=== PATIENT | female | born 1935 | race Caucasian/White ===

== ENCOUNTER 2018-08-09 12:14 | Outpatient (REF) | payer OTHER, SELFPAY | END 2018-08-09 12:34 | LOC: LBN 12:14 | PROVIDERS: PCP Nurse Practitioner Family; Visit Provider Nurse Practitioner Family | DX: R35.0 Frequency of micturition (principal); R30.0 Dysuria | CPT/HCPCS: 87086 ==

== ENCOUNTER 2018-08-15 16:43 | Outpatient (CLI) | payer OTHER, SELFPAY ==
[2018-08-15 17:19] LABS: Abs Immature Grans 0.02 k/cumm (0.0-0.09); Absolute Basophil Count 0.04 k/cumm (0.0-0.2); Absolute Eosinophil Count 0.35 k/cumm (0.0-0.7); Absolute Monocyte Count 1.38 k/cumm (0.11-0.7); Basophils % 0.3; Eosinophils % 2.8; HCT 33.6 % (36.0-46.0); HGB 10.9 g/dL (12.0-15.5); Immature Grans % 0.2; Lymphocytes % 37.7; Mean Corp. HGB Concentration 32.4 g/dL (32.0-36.0); Mean Corpuscular Hemoglobin 33.6 pg (27.0-33.0); Mean Corpuscular Volume 103.7 fL (80-95); Monocytes % 11.1; Neutrophils % 47.9; Platelet Count 217 x1000/uL (130-400); RBC 3.24 m/cumm (4.00-5.20); RBC Distribution Width 12.2 % (11.7-14.6)
[2018-08-15 17:23] LABS: Absolute Lymphocyte Count 4.67 k/cumm (1.2-3.4); Absolute Neutrophil Count 5.94 k/cumm (1.2-6.7)
[2018-08-15 18:25] LABS: Vitamin B12 273 pg/mL (193-986)
== END 2018-08-15 17:03 ==
PROVIDERS: PCP Nurse Practitioner Family; Visit Provider Nurse Practitioner Family
DX: D53.9 Nutritional anemia, unspecified (principal)
CPT/HCPCS: 36415; 82607; 85025

== ENCOUNTER 2018-08-26 11:03 | Outpatient (CLI) | payer OTHER, SELFPAY ==
[2018-08-26 12:43] LABS: ALT 24 U/L (12-78); AST 19 U/L (15-37); Albumin 3.5 g/dL (3.4-5.0); Alkaline Phosphatase 74 U/L (46-116); Bilirubin, Direct 0.07 mg/dL (0.00-0.20); Bilirubin, Total 0.2 mg/dL (0.2-1.0); TSH (W/Ref FT4) 3.73 uIU/mL (0.358-3.74); Total Protein 6.7 g/dL (6.4-8.2)
[2018-08-28 11:36] LABS: Homocysteine 13.9 umol/L (4.5-12.4)
[2018-08-30 09:43] LABS: Methylmalonic Acid 0.26 nmol/mL (<=0.40)
== END 2018-08-26 11:23 ==
PROVIDERS: PCP Nurse Practitioner Family; Visit Provider Nurse Practitioner Family
DX: D53.9 Nutritional anemia, unspecified (principal)
CPT/HCPCS: 36415; 80076; 80186; 83090; 84443

== ENCOUNTER 2018-11-18 10:10 | Outpatient (CLI) | payer OTHER, SELFPAY ==
[2018-11-18 11:02] LABS: Abs Immature Grans 0.02 k/cumm (0.0-0.09); Absolute Basophil Count 0.03 k/cumm (0.0-0.2); Absolute Eosinophil Count 0.31 k/cumm (0.0-0.7); Absolute Lymphocyte Count 2.68 k/cumm (1.2-3.4); Absolute Monocyte Count 0.75 k/cumm (0.11-0.7); Absolute Neutrophil Count 4.25 k/cumm (1.2-6.7); Basophils % 0.4; Eosinophils % 3.9; HCT 34.9 % (36.0-46.0); HGB 11.4 g/dL (12.0-15.5); Immature Grans % 0.2; Lymphocytes % 33.3; Mean Corp. HGB Concentration 32.7 g/dL (32.0-36.0); Mean Corpuscular Hemoglobin 33.2 pg (27.0-33.0); Mean Corpuscular Volume 101.7 fL (80-95); Mean Platelet Volume 11.1 fL (8.0-11.0); Monocytes % 9.3; Neutrophils % 52.9; Platelet Count 182 x1000/uL (130-400); RBC 3.43 m/cumm (4.00-5.20); RBC Distribution Width 11.8 % (11.7-14.6); White Blood Cell Count 8.04 k/cumm (4.4-10.8)
[2018-11-18 11:46] LABS: Iron 67 ug/dL (50-175); Total Iron Binding Capacity 310 ug/dL (250-450); Transferrin Sat 22 % (15-50)
[2018-11-18 12:12] LABS: ALT 17 U/L (12-78); AST 15 U/L (15-37); Albumin 3.5 g/dL (3.4-5.0); Alkaline Phosphatase 76 U/L (46-116); Anion Gap 6.3 mmol/L (3-11); BUN 23 mg/dL (7-18); Bilirubin, Total 0.3 mg/dL (0.2-1.0); CO2 26.7 mmol/L (21.0-32.0); CREATININE 1.37 mg/dL (0.55-1.02); Calcium 8.8 mg/dL (8.5-10.1); Chloride 105 mmol/L (98-107); Glucose 162 mg/dL (70-100); Magnesium 1.6 mg/dL (1.8-2.4); Potassium 4.6 mmol/L (3.5-5.1); Sodium 138 mmol/L (136-145); Total Protein 6.8 g/dL (6.4-8.2); Vitamin B12 245 pg/mL (193-986)
[2018-11-18 12:20] LABS: Folate > 20.0 ng/mL (8.6-20.0)
[2018-11-19 12:59] LABS: Albumin 57.4 % (55.8-66.1); Total Protein 6.4 g/dl (6.3-8.2)
== END 2018-11-18 10:30 ==
PROVIDERS: PCP Nurse Practitioner Family; Visit Provider Nurse Practitioner Family
DX: D53.9 Nutritional anemia, unspecified (principal); N18.9 Chronic kidney disease, unspecified; D64.9 Anemia, unspecified; E83.42 Hypomagnesemia; E11.40 Type 2 diabetes mellitus with diabetic neuropathy, unspecified; I10 Essential (primary) hypertension
CPT/HCPCS: 36415; 80053; 82668; 82607; 82746; 83540; 83550; 83735; 84165; 85025

== ENCOUNTER 2019-04-29 09:26 | Outpatient (CLI) | payer OTHER, SELFPAY ==
[2019-04-29 10:25] LABS: Abs Immature Grans 0.01 k/cumm (0.0-0.09); Absolute Basophil Count 0.03 k/cumm (0.0-0.2); Absolute Eosinophil Count 0.54 k/cumm (0.0-0.7); Absolute Monocyte Count 0.88 k/cumm (0.11-0.7); Absolute Neutrophil Count 2.23 k/cumm (1.2-6.7); Basophils % 0.4; Eosinophils % 7.3; HCT 34.2 % (36.0-46.0); HGB 10.9 g/dL (12.0-15.5); Immature Grans % 0.1; Lymphocytes % 50.1; Mean Corp. HGB Concentration 31.9 g/dL (32.0-36.0); Mean Corpuscular Hemoglobin 32.8 pg (27.0-33.0); Mean Platelet Volume 11.2 fL (8.0-11.0); Monocytes % 11.9; Neutrophils % 30.2; Platelet Count 207 x1000/uL (130-400); RBC 3.32 m/cumm (4.00-5.20); White Blood Cell Count 7.39 k/cumm (4.4-10.8)
[2019-04-29 11:52] LABS: Magnesium 1.7 mg/dL (1.8-2.4); Vitamin B12 738 pg/mL (193-986)
== END 2019-04-29 09:46 ==
PROVIDERS: PCP Nurse Practitioner Family; Visit Provider Nurse Practitioner Family
DX: E83.42 Hypomagnesemia (principal); D53.9 Nutritional anemia, unspecified
CPT/HCPCS: 36415; 82607; 83735; 85025

== ENCOUNTER 2019-05-23 15:50 | Outpatient (REF) | payer OTHER, SELFPAY ==
[2019-05-23 18:44] LABS: COMMENT (LAB VIEW ONLY) 187.96 mg/dL; Microalb ug/mg Crea 7.4 ug/mg Cr
== END 2019-05-23 16:10 ==
LOC: LBN 15:50
PROVIDERS: Visit Provider Nurse Practitioner Family
DX: E11.40 Type 2 diabetes mellitus with diabetic neuropathy, unspecified (principal)
CPT/HCPCS: 82043; 82570

== ENCOUNTER 2019-07-26 12:37 | Emergency (ER) | payer OTHER, SELFPAY ==
[2019-07-26 12:43] VITALS: BP 148/71; PULSE 91; RESP 18; TEMP 36.7; O2SAT 96
--- NOTE | 2019-07-26 14:03 | ED.GENADUL_ITS ---
Discharge Plan Disposition Patient Disposition: HOME Discharge Details Chief Complaint: Urinary Clinical Impression: Acute UTI Primary Care Provider: Francy Moran ED Provider: Mehran Collins Home Meds and New Rx's Prescriptions: New cephalexin [Keflex] 500 mg capsule 500 mg PO BID Qty: 13 RF: 0 Continued cyanocobalamin (vitamin B-12) 1,000 mcg tablet 1,000 mcg PO DAILY Qty: 30 RF: 11 magnesium oxide 400 mg capsule 400 mg PO DAILY Qty: 30 RF: 11 albuterol sulfate [ProAir HFA] 90 mcg/actuation HFA aerosol inhaler 1 - 2 puff Inhalation .Q4-6H PRN (Reason: shortness of breath or wheezing) Qty: 1 RF: 3 ranitidine HCl 150 mg tablet 150 mg PO BID Qty: 60 RF: 11 Blister johnnie-[facility] RF: 0 (DME) blood-glucose meter 1 EACH misc 1 ea Miscellaneous DAILY Qty: 1 RF: 0 calcium phosphate-vitamin D3 1 EACH tablet,chewable 1 ea PO DAILY RF: 0 multivitamin [Daily Multi-Vitamin] 1 EACH tablet 1 ea PO DAILY RF: 0 simvastatin 20 mg tablet 20 mg PO HS Qty: 90 RF: 3 glimepiride 4 mg tablet 4 mg PO DAILY Qty: 30 RF: 11 (DME) Blood Glucose Test strip See Dose Instructions .ROUTE .MEDSUPPLY Qty: 200 RF: 3 (DME) lancets misc See Dose Instructions .ROUTE .MEDSUPPLY Qty: 200 RF: 3 Symbicort 160-4.5 mcg/actuation HFA aerosol inhaler 2 puff Inhalation BID Qty: 3 RF: 3 lisinopril 10 mg tablet 10 mg PO DAILY Qty: 30 RF: 11 Januvia 100 mg tablet 100 mg PO DAILY Qty: 30 RF: 11 ferrous sulfate 325 mg (65 mg iron) tablet 325 mg PO Q48H RF: 0 metformin 500 mg tablet 1,000 mg PO BID Qty: 120 RF: 11 fluoxetine 20 mg capsule 20 mg PO DAILY Qty: 90 RF: 3 Discharge Instructions Instructions: Urinary Tract Infection in Women (ED) Additional Instructions: Please drink plenty of fluid to stay hydrated. You may wish to drink 100% pure cranberry juice which can help with treating urinary tract infections. Please take the full course of antibiotic as prescribed. Please contact your primary care physician to arrange follow-up. Return to the ER for any worsening or new concerning symptoms. Referrals: Francy Moran NP [Primary Care Provider] - Discharge Data Discharge Date/Time-TO BE ENTERED AT DEPARTURE: 07/26/19 14:38 Medical Decision Making 14:05 --83-year-old female here with dysuria, hematuria and sense of urgency since this morning. Symptoms are same as when she is had a urinary tract infection in the remote past. Plan to check urinalysis -patient is being hydrated and awaiting urine specimen. --Urinalysis reviewed and significant RBCs, unable to visualize white blood cells. Will send urine culture. Plan to treat with Keflex and have her follow- up with her primary care physician and urology should symptoms persist. Plan was dsicussed with patient who verbalized understanding and was in agreement. HPI General Mode of arrival: ambulatory . Date/Time Provider Initiated Documentation: 07/26/19 13:01 . Limitations to Documentation: no limitations . Information obtained by: patient . HPI Narrative: 83-year-old female here with chief complaint of urinary discomfort. Patient notes burning with urination that started earlier today. Pain only occurs with urination. Pain moderate. She has associated hematuria and sense of urgency also since this morning. No associate abdominal pain, fevers, flank pain. Symptoms are exactly the same as when she is had a urinary tract infection that was successfully treated with antibiotics in the past. No recent UTI. Related Data Home Medications Medication Instructions Recorded Confirmed Blister [facility] 01/11/17 02/21/19 blood-glucose meter #1 unit 01/14/18 02/21/19 calcium phosphate-vitamin D3 1 ea PO DAILY tab.chew 04/17/18 07/26/19 multivitamin [Daily Multi-Vitamin] 1 ea PO DAILY 04/17/18 07/26/19 cyanocobalamin (vitamin B-12) 1,000 mcg PO DAILY #30 tab-cap 11/22/18 07/26/19 1,000 mcg tablet magnesium oxide 400 mg PO DAILY #30 tab-cap 11/22/18 07/26/19 simvastatin 20 mg tablet 20 mg PO HS #90 tab-cap 12/09/18 07/26/19 blood sugar diagnostic #200 each 03/03/19 budesonide-formoterol HFA 160 2 puff INHALATION BID #3 inhaler 03/03/19 07/26/19 mcg-4.5 mcg/actuation aerosol inhaler glimepiride 4 mg tablet 4 mg PO DAILY #30 tab-cap 03/03/19 07/26/19 lancets #200 each 03/03/19 albuterol sulfate 90 mcg/actuation 1 - 2 puff INHALATION .Q4-6H PRN 05/23/19 07/26/19 aerosol inhaler #1 unit ranitidine HCl 150 mg tablet 150 mg PO BID #60 tab-cap 05/23/19 07/26/19 lisinopril 10 mg tablet 10 mg PO DAILY #30 tab-cap 05/30/19 07/26/19 sitagliptin 100 mg tablet 100 mg PO DAILY #30 tab-cap 05/30/19 07/26/19 ferrous sulfate 325 mg (65 mg 325 mg PO Q48H tab 06/18/19 07/26/19 iron) tablet metformin 500 mg tablet 1,000 mg PO BID #120 tab-cap 07/04/19 07/26/19 fluoxetine 20 mg capsule 20 mg PO DAILY #90 cap 07/07/19 07/26/19 cephalexin [Keflex] 500 mg PO BID #13 cap 07/26/19 Previous Rx's Medication Instructions Recorded blood-glucose meter #1 unit 01/14/18 cyanocobalamin (vitamin B-12) 1,000 mcg PO DAILY #30 tab-cap 11/22/18 1,000 mcg tablet magnesium oxide 400 mg PO DAILY #30 tab-cap 11/22/18 simvastatin 20 mg tablet 20 mg PO HS #90 tab-cap 12/09/18 blood sugar diagnostic #200 each 03/03/19 budesonide-formoterol HFA 160 2 puff INHALATION BID #3 inhaler 03/03/19 mcg-4.5 mcg/actuation aerosol inhaler glimepiride 4 mg tablet 4 mg PO DAILY #30 tab-cap 03/03/19 lancets #200 each 03/03/19 albuterol sulfate 90 mcg/actuation 1 - 2 puff INHALATION .Q4-6H PRN 05/23/19 aerosol inhaler #1 unit ranitidine HCl 150 mg tablet 150 mg PO BID #60 tab-cap 05/23/19 lisinopril 10 mg tablet 10 mg PO DAILY #30 tab-cap 05/30/19 sitagliptin 100 mg tablet 100 mg PO DAILY #30 tab-cap 05/30/19 metformin 500 mg tablet 1,000 mg PO BID #120 tab-cap 07/04/19 fluoxetine 20 mg capsule 20 mg PO DAILY #90 cap 07/07/19 cephalexin [Keflex] 500 mg PO BID #13 cap 07/26/19 Allergies Allergy/AdvReac Type Severity Reaction Status Date / Time azithromycin AdvReac Unknown nausea Verified 07/26/19 12:49 erythromycin base AdvReac Unknown Nausea Verified 07/26/19 12:49 shellfish derived AdvReac Unknown N/V/D Verified 07/26/19 12:49 Tetracyclines AdvReac Unknown Nausea Verified 07/26/19 12:49 General Stated Complaint: Urinary SAM: 4 Review of Systems Constitutional Constitutional: Denies fever(s) Gastrointestinal Gastrointestinal: Denies abdominal pain Genitourinary Genitourinary: Reports as per [facility] Medical History Anxiety (Chronic 11/21/11) Cerebral meningioma Cerebral meningioma (Resolved 01/31/13) 2004 Craniotomy, resection of frontal mennigioma [facility] [place] Chronic diarrhea (Inactive 01/24/18) CKD (chronic kidney disease) (Chronic) Closed nondisplaced comminuted fracture of shaft of left humerus (Resolved 05/26/16) Diabetic neuropathy, type II diabetes mellitus (Chronic 08/12/14) Gastroesophageal reflux disease (Chronic 11/21/11) GERD (gastroesophageal reflux disease) Heart murmur (Chronic 08/24/17) 09/12/2017 echo: no significant valvular disease HLD (hyperlipidemia) HTN (hypertension) Hyperlipidemia (Chronic 11/21/11) GOAL LDL 100 Hypomagnesemia (Chronic 03/14/18) Macrocytic anemia (Chronic) Borderline low B12 level, normal Epo (suggesting due to CKD as well) Neoplasm of skin (Resolved 08/26/14) Osteoporosis Osteoporosis (Chronic 07/12/16) DEXA 07/11/16 Hip T-3.2, Spine T-1.5, forearm T-3.5 Other diseases of lung, not elsewhere classified (Chronic 11/21/11) rt 4mm ct stable 08/17; restrictive lung disease, neuromuscular weakness etiol? Dr Patel follows PFTs 08/2013 restrictive 47% NM weakness + response BD Other disorders of Eustachian tube (Chronic 09/07/14) Pneumonia Restrictive lung disease Type 2 diabetes mellitus with diabetic neuropathy, without long-term current use of insulin (Chronic) Unspecified essential hypertension (Chronic 01/31/13) Surgical History irrigation and debridement (Resolved 10/05/15) R wrist Dr Lafleur Splenomegaly Family History Mother Personal history of malignant neoplasm breast and ovarian CA Father Myocardial infarction Social History Smoking/Tobacco Use Status: Never Alcohol Intake: never Drug use: Never Substance use type: does not use Caregiver/Support person: No Housing: apartment Number of Children: 3 number of grandchildren: 5 Pets and animals: No Sexually active: No Current gender identity: female What type of physical activity do you participate in: walking Frequency: daily Do you feel safe at home: Yes Exam Const General: cooperative and no acute distress HENMT Mouth: moist mucous membranes Cardio Jugular venous pressure: no JVD Rate: regular rate and not tachycardic Rhythm: regular rhythm GI Palpation: soft, not firm, no guarding, no masses, not rigid and nontender Back/Spine/Pelvis Back: no CVA tenderness Neuro General: alert, awake and tone normal Course Vital Signs Vital signs: Vital Signs Temperature 36.7 C 07/26/19 12:43 Pulse 91 H 07/26/19 12:43 Respiratory Rate 18 07/26/19 12:43 Blood Pressure 148/71 H 07/26/19 12:43 Pulse Oximetry 96 07/26/19 12:43 Temperature 36.7 C 07/26/19 12:43 Temperature Source Skin 07/26/19 12:43 Pulse 91 H 07/26/19 12:43 Respiratory Rate 18 07/26/19 12:43 Respiratory Effort Non-Labored 07/26/19 12:47 Blood Pressure 148/71 H 07/26/19 12:43 Pulse Oximetry 96 07/26/19 12:43 Oxygen Delivery Method Nasal Cannula 07/26/19 12:43 Pain Level 0 07/26/19 12:43
[2019-07-26 14:07] LABS: Bilirubin Negative (Negative); Blood Large (Negative); Clarity Cloudy (Clear); Glucose 500 mg/dL (Negative); Ketones Negative (Negative); Leukocyte Esterase Small (Negative); Nitrite Negative (Negative); Specific Gravity >= 1.030 (1.005-1.025); Urobilinogen 0.2 EU/dL (Up TO 0.2); pH 5.5 (5-8)
[2019-07-26 14:18] LABS: C & S Indicated? Yes
[2019-07-26] MEDS: Cephalexin 500 MG CAP PO (14:35)
== END 2019-07-26 14:38 | disposition home or self-care (01) ==
PROVIDERS: Emergency Provider Student in an Organized Health Care Education/Training Program; PCP Nurse Practitioner Family
DX: N39.0 Urinary tract infection, site not specified (principal); R31.9 Hematuria, unspecified; I12.9 Hypertensive chronic kidney disease with stage 1 through stage 4 chronic kidney disease, or unspecified chronic kidney disease; N18.9 Chronic kidney disease, unspecified; E11.22 Type 2 diabetes mellitus with diabetic chronic kidney disease; Z79.84 Long term (current) use of oral hypoglycemic drugs
CPT/HCPCS: 36416; 82962; 99283; 81003; 81015; 87086

== ENCOUNTER 2019-09-17 09:22 | Outpatient (CLI) | payer OTHER, SELFPAY ==
[2019-09-17 09:42] LABS: Abs Immature Grans 0.01 k/cumm (0.0-0.09); Absolute Basophil Count 0.04 k/cumm (0.0-0.2); Absolute Eosinophil Count 0.59 k/cumm (0.0-0.7); Absolute Lymphocyte Count 3.65 k/cumm (1.2-3.4); Absolute Monocyte Count 0.81 k/cumm (0.11-0.7); Absolute Neutrophil Count 4.76 k/cumm (1.2-6.7); Basophils % 0.4; Immature Grans % 0.1; Mean Corp. HGB Concentration 31.4 g/dL (32.0-36.0); Mean Corpuscular Hemoglobin 32.8 pg (27.0-33.0); Mean Corpuscular Volume 104.5 fL (80-95); Mean Platelet Volume 10.5 fL (8.0-11.0); Monocytes % 8.2; Neutrophils % 48.3; Platelet Count 221 x1000/uL (130-400); RBC 3.35 m/cumm (4.00-5.20); RBC Distribution Width 12.6 % (11.7-14.6); White Blood Cell Count 9.86 k/cumm (4.4-10.8)
[2019-09-17 10:10] LABS: Ferritin 29 ng/mL (8-388)
== END 2019-09-17 09:42 ==
PROVIDERS: PCP Nurse Practitioner Family; Visit Provider Internal Medicine Hematology & Oncology
DX: D64.9 Anemia, unspecified (principal)
CPT/HCPCS: 36415; 82728; 85025

== ENCOUNTER 2019-12-06 10:25 | Emergency (ER) | payer OTHER, SELFPAY ==
[2019-12-06 10:36] VITALS: BP 152/67; PULSE 72; RESP 16; TEMP 36; O2SAT 99
[2019-12-06 10:38] LABS: Bilirubin Negative (Negative); Blood Moderate (Negative); Clarity Clear (Clear); Glucose 250 mg/dL (Negative); Ketones Negative (Negative); Leukocyte Esterase Trace (Negative); Nitrite Negative (Negative); Specific Gravity >= 1.030 (1.005-1.025); Urobilinogen 0.2 EU/dL (Up TO 0.2); pH 5.5 (5-8)
[2019-12-06 10:49] LABS: Bacteria Moderate HPF (Negative); C & S Indicated? Yes; Casts 0-2 Hyaline LPF (Negative); Crystals Negative HPF (Negative); Epithelial Cells Few HPF (Negative); Mucus Moderate (Negative)
--- NOTE | 2019-12-06 10:53 | ED.GENADUL_ITS ---
Discharge Plan Disposition Patient Disposition: HOME Condition: Good Discharge Details Chief Complaint: Urinary Clinical Impression: Urinary tract infection Primary Care Provider: Francy Moran ED Provider: Carla Weldon Home Meds and New Rx's Prescriptions: New cephalexin [Keflex] 500 mg capsule 500 mg PO TID Qty: 21 RF: 0 phenazopyridine [Pyridium] 200 mg tablet 200 mg PO TID PRN (Reason: pain) Qty: 6 RF: 0 No Action albuterol sulfate [ProAir HFA] 90 mcg/actuation HFA aerosol inhaler 1 - 2 puff Inhalation .Q4-6H PRN (Reason: shortness of breath or wheezing) Qty: 1 RF: 3 ranitidine HCl 150 mg tablet 150 mg PO BID Qty: 60 RF: 11 Blister johnnie-[facility] RF: 0 (DME) blood-glucose meter 1 EACH misc 1 ea Miscellaneous DAILY Qty: 1 RF: 0 calcium phosphate-vitamin D3 1 EACH tablet,chewable 1 ea PO DAILY RF: 0 multivitamin [Daily Multi-Vitamin] 1 EACH tablet 1 ea PO DAILY RF: 0 glimepiride 4 mg tablet 4 mg PO DAILY Qty: 30 RF: 11 (DME) Blood Glucose Test strip See Dose Instructions .ROUTE .MEDSUPPLY Qty: 200 RF: 3 (DME) lancets misc See Dose Instructions .ROUTE .MEDSUPPLY Qty: 200 RF: 3 Symbicort 160-4.5 mcg/actuation HFA aerosol inhaler 2 puff Inhalation BID Qty: 3 RF: 3 lisinopril 10 mg tablet 10 mg PO DAILY Qty: 30 RF: 11 Januvia 100 mg tablet 100 mg PO DAILY Qty: 30 RF: 11 ferrous sulfate 325 mg (65 mg iron) tablet 325 mg PO Q48H RF: 0 metformin 500 mg tablet 1,000 mg PO BID Qty: 120 RF: 11 fluoxetine 20 mg capsule 20 mg PO DAILY Qty: 90 RF: 3 cyanocobalamin (vitamin B-12) 1,000 mcg tablet 1,000 mcg PO DAILY Qty: 30 RF: 11 magnesium oxide 400 mg magnesium capsule 400 mg PO DAILY Qty: 30 RF: 11 simvastatin 20 mg tablet 20 mg PO HS Qty: 30 RF: 11 Discharge Instructions Instructions: Urinary Tract Infection in Women (ED) Additional Instructions: Drink plenty of fluids. Use antibiotic as prescribed. Closely monitor your blood sugars. Use Pyridium for discomfort, this will stain your urine a reddish-orange this is used for the first 2 days to help alleviate your pain. Recheck with primary care doctor in 1 week. Urine culture pending. We will call if we require a change in your antibiotics. Return for any worsening, concerns, alarming symptoms or increase in ill feeling sooner if needed. Medical Decision Making This is an 84-year-old patient presenting for dysuria for the last 2 days. Yet reports urinary urgency and frequency. Patient denies associated hematuria or incontinence. Denies abdominal or back pain. Has a benign abdominal exam at this time. Urinalysis does reveal positive leukocyte esterase as well as 10-20 white blood cells per high-powered field. Patient reports her clinical presentation is very typical of UTI in the past. Patient denies any systemic symptoms. Is not ill-appearing and appears nontoxic. We will treat appropriately with antibiotic. Urine culture is indicated based on urinalysis. Patient offered Keflex as well as Pyridium for management of UTI encourage pushing fluids. Patient agrees with plan of care. Close blood sugar monitoring discussed. Encouraged recheck in 1 week with PCP. The patient was stable and requested discharge. Prior to discharge, my usual and customary return precautions were reviewed with the patient - this included follow-up instructions and reasons to return to the Emergency Department if conditions worsens, does not improve as expected, or other new concerns arise. HPI General Date/Time Provider Initiated Documentation: 12/06/19 10:27 . HPI Narrative: Is an 84-year-old patient presenting for complaints of dysuria for the last 2 days associated with urinary urgency and frequency. Denies incontinence or hematuria. Denies abdominal or back pain. Denies malaise, ill feeling, fevers, chills. Patient is eating and drinking without difficulty. Patient does have a history of UTI in the past and this feels similar in presentation. Last UTI approximately 6 months ago relieved with antibiotics prescribed. Patient denies any other concerns or complaints at this time. Related Data Home Medications Medication Instructions Recorded Confirmed Blister [facility] 01/11/17 02/21/19 blood-glucose meter #1 unit 01/14/18 02/21/19 calcium phosphate-vitamin D3 1 ea PO DAILY tab.chew 04/17/18 12/06/19 multivitamin [Daily Multi-Vitamin] 1 ea PO DAILY 04/17/18 12/06/19 blood sugar diagnostic #200 each 03/03/19 budesonide-formoterol HFA 160 2 puff INHALATION BID #3 inhaler 03/03/19 12/06/19 mcg-4.5 mcg/actuation aerosol inhaler glimepiride 4 mg tablet 4 mg PO DAILY #30 tab-cap 03/03/19 12/06/19 lancets #200 each 03/03/19 albuterol sulfate 90 mcg/actuation 1 - 2 puff INHALATION .Q4-6H PRN 05/23/19 12/06/19 aerosol inhaler #1 unit ranitidine HCl 150 mg tablet 150 mg PO BID #60 tab-cap 05/23/19 12/06/19 lisinopril 10 mg tablet 10 mg PO DAILY #30 tab-cap 05/30/19 12/06/19 sitagliptin 100 mg tablet 100 mg PO DAILY #30 tab-cap 05/30/19 12/06/19 ferrous sulfate 325 mg (65 mg 325 mg PO Q48H tab 06/18/19 12/06/19 iron) tablet metformin 500 mg tablet 1,000 mg PO BID #120 tab-cap 07/04/19 12/06/19 fluoxetine 20 mg capsule 20 mg PO DAILY #90 cap 07/07/19 12/06/19 cyanocobalamin (vitamin B-12) 1,000 mcg PO DAILY #30 tab-cap 11/26/19 1,000 mcg tablet magnesium oxide 400 mg PO DAILY #30 tab-cap 11/26/19 12/06/19 simvastatin 20 mg tablet 20 mg PO HS #30 tab-cap 11/26/19 12/06/19 cephalexin [Keflex] 500 mg PO TID #21 cap 12/06/19 phenazopyridine [Pyridium] 200 mg PO TID PRN #6 tab 12/06/19 Previous Rx's Medication Instructions Recorded blood-glucose meter #1 unit 01/14/18 blood sugar diagnostic #200 each 03/03/19 budesonide-formoterol HFA 160 2 puff INHALATION BID #3 inhaler 03/03/19 mcg-4.5 mcg/actuation aerosol inhaler glimepiride 4 mg tablet 4 mg PO DAILY #30 tab-cap 03/03/19 lancets #200 each 03/03/19 albuterol sulfate 90 mcg/actuation 1 - 2 puff INHALATION .Q4-6H PRN 05/23/19 aerosol inhaler #1 unit ranitidine HCl 150 mg tablet 150 mg PO BID #60 tab-cap 05/23/19 lisinopril 10 mg tablet 10 mg PO DAILY #30 tab-cap 05/30/19 sitagliptin 100 mg tablet 100 mg PO DAILY #30 tab-cap 05/30/19 metformin 500 mg tablet 1,000 mg PO BID #120 tab-cap 07/04/19 fluoxetine 20 mg capsule 20 mg PO DAILY #90 cap 07/07/19 cyanocobalamin (vitamin B-12) 1,000 mcg PO DAILY #30 tab-cap 11/26/19 1,000 mcg tablet magnesium oxide 400 mg PO DAILY #30 tab-cap 11/26/19 simvastatin 20 mg tablet 20 mg PO HS #30 tab-cap 11/26/19 cephalexin [Keflex] 500 mg PO TID #21 cap 12/06/19 phenazopyridine [Pyridium] 200 mg PO TID PRN #6 tab 12/06/19 Allergies Allergy/AdvReac Type Severity Reaction Status Date / Time azithromycin AdvReac Unknown nausea Verified 12/06/19 10:39 erythromycin base AdvReac Unknown Nausea Verified 12/06/19 10:39 shellfish derived AdvReac Unknown N/V/D Verified 12/06/19 10:39 Tetracyclines AdvReac Unknown Nausea Verified 12/06/19 10:39 General Stated Complaint: Urinary SAM: 4 Review of Systems All systems reviewed & are unremarkable except as noted in HPI and below Constitutional Constitutional: Denies chills, Denies fatigue, Denies fever(s), Denies headache(s) and Denies malaise ENT Ears, Nose, Mouth, and Throat: Denies headache(s) Gastrointestinal Gastrointestinal: Denies abdominal pain, Denies diarrhea, Denies nausea and Denies vomiting Genitourinary Genitourinary: Reports urinary frequency, Reports dysuria and Reports urinary urgency Musculoskeletal Musculoskeletal: Denies back pain Neurologic Neurologic: Denies headache(s) Endocrine Endocrine: Denies fatigue [facility] Medical History Anxiety (Chronic 11/21/11) Cerebral meningioma (Resolved 01/31/13) 2004 Craniotomy, resection of frontal mennigioma [facility] [place] Chronic diarrhea (Inactive 01/24/18) CKD (chronic kidney disease) (Chronic) Closed nondisplaced comminuted fracture of shaft of left humerus (Resolved 05/26/16) Diabetic neuropathy, type II diabetes mellitus (Chronic 08/12/14) Gastroesophageal reflux disease (Chronic 11/21/11) Heart murmur (Chronic 08/24/17) 09/12/2017 echo: no significant valvular disease HLD (hyperlipidemia) Hyperlipidemia (Chronic 11/21/11) GOAL LDL 100 Hypomagnesemia (Chronic 03/14/18) Macrocytic anemia (Chronic) Borderline low B12 level, normal Epo (suggesting due to CKD as well); 06/16/2019 [facility] [place]ematology consult: multifactorial & recommended Q48H iron supplement Neoplasm of skin (Resolved 08/26/14) Osteoporosis (Chronic 07/12/16) DEXA 07/11/16 Hip T-3.2, Spine T-1.5, forearm T-3.5 Other diseases of lung, not elsewhere classified (Chronic 11/21/11) rt 4mm ct stable 08/17; restrictive lung disease, neuromuscular weakness etiol? Dr Patel follows PFTs 08/2013 restrictive 47% NM weakness + response BD Other disorders of Eustachian tube (Chronic 09/07/14) Pneumonia Restrictive lung disease Type 2 diabetes mellitus with diabetic neuropathy, without long-term current use of insulin (Chronic) Unspecified essential hypertension (Chronic 01/31/13) Surgical History irrigation and debridement (Resolved 10/05/15) R wrist Dr Lafleur Splenomegaly Social History Smoking/Tobacco Use Status: Never Alcohol Intake: never Drug use: Never Substance use type: does not use Caregiver/Support person: No Housing: apartment Number of Children: 3 number of grandchildren: 5 Pets and animals: No Sexually active: No Current gender identity: female What type of physical activity do you participate in: walking Frequency: daily Do you feel safe at home: Yes Exam Narrative Exam Narrative: CONST: Healthy appearing patient, in no acute distress. Well hydrated. Alert and oriented. Back no CVA tenderness bilaterally. GI: Abdomen is soft, nontender. No peritoneal signs, rebound or guarding. MUSCULOSKELETAL: Normal Gait. FROM of all extremities. SKIN: Normal. Dry. No rashes. NEURO: Alert and awake. Speech clear. PSYCH: Normal affect. Cooperative. Course Vital Signs Vital signs: Vital Signs Temperature 36 C L 12/06/19 10:36 Pulse 72 12/06/19 10:36 Respiratory Rate 16 12/06/19 10:36 Blood Pressure 152/67 H 12/06/19 10:36 Pulse Oximetry 99 12/06/19 10:36 Temperature 36 C L 12/06/19 10:36 Temperature Source Skin 12/06/19 10:36 Pulse 72 12/06/19 10:36 Respiratory Rate 16 12/06/19 10:36 Respiratory Effort Non-Labored 12/06/19 10:36 Blood Pressure 152/67 H 12/06/19 10:36 Blood Pressure Position Sitting 12/06/19 10:36 Pulse Oximetry 99 12/06/19 10:36 Pain Level 0 12/06/19 10:48 Lab/Test Results Lab/Test Results: 12/06/19 10:32 Urine - Reflex from Ua Urine Culture - Pending Laboratory Tests Range/Units 12/06/19 10:32 Urine Color (Yellow) Yellow Urine Clarity (Clear) Clear Urine pH (5-8) 5.5 Ur Specific [place] (1.005-1.025) >= 1.030 H Urine Protein (Negative) mg/dL 30 H Urine Ketones (Negative) mg/dL Negative Urine Blood (Negative) Moderate H Urine Nitrite (Negative) Negative Urine Bilirubin (Negative) Negative Urine Urobilinogen (Up TO 0.2) EU/dL 0.2 Ur Leukocyte Esterase (Negative) Trace H Urine RBC (0-2) HPF 5-10 H Urine WBC (0-5) HPF 10-20 H Ur Epithelial Cells (Negative) HPF Few Urine Crystals (Negative) HPF Negative Urine Bacteria (Negative) HPF Moderate Urine Casts (Negative) LPF 0-2 hyaline Urine Mucus (Negative) Moderate Ur Culture Indicated? Yes Urine Glucose (Negative) mg/dL 250 H
[2019-12-06 11:18] VITALS: BP 152/67; PULSE 72; RESP 16; TEMP 36; O2SAT 99
== END 2019-12-06 11:18 | disposition home or self-care (01) ==
PROVIDERS: Emergency Provider Physician Assistant; PCP Nurse Practitioner Family
DX: N39.0 Urinary tract infection, site not specified (principal); B96.1 Klebsiella pneumoniae [K. pneumoniae] as the cause of diseases classified elsewhere; E11.42 Type 2 diabetes mellitus with diabetic polyneuropathy; E11.22 Type 2 diabetes mellitus with diabetic chronic kidney disease; N18.9 Chronic kidney disease, unspecified; I12.9 Hypertensive chronic kidney disease with stage 1 through stage 4 chronic kidney disease, or unspecified chronic kidney disease
CPT/HCPCS: 87077; 99283; 81003; 81015; 87086; 87186

== ENCOUNTER 2020-01-23 14:35 | Outpatient (REF) | payer OTHER, SELFPAY | END 2020-01-23 14:55 | LOC: LBO 14:35 | PROVIDERS: PCP Nurse Practitioner Family; Visit Provider Nurse Practitioner Family | DX: N39.0 Urinary tract infection, site not specified (principal); R31.9 Hematuria, unspecified; R39.15 Urgency of urination | CPT/HCPCS: 87077; 87086; 87186 ==

== ENCOUNTER 2020-06-04 14:33 | Outpatient (REF) | payer OTHER, SELFPAY ==
[2020-06-04 20:00] LABS: Microalb ug/mg Crea 17.5 ug/mg Cr
== END 2020-06-04 14:53 ==
LOC: LBN 14:33
PROVIDERS: PCP Nurse Practitioner Family; Visit Provider Nurse Practitioner Family
DX: E11.40 Type 2 diabetes mellitus with diabetic neuropathy, unspecified (principal)
CPT/HCPCS: 82043; 82570

== ENCOUNTER 2020-12-21 02:31 | Outpatient (CLI) | payer OTHER, SELFPAY ==
[2020-12-21 10:06] LABS: ALT 19 U/L (14-59); AST 13 U/L (15-37); Albumin 3.6 g/dL (3.4-5.0); Alkaline Phosphatase 88 U/L (46-116); Anion Gap 6.8 mmol/L (3-11); BUN 22 mg/dL (7-18); Bilirubin, Total 0.2 mg/dL (0.2-1.0); CO2 27.2 mmol/L (21.0-32.0); CREATININE 1.6 mg/dL (0.55-1.02); Calcium 8.8 mg/dL (8.5-10.1); Calculated LDL 68 mg/dL (<100); Chloride 104 mmol/L (98-107); Cholesterol 144 mg/dL (<200); Estimated GFR 30.78 (mL/min/1.73m2); Glucose 160 mg/dL (74-106); HDL Cholesterol 53 mg/dL (40-60); Potassium 5.5 mmol/L (3.5-5.1); Sodium 138 mmol/L (136-145); Total Protein 6.9 g/dL (6.4-8.2); Triglyceride 118 mg/dL (<150)
== END 2020-12-21 02:32 | disposition home or self-care (01) ==
LOC: LBO 02:31
PROVIDERS: PCP Nurse Practitioner Family; Visit Provider Nurse Practitioner Family
DX: E11.9 Type 2 diabetes mellitus without complications (principal); I10 Essential (primary) hypertension; N18.9 Chronic kidney disease, unspecified; E78.5 Hyperlipidemia, unspecified; E83.42 Hypomagnesemia
CPT/HCPCS: 36415; 80053; 80061; 83735

== ENCOUNTER 2020-12-24 12:04 | Outpatient (REF) | payer OTHER, SELFPAY ==
[2020-12-24 18:13] LABS: Abs Immature Grans 0.02 10^3/uL (0.0-0.06); Absolute Basophil Count 0.05 10^3/uL (0.0-0.2); Absolute Eosinophil Count 0.24 10^3/uL (0.0-0.7); Absolute Lymphocyte Count 4.22 10^3/uL (1.2-3.4); Absolute Monocyte Count 1.03 10^3/uL (0.1-0.8); Absolute Neutrophil Count 3.97 10^3/uL (1.2-6.7); Basophils % 0.5; Eosinophils % 2.5; HCT 32.8 % (36.0-46.0); HGB 10.6 g/dL (11.2-15.7); Immature Grans % 0.2; Lymphocytes % 44.3; MCH 32.9 pg (27.0-33.0); MCHC 32.3 % (32.0-36.0); MCV 101.9 fL (80-95); MPV 11.1 fL (8.0-11.0); Monocytes % 10.8; Neutrophils % 41.7; Nucleated RBC 0 %; Platelet Count 229 10^3/uL (130-400); RBC 3.22 10^6/uL (3.93-5.22); RDW-SD 45.4 fL; WBC 9.53 10^3/uL (4.4-10.8)
[2020-12-24 18:48] LABS: Magnesium 2.1 mg/dL (1.8-2.4)
[2020-12-24 19:18] LABS: Potassium 6.2 mmol/L (3.5-5.1)
== END 2020-12-24 12:05 | disposition home or self-care (01) ==
LOC: LBN 12:04
PROVIDERS: PCP Nurse Practitioner Family; Visit Provider Nurse Practitioner Family
DX: E87.5 Hyperkalemia (principal); D53.9 Nutritional anemia, unspecified; N18.30 Chronic kidney disease, stage 3 unspecified
CPT/HCPCS: 83735; 84132; 85025

== ENCOUNTER 2020-12-25 12:08 | Emergency (ER) | payer OTHER, SELFPAY ==
[2020-12-25] VITALS (17 sets, daily range): BP systolic 153–165; BP diastolic 49–72; PULSE 60–98; RESP 15–23; TEMP 36.7; O2SAT 95–99
--- NOTE | 2020-12-25 12:15 | RT.EKG_ITS ---
APPROVED REPORT Exam: Resting ECG Patient Location: E HR:62 bpm ECG Measurements Heart Rate 62 AXIS AL 145 P 70 QRSd 77 QRS 54 QT 408 T 60 QTc 416 Conclusion Sinus rhythm...normal P axis, V-rate 60- 99
--- NOTE | 2020-12-25 12:49 | ED.GENADUL_ITS ---
Discharge Plan Disposition Patient Disposition: HOME Condition: Stable Discharge Details Clinical Impression: Acute hyperkalemia Primary Care Provider: Francy Moran ED Provider: Mehran Collins Home Meds and New Rx's Prescriptions: Continued albuterol sulfate [ProAir HFA] 90 mcg/actuation HFA aerosol inhaler 1 - 2 puff Inhalation .Q4-6H PRN (Reason: shortness of breath or wheezing) Qty: 1 RF: 3 (DME) Blood Glucose Test Strip See Dose Instructions .ROUTE .MEDSUPPLY Qty: 100 RF: 3 (DME) blood-glucose meter 1 EACH misc 1 ea Miscellaneous DAILY Qty: 1 RF: 0 calcium phosphate-vitamin D3 1 EACH tablet,chewable 1 ea PO DAILY RF: 0 multivitamin [Daily Multi-Vitamin] 1 EACH tablet 1 ea PO DAILY RF: 0 ferrous sulfate 325 mg (65 mg iron) tablet 325 mg PO Q48H RF: 0 budesonide-formoterol [Symbicort] 160-4.5 mcg/actuation HFA aerosol inhaler 2 puff Inhalation BID Qty: 3 RF: 3 glimepiride 4 mg tablet 4 mg PO DAILY Qty: 30 RF: 11 (DME) lancets Misc See Dose Instructions .ROUTE .MEDSUPPLY Qty: 200 RF: 3 famotidine 40 mg tablet 40 mg PO DAILY Qty: 30 RF: 11 metformin 500 mg tablet 1,000 mg PO BID Qty: 120 RF: 11 Januvia 100 mg tablet 100 mg PO DAILY Qty: 30 RF: 11 fluoxetine 20 mg capsule 20 mg PO DAILY Qty: 90 RF: 3 simvastatin 20 mg tablet 20 mg PO HS Qty: 90 RF: 3 cyanocobalamin (vitamin B-12) 1,000 mcg tablet 1,000 mcg PO DAILY Qty: 30 RF: 11 magnesium oxide 400 mg magnesium capsule 400 mg PO DAILY Qty: 30 RF: 11 No Action lisinopril 10 mg tablet 10 mg PO DAILY Qty: 30 RF: 11 Discharge Instructions Instructions: Hyperkalemia (ED) Additional Instructions: Please hold your lisinopril until further instructions from your primary care physician. Call your primary care physician first thing on Sunday morning to arrange timely follow-up. Do not consume any bananas. Drink plenty of water. You should have blood redrawn tomorrow afternoon to ensure that potassium level continues to decrease. Please contact your primary care physician to arrange follow-up. Return to the ER for any worsening or new concerning symptoms. Referrals: Francy Moran NP [Primary Care Provider] - Medical Decision Making 85-year-old female here with hyperkalemia noted outpatient routine labs. Potassium was 6.4 yesterday. Labs repeated today and potassium remains elevated at 5.8. Screening ECG was reviewed and interpreted by me: Sinus rhythm 62 bpm, PTs are noted inferior laterally slightly more pronounced although present on prior ECG than from 11/20/2016. Plan will be to initiate treatment for hyperkalemia with veltassa. I called and spoke with front edger hospitalist Dr. Mendoza and discussed ED presentaion and course with consideration for admission. He reviewed ECG and labs and recommends discharge with close outpatient followup, repeat labs and hold lisinopril. I will give single dose of veltassa here. Plan discussed with patient and daughter. Disposition decision was made weighing the risks and benefits of hospitalization versus outpatient treatment, the risk for further decompensation, and the patient's wishes. The patient was stable and requested discharge. Prior to discharge, my usual and customary return precautions were reviewed with the patient - this included follow-up instructions and reason to return to the emergency department if condition worsens, does not improve as expected, or other new concerns arise. HPI General Mode of arrival: ambulatory . Date/Time Provider Initiated Documentation: 12/25/20 12:17 . Limitations to Documentation: no limitations . Information obtained by: patient . HPI Narrative: 85-year-old female with multiple medical problems including history of chronic kidney disease, diabetes, hyperlipidemia, hypertension, presents with chief complaint of elevated potassium. Patient saw her PCP for routine visit this week and had blood work done. She was notified today that her potassium was elevated and she was told to come to the emergency department for recheck. Patient states potassium noted to be significantly elevated. No modifiers. No associated palpitations. She has no nausea or vomiting. She does note that she eats banana every other day. No potassium supplementation. She has had normal urinary output. Related Data Home Medications Medication Instructions Recorded Confirmed blood-glucose meter #1 unit 01/14/18 12/24/20 calcium phosphate-vitamin D3 1 ea PO DAILY tab.chew 04/17/18 12/25/20 multivitamin [Daily Multi-Vitamin] 1 ea PO DAILY 04/17/18 12/25/20 ferrous sulfate 325 mg (65 mg 325 mg PO Q48H tab 06/18/19 12/25/20 iron) tablet budesonide-formoterol HFA 160 2 puff INHALATION BID #3 inhaler 02/23/20 12/25/20 mcg-4.5 mcg/actuation aerosol inhaler famotidine 40 mg tablet 40 mg PO DAILY #30 tab 02/23/20 12/25/20 glimepiride 4 mg tablet 4 mg PO DAILY #30 tab-cap 02/23/20 12/25/20 lancets #200 each 02/23/20 12/24/20 albuterol sulfate 90 mcg/actuation 1 - 2 puff INHALATION .Q4-6H PRN 02/27/20 12/25/20 aerosol inhaler #1 unit blood sugar diagnostic #100 each 02/27/20 12/24/20 lisinopril 10 mg tablet 10 mg PO DAILY #30 tab-cap 05/17/20 12/24/20 metformin 500 mg tablet 1,000 mg PO BID #120 tab-cap 05/17/20 12/25/20 sitagliptin 100 mg tablet 100 mg PO DAILY #30 tab-cap 05/17/20 12/25/20 fluoxetine 20 mg capsule 20 mg PO DAILY #90 cap 06/11/20 12/25/20 simvastatin 20 mg tablet 20 mg PO HS #90 tab-cap 10/04/20 12/25/20 cyanocobalamin (vitamin B-12) 1,000 mcg PO DAILY #30 tab-cap 11/17/20 12/25/20 1,000 mcg tablet magnesium oxide 400 mg PO DAILY #30 tab-cap 11/17/20 12/25/20 Previous Rx's Medication Instructions Recorded blood-glucose meter #1 unit 01/14/18 budesonide-formoterol HFA 160 2 puff INHALATION BID #3 inhaler 02/23/20 mcg-4.5 mcg/actuation aerosol inhaler famotidine 40 mg tablet 40 mg PO DAILY #30 tab 02/23/20 glimepiride 4 mg tablet 4 mg PO DAILY #30 tab-cap 02/23/20 lancets #200 each 02/23/20 albuterol sulfate 90 mcg/actuation 1 - 2 puff INHALATION .Q4-6H PRN 02/27/20 aerosol inhaler #1 unit blood sugar diagnostic #100 each 02/27/20 lisinopril 10 mg tablet 10 mg PO DAILY #30 tab-cap 05/17/20 metformin 500 mg tablet 1,000 mg PO BID #120 tab-cap 05/17/20 sitagliptin 100 mg tablet 100 mg PO DAILY #30 tab-cap 05/17/20 fluoxetine 20 mg capsule 20 mg PO DAILY #90 cap 06/11/20 simvastatin 20 mg tablet 20 mg PO HS #90 tab-cap 10/04/20 cyanocobalamin (vitamin B-12) 1,000 mcg PO DAILY #30 tab-cap 11/17/20 1,000 mcg tablet magnesium oxide 400 mg PO DAILY #30 tab-cap 11/17/20 Allergies Allergy/AdvReac Type Severity Reaction Status Date / Time azithromycin AdvReac Unknown nausea Verified 12/25/20 12:25 erythromycin base AdvReac Unknown Nausea Verified 12/25/20 12:25 shellfish derived AdvReac Unknown N/V/D Verified 12/25/20 12:25 Tetracyclines AdvReac Unknown Nausea Verified 12/25/20 12:25 General Stated Complaint: GenMedical SAM: 3 Review of Systems All systems reviewed & are unremarkable except as noted in HPI and below Constitutional Constitutional: Denies fever(s) and Denies weakness Genitourinary Genitourinary: Reports as per HPI Neurologic Neurologic: Denies weakness [facility] Medical History (Updated 12/25/20 @ 13:51 by Mehran Collins MD) Anxiety (11/21/11) Cerebral meningioma (01/31/13) 2004 Craniotomy, resection of frontal mennigioma [facility] Chronic diarrhea (01/24/18) CKD (chronic kidney disease) Closed nondisplaced comminuted fracture of shaft of left humerus (05/26/16) Diabetic neuropathy, type II diabetes mellitus (08/12/14) Gastroesophageal reflux disease (11/21/11) Heart murmur (08/24/17) 09/12/2017 echo: no significant valvular disease HLD (hyperlipidemia) Hyperlipidemia (11/21/11) GOAL LDL 100 Hypomagnesemia (03/14/18) Macrocytic anemia Borderline low B12 level, normal Epo (suggesting due to CKD as well); 06/16/2019 [facility] Hematology consult: multifactorial & recommended Q48H iron supplement Neoplasm of skin (08/26/14) Osteoporosis (07/12/16) DEXA 07/11/16 Hip T-3.2, Spine T-1.5, forearm T-3.5 Other diseases of lung, not elsewhere classified (11/21/11) rt 4mm ct stable 08/17; restrictive lung disease, neuromuscular weakness etiol? Dr Patel follows PFTs 08/2013 restrictive 47% NM weakness + response BD Other disorders of Eustachian tube (09/07/14) Pneumonia Restrictive lung disease Type 2 diabetes mellitus with diabetic neuropathy, without long-term current use of insulin Unspecified essential hypertension (01/31/13) Surgical History irrigation and debridement (10/05/15) R wrist Dr Lafleur Splenomegaly Family History Mother Personal history of malignant neoplasm breast and ovarian CA Father Myocardial infarction Social History Smoking/Tobacco Use Status: Never Smoking risk assessment performed?: Yes Alcohol Intake: never Drug use: Never Substance use type: does not use Caregiver/Support person: No Housing: apartment Number of Children: 3 number of grandchildren: 5 Pets and animals: No Sexually active: No Current gender identity: female What type of physical activity do you participate in: walking Frequency: daily Do you feel safe at home: Yes Exam Const General: cooperative and no acute distress [facility] Head: normocephalic and atraumatic Mouth: moist mucous membranes Eyes Conjunctivae: normal conjunctivae Sclera: normal sclerae Neck Neck: trachea midline and supple Resp Auscultation: clear to auscultation bilaterally, no rales, no rhonchi and no wheezes Cardio Rate: regular rate and not tachycardic Rhythm: regular rhythm GI Palpation: soft, not firm, no guarding, no masses, not rigid and nontender Skin General skin exam: no rashes or lesions noted Neuro General: patient alert, patient awake, patient oriented x3 and tone normal Extrem General: no edema Psych Appearance: grossly normal Mental Status: mental status grossly normal Course Vital Signs Vital signs: Vital Signs Temperature 36.7 C 12/25/20 12:20 Respiratory Rate 18 12/25/20 12:20 Blood Pressure 156/49 H 12/25/20 12:20 Pulse Oximetry 98 12/25/20 12:20 Temperature 36.7 C 12/25/20 12:20 Temperature Source Temporal Artery Scan 12/25/20 12:20 Pulse 62 12/25/20 12:33 Respiratory Rate 18 12/25/20 12:33 Respiratory Effort Non-Labored 12/25/20 12:26 Blood Pressure 156/49 H 12/25/20 12:20 Blood Pressure Position Sitting 12/25/20 12:20 Pulse Oximetry 98 12/25/20 12:33 Oxygen Delivery Method Room Air 12/25/20 12:20 Oxygen Flow Rate 0 12/25/20 12:20 Pain Level 0 12/25/20 12:20
[2020-12-25 13:09] LABS: Anion Gap 7.7 mmol/L (3-11); BUN 18 mg/dL (7-18); CO2 27.3 mmol/L (21.0-32.0); CREATININE 1.6 mg/dL (0.55-1.02); Calcium 9.2 mg/dL (8.5-10.1); Chloride 103 mmol/L (98-107); Estimated GFR 30.78 (mL/min/1.73m2); Glucose 102 mg/dL (74-106); Potassium 5.8 mmol/L (3.5-5.1); Sodium 138 mmol/L (136-145)
[2020-12-25] MEDS: Sodium Zirconium Cyclosilicate 10 GM PKT PO (14:00)
== END 2020-12-25 14:21 | disposition home or self-care (01) ==
PROVIDERS: Physician Assistant Medical; Emergency Provider Student in an Organized Health Care Education/Training Program; PCP Nurse Practitioner Family
DX: E87.5 Hyperkalemia (principal)
CPT/HCPCS: 80048; 93005; 99283; 93010; 99284

== ENCOUNTER 2020-12-26 07:01 | Outpatient (REF) | payer OTHER, SELFPAY ==
[2020-12-26 13:33] LABS: Potassium 4.6 mmol/L (3.5-5.1)
== END 2020-12-26 07:02 | disposition home or self-care (01) ==
LOC: LBN 07:01
PROVIDERS: PCP Nurse Practitioner Family; Visit Provider Student in an Organized Health Care Education/Training Program
DX: E87.5 Hyperkalemia (principal)
CPT/HCPCS: 36415; 84132

== ENCOUNTER 2021-01-04 02:26 | Outpatient (CLI) | payer OTHER, SELFPAY ==
[2021-01-04 14:16] LABS: Anion Gap 12.3 mmol/L (3-11); BUN 20 mg/dL (7-18); CO2 25.7 mmol/L (21.0-32.0); CREATININE 1.6 mg/dL (0.55-1.02); Calcium 8.8 mg/dL (8.5-10.1); Chloride 105 mmol/L (98-107); Estimated GFR 30.78 (mL/min/1.73m2); Glucose 120 mg/dL (74-106); Potassium 4.4 mmol/L (3.5-5.1); Sodium 143 mmol/L (136-145)
== END 2021-01-04 02:27 | disposition home or self-care (01) ==
LOC: LBO 02:26
PROVIDERS: PCP Nurse Practitioner Family; Visit Provider Nurse Practitioner Family
DX: E87.5 Hyperkalemia (principal)
CPT/HCPCS: 36415; 80048

== ENCOUNTER 2021-02-03 15:17 | Outpatient (REF) | payer OTHER, SELFPAY | END 2021-02-03 15:18 | disposition home or self-care (01) | LOC: LBN 15:17 | PROVIDERS: PCP Nurse Practitioner Family; Visit Provider Family Medicine | DX: N39.0 Urinary tract infection, site not specified (principal) | CPT/HCPCS: 87086 ==

== ENCOUNTER 2021-06-16 06:57 | Emergency (ER) | payer OTHER, SELFPAY ==
[2021-06-16 07:02] VITALS: BP 152/66; PULSE 88; RESP 18; TEMP 36.2; O2SAT 98
--- NOTE | 2021-06-16 07:42 | W.ED.GENAD ---
Discharge Plan Disposition Patient Disposition: HOME Condition: Stable Discharge Details Clinical Impression: Headache, Shingles Primary Care Provider: Francy Moran ED Provider: Yogi Douglas Home Meds and New Rx's Prescriptions: Continued (DME) Blood Glucose Test Strip See Dose Instructions .ROUTE .MEDSUPPLY Qty: 100 RF: 3 budesonide-formoterol [Symbicort] 160-4.5 mcg/actuation HFA aerosol inhaler 2 puff Inhalation BID Qty: 3 RF: 3 phenazopyridine [Pyridium] 100 mg tablet 100 mg PO TID PRN (Reason: urinary pain) Qty: 6 RF: 0 valacyclovir 1 gram tablet 1,000 mg PO TID Qty: 21 RF: 0 (DME) blood-glucose meter 1 EACH misc 1 ea Miscellaneous DAILY Qty: 1 RF: 0 calcium phosphate-vitamin D3 1 EACH tablet,chewable 1 ea PO DAILY RF: 0 multivitamin [Daily Multi-Vitamin] 1 EACH tablet 1 ea PO DAILY RF: 0 ferrous sulfate 325 mg (65 mg iron) tablet 325 mg PO Q48H RF: 0 (DME) lancets Misc See Dose Instructions .ROUTE .MEDSUPPLY Qty: 200 RF: 3 fluoxetine 20 mg capsule 20 mg PO DAILY Qty: 90 RF: 3 simvastatin 20 mg tablet 20 mg PO HS Qty: 90 RF: 3 cyanocobalamin (vitamin B-12) 1,000 mcg tablet 1,000 mcg PO DAILY Qty: 30 RF: 11 magnesium oxide 400 mg magnesium capsule 400 mg PO DAILY Qty: 30 RF: 11 glimepiride 4 mg tablet 4 mg PO DAILY Qty: 30 RF: 11 famotidine 40 mg tablet 40 mg PO DAILY Qty: 30 RF: 11 Januvia 50 mg tablet 50 mg PO DAILY Qty: 30 RF: 11 albuterol sulfate [ProAir HFA] 90 mcg/actuation HFA aerosol inhaler 1 - 2 puff Inhalation .Q4-6H PRN (Reason: shortness of breath or wheezing) Qty: 1 RF: 3 metformin 500 mg tablet 1,000 mg PO BID Qty: 120 RF: 11 Discharge Instructions Instructions: Shingles (ED), General Headache (ED) Additional Instructions: Continue all regular medications. Continue the previously prescribed valacyclovir unless you get recurrent headache. Then stop the medication. Tylenol and/or ibuprofen as needed for further discomfort. We will ask our care management team to make you a follow-up appointment in primary care clinic for recheck. Return to the ER for any acute concerns. Medical Decision Making <Juliette Ocampo DO - Last Filed: 06/16/21 08:37> 34-year-old female with a history of diabetes, CKD, hyperlipidemia who is currently on valacyclovir for left sided abdominal shingles presents with left-sided headache since yesterday. Patient appears uncomfortable. She is grabbing the left side of her head at times. Vitals are within normal limits and she appears nontoxic. She is oriented x3 but slowed in her responses at times. Her L parietal scalp is exquisitely tender but there is no evidence of rash or trauma to her head or scalp. She has no focal deficits. The left lateral abdomen lesions appear to be crusting. Patient feels her headache started after starting the valacyclovir. Review of this medication's common reactions include headache. History and presentation does not appear consistent with meningitis. She does endorse a sudden onset when asking her but she did not initially describe its onset is sudden. Denies thunderclap sensation so does not appear consistent with subarachnoid hemorrhage. Discussed with patient that medication reaction may be the etiology, but considering her age and history, will obtain screening labs, CT head imaging and place an IV with bolus IV fluids, IV Tylenol, IV Decadron and p.o. Valium and reassess. Case endorsed to Dr. Douglas to follow-up on labs and imaging and final disposition. If symptoms improved and work-up negative, will plan for discharge home. Can consider potentially switching patient's medication to acyclovir. Medical Records Medical records reviewed: Yes I reviewed the patient's medical records. <Yogi Douglas MD - Last Filed: 06/16/21 09:46> Patient signout from Dr. Ocampo. Please see her note regarding details of initial presentation, exam and plan of care. Patient's pain improved. Her laboratories were essentially reassuring, noting a white count of 5, hematocrit 35, platelets 149. Unremarkable basic chemistries, BUN 29, creatinine 1.8. C-reactive protein slightly elevated at 1.1. CT scan of the head unremarkable. On reexamination her pain is improved and there is no obvious findings on reexamination of her scalp. We will have the patient follow-up with in clinic for recheck. I discussed with her to continue the current prescribed valacyclovir unless she gets recurrent headache and in which case to stop it. She is stable and appropriate for discharge with improvement. HPI <Juliette Ocampo, - Last Filed: 06/16/21 08:37> General Mode of arrival: ambulatory. Date/Time Provider Initiated Documentation: 06/16/21 07:00. Limitations to Documentation: no limitations. Information obtained by: patient. HPI Narrative: Patient is an 85-year-old female with a history of diabetes, hyperlipidemia, CKD currently on valacyclovir for left-sided abdominal shingles for the past few days presents with left-sided headache since yesterday. Patient states the pain is sharp and constant since yesterday. Patient states she awoke with the pain. She states the pain is currently 10/10. She took Tylenol before bed last night with some relief and was able to sleep a few hours until she woke this morning and pain returned. She states she is concerned the pain is related to the valacyclovir. She denies any blurry vision, nausea, vomiting, dizziness, chest pain, shortness of breath, neck pain or fever. She denies any known injury. Related Data Home Medications Medication Instructions Recorded Confirmed blood-glucose meter #1 unit 01/14/18 06/13/21 calcium phosphate-vitamin D3 1 ea PO DAILY tab.chew 04/17/18 06/16/21 multivitamin [Daily Multi-Vitamin] 1 ea PO DAILY 04/17/18 06/16/21 ferrous sulfate 325 mg (65 mg 325 mg PO Q48H tab 06/18/19 06/16/21 iron) tablet lancets #200 each 02/23/20 06/13/21 blood sugar diagnostic #100 each 02/27/20 06/13/21 fluoxetine 20 mg capsule 20 mg PO DAILY #90 cap 06/11/20 06/16/21 simvastatin 20 mg tablet 20 mg PO HS #90 tab-cap 10/04/20 06/16/21 cyanocobalamin (vitamin B-12) 1,000 mcg PO DAILY #30 tab-cap 11/17/20 06/16/21 1,000 mcg tablet magnesium oxide 400 mg PO DAILY #30 tab-cap 11/17/20 06/16/21 phenazopyridine 100 mg tablet 100 mg PO TID PRN #6 tab 02/03/21 06/13/21 famotidine 40 mg tablet 40 mg PO DAILY #30 tab 03/09/21 06/16/21 glimepiride 4 mg tablet 4 mg PO DAILY #30 tab-cap 03/09/21 06/13/21 budesonide-formoterol HFA 160 2 puff INHALATION BID #3 inhaler 03/14/21 06/16/21 mcg-4.5 mcg/actuation aerosol inhaler sitagliptin 50 mg tablet 50 mg PO DAILY #30 tab 05/02/21 06/16/21 albuterol sulfate 90 mcg/actuation 1 - 2 puff INHALATION .Q4-6H PRN 06/09/21 06/16/21 aerosol inhaler #1 unit metformin 500 mg tablet 1,000 mg PO BID #120 tab-cap 06/09/21 06/16/21 valacyclovir 1 gram tablet 1,000 mg PO TID #21 tab 06/13/21 06/16/21 Previous Rx's Medication Instructions Recorded blood-glucose meter #1 unit 01/14/18 lancets #200 each 02/23/20 blood sugar diagnostic #100 each 02/27/20 fluoxetine 20 mg capsule 20 mg PO DAILY #90 cap 06/11/20 simvastatin 20 mg tablet 20 mg PO HS #90 tab-cap 10/04/20 cyanocobalamin (vitamin B-12) 1,000 mcg PO DAILY #30 tab-cap 11/17/20 1,000 mcg tablet magnesium oxide 400 mg PO DAILY #30 tab-cap 11/17/20 phenazopyridine 100 mg tablet 100 mg PO TID PRN #6 tab 02/03/21 famotidine 40 mg tablet 40 mg PO DAILY #30 tab 03/09/21 glimepiride 4 mg tablet 4 mg PO DAILY #30 tab-cap 03/09/21 budesonide-formoterol HFA 160 2 puff INHALATION BID #3 inhaler 03/14/21 mcg-4.5 mcg/actuation aerosol inhaler sitagliptin 50 mg tablet 50 mg PO DAILY #30 tab 05/02/21 albuterol sulfate 90 mcg/actuation 1 - 2 puff INHALATION .Q4-6H PRN 06/09/21 aerosol inhaler #1 unit metformin 500 mg tablet 1,000 mg PO BID #120 tab-cap 06/09/21 valacyclovir 1 gram tablet 1,000 mg PO TID #21 tab 06/13/21 Allergies Allergy/AdvReac Type Severity Reaction Status Date / Time azithromycin AdvReac Unknown nausea Verified 06/16/21 07:08 erythromycin base AdvReac Unknown Nausea Verified 06/16/21 07:08 shellfish derived AdvReac Unknown N/V/D Verified 06/16/21 07:08 Tetracyclines AdvReac Unknown Nausea Verified 06/16/21 07:08 General Stated Complaint: Headache SAM: 3 Review of Systems <Juliette Ocampo DO - Last Filed: 06/16/21 08:37> All systems reviewed & are unremarkable except as noted in HPI and below Constitutional Constitutional: Reports as per HPI, Denies chills, Denies fever(s) and Reports headache(s) Eyes Eyes: Denies blurry vision ENT Ears, Nose, Mouth, and Throat: Denies dizziness, Reports headache(s), Denies sore throat and Denies throat swelling Cardiovascular Cardiovascular: Denies chest pain and Denies dyspnea Respiratory Respiratory: Denies cough and Denies dyspnea Gastrointestinal Gastrointestinal: Denies abdominal pain, Denies diarrhea and Denies vomiting Genitourinary Genitourinary: Denies hematuria and Denies dysuria Musculoskeletal Musculoskeletal: Denies back pain and Denies numbness Integumentary/Breasts Skin/Breast: Denies lesions and Denies rash Neurologic Neurologic: Denies dizziness, Reports headache(s), Denies localized weakness and Denies numbness Allergic/Immunologic Allergic/Immunologic: Denies throat swelling PFSH <DO Taty Hudson Last Filed: 06/16/21 08:37> Medical History Anxiety (11/21/11) Cerebral meningioma (01/31/13) 2005 Craniotomy, resection of frontal [place]igi[place] [facility] [place] diarrhea (01/24/18) CKD (chronic kidney disease) Closed nondisplaced comminuted fracture of shaft of left humerus (05/26/16) Diabetic neuropathy, type II diabetes mellitus (08/12/14) Gastroesophageal reflux disease (11/21/11) Heart murmur (08/24/17) 09/12/2017 echo: no significant valvular disease HLD (hyperlipidemia) Hyperlipidemia (11/21/11) GOAL LDL 100 Hypomagnesemia (03/14/18) Macrocytic anemia Borderline low B12 level, normal Epo (suggesting due to CKD as well); 06[place]16/2019 [facility] [place] consult: multifactorial & recommended Q48H iron supplement Neoplasm of skin (08/26/14) Osteoporosis (07/12/16) DEXA 07/11/16 Hip T-3.2, Spine T-1.5, forearm T-3.5 Other diseases of lung, not elsewhere classified (11/21/11) rt 4mm ct stable 08/17; restrictive lung disease, neuromuscular weakness etiol? Dr Patel follows PFTs 08/2013 restrictive 47% NM weakness + response BD Other disorders of Eustachian tube (09/07/14) Pneumonia Restrictive lung disease Type 2 diabetes mellitus with diabetic neuropathy, without long-term current use of insulin Unspecified essential hypertension (01/31/13) Hyperkalemia with NATALIIA-I --> AVOID Surgical History irrigation and debridement (10/05/15) R wrist Dr Lafleur Splenomegaly Family History Mother Personal history of malignant neoplasm breast and ovarian CA Father Myocardial infarction Social History Smoking/Tobacco Use Status: Never Smoking risk assessment performed?: Yes Alcohol Intake: never Drug use: Never Substance use type: does not use Caregiver/Support person: No Housing: apartment Number of Children: 3 number of grandchildren: 5 Pets and animals: No Sexually active: No Current gender identity: female What type of physical activity do you participate in: walking Frequency: daily Do you feel safe at home: Yes Exam <Juliette Ocampo DO - Last Filed: 06/16/21 08:37> Const General: cooperative and no acute distress [facility] Head: normal to inspection, no palpable skull fracture, normocephalic, atraumatic and other (no rash or lesions noted to scalp, no temporal tenderness) Ears: hearing grossly normal bilaterally, external ears normal and TM's normal bilaterally General nose exam: external nose normal Face and sinus: normal facial exam Mouth: mucous membranes dry Throat: posterior oropharynx normal Eyes General: appearance normal, both eyes and all related structures Pupils: PERRL EOM: EOM intact bilaterally Neck Neck: normal visual inspection and No submandibular swelling Lymphatic: no lymphadenopathy noted Chest Chest: normal inspection of the chest and no tenderness Resp Effort & Inspection: normal respiratory effort and able to speak in complete sentences Auscultation: clear to auscultation bilaterally Cardio Rate: regular rate Rhythm: regular rhythm GI Inspection: normal to inspection Palpation: soft, not firm, not rigid and nontender Auscultation: normal bowel sounds Skin General skin exam: no rashes or lesions noted Neuro General: patient alert, patient awake, patient oriented x3, moves all extremities, no meningeal signs and no focal motor deficits Cranial Nerves: CN's II-XI intact bilaterally Cognition: normal cognition Speech: speech normal Motor: muscle tone normal throughout and strength 5/5 throughout Sensory Exam: no sensory deficits noted Extrem General: normal to inspection, full ROM, capillary refill normal, no calf tenderness bilaterally and no edema Psych Appearance: grossly normal Mental Status: mental status grossly normal Speech and Movement: speech and movement normal Affect: normal affect Course <DO Taty Hudson Last Filed: 06/16/21 08:37> Vital Signs Vital signs: Vital Signs Temperature 97.2 F L 06/16/21 07:02 Pulse 88 06/16/21 07:02 Respiratory Rate 18 06/16/21 07:02 Blood Pressure 152/66 H 06/16/21 07:02 Pulse Oximetry 98 06/16/21 07:02 Temperature 97.2 F L 06/16/21 07:02 Temperature Source Temporal Artery Scan 06/16/21 07:02 Pulse 88 06/16/21 07:02 Respiratory Rate 18 06/16/21 07:02 Respiratory Effort Non-Labored 06/16/21 07:12 Blood Pressure 152/66 H 06/16/21 07:02 Blood Pressure Position Sitting 06/16/21 07:02 Pulse Oximetry 98 06/16/21 07:02 Oxygen Delivery Method Room Air 06/16/21 07:02 Oxygen Flow Rate 0 06/16/21 07:02 Pain Level 10 06/16/21 07:02 Sign Out <DO Taty Hudson Last Filed: 06/16/21 08:37> Sign Out Data: Sign Out Comment: Follow-up on labs and imaging and final disposition. If work-up negative and patient feels better, can plan for discharge to home. May consider switching her antiviral from valacyclovir to acyclovir. Last updated by Juliette Ocampo DO at 06/16/21 08:16
[2021-06-16 08:11] LABS: Abs Immature Grans 0.01 10^3/uL (0.0-0.06); HCT 35.3 % (36.0-46.0); HGB 11.4 g/dL (11.2-15.7); MCH 31.7 pg (27.0-33.0); MCHC 32.3 % (32.0-36.0); MCV 98.1 fL (80-95); MPV 10.4 fL (8.0-11.0); Nucleated RBC 0 %; Platelet Count 149 10^3/uL (130-400); WBC 5.43 10^3/uL (4.4-10.8)
[2021-06-16 08:16] LABS: ESR 14 mm/hr (0-30)
[2021-06-16] MEDS: ACETAMINOPHEN 1,000 MG/100 ML BTL 400 MG IVPB (08:20)
[2021-06-16] MEDS: Dexamethasone 10 MG/ML VIAL IVP (08:20)
[2021-06-16] MEDS: diazePAM 5 MG TAB PO (08:20)
[2021-06-16] MEDS: Normal Saline 1,000 ML 1000 ML IV (08:21)
[2021-06-16 08:30] LABS: Absolute Basophil Count 0.11 10^3/uL (0.0-0.2); Absolute Eosinophil Count 0.22 10^3/uL (0.0-0.7); Absolute Lymphocyte Count 1.47 10^3/uL (1.2-3.4); Absolute Monocyte Count 0.65 10^3/uL (0.1-0.8); Absolute Neutrophil Count 2.99 10^3/uL (1.2-6.7); Atypical Lymphocytes % 3; Diff Comment Manual Differential; RBC Morphology Normal
--- NOTE | 2021-06-16 08:30 | DI.CT_ITS ---
Exam(s) CT HEAD WO EXAM: CT HEAD WO CLINICAL HISTORY: L Headache. TECHNIQUE: Imaging Protocol: Axial computed tomography images with coronal and sagittal reformatted images were created and reviewed COMPARISON: CT HEAD WITHOUT CONTRAST from 03/03/2018 CT HEAD WITHOUT CONTRAST from 03/03/2018 FINDINGS: Again noted is right frontal craniotomy which appears unchanged. There is no evidence of intracranial hemorrhage, intra or extra-axial. There is relatively symmetric al periventricular hypodensity consistent with chronic small vessel disease. No evidence of obvious acute infarct and no asymmetric encephalomalacia subjacent to the right frontal craniotomy site. Ventricular size is normal. Amount of involutional changes consistent with this patient's advanced a ge. IMPRESSION: No acute intracranial findings on this noninfused CT scan of the brain. Abundant bilateral periventricular chronic small vessel disease changes again noted. No new findings at the right craniotomy site. RADIATION DOSE DELIVERED: 631.87mGy.cm Total DLP DATA REPOSITORY: All CT scans at this facility are submitted to the National Radiology Data Registry (NRDR) Dose Index Registry (DIR) with the [employer] ([employer]). RADIATION OPTIMIZATION: All CT scans at this facility use at least one of these dose optimization te chniques: automated exposure control; mA and/or kV adjustment per patient size (includes targeted exa ms where dose is matched to clinical indication); or iterative reconstruction.
[2021-06-16 08:33] LABS: ALT 18 U/L (14-59); AST 17 U/L (15-37); Albumin 3.6 g/dL (3.4-5.0); Alkaline Phosphatase 93 U/L (46-116); Anion Gap 10.1 mmol/L (3-11); BUN 29 mg/dL (7-18); Bilirubin, Total 0.3 mg/dL (0.2-1.0); C-Reactive Protein 1.15 mg/dL (0.0-0.3); CO2 26.9 mmol/L (21.0-32.0); CREATININE 1.8 mg/dL (0.55-1.02); Calcium 8.8 mg/dL (8.5-10.1); Chloride 101 mmol/L (98-107); Estimated GFR 26.87 (mL/min/1.73m2); Glucose 151 mg/dL (74-106); Sodium 138 mmol/L (136-145); Total Protein 7.3 g/dL (6.4-8.2)
[2021-06-16 10:08] VITALS: BP 124/59; PULSE 82; RESP 18; O2SAT 98
== END 2021-06-16 10:04 | disposition home or self-care (01) ==
PROVIDERS: Physician Assistant; Emergency Provider Emergency Medicine; PCP Nurse Practitioner Family
DX: B02.9 Zoster without complications (principal); R51.9 Headache, unspecified; E11.22 Type 2 diabetes mellitus with diabetic chronic kidney disease; Z79.84 Long term (current) use of oral hypoglycemic drugs; I12.9 Hypertensive chronic kidney disease with stage 1 through stage 4 chronic kidney disease, or unspecified chronic kidney disease; N18.9 Chronic kidney disease, unspecified
CPT/HCPCS: 36415; 80053; 85652; 96361; 96374; 96375; 99284; 70450; 85025; 86140; 99285; J0131; J1100

== ENCOUNTER 2021-06-28 18:27 | Emergency (ER) | payer OTHER, SELFPAY ==
[2021-06-28 18:34] VITALS: BP 151/116; PULSE 82; RESP 14; TEMP 36; O2SAT 98
--- NOTE | 2021-06-28 18:58 | ED.GENADUL_ITS ---
Discharge Plan Disposition Patient Disposition: HOME Condition: Good Discharge Details Clinical Impression: Acute UTI Primary Care Provider: Francy Moran ED Provider: Jorden Shukla Home Meds and New Rx's Prescriptions: New cephalexin 500 mg tablet 500 mg PO QID 7 Days Qty: 28 RF: 0 Continued (DME) Blood Glucose Test Strip See Dose Instructions .ROUTE .MEDSUPPLY Qty: 100 RF: 3 budesonide-formoterol [Symbicort] 160-4.5 mcg/actuation HFA aerosol inhaler 2 puff Inhalation BID Qty: 3 RF: 3 phenazopyridine [Pyridium] 100 mg tablet 100 mg PO TID PRN (Reason: urinary pain) Qty: 6 RF: 0 (DME) blood-glucose meter 1 EACH misc 1 ea Miscellaneous DAILY Qty: 1 RF: 0 calcium phosphate-vitamin D3 1 EACH tablet,chewable 1 ea PO DAILY RF: 0 multivitamin [Daily Multi-Vitamin] 1 EACH tablet 1 ea PO DAILY RF: 0 ferrous sulfate 325 mg (65 mg iron) tablet 325 mg PO Q48H RF: 0 (DME) lancets Misc See Dose Instructions .ROUTE .MEDSUPPLY Qty: 200 RF: 3 fluoxetine 20 mg capsule 20 mg PO DAILY Qty: 90 RF: 3 simvastatin 20 mg tablet 20 mg PO HS Qty: 90 RF: 3 cyanocobalamin (vitamin B-12) 1,000 mcg tablet 1,000 mcg PO DAILY Qty: 30 RF: 11 magnesium oxide 400 mg magnesium capsule 400 mg PO DAILY Qty: 30 RF: 11 glimepiride 4 mg tablet 4 mg PO DAILY Qty: 30 RF: 11 famotidine 40 mg tablet 40 mg PO DAILY Qty: 30 RF: 11 Januvia 50 mg tablet 50 mg PO DAILY Qty: 30 RF: 11 albuterol sulfate [ProAir HFA] 90 mcg/actuation HFA aerosol inhaler 1 - 2 puff Inhalation .Q4-6H PRN (Reason: shortness of breath or wheezing) Qty: 1 RF: 3 metformin 500 mg tablet 1,000 mg PO BID Qty: 120 RF: 11 Discharge Instructions Instructions: Urinary Tract Infection in Women (ED) Additional Instructions: You have a urinary tract infection. Please take the antibiotic Keflex as directed. It is been sent to your [facility] pharmacy on file. If you notice any worsening of your symptoms, or any new symptoms such as vomiting, diarrhea, fever, chills, shortness of breath, chest pain, numbness, weakness, or fainting , please return immediately to the emergency department for reevaluation. Please follow up with your primary care provider as soon as possible for reassessment and reevaluation. As always, it was a pleasure participating in your medical care today. Referrals: Francy Moran NP [Primary Care Provider] - Medical Decision Making <Wade Littlejohn MD - Last Filed: 06/28/21 19:05> 85 yo female with hx of t2dm, htn, hld, recently treated for shingles of left lower back/abdomen, who comes in with 1 week of constant but worsening left lower abdomen pain. Denies fevers, dysuria, diarrhea. She denies chest pain or shortness of breath and denies prior abdomen surgeries. On exam she is in no distress. She has tenderness with palpation to the llq, no upper abdomen tenderness. Suspect diverticulitis vs colitis, will obtain labs and ct imaging to further evaluate. Her shingles appears healed, no blisters or erythema, has small patches of crusted areas so do not feel she has an active infection. No pain out of proportion to exam so dout mesenteric ischemia at this time pt signed out to oncoming provider pending ct results and reassessment Differential Diagnosis Differential Diagnosis: diverticulitis, colitis, pancreatitis Lab Data Lab results reviewed: Yes I reviewed the patient's lab results. <Jorden Shukla DO - Last Filed: 06/28/21 20:39> Patient laboratory work-up has returned stable, CT scan per virtual radiology shows no acute process, patient does have evidence of urinary tract infection on work-up. Will give 2 g of ceftriaxone, and a Keflex prescription for home. Discussed the case with the patient and her daughter Whitney. After antibiotics patient will be discharged. Discussed red flags which to return. I have extensively reviewed the treatment plan and discharge instructions with the patient and their family. I have addressed all patient concerns at this time. The patient and family was made aware of what symptoms to monitor for that would warrant a return to the emergency department. Discussed the plan with the patient and family, they demonstrate verbal understanding and agreement with our assessment and plan at this time. The documentation in this chart was dictated using Dragon dictation software. Please excuse any dictation errors. FINDINGS: Lungs: The visualized lung bases are clear. Heart: Heart size is normal. Mediastinal space: Small hiatal hernia with chronic distal esophageal wall thickening. Liver: Normal. No mass. Gallbladder and bile ducts: Normal. No calcified stones. No ductal dilation. Pancreas: Normal. No ductal dilation. Spleen: Chronic dystrophic calcifications along the posterior capsule of the spleen. Adrenal glands: Normal. No mass. Kidneys and ureters: Scattered punctate sub cm right lower pole simple renal cortical cysts. Stomach and bowel: Descending and sigmoid diverticula without evidence for acute diverticulitis. Appendix: Appendix is normal in caliber. No periappendiceal edema. No findings to suggest acute appendicitis. Intraperitoneal space: Unremarkable. No free air. No significant fluid collection. Vasculature: Unremarkable. No abdominal aortic aneurysm. Lymph nodes: Unremarkable. No enlarged lymph nodes. Urinary bladder: Unremarkable as visualized. Reproductive: Unremarkable as visualized. Bones/joints: Multilevel degenerative changes in the lumbar spine. No vertebral body compression fracture. No lytic or blastic osseous lesion. Soft tissues: Unremarkable. IMPRESSION: 1. Left colon diverticulosis without evidence for acute diverticulitis. 2. No acute intra-abdominal or pelvic finding. Thank you for allowing us to participate in the care of your patient. Dictated and Authenticated by: Jerry Miles MD 06/28/2021 8:12 PM Eastern Time ([place] & [place]) HPI <Wade Littlejohn MD - Last Filed: 06/28/21 19:05> General Mode of arrival: ambulatory . Date/Time Provider Initiated Documentation: 06/28/21 18:29 . Limitations to Documentation: no limitations . Information obtained by: patient . History of Present Illness 85 year old F presents to the emergency department with the chief complaint of abdomen pain, described as severe, with intensity rated at 9. Quality is described as stabbing, and is localized to the abdomen. Patient reports no radiation. Patient started experiencing this week(s) (1) and it has been constant. No relieving factors improve symptom(s), No exacerbating factors reported . Patient did receive the following treatments prior to arrival, none Related Data Home Medications Medication Instructions Recorded Confirmed blood-glucose meter #1 unit 01/14/18 06/13/21 calcium phosphate-vitamin D3 1 ea PO DAILY tab.chew 04/17/18 06/28/21 multivitamin [Daily Multi-Vitamin] 1 ea PO DAILY 04/17/18 06/28/21 ferrous sulfate 325 mg (65 mg 325 mg PO Q48H tab 06/18/19 06/28/21 iron) tablet lancets #200 each 02/23/20 06/13/21 blood sugar diagnostic #100 each 02/27/20 06/13/21 fluoxetine 20 mg capsule 20 mg PO DAILY #90 cap 06/11/20 06/28/21 simvastatin 20 mg tablet 20 mg PO HS #90 tab-cap 10/04/20 06/28/21 cyanocobalamin (vitamin B-12) 1,000 mcg PO DAILY #30 tab-cap 11/17/20 06/28/21 1,000 mcg tablet magnesium oxide 400 mg PO DAILY #30 tab-cap 11/17/20 06/28/21 phenazopyridine 100 mg tablet 100 mg PO TID PRN #6 tab 02/03/21 06/28/21 famotidine 40 mg tablet 40 mg PO DAILY #30 tab 03/09/21 06/28/21 glimepiride 4 mg tablet 4 mg PO DAILY #30 tab-cap 03/09/21 06/28/21 budesonide-formoterol HFA 160 2 puff INHALATION BID #3 inhaler 03/14/21 06/28/21 mcg-4.5 mcg/actuation aerosol inhaler sitagliptin 50 mg tablet 50 mg PO DAILY #30 tab 05/02/21 06/28/21 albuterol sulfate 90 mcg/actuation 1 - 2 puff INHALATION .Q4-6H PRN 06/09/21 06/28/21 aerosol inhaler #1 unit metformin 500 mg tablet 1,000 mg PO BID #120 tab-cap 06/09/21 06/28/21 cephalexin 500 mg PO QID 7 Days #28 tab 06/28/21 Previous Rx's Medication Instructions Recorded blood-glucose meter #1 unit 01/14/18 lancets #200 each 02/23/20 blood sugar diagnostic #100 each 02/27/20 fluoxetine 20 mg capsule 20 mg PO DAILY #90 cap 06/11/20 simvastatin 20 mg tablet 20 mg PO HS #90 tab-cap 10/04/20 cyanocobalamin (vitamin B-12) 1,000 mcg PO DAILY #30 tab-cap 11/17/20 1,000 mcg tablet magnesium oxide 400 mg PO DAILY #30 tab-cap 11/17/20 phenazopyridine 100 mg tablet 100 mg PO TID PRN #6 tab 02/03/21 famotidine 40 mg tablet 40 mg PO DAILY #30 tab 03/09/21 glimepiride 4 mg tablet 4 mg PO DAILY #30 tab-cap 03/09/21 budesonide-formoterol HFA 160 2 puff INHALATION BID #3 inhaler 03/14/21 mcg-4.5 mcg/actuation aerosol inhaler sitagliptin 50 mg tablet 50 mg PO DAILY #30 tab 05/02/21 albuterol sulfate 90 mcg/actuation 1 - 2 puff INHALATION .Q4-6H PRN 06/09/21 aerosol inhaler #1 unit metformin 500 mg tablet 1,000 mg PO BID #120 tab-cap 06/09/21 cephalexin 500 mg PO QID 7 Days #28 tab 06/28/21 Allergies Allergy/AdvReac Type Severity Reaction Status Date / Time azithromycin AdvReac Unknown nausea Verified 06/28/21 18:40 erythromycin base AdvReac Unknown Nausea Verified 06/28/21 18:40 shellfish derived AdvReac Unknown N/V/D Verified 06/28/21 18:40 Tetracyclines AdvReac Unknown Nausea Verified 06/28/21 18:40 General Stated Complaint: Abd Prob SAM: 3 Review of Systems <Wade Littlejohn MD - Last Filed: 06/28/21 19:05> All systems reviewed & are unremarkable except as noted in HPI and below Constitutional Constitutional: Denies chills, Denies fever(s) and Denies weakness Cardiovascular Cardiovascular: Denies chest pain and Denies dyspnea Respiratory Respiratory: Denies cough and Denies dyspnea Gastrointestinal Gastrointestinal: Denies vomiting Neurologic Neurologic: Denies weakness PFSH <Wade Littlejohn MD - Last Filed: 06/28/21 19:05> Medical History Anxiety (11/21/11) Cerebral meningioma (01/31/13) 2005 Craniotomy, resection of frontal [place] [facility] [place] (01/24/18) CKD (chronic kidney disease) Closed nondisplaced comminuted fracture of shaft of left humerus (05/26/16) Diabetic neuropathy, type II diabetes mellitus (08/12/14) Gastroesophageal reflux disease (11/21/11) Heart murmur (08/24/17) 09/12/2017 echo: no significant valvular disease HLD (hyperlipidemia) Hyperlipidemia (11/21/11) GOAL LDL 100 Hypomagnesemia (03/14/18) Macrocytic anemia Borderline low B12 level, normal Epo (suggesting due to CKD as well); 06[place]16/2019 [facility] [place] consult: multifactorial & recommended Q48H iron supplement Neoplasm of skin (08/26/14) Osteoporosis (07/12/16) DEXA 07/11/16 Hip T-3.2, Spine T-1.5, forearm T-3.5 Other diseases of lung, not elsewhere classified (11/21/11) rt 4mm ct stable 08/17; restrictive lung disease, neuromuscular weakness etiol? Dr Patel follows PFTs 08/2013 restrictive 47% NM weakness + response BD Other disorders of Eustachian tube (09/07/14) Pneumonia Restrictive lung disease Type 2 diabetes mellitus with diabetic neuropathy, without long-term current use of insulin Unspecified essential hypertension (01/31/13) Hyperkalemia with NATALIIA-I --> AVOID Surgical History irrigation and debridement (10/05/15) R wrist Dr Lafleur Splenomegaly Family History Mother Personal history of malignant neoplasm breast and ovarian CA Father Myocardial infarction Social History Smoking/Tobacco Use Status: Never Smoking risk assessment performed?: Yes Alcohol Intake: never Drug use: Never Substance use type: does not use Caregiver/Support person: No Housing: apartment Number of Children: 3 number of grandchildren: 5 Pets and animals: No Sexually active: No Current gender identity: female What type of physical activity do you participate in: walking Frequency: daily Do you feel safe at home: Yes Exam <Wade Littlejohn MD - Last Filed: 06/28/21 19:05> Const General: no acute distress Orientation: alert HENMT Head: normal to inspection Ears: external ears normal General nose exam: external nose normal Mouth: moist mucous membranes Eyes General: appearance normal, both eyes and all related structures Neck Neck: normal visual inspection Resp Effort & Inspection: normal respiratory effort and able to speak in complete sentences Cardio Rate: regular rate GI Palpation: soft and not rigid Neuro General: patient alert and patient oriented x3 Extrem General: normal to inspection Psych Mental Status: mental status grossly normal Course <Wade Littlejohn MD - Last Filed: 06/28/21 19:05> Vital Signs Vital signs: Vital Signs Temperature 36.0 C L 06/28/21 18:34 Pulse 82 06/28/21 18:34 Respiratory Rate 14 06/28/21 18:34 Blood Pressure 151/116 H 06/28/21 18:34 Pulse Oximetry 98 06/28/21 18:34 Temperature 36.0 C L 06/28/21 18:34 Temperature Source Skin 06/28/21 18:34 Pulse 82 06/28/21 18:34 Respiratory Rate 14 06/28/21 18:34 Respiratory Effort Non-Labored 06/28/21 18:43 Blood Pressure 151/116 H 06/28/21 18:34 Blood Pressure Position Supine 06/28/21 18:34 Pulse Oximetry 98 06/28/21 18:34 Oxygen Delivery Method Room Air 06/28/21 18:34 Oxygen Flow Rate 0 06/28/21 18:34 Pain Level 8 06/28/21 18:34 Sign Out <Wade Littlejohn MD - Last Filed: 06/28/21 19:05> Sign Out Data: Sign Out Comment: left lower abdomen pain, pending ct and reassessment Last updated by Wade Littlejohn MD at 06/28/21 19:10
--- NOTE | 2021-06-28 19:05 | DI.CT_ITS ---
Exam(s) CT ABDOMEN PELVIS W EXAM: CT ABDOMEN PELVIS W CLINICAL HISTORY: left lower abdomen pain. TECHNIQUE: Imaging Protocol: Axial computed tomography images with coronal and sagittal reformatted images were created and reviewed CONTRAST MATERIAL: Intravenous: Omnipaque 70cc Oral: None COMPARISON: CT ABD PELVIS WO CONTRAST from 03/02/2018 FINDINGS: VISUALIZED LUNG BASES: No nodules nor pleural effusions evident. ABDOMEN: There is no ascites. Left hemidiaphragm is again noted be elevated. LIVER: There are no focal hepatic lesions evident . GALLBLADDER/BILIARY: No obvious gallbladder pathology. CBD is not dilated. PANCREAS: No evidence of pancreatic mass nor dilatation of the pancreatic duct. SPLEEN: Spleen size is normal. There are calcifications in the superior capsule of the spleen, uncha nged. Probably related to prior trauma and possibly related to the elevated left hemidiaphragm. Spl enic and portal veins are patent. ADRENALS: There are no significant adrenal masses. KIDNEYS:Tiny cortical cyst in the right kidney. No solid renal masses. No calculi nor hydronephrosi s.. Urinary bladder wall is diffusely thickened. ABDOMINAL AORTA: Abdominal aorta is not enlarged. LYMPH NODES:There is no retroperitineal nor paraaortic adenopathy. ABDOMINAL WALL: No evidence of significant anterior abdominal wall hernia. GI: There is no evidence of bowel obstruction, free air, nor abscess. PELVIS: GI: No evidence of appendicitis.There is extensive sigmoid diverticulosis. No evidence of obvious ac ren diverticulitis. No free fluid. LYMPH NODES: There is no intrapelvic nor inguinal adenopathy. REPRODUCTIVE: Uterus and adnexal regions appear age-appropriate. No free fluid in the pelvis. URINARY BLADDER: Diffusely thickened bladder wall. Bladder is under distended OSSEOUS: No significant osseous lesions. IMPRESSION: 1. There is extensive sigmoid diverticulosis. No obvious acute diverticulitis. Please note that a s ubtle case of diverticulitis can be missed given the extensive involvement of the sigmoid. 2. Urinary bladder wall appears to be diffusely thickened. This may be exaggerated by the fact that the bladder is under distended. 3. Calcified splenic capsule again noted. This is probably related to prior trauma in this patient a lso has an elevated left hemidiaphragm. 4. RADIATION DOSE DELIVERED: 822.1mGy.cm Total DLP DATA REPOSITORY: All CT scans at this facility are submitted to the National Radiology Data Registry (NRDR) Dose Index Registry (DIR) with the [employer] (ACR). RADIATION OPTIMIZATION: All CT scans at this facility use at least one of these dose optimization te chniques: automated exposure control; mA and/or kV adjustment per patient size (includes targeted exa ms where dose is matched to clinical indication); or iterative reconstruction.
[2021-06-28 19:09] LABS: Lactate 1.7 mmol/L (0.6-1.4)
[2021-06-28 19:11] LABS: Abs Immature Grans 0.03 10^3/uL (0.0-0.06); Absolute Basophil Count 0.05 10^3/uL (0.0-0.2); Absolute Eosinophil Count 0.25 10^3/uL (0.0-0.7); Absolute Monocyte Count 1.27 10^3/uL (0.1-0.8); Absolute Neutrophil Count 4.68 10^3/uL (1.2-6.7); Basophils % 0.4; Eosinophils % 2.1; Immature Grans % 0.3; Lymphocytes % 46.7; MCH 31.7 pg (27.0-33.0); MCHC 32.4 % (32.0-36.0); MPV 9.8 fL (8.0-11.0); Monocytes % 10.8; Neutrophils % 39.7; Nucleated RBC 0 %; Platelet Count 279 10^3/uL (130-400); RBC 3.47 10^6/uL (3.93-5.22); RDW 13.8 % (11.7-14.6); RDW-SD 47.4 fL; WBC 11.78 10^3/uL (4.4-10.8)
[2021-06-28] MEDS: Normal Saline 1,000 ML 1000 ML IV (19:20)
[2021-06-28 19:28] LABS: ALT 17 U/L (14-59); AST 16 U/L (15-37); Albumin 3.6 g/dL (3.4-5.0); Alkaline Phosphatase 100 U/L (46-116); Anion Gap 7.5 mmol/L (3-11); BUN 15 mg/dL (7-18); Bilirubin, Direct 0.1 mg/dL (0.0-0.2); Bilirubin, Total 0.3 mg/dL (0.2-1.0); CO2 26.5 mmol/L (21.0-32.0); CREATININE 1.4 mg/dL (0.55-1.02); Calcium 8.7 mg/dL (8.5-10.1); Chloride 104 mmol/L (98-107); Estimated GFR 35.91 (mL/min/1.73m2); Glucose 185 mg/dL (74-106); Lipase 176 U/L (73-393); Magnesium 1.8 mg/dL (1.8-2.4); Potassium 4.3 mmol/L (3.5-5.1); Sodium 138 mmol/L (136-145); Total Protein 7.2 g/dL (6.4-8.2)
[2021-06-28 19:30] VITALS: O2SAT 97
[2021-06-28 19:31] LABS: Diff Comment Agrees w/ Instrument; RBC Morphology Normal
[2021-06-28 19:32] VITALS: BP 154/80; PULSE 79; O2SAT 97
[2021-06-28 19:36] LABS: Bilirubin Negative (Negative); Blood Trace-intact (Negative); Clarity Sl Cloudy (Clear); Glucose Negative (Negative); Ketones Negative (Negative); Leukocyte Esterase Trace (Negative); Nitrite Negative (Negative); Specific Gravity >= 1.030 (1.005-1.025); Urobilinogen 0.2 EU/dL (Up TO 0.2); pH 5.5 (5-8)
[2021-06-28] MEDS: Omnipaque 350 MG/ML 100 ML BTL IV (19:41)
[2021-06-28] MEDS: Normal Saline Flush 10 ML SYR IVP (19:42)
[2021-06-28] MEDS: Normal Saline - Diluent 50 ML VIAL IV (19:42)
[2021-06-28 19:48] LABS: Bacteria Many HPF (Negative); C & S Indicated? No/Sq. Contamination; Casts Negative LPF (Negative); Crystals Negative HPF (Negative); Epithelial Cells Many HPF (Negative); Mucus Negative (Negative); RBC Negative HPF (0-2)
[2021-06-28] MEDS: fentaNYL 100 MCG/2 ML VIAL 30 MCG IVP (19:50)
--- NOTE | 2021-06-28 20:12 | DI.VRAD_ITS ---
PROCEDURE INFORMATION: Exam: CT Abdomen And Pelvis With Contrast Exam date and time: 06/28/2021 7:43 PM Age: 85 years old Clinical indication: Other: Left lower abdomen pain TECHNIQUE: Imaging protocol: Computed tomography of the abdomen and pelvis with contrast. Radiation optimization: All CT scans at this facility use at least one of these dose optimization techniques: automated exposure control; mA and/or kV adjustment per patient size (includes targeted exams where dose is matched to clinical indication); or iterative reconstruction. Contrast material: 0MNIPAQUE 350; Contrast volume: 70 ml; Contrast route: INTRAVENOUS (IV); COMPARISON: CT ABD PELVIS WO CONTRAST 03/02/2018 11:47 AM FINDINGS: Lungs: The visualized lung bases are clear. Heart: Heart size is normal. Mediastinal space: Small hiatal hernia with chronic distal esophageal wall thickening. Liver: Normal. No mass. Gallbladder and bile ducts: Normal. No calcified stones. No ductal dilation. Pancreas: Normal. No ductal dilation. Spleen: Chronic dystrophic calcifications along the posterior capsule of the spleen. Adrenal glands: Normal. No mass. Kidneys and ureters: Scattered punctate sub cm right lower pole simple renal cortical cysts. Stomach and bowel: Descending and sigmoid diverticula without evidence for acute diverticulitis. Appendix: Appendix is normal in caliber. No periappendiceal edema. No findings to suggest acute appendicitis. Intraperitoneal space: Unremarkable. No free air. No significant fluid collection. Vasculature: Unremarkable. No abdominal aortic aneurysm. Lymph nodes: Unremarkable. No enlarged lymph nodes. Urinary bladder: Unremarkable as visualized. Reproductive: Unremarkable as visualized. Bones/joints: Multilevel degenerative changes in the lumbar spine. No vertebral body compression fracture. No lytic or blastic osseous lesion. Soft tissues: Unremarkable. IMPRESSION: 1. Left colon diverticulosis without evidence for acute diverticulitis. 2. No acute intra-abdominal or pelvic finding. Dictated and Authenticated by: Jerry Miles MD. Ordering:STU Olvera MD
[2021-06-28] MEDS: cefTRIAXone 2 GM/50 ML BAG IVPB (20:31)
== END 2021-06-28 21:10 | disposition home or self-care (01) ==
PROVIDERS: Emergency Medicine; Emergency Provider Student in an Organized Health Care Education/Training Program; PCP Nurse Practitioner Family
DX: N39.0 Urinary tract infection, site not specified (principal)
CPT/HCPCS: 36415; 80053; 83690; 96361; 96365; 96375; 99285; 74177; 81003; 81015; 82247; 82248; 83605; 83735; 85025; 99284; J3010; J3490

== ENCOUNTER 2021-07-04 12:11 | Outpatient (REF) | payer OTHER, SELFPAY ==
[2021-07-04 15:05] LABS: Abs Immature Grans 0.03 10^3/uL (0.0-0.06); Absolute Basophil Count 0.08 10^3/uL (0.0-0.2); Absolute Eosinophil Count 0.18 10^3/uL (0.0-0.7); Absolute Lymphocyte Count 4.49 10^3/uL (1.2-3.4); Absolute Neutrophil Count 4.23 10^3/uL (1.2-6.7); Basophils % 0.8; Eosinophils % 1.7; HGB 10.9 g/dL (11.2-15.7); Immature Grans % 0.3; Lymphocytes % 43.5; MCH 31.8 pg (27.0-33.0); MCHC 31.1 % (32.0-36.0); MPV 11.2 fL (8.0-11.0); Monocytes % 12.6; Neutrophils % 41.1; Nucleated RBC 0 %; Platelet Count 211 10^3/uL (130-400); RBC 3.43 10^6/uL (3.93-5.22); RDW 13.7 % (11.7-14.6); RDW-SD 50.1 fL; WBC 10.31 10^3/uL (4.4-10.8)
== END 2021-07-04 12:12 | disposition home or self-care (01) ==
LOC: LBN 12:11
PROVIDERS: PCP Nurse Practitioner Family; Visit Provider Nurse Practitioner Adult Health
DX: D72.829 Elevated white blood cell count, unspecified (principal)
CPT/HCPCS: 85025

== ENCOUNTER 2021-07-08 15:05 | Outpatient (REF) | payer OTHER, SELFPAY | END 2021-07-08 15:06 | disposition home or self-care (01) | LOC: LBN 15:05 | PROVIDERS: PCP Nurse Practitioner Family; Visit Provider Nurse Practitioner Family | DX: N39.0 Urinary tract infection, site not specified (principal); R31.9 Hematuria, unspecified | CPT/HCPCS: 87086 ==

== ENCOUNTER 2021-07-12 03:42 | Outpatient (CLI) | payer OTHER, SELFPAY ==
[2021-07-12 15:47] LABS: Anion Gap 5.9 mmol/L (3-11); BUN 17 mg/dL (7-18); CO2 25.1 mmol/L (21.0-32.0); CREATININE 1.9 mg/dL (0.55-1.02); Calcium 8.5 mg/dL (8.5-10.1); Chloride 106 mmol/L (98-107); Estimated GFR 25.25 (mL/min/1.73m2); Glucose 122 mg/dL (74-106); Potassium 3.6 mmol/L (3.5-5.1); Sodium 137 mmol/L (136-145)
== END 2021-07-12 03:43 | disposition home or self-care (01) ==
LOC: LBO 03:43
PROVIDERS: PCP Nurse Practitioner Family; Visit Provider Nurse Practitioner Family
DX: N18.30 Chronic kidney disease, stage 3 unspecified (principal)
CPT/HCPCS: 36415; 80048

== ENCOUNTER 2021-07-14 09:44 | Outpatient (REF) | payer OTHER, SELFPAY ==
[2021-07-14 11:52] LABS: Bilirubin Negative (Negative); Blood Negative (Negative); Clarity Cloudy (Clear); Glucose Negative (Negative); Ketones Trace mg/dL (Negative); Leukocyte Esterase Trace (Negative); Nitrite Positive (Negative); Specific Gravity >= 1.030 (1.005-1.025); Urobilinogen 0.2 EU/dL (Up TO 0.2); pH 5.5 (5-8)
[2021-07-14 11:59] LABS: Bacteria Many HPF (Negative); C & S Indicated? Yes; Casts Negative LPF (Negative); Crystals Negative HPF (Negative); Epithelial Cells Few HPF (Negative); Mucus Heavy (Negative); Other Cells Few Renal (Negative); RBC Negative HPF (0-2)
== END 2021-07-14 09:45 | disposition home or self-care (01) ==
LOC: LBN 09:44
PROVIDERS: PCP Nurse Practitioner Family; Visit Provider Nurse Practitioner Family
DX: R31.9 Hematuria, unspecified (principal)
CPT/HCPCS: 81003; 81015; 87086

== ENCOUNTER 2021-08-09 04:01 | Outpatient (CLI) | payer MEDICARE, SELFPAY ==
[2021-08-09 11:50] LABS: Anion Gap 7.8 mmol/L (3-11); BUN 19 mg/dL (7-18); CO2 26.2 mmol/L (21.0-32.0); CREATININE 1.5 mg/dL (0.55-1.02); Calcium 8.6 mg/dL (8.5-10.1); Chloride 106 mmol/L (98-107); Estimated GFR 33.16 (mL/min/1.73m2); Glucose 206 mg/dL (74-106); Sodium 140 mmol/L (136-145); TSH (W/Ref FT4) 3.84 uIU/mL (0.36-3.74); Vitamin B12 552 pg/mL (193-986)
[2021-08-09 12:09] LABS: FREE T4 0.72 ng/dL (0.76-1.46)
== END 2021-08-09 04:02 | disposition home or self-care (01) ==
LOC: LBO 04:01
PROVIDERS: PCP Nurse Practitioner Family; Visit Provider Nurse Practitioner Family
DX: E03.9 Hypothyroidism, unspecified (principal); R41.3 Other amnesia; N17.9 Acute kidney failure, unspecified
CPT/HCPCS: 36415; 80048; 82607; 84439; 84443

== ENCOUNTER 2021-11-14 02:33 | Outpatient (CLI) | payer OTHER, SELFPAY ==
[2021-11-14 10:55] LABS: TSH (W/Ref FT4) 2.49 uIU/mL (0.36-3.74)
== END 2021-11-14 02:34 | disposition home or self-care (01) ==
PROVIDERS: PCP Nurse Practitioner Family; Visit Provider Nurse Practitioner Family
DX: E03.9 Hypothyroidism, unspecified (principal)
CPT/HCPCS: 36415; 84443

== ENCOUNTER 2021-12-02 16:02 | Outpatient (REF) | payer OTHER, SELFPAY ==
[2021-12-02 20:59] LABS: COMMENT (LAB VIEW ONLY) 132.99 mg/dL; Microalb ug/mg Crea 60.8 ug/mg Cr
== END 2021-12-02 16:03 | disposition home or self-care (01) ==
LOC: LBN 16:02
PROVIDERS: PCP Nurse Practitioner Family; Visit Provider Nurse Practitioner Family
DX: E11.40 Type 2 diabetes mellitus with diabetic neuropathy, unspecified (principal)
CPT/HCPCS: 82043; 82570

== ENCOUNTER 2021-12-26 01:02 | Outpatient (CLI) | payer OTHER, SELFPAY | END 2021-12-26 01:03 | disposition home or self-care (01) | LOC: DS 01:02 | PROVIDERS: PCP Nurse Practitioner Family; Visit Provider Dietitian, Registered ==

== ENCOUNTER 2021-12-29 02:58 | Outpatient (CLI) | payer OTHER, SELFPAY | END 2021-12-29 02:59 | disposition home or self-care (01) | LOC: DS 02:58 | PROVIDERS: PCP Nurse Practitioner Family; Visit Provider Dietitian, Registered ==

== ENCOUNTER 2022-01-13 01:19 | Outpatient (CLI) | payer OTHER, SELFPAY | END 2022-01-13 01:20 | disposition home or self-care (01) | LOC: DS 01:20 | PROVIDERS: PCP Nurse Practitioner Family; Visit Provider Dietitian, Registered ==

== ENCOUNTER 2022-02-01 02:41 | Outpatient (CLI) | payer OTHER, SELFPAY ==
[2022-02-01 10:07] LABS: Abs Immature Grans 0.02 10^3/uL (0.0-0.06); Absolute Basophil Count 0.06 10^3/uL (0.0-0.2); Absolute Eosinophil Count 0.31 10^3/uL (0.0-0.7); Absolute Lymphocyte Count 3.72 10^3/uL (1.2-3.4); Absolute Monocyte Count 0.88 10^3/uL (0.1-0.8); Absolute Neutrophil Count 4.46 10^3/uL (1.2-6.7); Basophils % 0.6; Eosinophils % 3.3; HCT 33.2 % (36.0-46.0); HGB 10.5 g/dL (11.2-15.7); Immature Grans % 0.2; Lymphocytes % 39.4; MCH 31.9 pg (27.0-33.0); MCHC 31.6 % (32.0-36.0); MCV 100.9 fL (80-95); MPV 10.9 fL (8.0-11.0); Monocytes % 9.3; Neutrophils % 47.2; Nucleated RBC 0 %; Platelet Count 199 10^3/uL (130-400); RBC 3.29 10^6/uL (3.93-5.22); RDW 12.2 % (11.7-14.6); RDW-SD 45.3 fL; WBC 9.45 10^3/uL (4.4-10.8)
[2022-02-01 10:21] LABS: Albumin 3.5 g/dL (3.4-5.0); Anion Gap 8.8 mmol/L (3-11); BUN 17 mg/dL (7-18); CO2 26.2 mmol/L (21.0-32.0); CREATININE 1.7 mg/dL (0.55-1.02); Calcium 8.7 mg/dL (8.5-10.1); Chloride 105 mmol/L (98-107); Estimated GFR 28.63 (mL/min/1.73m2); Glucose 209 mg/dL (74-106); Magnesium 2.1 mg/dL (1.8-2.4); PHOSPHORUS 4.3 mg/dL (2.6-4.7); Potassium 4.5 mmol/L (3.5-5.1); Sodium 140 mmol/L (136-145)
[2022-02-01 10:22] LABS: Hemoglobin A1C 7.7 % (<5.7)
[2022-02-01 10:45] LABS: Ferritin 23 ng/mL (8-252)
[2022-02-01 10:54] LABS: Iron 53 ug/dL (50-170); Total Iron Binding Capacity 289 ug/dL (250-450); Transferrin Sat 18 % (15-50)
[2022-02-01 11:31] LABS: COMMENT (LAB VIEW ONLY) 139.95 mg/dL; PROTEIN 98.3 mg/dL
[2022-02-01 11:34] LABS: COMMENT (LAB VIEW ONLY) 137.51 mg/dL
[2022-02-02 05:26] LABS: Vitamin D 25 Total 16.8 ng/mL (30-100)
[2022-02-02 09:03] LABS: Parathyroid Hormone,Intact 156 pg/mL (19-88)
[2022-02-02 10:45] LABS: Kappa Free Light Chain 9.48 mg/dL (0.33-1.94); Lambda Free Light Chain 5.04 mg/dL (0.57-2.63)
[2022-02-02 15:12] LABS: Albumin, Urine % 12.8 %; Globulins, Urine % 87.2 %; Immunotyping, Urine (See Note); Total Protein Urine 50 mg/dL (See Note)
== END 2022-02-01 02:42 | disposition home or self-care (01) ==
LOC: LBO 02:41
PROVIDERS: PCP Nurse Practitioner Family; Visit Provider Internal Medicine Nephrology
DX: D64.9 Anemia, unspecified (principal); E11.40 Type 2 diabetes mellitus with diabetic neuropathy, unspecified; N18.32 Chronic kidney disease, stage 3b
CPT/HCPCS: 36415; 80048; 82306; 84156; 84166; 86335; 82040; 82043; 82565; 82570; 82728; 83036; 83540; 83550; 83735; 83883; 83970; 84100; 84165; 85025

== ENCOUNTER 2022-05-26 15:15 | Outpatient (CLI) | payer OTHER, SELFPAY ==
--- NOTE | 2022-05-26 15:15 | RT.EKG_ITS ---
APPROVED REPORT Exam: Resting ECG Reason for Exam: 1 week of increased sizziness Patient Location: O HR:79 bpm ECG Measurements Heart Rate 79 AXIS OH 143 P 86 QRSd 72 QRS 50 QT 396 T 61 QTc 454 Conclusion Sinus rhythm...normal P axis, V-rate 60- 99
== END 2022-05-26 15:16 | disposition home or self-care (01) ==
LOC: DI.KIM 15:16
PROVIDERS: PCP Nurse Practitioner Family; Visit Provider Family Medicine
DX: R42 Dizziness and giddiness (principal)
CPT/HCPCS: 93010

== ENCOUNTER 2022-07-12 20:25 | Observation (INO) | payer OTHER, SELFPAY ==
[2022-07-12] VITALS (33 sets, daily range): BP systolic 120–166; BP diastolic 48–108; PULSE 91–109; RESP 21–32; TEMP 36.8; O2SAT 92–96
--- NOTE | 2022-07-12 20:15 | DI.CT_ITS ---
Exam(s) CT HEAD CERVICAL SPINE WO EXAM: CT HEAD CERVICAL SPINE WO CLINICAL HISTORY: fall, [place]. TECHNIQUE: Imaging Protocol: Axial computed tomography images with coronal and sagittal reformatted images were created and reviewed COMPARISON: CT CT HEAD WO from 06/16/2021 FINDINGS: BRAIN: Again noted is right frontoparietal craniotomy. There are no skull fractures nor fluid in the visualized paranasal sinuses. There is no evidence of intracranial hemorrhage, mass effect, or shift of midline structures. There are no extra-axial fluid collections. The ventricles are not enlarged or shifted and there is no blo od within the ventricular system nor within the basal cisterns. Symmetrical bilateral periventricular hypodensity consistent with chronic small vessel disease. No a cute infarct evident. Calcification in the vertebral arteries at the skull base is noted. CERVICAL SPINE: There is no evidence of fracture nor significant listhesis. No significant prevertebral soft tissue swelling. Multilevel disc space narrowing chronic-type at C4-5-6-7 levels. There is mild degenerative anteroli sthesis of C3 upon C4. There is multilevel facet arthropathy but no facet malalignment evident. No significant osseous lesions. IMPRESSION: No acute intracranial findings on this noninfused CT scan of the brain. No evidence of cervical spine fracture, malalignment, nor acute compromise of the cervical spinal can al. RADIATION DOSE DELIVERED: 1,078.39mGy.cm Total DLP DATA REPOSITORY: All CT scans at this facility are submitted to the National Radiology Data Registry (NRDR) Dose Index Registry (DIR) with the [employer] (ACR). RADIATION OPTIMIZATION: All CT scans at this facility use at least one of these dose optimization te chniques: automated exposure control; mA and/or kV adjustment per patient size (includes targeted exa ms where dose is matched to clinical indication); or iterative reconstruction.
--- NOTE | 2022-07-12 20:15 | RT.EKG_ITS ---
APPROVED REPORT Exam: Resting ECG Reason for Exam: syncope Patient Location: E HR:104 bpm ECG Measurements Heart Rate 104 AXIS KS 129 P 65 QRSd 89 QRS 37 QT 372 T 49 QTc 476 Conclusion Sinus tachycardia...rate> 99 Atrial premature complexes...SV complexes w/ short R-R intvls Probable left ventricular hypertrophy...multiple LVH criteria
[2022-07-12] MEDS: Lactated Ringers 1,000 ML 1000 ML IV (20:40)
--- NOTE | 2022-07-12 20:45 | DI.CT_ITS ---
Exam(s) CT THORACIC SPINE WO EXAM: CT THORACIC SPINE WO CLINICAL HISTORY: fall. Back pain TECHNIQUE: Imaging Protocol: Axial computed tomography images with coronal and sagittal reformatted images were created and reviewed. CONTRAST MATERIAL: None COMPARISON: CT CT CHEST WO from 07/12/2022 FINDINGS: THORACIC SPINAL COLUMN: No compression fractures nor listhesis. No facet malalignment. Incidentally noted are abnormal findings in the lungs. See separate report IMPRESSION: No evidence of acute thoracic spine fracture. No malalignment. RADIATION DOSE DELIVERED: Total DLP DATA REPOSITORY: All CT scans at this facility are submitted to the National Radiology Data Registry (NRDR) Dose Index Registry (DIR) with the [employer] (ACR). RADIATION OPTIMIZATION: All CT scans at this facility use at least one of these dose optimization te chniques: automated exposure control; mA and/or kV adjustment per patient size (includes targeted exa ms where dose is matched to clinical indication); or iterative reconstruction.
--- NOTE | 2022-07-12 20:45 | DI.CT_ITS ---
Exam(s) CT CHEST WO EXAM: CT CHEST WO CLINICAL HISTORY: fall, chest wall pain. TECHNIQUE: Multi planar reconstructions were performed. CONTRAST MATERIAL: None COMPARISON: CT HR CHEST/CHEST WO from 08/24/2016 FINDINGS: CHEST: LUNGS: There is pleural base confluent infiltrate in the posterior segment of the right upper lobe an d there is a similar appearing pleural based infiltrate in the apical posterior segment of the left u pper lobe. Other patchy nodular infiltrates are noted elsewhere in the right upper lobe. Also in th e right middle lobe, superior segment right lower lobe but with sparing of the lower lobe basal segme nts. No significant focal findings in the left lower lobe. Mild elevation left hemidiaphragm is not ed. No significant pleural effusions. No focal findings in trachea and mainstem bronchi. MEDIASTINUM: There is no obvious hilar nor mediastinal adenopathy. No obvious axillary adenopathy CARDIAC: Heart size is normal. There is no pericardial effusion.Caliber of the thoracic aorta is wit hin normal limits. VISUALIZED UPPER ABDOMEN:No adrenal masses. Spleen size normal. Calcification in superior aspect of the spleen capsule is unchanged from 2016 and possibly related to prior remote trauma. OSSEOUS: No rib fractures evident. No vertebral fractures. No scapular or sternal fractures.. IMPRESSION: 1. There significant infiltrates in both upper lobes, pleural based and are also nodular patchy infil trates in the right upper lobe and superior segment right lower lobe. No significant pleural effusio ns. No pneumothorax. No rib fractures. RADIATION DOSE DELIVERED: 436.42 mGy.cm Total DLP DATA REPOSITORY: All CT scans at this facility are submitted to the National Radiology Data Registry (NRDR) Dose Index Registry (DIR) with the [employer] (ACR). RADIATION OPTIMIZATION: All CT scans at this facility use at least one of these dose optimization te chniques: automated exposure control; mA and/or kV adjustment per patient size (includes targeted exa ms where dose is matched to clinical indication); or iterative reconstruction.
[2022-07-12 20:51] LABS: BE (Venous) -3 mmol/L (-2-3); HCO3 (Venous) 23 mmol/L (23-28); O2 Sat (Venous) 71 %; TCO2 (Venous) 21 mmol/L (24-29); pCO2 (Venous) 38 mmHg (41-51); pH (Venous) 7.38 (7.31-7.41); pO2 (Venous) 38 mmHg
[2022-07-12 20:52] LABS: Absolute Basophil Count 0.04 10^3/uL (0.0-0.2); Absolute Monocyte Count 1.76 10^3/uL (0.1-0.8); Basophils % 0.2; Eosinophils % 0.1; HCT 30.7 % (36.0-46.0); HGB 10.2 g/dL (11.2-15.7); Immature Grans % 0.6; Lymphocytes % 4.3; MCH 32.8 pg (27.0-33.0); MCHC 33.2 % (32.0-36.0); MCV 99 fL (80-95); MPV 11.3 fL (8.0-11.0); Monocytes % 9.7; Neutrophils % 85.1; Platelet Count 189 10^3/uL (130-400); RBC 3.11 10^6/uL (3.93-5.22); RDW 12.3 % (11.7-14.6); RDW-SD 44.6 fL
[2022-07-12 20:55] LABS: Absolute Eosinophil Count 0.02 10^3/uL (0.0-0.7); Absolute Lymphocyte Count 0.78 10^3/uL (1.2-3.4)
--- NOTE | 2022-07-12 21:01 | ED.GENADUL_ITS ---
Discharge Plan Disposition Patient Disposition: [facility] INPATIENT Condition: Serious Discharge Details Clinical Impression: Type 2 diabetes mellitus with diabetic neuropathy, without long-term current use of insulin, CKD (chronic kidney disease), Pneumonia, Sepsis, Acute hyponatremia Primary Care Provider: Francy Moran ED Provider: Kelsea Smith Home Meds and New Rx's Prescriptions: No Action hydrochlorothiazide 12.5 mg tablet 12.5 mg PO DAILY Qty: 90 1RF famotidine 40 mg tablet 40 mg PO DAILY Qty: 30 11RF Januvia 50 mg tablet 50 mg PO DAILY Qty: 30 11RF Rx Instructions: Dose adjusted for kidney function magnesium oxide 400 mg magnesium capsule 400 mg PO DAILY Qty: 30 11RF Rx Instructions: Administer at least 2 hours apart from other medications metformin 500 mg tablet 500 mg PO BID MDD 1000 mg Qty: 180 3RF Rx Instructions: DOSED FOR RENAL FUNCTION levothyroxine 25 mcg tablet 25 mcg PO DAILY Qty: 90 3RF Rx Instructions: Administer in the morning on an empty stomach, at least 30-60 minutes before food cyanocobalamin (vitamin B-12) 1,000 mcg tablet 1,000 mcg PO DAILY Qty: 30 11RF glimepiride 4 mg tablet 4 mg PO DAILY Qty: 30 11RF multivitamin [Daily Multi-Vitamin] 1 EACH tablet 1 ea PO DAILY fluoxetine 20 mg capsule 20 mg PO DAILY Qty: 90 3RF simvastatin 20 mg tablet 20 mg PO HS Qty: 90 3RF (DME) lancets Misc See Dose Instructions .ROUTE .MEDSUPPLY Qty: 200 3RF Dose Instruction: As directed to check daily morning fasting blood glucose Rx Instructions: As directed to check twice daily blood glucose. No insulin. Dispense covered brand. (DME) Blood Glucose Test Strip See Dose Instructions .ROUTE .MEDSUPPLY Qty: 100 3RF Dose Instruction: As directed to check daily morning fasting blood glucose. No insulin. Rx Instructions: As directed to check once daily blood glucose. No insulin. Dispense covered brand. ferrous sulfate 325 mg (65 mg iron) tablet 325 mg PO BID Qty: 180 3RF calcium phosphate-vitamin D3 250 mg-12.5 mcg (500 unit) tablet,chewable 2 tab PO DAILY Qty: 180 3RF (DME) blood-glucose meter Misc 1 ea Miscellaneous DAILY Qty: 1 0RF Rx Instructions: Dx: E11.9 to maintain HbA1c less than 7%. No insulin. Please dispense brand covered by insurance. albuterol sulfate [ProAir HFA] 90 mcg/actuation HFA aerosol inhaler 1 - 2 puff Inhalation .Q4-6H PRN (Reason: shortness of breath or wheezing) Qty: 1 3RF Rx Instructions: DISPENSE ALBUTEROL INHALER BRAND COVERED BY INSURANCE budesonide-formoterol [Symbicort] 160-4.5 mcg/actuation HFA aerosol inhaler 2 puff Inhalation BID Qty: 3 3RF Medical Decision Making Patient is alert and oriented, she is full CODE STATUS, this was confirmed with patient and her proxy who is in room, daughter She does have multifocal pneumonia, this is likely atypical, did start ceftriaxone and doxycycline empirically for treating her pneumonia Patient meets sepsis criteria with source of pneumonia, tachycardia, and tachypnea, she does not meet septic shock criteria her blood pressures been stable She received 1 L of LR in the emergency department She is afebrile on my exam She does have hyponatremia, 129, decreased from 136 She has CKD, I do not see an acute exacerbation although her BUN is slightly elevated Leukocytosis, 18,000 with shift COVID-negative Patient will need admission for pneumonia in the presence of syncope Dr. Fierro has agreed to admit patient to his service Lactate is within normal limits CT scan of head and cervical spine does not show acute abnormality, CT chest displays multifocal pneumonia without pneumothorax and thoracic spine CT without evidence of acute fracture Patient is agreeable to admission at this time Medical Records Medical records reviewed: Yes I reviewed the patient's medical records. Lab Data Lab results reviewed: Yes I reviewed the patient's lab results. HPI General Date/Time Provider Initiated Documentation: 07/12/22 20:31 . HPI Narrative: This 86-year-old female with history of anemia, hypothyroidism, [id number] diabetes presents with reported loss of consciousness. Patient reportedly appeared pale and was weak prior to being dropped off at her storage unit and reportedly patient does not recall the event but remembers waking up on the ground screaming for help. Bystanders called 911 reportedly. Patient states she remembers walking toward her storage unit and the next thing she remembers is waking up on the ground. She denies history of seizure-like activity. She has a mild pain to her back but denies any additional pain complaints. She is chronically incontinent and that is new. She denies any fever or chills today. She denies cough or shortness of breath. She denies any chest discomfort or palpitations prior to event. She states she was feeling at her baseline health when she was walking toward the unit. She is unable to get herself off the ground secondary to weakness. She denies any localized weakness, numbness, tingling. Related Data Home Medications Medication Instructions Recorded Confirmed multivitamin (Daily Multi-Vitamin 1 ea PO DAILY 04/17/18 07/06/22 tablet) fluoxetine 20 mg capsule 20 mg PO DAILY #90 caps 07/19/21 07/06/22 simvastatin 20 mg tablet 20 mg PO HS #90 tab-caps 10/27/21 07/06/22 levothyroxine 25 mcg tablet 25 mcg PO DAILY #90 tab-caps 12/02/21 07/06/22 metformin 500 mg tablet 500 mg PO BID #180 tab-caps 12/02/21 07/06/22 blood sugar diagnostic (Blood #100 ea 12/07/21 07/06/22 Glucose Test strips) cyanocobalamin (vitamin B-12) 1,000 mcg PO DAILY #30 tab-caps 12/07/21 07/06/22 1,000 mcg tablet lancets #200 ea 12/07/21 07/06/22 glimepiride 4 mg tablet 4 mg PO DAILY #30 tab-caps 03/03/22 07/06/22 calcium phosphate 250 mg-vit D3 2 tab PO DAILY #180 tabs 03/24/22 07/06/22 12.5 mcg (500 unit) chewable tablet ferrous sulfate 325 mg (65 mg 325 mg PO BID #180 tabs 03/24/22 07/06/22 iron) tablet blood-glucose meter #1 unit 04/05/22 07/06/22 albuterol sulfate 90 mcg/actuation 1 - 2 puff inhalation .Q4-6H PRN 05/29/22 07/06/22 aerosol inhaler (ProAir HFA) shortness of breath or wheezing #1 unit budesonide-formoterol HFA 160 2 puff inhalation BID ##3 05/29/22 07/06/22 mcg-4.5 mcg/actuation aerosol inhaler (Symbicort) famotidine 40 mg tablet 40 mg PO DAILY #30 tabs 06/02/22 07/06/22 hydrochlorothiazide 12.5 mg tablet 12.5 mg PO DAILY #90 tabs 06/02/22 07/06/22 magnesium oxide 400 mg PO DAILY #30 tab-caps 07/06/22 07/06/22 sitagliptin 50 mg tablet (Januvia) 50 mg PO DAILY #30 tabs 07/06/22 07/06/22 Previous Rx's Medication Instructions Recorded fluoxetine 20 mg capsule 20 mg PO DAILY #90 caps 07/19/21 simvastatin 20 mg tablet 20 mg PO HS #90 tab-caps 10/27/21 levothyroxine 25 mcg tablet 25 mcg PO DAILY #90 tab-caps 12/02/21 metformin 500 mg tablet 500 mg PO BID #180 tab-caps 12/02/21 blood sugar diagnostic (Blood #100 ea 12/07/21 Glucose Test strips) cyanocobalamin (vitamin B-12) 1,000 mcg PO DAILY #30 tab-caps 12/07/21 1,000 mcg tablet lancets #200 ea 12/07/21 glimepiride 4 mg tablet 4 mg PO DAILY #30 tab-caps 03/03/22 calcium phosphate 250 mg-vit D3 2 tab PO DAILY #180 tabs 03/24/22 12.5 mcg (500 unit) chewable tablet ferrous sulfate 325 mg (65 mg 325 mg PO BID #180 tabs 03/24/22 iron) tablet blood-glucose meter #1 unit 04/05/22 albuterol sulfate 90 mcg/actuation 1 - 2 puff inhalation .Q4-6H PRN 05/29/22 aerosol inhaler (ProAir HFA) shortness of breath or wheezing #1 unit budesonide-formoterol HFA 160 2 puff inhalation BID ##3 05/29/22 mcg-4.5 mcg/actuation aerosol inhaler (Symbicort) famotidine 40 mg tablet 40 mg PO DAILY #30 tabs 06/02/22 hydrochlorothiazide 12.5 mg tablet 12.5 mg PO DAILY #90 tabs 06/02/22 magnesium oxide 400 mg PO DAILY #30 tab-caps 07/06/22 sitagliptin 50 mg tablet (Januvia) 50 mg PO DAILY #30 tabs 07/06/22 Allergies Allergy/AdvReac Type Severity Reaction Status Date / Time azithromycin AdvReac Unknown nausea Verified 07/06/22 13:08 erythromycin base AdvReac Unknown Nausea Verified 07/06/22 13:08 shellfish derived AdvReac Unknown N/V/D Verified 07/06/22 13:08 Tetracyclines AdvReac Unknown Nausea Verified 07/06/22 13:08 NATALIIA Inhibitors AdvReac Other (See Verified 07/06/22 13:08 Comment) General Stated Complaint: Dizzy/Sync SAM: 2 Review of Systems All systems reviewed & are unremarkable except as noted in HPI and below PFSH All Active Problems (Updated 07/12/22 @ 22:43 by LEXIE Chu) Pneumonia (Acute) Sepsis (Acute) Acute hyponatremia (Acute) Breast mass, left (Acute) Anemia, unspecified (Chronic) Microalbuminuria due to type 2 diabetes mellitus (Acute) Cognitive complaints (Chronic) 09/22/2021 MOCA: = NORMAL; monitor Hypothyroidism (Chronic) CKD (chronic kidney disease) (Chronic) Macrocytic anemia (Chronic) Borderline low B12 level, normal Epo (suggesting due to CKD as well); 06/16/2019 [facility] [place] consult: multifactorial & recommended iron supplement Type 2 diabetes mellitus with diabetic neuropathy, without long-term current use of insulin (Chronic) Unspecified essential hypertension (Chronic 01/31/13) Hyperkalemia with NATALIIA-I --> AVOID Other disorders of Eustachian tube (Chronic 09/07/14) Other diseases of lung, not elsewhere classified (Chronic 11/21/11) rt 4mm ct stable 08/17; restrictive lung disease, neuromuscular weakness etiol? Dr Patel follows PFTs 08/2013 restrictive 47% NM weakness + response BD Osteoporosis (Chronic 07/12/16) DEXA 07/11/16 Hip T-3.2, Spine T-1.5, forearm T-3.5 Hypomagnesemia (Chronic 03/14/18) Hyperlipidemia (Chronic 11/21/11) Heart murmur (Chronic 08/24/17) 09/12/2017 echo: no significant valvular disease Gastroesophageal reflux disease (Chronic 11/21/11) Diabetic neuropathy, type II diabetes mellitus (Chronic 08/12/14) Anxiety (Chronic 11/21/11) Medical History Cerebral meningioma (01/31/13) 2005 Craniotomy, resection of frontal mennigioma [facility] [place] Closed nondisplaced comminuted fracture of shaft of left humerus (05/26/16) Neoplasm of skin (08/26/14) Pneumonia Restrictive lung disease Shingles Surgical History irrigation and debridement (10/05/15) R wrist Dr Ciarra Hand Family History Mother Personal history of malignant neoplasm breast and ovarian CA Father Myocardial infarction Social History Smoking/Tobacco Use Status: Never Smoking risk assessment performed?: Yes Alcohol Intake: never Drug use: Never Substance use type: does not use Caregiver/Support person: No Housing: apartment Number of Children: 3 number of grandchildren: 5 Pets and animals: No Sexually active: No Current gender identity: female What type of physical activity do you participate in: walking Frequency: daily Do you feel safe at home: Yes Do you feel safe in your relationship?: Yes Exam Const General: cooperative, disheveled, frail appearing and ill appearing Orientation: alert and oriented x3 HENMT Other: Dry mucous membranes, uvula midline, no visible sign of trauma, no hemotympanum Eyes Pupils: PERRL EOM: nystagmus Neck Other: No midline tenderness Chest Chest: normal inspection of the chest Other: No anterior tenderness, mild left posterior thoracic tenderness Resp Effort & Inspection: normal respiratory effort Auscultation: clear to auscultation bilaterally Cardio Rate: regular rate Rhythm: regular rhythm GI Inspection: normal to inspection Other: No abdominal tenderness, no visible sign of trauma Neuro General: patient alert, patient oriented x3 and CN's II-XI intact bilaterally Cranial Nerves: tongue midline and nystagmus Cognition: normal cognition Speech: speech normal Sensory Exam: no sensory deficits noted Other: GCS 15, strength and sensation intact distally Extrem General: normal to inspection Course Vital Signs Vital signs: Vital Signs Temperature 36.8 C 07/12/22 20:16 Pulse 102 H 07/12/22 20:16 Respiratory Rate 26 H 07/12/22 20:16 Blood Pressure 166/61 H 07/12/22 20:16 Pulse Oximetry 94 07/12/22 20:16 Temperature 36.8 C 07/12/22 20:16 Temperature Source Skin 07/12/22 20:16 Pulse 102 H 07/12/22 20:16 Respiratory Rate 28 H 07/12/22 20:38 Respiratory Effort Non-Labored 07/12/22 20:38 Respiratory Depth Normal 07/12/22 20:38 Respiratory Pattern Normal 07/12/22 20:38 Blood Pressure 166/61 H 07/12/22 20:16 Pulse Oximetry 94 07/12/22 20:16 Oxygen Delivery Method Room Air 07/12/22 20:16 Oxygen Flow Rate 0 07/12/22 20:16 Lab/Test Results Lab/Test Results: Laboratory Tests Range/Units 07/12/22 20:40 VBG pH (7.31-7.41) 7.38 VBG pCO2 (41-51) mmHg 38 L VBG pO2 mmHg 38 VBG HCO3 (23-28) mmol/L 23 VBG Total CO2 (24-29) mmol/L 21 L VBG O2 Saturation % 71 VBG Base Excess (-2-3) mmol/L -3 L
[2022-07-12 21:06] LABS: Source Nasal/Nares
[2022-07-12 21:08] LABS: Diff Comment Agrees w/ Instrument; RBC Morphology Normal
[2022-07-12 21:18] LABS: ALT 30 U/L (14-59); AST 39 U/L (15-37); Albumin 3.3 g/dL (3.4-5.0); Alkaline Phosphatase 120 U/L (46-116); Anion Gap 9.6 mmol/L (3-11); BUN 35 mg/dL (7-18); Bilirubin, Total 0.6 mg/dL (0.2-1.0); CO2 22.4 mmol/L (21.0-32.0); CREATININE 1.9 mg/dL (0.55-1.02); Calcium 8.9 mg/dL (8.5-10.1); Chloride 97 mmol/L (98-107); Creatine Kinase 113 U/L (26-192); Estimated GFR 25.72 (mL/min/1.73m2); Glucose 282 mg/dL (74-106); Potassium 4.2 mmol/L (3.5-5.1); Sodium 129 mmol/L (136-145); Total Protein 7.9 g/dL (6.4-8.2); Troponin I < 50 ng/L (<or=60)
[2022-07-12 21:19] LABS: Bilirubin Negative (Negative); Blood Moderate (Negative); Clarity Clear (Clear); Glucose 500 mg/dL (Negative); Ketones 40 mg/dL (Negative); Leukocyte Esterase Negative (Negative); Nitrite Negative (Negative)
[2022-07-12 21:28] LABS: Bacteria Negative HPF (Negative); C & S Indicated? No; Casts 0-2 Hyaline LPF (Negative); Crystals Few Amorphous HPF (Negative); Epithelial Cells Rare HPF (Negative); Mucus Negative (Negative); RBC 0-2 HPF (0-2); WBC 0-2 HPF (0-5)
[2022-07-12 21:41] LABS: COVID-19 PCR Negative (Negative)
--- NOTE | 2022-07-12 21:55 | DI.VRAD_ITS ---
PROCEDURE INFORMATION: Exam: CT Head Without Contrast Exam date and time: 07/12/2022 9:38 PM Age: 86 years old Clinical indication: Injury or trauma; Fall; Blunt trauma (contusions or hematomas); Consciousness not specified; Concussion/head injury; Injury date: 07/12/22 TECHNIQUE: Imaging protocol: Computed tomography of the head without contrast. Radiation optimization: All CT scans at this facility use at least one of these dose optimization techniques: automated exposure control; mA and/or kV adjustment per patient size (includes targeted exams where dose is matched to clinical indication); or iterative reconstruction. COMPARISON: CT HEAD WO 06/16/2021 9:00 AM FINDINGS: Brain: Mild volume loss No hemorrhage.Moderate white matter disease.No mass effect. Cerebral ventricles: No ventriculomegaly. Paranasal sinuses: Visualized sinuses are unremarkable. No fluid levels. Mastoid air cells: Visualized mastoid air cells are well aerated. Bones/joints: Right frontoparietal craniotomies. No acute fracture. Soft tissues: Unremarkable. IMPRESSION: No acute intracranial hemorrhage PROCEDURE INFORMATION: Exam: CT Cervical Spine Without Contrast Exam date and time: 07/12/2022 9:38 PM Age: 86 years old Clinical indication: Injury or trauma; Fall; Blunt trauma (contusions or hematomas); Consciousness not specified; Concussion/head injury; Injury date: 07/12/22 TECHNIQUE: Imaging protocol: Computed tomography of the cervical spine without contrast. Radiation optimization: All CT scans at this facility use at least one of these dose optimization techniques: automated exposure control; mA and/or kV adjustment per patient size (includes targeted exams where dose is matched to clinical indication); or iterative reconstruction. COMPARISON: CT HEAD WO 06/16/2021 9:00 AM FINDINGS: Bones/joints: No acute fracture. Loss of cervical lordosis is presumably on a degenerative basis.No significant disc protrusion. No severe spinal canal stenosis. Multilevel foraminal stenosis Lungs: Lung apices are normal. Soft tissues: Unremarkable. IMPRESSION: No acute findings. Dictated and Authenticated by: Anclemo Craig MD. Ordering:KRISTIN Enamorado MD
--- NOTE | 2022-07-12 22:04 | DI.VRAD_ITS ---
PROCEDURE INFORMATION: Exam: CT Chest Without Contrast; Diagnostic Exam date and time: 07/12/2022 9:43 PM Age: 86 years old Clinical indication: Injury or trauma; Fall; Blunt trauma (contusions or hematomas); Injury date: 07/12/22 TECHNIQUE: Imaging protocol: Diagnostic computed tomography of the chest without contrast. 3D rendering (Not supervised by radiologist): MIP and/or 3D reconstructed images were created by the technologist. Radiation optimization: All CT scans at this facility use at least one of these dose optimization techniques: automated exposure control; mA and/or kV adjustment per patient size (includes targeted exams where dose is matched to clinical indication); or iterative reconstruction. COMPARISON: CT HR CHEST/CHEST WO 08/24/2016 1:01 PM FINDINGS: Lungs: Moderate bilateral upper and lower lobe bronchial wall thickening, compatible with reactive airway disease or bronchitis. Focal consolidations within the periphery of the posterior aspects of the upper lobes bilaterally. Additional small consolidations within the central aspect of the right upper lobe. Pleural spaces: Small right pleural effusion. Heart: Moderate three-vessel coronary artery atherosclerotic calcification. Coronary arteries: No visible coronary artery atherosclerotic calcification. Lymph nodes: No enlarged lymph nodes. Vasculature: Atherosclerotic disease of the thoracic aorta, without aneurysm. Bones/joints: Multilevel thoracic spine degenerative disc space narrowing and osteophyte formation. Soft tissues: Normal. IMPRESSION: 1. Moderate bilateral upper and lower lobe bronchial wall thickening, compatible with reactive airway disease or bronchitis. 2. Focal consolidations within the periphery of the posterior aspects of the upper lobes bilaterally. Additional small consolidations within the central aspect of the right upper lobe. Findings most compatible with multifocal pneumonia. Recommend follow-up. 3. Small right pleural effusion. Dictated and Authenticated by: Navarro Cruz MD. Ordering:KRISTIN Enamorado MD
--- NOTE | 2022-07-12 22:10 | DI.VRAD_ITS ---
PROCEDURE INFORMATION: Exam: CT Thoracic Spine Without Contrast Exam date and time: 07/12/2022 9:43 PM Age: 86 years old Clinical indication: Injury or trauma; Fall; Blunt trauma (contusions or hematomas); Injury date: 07/12/22 TECHNIQUE: Imaging protocol: Computed tomography of the thoracic spine without contrast. Radiation optimization: All CT scans at this facility use at least one of these dose optimization techniques: automated exposure control; mA and/or kV adjustment per patient size (includes targeted exams where dose is matched to clinical indication); or iterative reconstruction. COMPARISON: CT HEAD CERVICAL SPINE WO 07/12/2022 9:38 PM FINDINGS: Bones/joints: Moderate multilevel thoracic spine degenerative disc space narrowing and minimal sclerosis. No acute fracture or malalignment. Soft tissues: Unremarkable. Pleural spaces: Partially visualized small right pleural effusion. IMPRESSION: No acute fracture or malalignment. Dictated and Authenticated by: Navarro Cruz MD. Ordering:KRISTIN Enamorado MD
[2022-07-12] MEDS: DOXYCYCLINE 100 MG in Normal Saline 100 ML IVPB (22:21)
[2022-07-12 22:23] LABS: Lactate 1.1 mmol/L (0.6-1.4)
[2022-07-12] MEDS: cefTRIAXone 2 GM/50 ML BAG IVPB (22:24)
--- NOTE | 2022-07-12 22:47 | W.PM.HP.N ---
Date of service: 07/12/22 Time of Service: 22:47 Assessment and Plan Assessment and plan (1) Syncope and collapse: Start date: 07/12/22 Status: Acute Assessment and plan: This is an 86-year-old lady who had episode of falling to the ground with some incontinence but no other evidence of seizure activity and negative imaging upon admission. She had no significant injury. She is extremely weak with newfound multifocal pneumonia upon presentation. She also had hyponatremia which may be associated with her pneumonia. She will be admitted for gentle IV hydration with CKD appearing fairly stable but patient clinically dry and responded to IV fluids in the ED. Follow-up lab and ambulate with assistance. Back monitoring. After recovery from her acute illness consider further neurological evaluation because of incontinence with her episode. Full code. (2) Pneumonia: Start date: 07/12/22 Status: Acute Assessment and plan: Found by imaging with patient having respiratory finding but also chronic COPD. Continue IV Rocephin and doxycycline and follow-up imaging as indicated. Oxygen support if needed. Retest for COVID-19 with initial test negative but patient is under investigation and will be placed in the room with negative pressure as caution. Full masking at this time is not necessary. (3) Acute hyponatremia: Start date: 07/12/22 Status: Acute Assessment and plan: IV hydration with normal saline and monitor labs. This most likely is associated with her acute multifocal pneumonia. (4) Hypothyroidism: Status: Chronic Assessment and plan: Continue outpatient medical therapy with TSH stable. Qualifiers: Hypothyroidism type: unspecified Qualified Code(s): E03.9 - Hypothyroidism, unspecified (5) Type 2 diabetes mellitus with diabetic neuropathy, without long-term current use of insulin: Status: Chronic Assessment and plan: Glucometers before meals and at bedtime with short acting insulin coverage and with hold oral therapy while hospitalized. (6) CKD (chronic kidney disease): Status: Chronic Assessment and plan: Monitor labs while on IV hydrate. This is a chronic problem appears to be fairly stable. Was clinically dehydrated upon admission and is respond to IV fluids. Qualifiers: Chronic kidney disease stage: stage 3 (moderate) Qualified Code(s): N18.3 - Chronic kidney disease, stage 3 (moderate) History of Present Illness History of Present Illness Chief Complaint: Loss of consciousness unwitnessed Narrative: This is an 86-year-old female patient who mostly is on treatment for hypothyroidism but also has type 2 diabetes mellitus oral treatment with diet control, chronic anemia supplements, COPD and hypertension who has not been feeling well over the last several days with increased weakness on the day of admission. Her daughter had dropped her off at her storage unit and the patient was walking toward the unit when she fell to the ground screaming for help though she has no memory. She was incontinent of urine and stool but had no seizure activity. She was not postictal after the event. She did feel extremely weak and has some mild abdominal pain in the mid abdomen but no shortness of breath, no fever or rigors and no diaphoresis. She had no focalizing weakness. She has had no previous stroke by history. Has had a recent cough for the last several days and states this week she has not felt well. She mostly complains of weakness prior to the event. In the ED she was evaluated and was found to have no acute injury but found to have multifocal pneumonia which did not have significant hypoxemia but she did have hyponatremia with her altered mental status which was new leukocytosis. She also had possible positive urine which was cultured. She has a history of CKD and this was not significantly worse with creatinine just above her baseline and review baseline being about 1.5 and patient presenting with creatinine of 1.9. Was given IV hydration in the ED and will continue IV hydration with admission for treatment of her infection. She was started on Rocephin and doxycycline in the ED which will be continued. She is a full code. Review of Systems Narrative: 13 point review of systems otherwise unrevealing or stable. [facility] All Active Problems (Updated 07/12/22 @ 22:52 by Garland Fierro) Syncope and collapse (Acute) Pneumonia (Acute) Sepsis (Acute) Acute hyponatremia (Acute) Breast mass, left (Acute) Anemia, unspecified (Chronic) Microalbuminuria due to type 2 diabetes mellitus (Acute) Cognitive complaints (Chronic) 09/22/2021 MOCA: 27/30 = NORMAL; monitor Hypothyroidism (Chronic) CKD (chronic kidney disease) (Chronic) Macrocytic anemia (Chronic) Borderline low B12 level, normal Epo (suggesting due to CKD as well); 06/16/2019 [facility] [place] Hematology consult: multifactorial & recommended iron supplement Type 2 diabetes mellitus with diabetic neuropathy, without long-term current use of insulin (Chronic) Unspecified essential hypertension (Chronic 01/31/13) Hyperkalemia with NATALIIA-I --> AVOID Other disorders of Eustachian tube (Chronic 09/07/14) Other diseases of lung, not elsewhere classified (Chronic 11/21/11) rt 4mm ct stable 08/17; restrictive lung disease, neuromuscular weakness etiol? Dr Patel follows PFTs 08/2013 restrictive 47% NM weakness + response BD Osteoporosis (Chronic 07/12/16) DEXA 07/11/16 Hip T-3.2, Spine T-1.5, forearm T-3.5 Hypomagnesemia (Chronic 03/14/18) Hyperlipidemia (Chronic 11/21/11) Heart murmur (Chronic 08/24/17) 09/12/2017 echo: no significant valvular disease Gastroesophageal reflux disease (Chronic 11/21/11) Diabetic neuropathy, type II diabetes mellitus (Chronic 08/12/14) Anxiety (Chronic 11/21/11) Medical History Cerebral meningioma (01/31/13) 2004 Craniotomy, resection of frontal mennigioma [facility] [place] Closed nondisplaced comminuted fracture of shaft of left humerus (05/26/16) Neoplasm of skin (08/26/14) Pneumonia Restrictive lung disease Shingles Surgical History irrigation and debridement (10/05/15) R wrist Dr Lafleur Splenomegaly Family History Mother Personal history of malignant neoplasm breast and ovarian CA Father Myocardial infarction Social History Smoking/Tobacco Use Status: Never Smoking risk assessment performed?: Yes Alcohol Intake: never Drug use: Never Substance use type: does not use Caregiver/Support person: No Housing: apartment Number of Children: 3 number of grandchildren: 5 Pets and animals: No Sexually active: No Current gender identity: female What type of physical activity do you participate in: walking Frequency: daily Do you feel safe at home: Yes Do you feel safe in your relationship?: Yes Meds Allergies and Home Medications Allergies Allergy/AdvReac Type Severity Reaction Status Date / Time azithromycin AdvReac Unknown nausea Verified 07/06/22 13:08 erythromycin base AdvReac Unknown Nausea Verified 07/06/22 13:08 shellfish derived AdvReac Unknown N/V/D Verified 07/06/22 13:08 Tetracyclines AdvReac Unknown Nausea Verified 07/06/22 13:08 NATALIIA Inhibitors AdvReac Other (See Verified 07/06/22 13:08 Comment) Home Medications Medication Instructions Recorded Confirmed Type multivitamin (Daily Multi-Vitamin 1 ea PO DAILY 04/17/18 07/12/22 History tablet) fluoxetine 20 mg capsule 20 mg PO DAILY #90 caps 07/19/21 07/12/22 Rx simvastatin 20 mg tablet 20 mg PO HS #90 tab-caps 10/27/21 07/12/22 Rx levothyroxine 25 mcg tablet 25 mcg PO DAILY #90 tab-caps 12/02/21 07/12/22 Rx metformin 500 mg tablet 500 mg PO BID #180 tab-caps 12/02/21 07/12/22 Rx blood sugar diagnostic (Blood #100 ea 12/07/21 07/12/22 Rx Glucose Test strips) cyanocobalamin (vitamin B-12) 1,000 mcg PO DAILY #30 tab-caps 12/07/21 07/12/22 Rx 1,000 mcg tablet lancets #200 ea 12/07/21 07/12/22 Rx glimepiride 4 mg tablet 4 mg PO DAILY #30 tab-caps 03/03/22 07/12/22 Rx calcium phosphate 250 mg-vit D3 2 tab PO DAILY #180 tabs 03/24/22 07/12/22 Rx 12.5 mcg (500 unit) chewable tablet ferrous sulfate 325 mg (65 mg 325 mg PO BID #180 tabs 03/24/22 07/12/22 Rx iron) tablet blood-glucose meter #1 unit 04/05/22 07/12/22 Rx albuterol sulfate 90 mcg/actuation 1 - 2 puff inhalation .Q4-6H PRN 05/29/22 07/12/22 Rx aerosol inhaler (ProAir HFA) shortness of breath or wheezing #1 unit budesonide-formoterol HFA 160 2 puff inhalation BID ##3 05/29/22 07/12/22 Rx mcg-4.5 mcg/actuation aerosol inhaler (Symbicort) famotidine 40 mg tablet 40 mg PO DAILY #30 tabs 06/02/22 07/12/22 Rx hydrochlorothiazide 12.5 mg tablet 12.5 mg PO DAILY #90 tabs 06/02/22 07/12/22 Rx magnesium oxide 400 mg PO DAILY #30 tab-caps 07/06/22 07/12/22 Rx sitagliptin 50 mg tablet (Januvia) 50 mg PO DAILY #30 tabs 07/06/22 07/12/22 Rx Exam Narrative Exam Narrative: General: Patient appears older than stated age, lean built but not cachectic, disheveled with unkempt appearance lying in bed comfortably in no acute distress. She is alert and oriented at least to person and place. HEENT: Normocephalic with coarsened facial features, unkempt hair, eyes with pupils equal and reactive to light symmetrically, extraocular movement intact and sclera anicteric. Oropharynx with dry mucosa and dentition with dental plates above and below. Neck: Supple without JVD. Back: Kyphotic without CVA tenderness. Lungs: Bronchovesicular breath sounds diffusely with no focalizing but sparse inspiratory crackles bilaterally. No dullness to percussion. No expiratory wheeze. Decreased aeration diffusely. Breast: Exam deferred. Heart: Regular rate and rhythm with no murmurs gallops appreciated. Abdomen: Obese contour, soft and nontender to palpation with no palpable hepatosplenomegaly. Genitalia/rectal: Exam deferred. Extremity: Without clubbing, cyanosis or pitting edema. Upper refill. Skin: Pale, warm and dry with fair turgor. Actinic changes over sun exposed areas. Neuro: Cranial nerves II through XII grossly intact, no focalizing motor deficits or tremor. No Babinski. Psych: Flattened affect with normal mood. No abnormal thought processes. Remote and recent memory intact. Results Imaging Imaging Studies: Exam: CT Chest Without Contrast; Diagnostic Exam date and time: 07/12/2022 9:43 PM Age: 86 years old Clinical indication: Injury or trauma; Fall; Blunt trauma (contusions or hematomas); Injury date: 07/12/22 TECHNIQUE: Imaging protocol: Diagnostic computed tomography of the chest without contrast. 3D rendering (Not supervised by radiologist): MIP and/or 3D reconstructed images were created by the technologist. Radiation optimization: All CT scans at this facility use at least one of these dose optimization techniques: automated exposure control; mA and/or kV adjustment per patient size (includes targeted exams where dose is matched to clinical indication); or iterative reconstruction. COMPARISON: CT HR CHEST/CHEST WO 08/24/2016 1:01 PM FINDINGS: Lungs: Moderate bilateral upper and lower lobe bronchial wall thickening, compatible with reactive airway disease or bronchitis. Focal consolidations within the periphery of the posterior aspects of the upper lobes bilaterally. Additional small consolidations within the central aspect of the right upper lobe. Pleural spaces: Small right pleural effusion. Heart: Moderate three-vessel coronary artery atherosclerotic calcification. Coronary arteries: No visible coronary artery atherosclerotic calcification. Lymph nodes: No enlarged lymph nodes. Vasculature: Atherosclerotic disease of the thoracic aorta, without aneurysm. Bones/joints: Multilevel thoracic spine degenerative disc space narrowing and osteophyte formation. Soft tissues: Normal. IMPRESSION: 1. Moderate bilateral upper and lower lobe bronchial wall thickening, compatible with reactive airway disease or bronchitis. 2. Focal consolidations within the periphery of the posterior aspects of the upper lobes bilaterally. Additional small consolidations within the central aspect of the right upper lobe. Findings most compatible with multifocal pneumonia. Recommend follow-up. 3. Small right pleural effusion. Exam: CT Head Without Contrast Exam date and time: 07/12/2022 9:38 PM Age: 86 years old Clinical indication: Injury or trauma; Fall; Blunt trauma (contusions or hematomas); Consciousness not specified; Concussion/head injury; Injury date: 07/12/22 TECHNIQUE: Imaging protocol: Computed tomography of the head without contrast. Radiation optimization: All CT scans at this facility use at least one of these dose optimization techniques: automated exposure control; mA and/or kV adjustment per patient size (includes targeted exams where dose is matched to clinical indication); or iterative reconstruction. COMPARISON: CT HEAD WO 06/16/2021 9:00 AM FINDINGS: Brain: Mild volume loss No hemorrhage.Moderate white matter disease.No mass effect. Cerebral ventricles: No ventriculomegaly. Paranasal sinuses: Visualized sinuses are unremarkable. No fluid levels. Mastoid air cells: Visualized mastoid air cells are well aerated. Bones/joints:? Right frontoparietal craniotomies. No acute fracture. Soft tissues: Unremarkable. IMPRESSION: No acute intracranial hemorrhage Exam: CT Thoracic Spine Without Contrast Exam date and time: 07/12/2022 9:43 PM Age: 86 years old Clinical indication: Injury or trauma; Fall; Blunt trauma (contusions or hematomas); Injury date: 07/12/22 TECHNIQUE: Imaging protocol: Computed tomography of the thoracic spine without contrast. Radiation optimization: All CT scans at this facility use at least one of these dose optimization techniques: automated exposure control; mA and/or kV adjustment per patient size (includes targeted exams where dose is matched to clinical indication); or iterative reconstruction. COMPARISON: CT HEAD CERVICAL SPINE WO 07/12/2022 9:38 PM FINDINGS: Bones/joints: Moderate multilevel thoracic spine degenerative disc space narrowing and minimal sclerosis. No acute fracture or malalignment. Soft tissues: Unremarkable. Pleural spaces: Partially visualized small right pleural effusion. IMPRESSION: No acute fracture or malalignment. Labs Result diagrams: 07/13/22 06:33 07/13/22 06:33 Labs: Laboratory Results - last 24 hr 07/12/22 07/12/22 07/12/22 20:40 20:40 20:40 WBC 18.10 H RBC 3.11 L Hgb 10.2 L Hct 30.7 L MCV 99 H MCH 32.8 MCHC 33.2 RDW 12.3 Plt Count 189 MPV 11.3 H Immature Gran % 0.6 Neutrophils % 85.1 Lymphocytes % 4.3 Monocytes % 9.7 Eosinophils % 0.1 Basophils % 0.2 Nucleated RBC % 0.0 Absolute Neutrophils 15.40 H Absolute Lymphocytes 0.78 L Absolute Monocytes 1.76 H Absolute Eosinophils 0.02 Absolute Basophils 0.04 RBC Morphology Normal VBG pH 7.38 VBG pCO2 38 L VBG pO2 38 VBG HCO3 23 VBG Total CO2 21 L VBG O2 Saturation 71 VBG Base Excess -3 L VBG Lactate Sodium 129 L Potassium 4.2 Chloride 97 L Carbon Dioxide 22.4 Anion Gap 9.6 BUN 35 H Creatinine 1.9 H Est GFR (CKD-EPI 2020) 25.72 Glucose 282 H Calcium 8.9 Total Bilirubin 0.6 AST 39 H ALT 30 Alkaline Phosphatase 120 H Creatine Kinase 113 Troponin I < 50 Total Protein 7.9 Albumin 3.3 L TSH 2.10 Urine Color Urine Clarity Urine pH Ur Specific [place] Urine Protein Urine Ketones Urine Blood Urine Nitrite Urine Bilirubin Urine Urobilinogen Ur Leukocyte Esterase Urine RBC Urine WBC Ur Epithelial Cells Urine Crystals Urine Bacteria Urine Casts Urine Mucus Ur Culture Indicated? Urine Glucose COVID-19 Source SARS-CoV-2 (PCR) 07/12/22 07/12/22 07/12/22 21:03 21:03 22:18 WBC RBC Hgb Hct MCV MCH MCHC RDW Plt Count MPV Immature Gran % Neutrophils % Lymphocytes % Monocytes % Eosinophils % Basophils % Nucleated RBC % Absolute Neutrophils Absolute Lymphocytes Absolute Monocytes Absolute Eosinophils Absolute Basophils RBC Morphology VBG pH VBG pCO2 VBG pO2 VBG HCO3 VBG Total CO2 VBG O2 Saturation VBG Base Excess VBG Lactate 1.1 Sodium Potassium Chloride Carbon Dioxide Anion Gap BUN Creatinine Est GFR (CKD-EPI 2020) Glucose Calcium Total Bilirubin AST ALT Alkaline Phosphatase Creatine Kinase Troponin I Total Protein Albumin TSH Urine Color Yellow Urine Clarity Clear Urine pH 6.0 Ur Specific [place] 1.020 Urine Protein 100 H Urine Ketones 40 H Urine Blood Moderate H Urine Nitrite Negative Urine Bilirubin Negative Urine Urobilinogen 1.0 H Ur Leukocyte Esterase Negative Urine RBC 0-2 Urine WBC 0-2 Ur Epithelial Cells Rare Urine Crystals Few Amorphous Urine Bacteria Negative Urine Casts 0-2 Hyaline Urine Mucus Negative Ur Culture Indicated? No Urine Glucose 500 H COVID-19 Source Nasal/Nares SARS-CoV-2 (PCR) Negative Last Vital Signs Temp 36.8 C 07/12/22 20:16 Pulse 93 H 07/12/22 22:31 Resp 27 H 07/12/22 22:31 BP 142/55 H 07/12/22 22:31 Pulse Ox 95 07/12/22 22:31
[2022-07-13] VITALS (11 sets, daily range): BP systolic 108–131; BP diastolic 63–71; PULSE 73–95; RESP 18; TEMP 37–38.4; O2SAT 92–96
[2022-07-13 00:06] LABS: Troponin I < 50 ng/L (<or=60)
[2022-07-13] MEDS: Heparin 5,000 UNITS/ML VIAL 5000 UNITS SC ×3 (00:55→22:47)
[2022-07-13] MEDS: Normal Saline 1,000 ML 100 ML IV ×2 (01:55→13:54)
[2022-07-13] MEDS: Normal Saline Flush 10 ML SYR IVP ×2 (01:56→22:29)
[2022-07-13] MEDS: Levothyroxine 25 MCG TAB PO (05:54)
[2022-07-13 07:08] LABS: Abs Immature Grans 0.08 10^3/uL (0.0-0.06); Absolute Basophil Count 0.03 10^3/uL (0.0-0.2); Absolute Lymphocyte Count 3.48 10^3/uL (1.2-3.4); Absolute Monocyte Count 1.94 10^3/uL (0.1-0.8); Basophils % 0.2; Eosinophils % 0.2; HCT 29.1 % (36.0-46.0); HGB 9.9 g/dL (11.2-15.7); Immature Grans % 0.5; Lymphocytes % 21.2; MCH 32.6 pg (27.0-33.0); MCV 96 fL (80-95); Monocytes % 11.8; Neutrophils % 66.1; RBC 3.04 10^6/uL (3.93-5.22); RDW 12.4 % (11.7-14.6); RDW-SD 43.2 fL
[2022-07-13 07:10] LABS: Absolute Eosinophil Count 0.03 10^3/uL (0.0-0.7); Absolute Neutrophil Count 10.84 10^3/uL (1.2-6.7)
[2022-07-13 07:25] LABS: ALT 23 U/L (14-59); AST 26 U/L (15-37); Albumin 2.6 g/dL (3.4-5.0); Alkaline Phosphatase 101 U/L (46-116); Anion Gap 7.8 mmol/L (3-11); BUN 28 mg/dL (7-18); Bilirubin, Total 0.4 mg/dL (0.2-1.0); CO2 25.2 mmol/L (21.0-32.0); CREATININE 1.6 mg/dL (0.55-1.02); Calcium 8.3 mg/dL (8.5-10.1); Chloride 103 mmol/L (98-107); Estimated GFR 31.61 (mL/min/1.73m2); Glucose 154 mg/dL (74-106); Magnesium 1.7 mg/dL (1.8-2.4); Potassium 3.5 mmol/L (3.5-5.1); Sodium 136 mmol/L (136-145); Total Protein 6.7 g/dL (6.4-8.2)
[2022-07-13 07:31] LABS: Diff Comment Agrees w/ Instrument; RBC Morphology Normal
[2022-07-13] MEDS: Budesonide/Formoterol 160/4.5 6 GM 60 PUFF INH IH ×2 (08:01→20:07)
[2022-07-13] MEDS: MAGNESIUM SULFATE 2 GM/50 ML BAG IVPB (08:45)
[2022-07-13] MEDS: Magnesium Gluconate 500 MG TAB PO (08:53)
[2022-07-13] MEDS: Cyanocobalamin 100 MCG TABLET 1000 MCG PO (08:53)
[2022-07-13] MEDS: Famotidine 20 MG TAB 40 MG PO (08:53)
[2022-07-13] MEDS: Ferrous Sulfate 325 MG TAB PO ×2 (08:53→20:05)
[2022-07-13] MEDS: Potassium Chloride 20 MEQ TABCR PO ×2 (08:54→20:06)
[2022-07-13] MEDS: Magnesium Oxide 400 MG TAB PO (08:54)
[2022-07-13] MEDS: Multivitamin TAB 1 TAB PO (08:54)
[2022-07-13] MEDS: FLUoxetine 20 MG CAP PO (08:54)
--- NOTE | 2022-07-13 09:03 | INITIAL_ITS ---
- If Service Date Differs Date of service: 07/13/22 Time of Service: 09:04 Care Management Initial Assess REASON FOR HOSPITALIZATION:: Syncope, Pneumonia, hyponatremia PAST MEDICAL HISTORY/PAST SURGICAL HISTORY:: All Active Problems (Updated 07/12/22 @ 22:52 by Garland Fierro). Syncope and collapse (Acute). Pneumonia (Acute). Sepsis (Acute). Acute hyponatremia (Acute). Breast mass, left (Acute). Anemia, unspecified (Chronic). Microalbuminuria due to type 2 diabetes mellitus (Acute). Cognitive complaints (Chronic). 09/22/2021 MOCA: = NORMAL; monitor. Hypothyroidism (Chronic). CKD (chronic kidney disease) (Chronic). Macrocytic anemia (Chronic). Borderline low B12 level, normal Epo (suggesting due to CKD as well); 06/16/2019 [facility] [place]ology consult: multifactorial & recommended iron supplement. Type 2 diabetes mellitus with diabetic neuropathy, without long-term current use of insulin (Chronic). Unspecified essential hypertension (Chronic 01/31/13). Hyperkalemia with NATALIIA-I --> AVOID. Other disorders of Eustachian tube (Chronic 09/07/14). Other diseases of lung, not elsewhere classified (Chronic 11/21/11). rt 4mm ct stable 08/17; restrictive lung disease, neuromuscular weakness etiol? Dr Patel follows. PFTs 08/2013 restrictive 47% NM weakness + response BD. Osteoporosis (Chronic 07/12/16). DEXA 07/11/16 Hip T-3.2, Spine T-1.5, forearm T-3.5. Hypomagnesemia (Chronic 03/14/18). Hyperlipidemia (Chronic 11/21/11). Heart murmur (Chronic 08/24/17). 09/12/2017 echo: no significant valvular disease. Gastroesophageal reflux disease (Chronic 11/21/11). Diabetic neuropathy, type II diabetes mellitus (Chronic 08/12/14). Anxiety (Chronic 11/21/11). Medical History . Cerebral meningioma (01/31/13). 2004 Craniotomy, resection of frontal mennigioma [facility] [place]. Closed nondisplaced comminuted fracture of shaft of left humerus (05/26/16). Neoplasm of skin (08/26/14). Pneumonia. Restrictive lung disease. Shingles. Surgical History . irrigation and debridement (10/05/15). R wrist. Dr Lafleur. Splenomegaly PREVIOUS FUNCTIONAL STATUS/SOCIAL/FAMILY SUPPORTS:: Geno lives alone in [facility]. She is independent at baseline and uses [facility] for transportation. She has a daughter who lives locally and is supportive. CURRENT FUNCTIONAL STATUS:: Geno was lying in bed with the HOB elevated. She is alert, oriented and easy to engage in conversation. Geno shares that she has no community needs at this time, but is interested in getting MOW during the winter months. She agreeable to a referral to the [facility]. ADVANCE DIRECTIVES:: [facility]-not on file, POA is Sadi Angela Has patient been provided with info about the portal/API?: Yes Did the patient sign up for the portal?: No CODE STATUS:: Full Code INSURANCE COVERAGE / FINANCIAL ISSUES:: [employer] [facility]. [employer] [place]. 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 PRIMARY CARE PHYSICIAN:: Francy Moran PATIENT/FAMILY EDUCATION NEEDS:: Review discharge instructions, limitations, medications and plan to follow up with community providers. ask me three. TRANSPORTATION:: Via private vehicle with daughter vs. [facility] PLAN:: Anticipate Geno will be discharged home with new [facility] RN serivces (if indicated) when medically ready. CM will sent a referral to [facility], pt is interested in MOW. Geno will follow discharge plan of care as prescribed and transport via private vehicle with family vs. [facility].
[2022-07-13] MEDS: Insulin Aspart 300 UNITS/3 ML PEN SC ×3 (09:09→22:47)
[2022-07-13] MEDS: DOXYCYCLINE 100 MG in Normal Saline 100 ML IVPB ×2 (11:06→23:24)
[2022-07-13] MEDS: Acetaminophen 325 MG TAB PO ×2 (11:14→20:04)
[2022-07-13 12:23] LABS: Iron 25 ug/dL (50-170); Total Iron Binding Capacity 197 ug/dL (250-450); Transferrin Sat 13 % (15-50)
[2022-07-13 12:37] LABS: Ferritin 279 ng/mL (8-252)
[2022-07-13 12:51] LABS: LDH 259 U/L (81-234)
--- NOTE | 2022-07-13 13:54 | NUR.NOTE ---
Nursing Note: Lab, Pharmacy, CC, and provider aware of heparin results, and gave the okay to give heparin to patient.
--- NOTE | 2022-07-13 14:50 | W.DIABETESNO ---
Date of service: 07/13/22 Time of Service: 14:51 Diabetes Note Reason for Visit: Diabetes education NOTE: Ms. Angela has been referred for outpatient diabetes education but has yet to have her appointment. We will make sure to follow up with her to come in with her daughter. Her A1C is 7.8 which given her age and other comorbidities is reasonable. Will monitor weight, PO intake, and blood sugars while she is here. Time Spent in Nutritional Counseling and Treatment: 0
--- NOTE | 2022-07-13 17:52 | PGE_ITS ---
Date of Service Date of service: 07/13/22 Time of Service: 13:00 Assessment and Plan Assessment and plan (1) Syncope and collapse: Start date: 07/12/22 Status: Acute Assessment and plan: This is an 86-year-old lady who had episode of falling to the ground with some incontinence but no other evidence of seizure activity and negative imaging upon admission. She had no significant injury. She is extremely weak with newfound multifocal pneumonia upon presentation. She also had hyponatremia which may be associated with her pneumonia. She will be admitted for gentle IV hydration with CKD appearing fairly stable but patient clinically dry and responded to IV fluids in the ED. Follow-up lab and ambulate with assistance. After recovery from her acute illness consider further neurological evaluation because of incontinence with her episode. Full code. (2) Pneumonia: Start date: 07/12/22 Status: Acute Assessment and plan: Found by imaging with patient having respiratory finding but also chronic COPD. Continue IV Rocephin and doxycycline and follow-up imaging as indicated. Oxygen support if needed. Covid 19 PCR negative (3) Acute hyponatremia: Start date: 07/12/22 Status: Acute Assessment and plan: IV hydration with normal saline and monitor labs. NA 136 This most likely is associated with her acute multifocal pneumonia. (4) Hypothyroidism: Status: Chronic Assessment and plan: Continue outpatient medical therapy with TSH stable. 2.10 Qualifiers: Hypothyroidism type: unspecified Qualified Code(s): E03.9 - Hypothyroidism, unspecified (5) Type 2 diabetes mellitus with diabetic neuropathy, without long-term current use of insulin: Status: Chronic Assessment and plan: Glucometers before meals and at bedtime with short acting insulin coverage and with hold oral therapy while hospitalized. (6) CKD (chronic kidney disease): Status: Chronic Assessment and plan: Monitor labs while on IV hydrate. This is a chronic problem appears to be fairly stable. Was clinically dehydrated upon admission and is respond to IV fluids. Qualifiers: Chronic kidney disease stage: stage 3 (moderate) Qualified Code(s): N18.3 - Chronic kidney disease, stage 3 (moderate) (7) DVT prophylaxis: Status: Acute Assessment and plan: Heparin 5000 units every 8 hours subcutaneously (8) Discharge planning issues: Status: Acute Assessment and plan: Care mgt working with patient; plan is home with family support. No services needed. Subjective Subjective Patient reports: no new complaints Interval history since last seen: Temp of 38.4, tylenol - down to 37.2; no tachcardia, not hypotensive. Exam Narrative Exam Narrative: General: Patient appears older than stated age - She is alert and oriented to person and place. HEENT: Normocephalic with coarsened facial features, unkempt hair, eyes with pupils equal and reactive to light symmetrically, extraocular movement intact and sclera anicteric. Oropharynx with dry mucosa and dentition with dental plates above and below. Neck: Supple without JVD. Back: Kyphotic without CVA tenderness. Lungs: Bronchovesicular breath sounds diffusely with no focalizing but sparse inspiratory crackles bilaterally. No dullness to percussion. No expiratory wheeze. Decreased aeration diffusely. Breast: Exam deferred. Heart: Regular rate and rhythm with no murmurs gallops appreciated. Abdomen: Obese contour, soft and nontender to palpation with no palpable hepatosplenomegaly. Genitalia/rectal: Exam deferred. Extremity: Without clubbing, cyanosis or pitting edema. 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 Actinic changes over sun exposed areas. Neuro: Cranial nerves II through XII grossly intact, no focalizing motor deficits or tremor. No Babinski. Psych: Flattened affect with normal mood. No abnormal thought processes. Remote and recent memory intact. Objective Last Vital Signs Temp 37.2 C 07/13/22 15:56 Pulse 78 07/13/22 15:56 Resp 18 07/13/22 15:56 BP 108/63 07/13/22 15:56 Pulse Ox 96 07/13/22 15:56 Laboratory Results - last 24 hr 07/12/22 07/12/22 07/12/22 20:40 20:40 20:40 WBC 18.10 H RBC 3.11 L Hgb 10.2 L Hct 30.7 L MCV 99 H MCH 32.8 MCHC 33.2 RDW 12.3 Plt Count 189 MPV 11.3 H Reticulocyte % (Auto) Immature Gran % 0.6 Neutrophils % 85.1 Lymphocytes % 4.3 Monocytes % 9.7 Eosinophils % 0.1 Basophils % 0.2 Nucleated RBC % 0.0 Absolute Neutrophils 15.40 H Absolute Lymphocytes 0.78 L Absolute Monocytes 1.76 H Absolute Eosinophils 0.02 Absolute Basophils 0.04 RBC Morphology Normal VBG pH 7.38 VBG pCO2 38 L VBG pO2 38 VBG HCO3 23 VBG Total CO2 21 L VBG O2 Saturation 71 VBG Base Excess -3 L VBG Lactate Sodium 129 L Potassium 4.2 Chloride 97 L Carbon Dioxide 22.4 Anion Gap 9.6 BUN 35 H Creatinine 1.9 H Est GFR (CKD-EPI 2020) 25.72 Glucose 282 H Calcium 8.9 Magnesium Iron TIBC Transferrin % Sat Ferritin Total Bilirubin 0.6 AST 39 H ALT 30 Alkaline Phosphatase 120 H Lactate Dehydrogenase Creatine Kinase 113 Troponin I < 50 Total Protein 7.9 Albumin 3.3 L TSH 2.10 Urine Color Urine Clarity Urine pH Ur Specific [place] Urine Protein Urine Ketones Urine Blood Urine Nitrite Urine Bilirubin Urine Urobilinogen Ur Leukocyte Esterase Urine RBC Urine WBC Ur Epithelial Cells Urine Crystals Urine Bacteria Urine Casts Urine Mucus Ur Culture Indicated? Urine Glucose COVID-19 Source SARS-CoV-2 (PCR) Add-On Test Request 07/12/22 07/12/22 07/12/22 21:03 21:03 22:18 WBC RBC Hgb Hct MCV MCH MCHC RDW Plt Count MPV Reticulocyte % (Auto) Immature Gran % Neutrophils % Lymphocytes % Monocytes % Eosinophils % Basophils % Nucleated RBC % Absolute Neutrophils Absolute Lymphocytes Absolute Monocytes Absolute Eosinophils Absolute Basophils RBC Morphology VBG pH VBG pCO2 VBG pO2 VBG HCO3 VBG Total CO2 VBG O2 Saturation VBG Base Excess VBG Lactate 1.1 Sodium Potassium Chloride Carbon Dioxide Anion Gap BUN Creatinine Est GFR (CKD-EPI 2020) Glucose Calcium Magnesium Iron TIBC Transferrin % Sat Ferritin Total Bilirubin AST ALT Alkaline Phosphatase Lactate Dehydrogenase Creatine Kinase Troponin I Total Protein Albumin TSH Urine Color Yellow Urine Clarity Clear Urine pH 6.0 Ur Specific [place] 1.020 Urine Protein 100 H Urine Ketones 40 H Urine Blood Moderate H Urine Nitrite Negative Urine Bilirubin Negative Urine Urobilinogen 1.0 H Ur Leukocyte Esterase Negative Urine RBC 0-2 Urine WBC 0-2 Ur Epithelial Cells Rare Urine Crystals Few Amorphous Urine Bacteria Negative Urine Casts 0-2 Hyaline Urine Mucus Negative Ur Culture Indicated? No Urine Glucose 500 H COVID-19 Source Nasal/Nares SARS-CoV-2 (PCR) Negative Add-On Test Request 07/12/22 07/13/22 07/13/22 23:43 06:33 06:33 WBC 16.40 H RBC 3.04 L Hgb 9.9 L Hct 29.1 L MCV 96 H MCH 32.6 MCHC 34.0 RDW 12.4 Plt Count MPV Reticulocyte % (Auto) Immature Gran % 0.5 Neutrophils % 66.1 Lymphocytes % 21.2 Monocytes % 11.8 Eosinophils % 0.2 Basophils % 0.2 Nucleated RBC % 0.0 Absolute Neutrophils 10.84 H Absolute Lymphocytes 3.48 H Absolute Monocytes 1.94 H Absolute Eosinophils 0.03 Absolute Basophils 0.03 RBC Morphology Normal VBG pH VBG pCO2 VBG pO2 VBG HCO3 VBG Total CO2 VBG O2 Saturation VBG Base Excess VBG Lactate Sodium 136 Potassium 3.5 Chloride 103 Carbon Dioxide 25.2 Anion Gap 7.8 BUN 28 H Creatinine 1.6 H Est GFR (CKD-EPI 2020) 31.61 Glucose 154 H Calcium 8.3 L Magnesium 1.7 L Iron TIBC Transferrin % Sat Ferritin Total Bilirubin 0.4 AST 26 ALT 23 Alkaline Phosphatase 101 Lactate Dehydrogenase Creatine Kinase Troponin I < 50 Total Protein 6.7 Albumin 2.6 L TSH Urine Color Urine Clarity Urine pH Ur Specific [place] Urine Protein Urine Ketones Urine Blood Urine Nitrite Urine Bilirubin Urine Urobilinogen Ur Leukocyte Esterase Urine RBC Urine WBC Ur Epithelial Cells Urine Crystals Urine Bacteria Urine Casts Urine Mucus Ur Culture Indicated? Urine Glucose COVID-19 Source SARS-CoV-2 (PCR) Add-On Test Request 07/13/22 07/13/22 07/13/22 08:00 10:50 10:50 WBC RBC Hgb Hct MCV MCH MCHC RDW Plt Count MPV Reticulocyte % (Auto) Immature Gran % Neutrophils % Lymphocytes % Monocytes % Eosinophils % Basophils % Nucleated RBC % Absolute Neutrophils Absolute Lymphocytes Absolute Monocytes Absolute Eosinophils Absolute Basophils RBC Morphology VBG pH VBG pCO2 VBG pO2 VBG HCO3 VBG Total CO2 VBG O2 Saturation VBG Base Excess VBG Lactate Sodium Potassium Chloride Carbon Dioxide Anion Gap BUN Creatinine Est GFR (CKD-EPI 2020) Glucose Calcium Magnesium Iron 25 L TIBC 197 L Transferrin % Sat 13 L Ferritin 279 H Total Bilirubin AST ALT Alkaline Phosphatase Lactate Dehydrogenase 259 H Creatine Kinase Troponin I Total Protein Albumin TSH Urine Color Urine Clarity Urine pH Ur Specific [place] Urine Protein Urine Ketones Urine Blood Urine Nitrite Urine Bilirubin Urine Urobilinogen Ur Leukocyte Esterase Urine RBC Urine WBC Ur Epithelial Cells Urine Crystals Urine Bacteria Urine Casts Urine Mucus Ur Culture Indicated? Urine Glucose COVID-19 Source SARS-CoV-2 (PCR) Add-On Test Request [facility] 07/13/22 07/13/22 10:50 Unknown WBC RBC Hgb Hct MCV MCH MCHC RDW Plt Count MPV Reticulocyte % (Auto) 1.0 Immature Gran % Neutrophils % Lymphocytes % Monocytes % Eosinophils % Basophils % Nucleated RBC % Absolute Neutrophils Absolute Lymphocytes Absolute Monocytes Absolute Eosinophils Absolute Basophils RBC Morphology VBG pH VBG pCO2 VBG pO2 VBG HCO3 VBG Total CO2 VBG O2 Saturation VBG Base Excess VBG Lactate Sodium Potassium Chloride Carbon Dioxide Anion Gap BUN Creatinine Est GFR (CKD-EPI 2020) Glucose Calcium Magnesium Iron TIBC Transferrin % Sat Ferritin Total Bilirubin AST ALT Alkaline Phosphatase Lactate Dehydrogenase Creatine Kinase Troponin I Total Protein Albumin TSH Urine Color Urine Clarity Urine pH Ur Specific [place] Urine Protein Urine Ketones Urine Blood Urine Nitrite Urine Bilirubin Urine Urobilinogen Ur Leukocyte Esterase Urine RBC Urine WBC Ur Epithelial Cells Urine Crystals Urine Bacteria Urine Casts Urine Mucus Ur Culture Indicated? Urine Glucose COVID-19 Source SARS-CoV-2 (PCR) Add-On Test Request [facility]
[2022-07-13 22:06] LABS: Legionella Ag Detection Urine Negative (Negative)
[2022-07-13] MEDS: Simvastatin 20 MG TAB PO (22:48)
[2022-07-14] VITALS (11 sets, daily range): BP systolic 144–165; BP diastolic 65–76; PULSE 79–89; RESP 18–22; TEMP 36.6–38.2; O2SAT 96–99
[2022-07-14] MEDS: Normal Saline 1,000 ML 100 ML IV ×2 (02:14→13:57)
[2022-07-14] MEDS: Acetaminophen 325 MG TAB PO ×2 (03:52→16:08)
[2022-07-14] MEDS: Heparin 5,000 UNITS/ML VIAL 5000 UNITS SC ×3 (06:10→21:06)
[2022-07-14] MEDS: Levothyroxine 25 MCG TAB PO (06:10)
[2022-07-14 06:18] LABS: HGB 8.6 g/dL (11.2-15.7); MCH 32.8 pg (27.0-33.0); MCHC 33.1 % (32.0-36.0); MCV 99 fL (80-95); MPV 11.7 fL (8.0-11.0); Platelet Count 175 10^3/uL (130-400); RBC 2.62 10^6/uL (3.93-5.22); RDW 12.6 % (11.7-14.6); RDW-SD 45.8 fL; WBC 13.01 10^3/uL (4.4-10.8)
[2022-07-14 06:37] LABS: Absolute Eosinophil Count 0.52 10^3/uL (0.0-0.7); Absolute Lymphocyte Count 3.12 10^3/uL (1.2-3.4); Absolute Monocyte Count 1.04 10^3/uL (0.1-0.8); Absolute Neutrophil Count 8.33 10^3/uL (1.2-6.7); Diff Comment Manual Differential; RBC Morphology Normal
[2022-07-14 06:38] LABS: Anion Gap 8.9 mmol/L (3-11); BUN 23 mg/dL (7-18); CO2 22.1 mmol/L (21.0-32.0); CREATININE 1.5 mg/dL (0.55-1.02); Calcium 8.2 mg/dL (8.5-10.1); Chloride 106 mmol/L (98-107); Estimated GFR 34.15 (mL/min/1.73m2); Glucose 98 mg/dL (74-106); Magnesium 2.1 mg/dL (1.8-2.4); Sodium 137 mmol/L (136-145)
[2022-07-14 07:23] LABS: Procalcitonin 0.6 ng/mL
[2022-07-14] MEDS: Budesonide/Formoterol 160/4.5 6 GM 60 PUFF INH IH ×2 (07:42→20:14)
[2022-07-14] MEDS: FLUoxetine 20 MG CAP PO (09:16)
[2022-07-14] MEDS: Magnesium Oxide 400 MG TAB PO (09:16)
[2022-07-14] MEDS: Multivitamin TAB 1 TAB PO (09:16)
[2022-07-14] MEDS: Potassium Chloride 20 MEQ TABCR PO ×2 (09:16→20:14)
[2022-07-14] MEDS: Ferrous Sulfate 325 MG TAB PO ×2 (09:16→20:14)
[2022-07-14] MEDS: Famotidine 20 MG TAB 40 MG PO (09:17)
[2022-07-14] MEDS: Cyanocobalamin 100 MCG TABLET 1000 MCG PO (09:17)
[2022-07-14 09:47] LABS: Haptoglobin 274 mg/dL (32-197)
--- NOTE | 2022-07-14 09:54 | CMPROGNOTE_ITS ---
- If Service Date Differs Date of service: 07/14/22 Time of Service: 09:54 Care Management Progress Note S/O: Geno continues to be closely monitored and treated. She is on IV abx. CM will continue to support discharge planning needs. A: 86 year old female admitted to [facility] on 07/12/22 for Syncope and collapse, Pneumonia, Acute hyponatremia P: Anticipate Geno will be discharged home with new [facility] RN serivces (if indicated) when medically ready. CM will sent a referral to [facility], pt is intereste rio in [place]. Geno will follow discharge plan of care as prescribed and transport via private vehicle with family vs. RCT.
[2022-07-14] MEDS: Normal Saline Flush 10 ML SYR IVP ×2 (10:06→11:39)
[2022-07-14] MEDS: DOXYCYCLINE 100 MG in Normal Saline 100 ML IVPB ×2 (10:06→21:05)
[2022-07-14] MEDS: Insulin Aspart 300 UNITS/3 ML PEN SC ×3 (11:39→22:22)
[2022-07-14] MEDS: Simvastatin 20 MG TAB PO (21:06)
[2022-07-14] MEDS: cefTRIAXone 1 GM/50 ML BAG IV (22:22)
[2022-07-15] VITALS (11 sets, daily range): BP systolic 122–178; BP diastolic 70–81; PULSE 71–101; RESP 2–20; TEMP 36.7–38.1; O2SAT 94–97
[2022-07-15] MEDS: Normal Saline 1,000 ML 100 ML IV ×2 (01:36→15:37)
[2022-07-15] MEDS: Acetaminophen 325 MG TAB PO ×2 (03:16→21:34)
[2022-07-15] MEDS: Heparin 5,000 UNITS/ML VIAL 5000 UNITS SC ×3 (05:31→21:32)
[2022-07-15] MEDS: Levothyroxine 25 MCG TAB PO (05:31)
[2022-07-15 06:06] LABS: Abs Immature Grans 0.05 10^3/uL (0.0-0.06); Absolute Basophil Count 0.04 10^3/uL (0.0-0.2); Absolute Eosinophil Count 0.33 10^3/uL (0.0-0.7); Absolute Lymphocyte Count 3.08 10^3/uL (1.2-3.4); Basophils % 0.3; Eosinophils % 2.7; HCT 26.4 % (36.0-46.0); HGB 8.5 g/dL (11.2-15.7); Immature Grans % 0.4; Lymphocytes % 25.6; MCH 32.1 pg (27.0-33.0); MCHC 32.2 % (32.0-36.0); MCV 100 fL (80-95); MPV 11.6 fL (8.0-11.0); Platelet Count 179 10^3/uL (130-400); RBC 2.65 10^6/uL (3.93-5.22); RDW-SD 47.4 fL; WBC 12.04 10^3/uL (4.4-10.8)
[2022-07-15 06:10] LABS: Absolute Monocyte Count 1.44 10^3/uL (0.1-0.8)
[2022-07-15 06:21] LABS: Anion Gap 7.3 mmol/L (3-11); BUN 19 mg/dL (7-18); CO2 21.7 mmol/L (21.0-32.0); CREATININE 1.5 mg/dL (0.55-1.02); Calcium 8.1 mg/dL (8.5-10.1); Chloride 108 mmol/L (98-107); Estimated GFR 34.15 (mL/min/1.73m2); Glucose 142 mg/dL (74-106); Magnesium 1.6 mg/dL (1.8-2.4); Potassium 4.7 mmol/L (3.5-5.1); Sodium 137 mmol/L (136-145)
[2022-07-15] MEDS: Potassium Chloride 20 MEQ TABCR PO ×2 (07:54→19:52)
[2022-07-15] MEDS: Cyanocobalamin 100 MCG TABLET 1000 MCG PO (07:54)
[2022-07-15] MEDS: FLUoxetine 20 MG CAP PO (07:56)
[2022-07-15] MEDS: Ferrous Sulfate 325 MG TAB PO ×2 (07:56→19:51)
[2022-07-15] MEDS: Magnesium Oxide 400 MG TAB PO (07:56)
[2022-07-15] MEDS: Multivitamin TAB 1 TAB PO (07:56)
[2022-07-15] MEDS: Albuterol 2.5 MG/3 ML INH SOLN VIAL UPD (09:06)
[2022-07-15] MEDS: Budesonide/Formoterol 160/4.5 6 GM 60 PUFF INH IH ×2 (09:09→19:52)
[2022-07-15] MEDS: DOXYCYCLINE 100 MG in Normal Saline 100 ML IVPB ×2 (10:04→22:28)
[2022-07-15] MEDS: Normal Saline Flush 10 ML SYR IVP ×2 (10:05→21:33)
[2022-07-15] MEDS: MAGNESIUM SULFATE 2 GM/50 ML BAG IVPB (11:13)
[2022-07-15] MEDS: Insulin Aspart 300 UNITS/3 ML PEN SC ×3 (12:06→21:31)
[2022-07-15 21:13] LABS: Result Negative; Specimen Source SPUTUM
[2022-07-15] MEDS: cefTRIAXone 1 GM/50 ML BAG IV (21:33)
[2022-07-15] MEDS: Simvastatin 20 MG TAB PO (21:34)
[2022-07-16] MEDS: Normal Saline 1,000 ML 100 ML IV (02:49)
[2022-07-16 04:00] VITALS: BP 150/77; PULSE 77; RESP 17; TEMP 35.8; O2SAT 96
[2022-07-16 06:23] LABS: Abs Immature Grans 0.04 10^3/uL (0.0-0.06); Absolute Basophil Count 0.05 10^3/uL (0.0-0.2); Absolute Eosinophil Count 0.39 10^3/uL (0.0-0.7); Absolute Lymphocyte Count 3.43 10^3/uL (1.2-3.4); Absolute Monocyte Count 1.24 10^3/uL (0.1-0.8); Absolute Neutrophil Count 4.47 10^3/uL (1.2-6.7); Basophils % 0.5; Eosinophils % 4.1; HCT 26.3 % (36.0-46.0); HGB 8.5 g/dL (11.2-15.7); Immature Grans % 0.4; Lymphocytes % 35.7; MCH 32.4 pg (27.0-33.0); MCHC 32.3 % (32.0-36.0); MCV 100 fL (80-95); MPV 11.2 fL (8.0-11.0); Monocytes % 12.9; Neutrophils % 46.4; Platelet Count 220 10^3/uL (130-400); RBC 2.62 10^6/uL (3.93-5.22); RDW 13.2 % (11.7-14.6); RDW-SD 48.4 fL; WBC 9.62 10^3/uL (4.4-10.8)
[2022-07-16] MEDS: Levothyroxine 25 MCG TAB PO (06:40)
[2022-07-16] MEDS: Heparin 5,000 UNITS/ML VIAL 5000 UNITS SC ×2 (06:40→14:04)
[2022-07-16 06:42] LABS: Anion Gap 6.6 mmol/L (3-11); BUN 18 mg/dL (7-18); CO2 23.4 mmol/L (21.0-32.0); CREATININE 1.4 mg/dL (0.55-1.02); Calcium 8.3 mg/dL (8.5-10.1); Chloride 109 mmol/L (98-107); Glucose 139 mg/dL (74-106); Magnesium 1.9 mg/dL (1.8-2.4); Potassium 5.1 mmol/L (3.5-5.1); Sodium 139 mmol/L (136-145)
[2022-07-16 07:17] VITALS: PULSE 76
--- NOTE | 2022-07-16 07:27 | PGE_ITS ---
Date of Service Date of service: 07/14/22 Time of Service: 10:00 Assessment and Plan Assessment and plan (1) Syncope and collapse: Start date: 07/12/22 Status: Acute Assessment and plan: No injuries from fall , no dysrhytmias , ambulating well, (2) Pneumonia: Start date: 07/12/22 Status: Acute Assessment and plan: Found by imaging with patient having respiratory finding but also chronic COPD. Continue IV Rocephin and doxycycline (3) Acute hyponatremia: Start date: 07/12/22 Status: Acute Assessment and plan: C/C IVF, sodium normalized, good UO, taking PO and eating (4) Hypothyroidism: Status: Chronic Assessment and plan: Continue outpatient medical therapy with TSH stable. 2.10 Qualifiers: Hypothyroidism type: unspecified Qualified Code(s): E03.9 - Hypothyroidism, unspecified (5) Type 2 diabetes mellitus with diabetic neuropathy, without long-term current use of insulin: Status: Chronic Assessment and plan: Glucometers before meals and at bedtime with short acting insulin coverage and with hold oral therapy while hospitalized. (6) CKD (chronic kidney disease): Status: Chronic Assessment and plan: Chronic - stable. Was clinically dehydrated upon admission and is responded to IV fluids. Qualifiers: Chronic kidney disease stage: stage 3 (moderate) Qualified Code(s): N18.3 - Chronic kidney disease, stage 3 (moderate) (7) DVT prophylaxis: Status: Acute Assessment and plan: Heparin 5000 units every 8 hours subcutaneously (8) Discharge planning issues: Status: Acute Assessment and plan: Care mgt working with patient; plan is home with family support. No services needed. Subjective Subjective Patient reports: no new complaints, feels better, tolerating a regular diet and afebrile; denies nausea, shortness of breath or fever Interval history since last seen: Sitting in a chair, conversant, sodium has improved. Exam Narrative Exam Narrative: General: Patient appears older than stated age - She is alert and oriented to person and place. HEENT: Normocephalic with coarsened facial features, unkempt hair, eyes with pupils equal and reactive to light symmetrically, extraocular movement intact and sclera anicteric. Oropharynx with dry mucosa and dentition with dental plates above and below. Neck: Supple without JVD. Back: Kyphotic without CVA tenderness. Lungs: Bronchovesicular breath sounds diffusely with no focalizing. No expiratory wheeze. Decreased aeration diffusely. Breast: Exam deferred. Heart: Regular rate and rhythm with no murmurs gallops appreciated. Abdomen: Obese contour, soft and nontender to palpation with no palpable hepatosplenomegaly. Genitalia/rectal: Exam deferred. Extremity: Without clubbing, cyanosis or pitting edema. 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 Actinic changes over sun exposed areas. Neuro: Cranial nerves II through XII grossly intact, no focalizing motor deficits or tremor. No Babinski. Psych: Flattened affect with normal mood. No abnormal thought processes. Remote and recent memory intact. Objective Last Vital Signs Temp 35.8 C L 07/16/22 04:00 Pulse 76 07/16/22 07:17 Resp 17 07/16/22 04:00 BP 150/77 H 07/16/22 04:00 Pulse Ox 96 07/16/22 04:00 Laboratory Results - last 24 hr 07/13/22 07/16/22 07/16/22 11:15 05:34 05:34 WBC 9.62 RBC 2.62 L Hgb 8.5 L Hct 26.3 L MCV 100 H MCH 32.4 MCHC 32.3 RDW 13.2 Plt Count 220 MPV 11.2 H Immature Gran % 0.4 Neutrophils % 46.4 Lymphocytes % 35.7 Monocytes % 12.9 Eosinophils % 4.1 Basophils % 0.5 Nucleated RBC % 0.0 Absolute Neutrophils 4.47 Absolute Lymphocytes 3.43 H Absolute Monocytes 1.24 H Absolute Eosinophils 0.39 Absolute Basophils 0.05 Sodium 139 Potassium 5.1 Chloride 109 H Carbon Dioxide 23.4 Anion Gap 6.6 BUN 18 Creatinine 1.4 H Est GFR (CKD-EPI 2020) 37.10 Glucose 139 H Calcium 8.3 L Magnesium 1.9 Legionella Source SPUTUM Legionella DNA (PCR) Negative
--- NOTE | 2022-07-16 07:28 | PGE_ITS ---
Date of Service Date of service: 07/15/22 Time of Service: 10:00 Assessment and Plan Assessment and plan (1) Syncope and collapse: Start date: 07/12/22 Status: Acute Assessment and plan: No injuries from fall , no dysrythmias , ambulating well, PT consult (2) Pneumonia: Start date: 07/12/22 Status: Acute Assessment and plan: Found by imaging with patient having respiratory finding but also chronic COPD. Continue IV Rocephin and doxycycline, plan to change to PO (3) Acute hyponatremia: Start date: 07/12/22 Status: Resolved Assessment and plan: Adequate UO, taking PO and eating - NA 137 (4) Hypothyroidism: Status: Chronic Assessment and plan: Continue outpatient medical therapy with TSH stable. 2.10 Qualifiers: Hypothyroidism type: unspecified Qualified Code(s): E03.9 - Hypothyroidism, unspecified (5) Type 2 diabetes mellitus with diabetic neuropathy, without long-term current use of insulin: Status: Chronic Assessment and plan: Glucometers before meals and at bedtime with short acting insulin coverage and with hold oral therapy while hospitalized. (6) CKD (chronic kidney disease): Status: Chronic Assessment and plan: Chronic - stable. Was clinically dehydrated upon admission and is responded to IV fluids. Qualifiers: Chronic kidney disease stage: stage 3 (moderate) Qualified Code(s): N18.3 - Chronic kidney disease, stage 3 (moderate) (7) DVT prophylaxis: Status: Acute Assessment and plan: Heparin 5000 units every 8 hours subcutaneously No bruising no bleeding (8) Discharge planning issues: Status: Acute Assessment and plan: Care mgt working with patient; plan is home with family support. No services needed. Subjective Subjective Patient reports: no new complaints, feels better, tolerating liquids well, tolerating a regular diet, voiding w/o difficulty and afebrile; denies diarrhea, nausea or vomiting Interval history since last seen: Awake alert, conversant, pleasant - enjoying popsicles, Exam Narrative Exam Narrative: General: Patient appears older than stated age - She is alert and oriented to person and place. Pleasant, conversant, motivated to go home. HEENT: Normocephalic with coarsened facial features, unkempt hair, eyes with pupils equal and reactive to light symmetrically, extraocular movement intact and sclera anicteric. Oropharynx moist, dentition with dental plates above and below. Neck: Supple without JVD. Back: Kyphotic without CVA tenderness. Lungs:Lungs clear, distant throughout. Breast: Exam deferred. Heart: Regular rate and rhythm with no murmurs gallops appreciated. Abdomen: Obese contour, soft and nontender to palpation with no palpable hepatosplenomegaly. Genitalia/rectal: Exam deferred. Extremity: Without clubbing, cyanosis or pitting edema. 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 Actinic changes over sun exposed areas. Neuro: Cranial nerves II through XII grossly intact, no focalizing motor deficits or tremor. No Babinski. Psych: Flattened affect with normal mood. No abnormal thought processes. Remote and recent memory intact. Objective Last Vital Signs Temp 35.8 C L 07/16/22 04:00 Pulse 76 07/16/22 07:17 Resp 17 07/16/22 04:00 BP 150/77 H 07/16/22 04:00 Pulse Ox 96 07/16/22 04:00 Laboratory Results - last 24 hr 07/13/22 07/16/22 07/16/22 11:15 05:34 05:34 WBC 9.62 RBC 2.62 L Hgb 8.5 L Hct 26.3 L MCV 100 H MCH 32.4 MCHC 32.3 RDW 13.2 Plt Count 220 MPV 11.2 H Immature Gran % 0.4 Neutrophils % 46.4 Lymphocytes % 35.7 Monocytes % 12.9 Eosinophils % 4.1 Basophils % 0.5 Nucleated RBC % 0.0 Absolute Neutrophils 4.47 Absolute Lymphocytes 3.43 H Absolute Monocytes 1.24 H Absolute Eosinophils 0.39 Absolute Basophils 0.05 Sodium 139 Potassium 5.1 Chloride 109 H Carbon Dioxide 23.4 Anion Gap 6.6 BUN 18 Creatinine 1.4 H Est GFR (CKD-EPI 2020) 37.10 Glucose 139 H Calcium 8.3 L Magnesium 1.9 Legionella Source SPUTUM Legionella DNA (PCR) Negative Reviewed Pertinent PMH: Yes
[2022-07-16] MEDS: Cyanocobalamin 100 MCG TABLET 1000 MCG PO (07:55)
[2022-07-16] MEDS: Magnesium Oxide 400 MG TAB PO (07:56)
[2022-07-16] MEDS: Famotidine 20 MG TAB 10 MG PO (07:56)
[2022-07-16] MEDS: Multivitamin TAB 1 TAB PO (07:56)
[2022-07-16] MEDS: Potassium Chloride 20 MEQ TABCR PO (07:56)
[2022-07-16] MEDS: FLUoxetine 20 MG CAP PO (07:56)
[2022-07-16] MEDS: Ferrous Sulfate 325 MG TAB PO (07:56)
[2022-07-16] MEDS: Insulin Aspart 300 UNITS/3 ML PEN SC ×3 (07:57→17:21)
[2022-07-16 08:25] VITALS: BP 139/71; PULSE 79; RESP 16; TEMP 36.8; O2SAT 95
--- NOTE | 2022-07-16 09:37 | W.PM.PROGNOT ---
Date of Service Date of service: 07/16/22 Time of Service: 09:37 Objective Last Vital Signs Temp 36.8 C 07/16/22 08:25 Pulse 79 07/16/22 08:25 Resp 16 07/16/22 08:25 BP 139/71 07/16/22 08:25 Pulse Ox 95 07/16/22 08:25 Laboratory Results - last 24 hr 07/13/22 07/16/22 07/16/22 11:15 05:34 05:34 WBC 9.62 RBC 2.62 L Hgb 8.5 L Hct 26.3 L MCV 100 H MCH 32.4 MCHC 32.3 RDW 13.2 Plt Count 220 MPV 11.2 H Immature Gran % 0.4 Neutrophils % 46.4 Lymphocytes % 35.7 Monocytes % 12.9 Eosinophils % 4.1 Basophils % 0.5 Nucleated RBC % 0.0 Absolute Neutrophils 4.47 Absolute Lymphocytes 3.43 H Absolute Monocytes 1.24 H Absolute Eosinophils 0.39 Absolute Basophils 0.05 Sodium 139 Potassium 5.1 Chloride 109 H Carbon Dioxide 23.4 Anion Gap 6.6 BUN 18 Creatinine 1.4 H Est GFR (CKD-EPI 2020) 37.10 Glucose 139 H Calcium 8.3 L Magnesium 1.9 Legionella Source SPUTUM Legionella DNA (PCR) Negative
[2022-07-16] MEDS: Budesonide/Formoterol 160/4.5 6 GM 60 PUFF INH IH (09:58)
[2022-07-16] MEDS: DOXYCYCLINE 100 MG in Normal Saline 100 ML IVPB (10:14)
[2022-07-16 11:13] VITALS: BP 146/71; PULSE 68; RESP 16; TEMP 36.8; O2SAT 95
--- NOTE | 2022-07-16 13:00 | W.PM.DS.N ---
Date of service: 07/16/22 Time of Service: 13:00 DS: Diagnosis Discharge Diagnosis (1) Syncope and collapse: Status: Acute (2) Pneumonia: Status: Acute (3) Acute hyponatremia: Status: Resolved (4) Hypothyroidism: Status: Chronic (5) Type 2 diabetes mellitus with diabetic neuropathy, without long-term current use of insulin: Status: Chronic (6) CKD (chronic kidney disease): Status: Chronic Discharge Plan Disposition Patient Disposition: HOME Condition: Serious Discharge Details Reason For Visit: Syncope,Multifocal Pneumonia,Hyponatremia Admit Date/Time: 07/12/22 22:33 Admit Provider: Garland Fierro Attending Provider: Garland Fierro Primary Care Provider: Francy Moran Hospital Course Hospital Course: This is an 86-year-old female patient with past medical history of hypothyroidism, type 2 diabetes mellitus with oral treatment with diet control, chronic anemia supplements, COPD and hypertension who had not been feeling well over the last several days with increased weakness on the day of admission.? Her daughter had dropped her off at her storage unit and the patient was walking toward the unit when she fell to the ground screaming for help though she has no memory.? She was incontinent of urine and stool but had no seizure activity.? She was not postictal after the event.? She did feel extremely weak and has some mild abdominal pain in the mid abdomen but no shortness of breath, no fever or rigors and no diaphoresis.? She had no focalizing weakness.? She has had no previous stroke by history.? ?She had a recent cough for the last several days and stated this week she had not felt well.? She complained of weakness prior to the event.? In the ED she was evaluated and was found to have no acute injury but found to have multifocal pneumonia which did not have significant hypoxemia but she did have hyponatremia with her altered mental status. She also had possible positive urine which was cultured.? She has a history of CKD and this was not significantly worse with creatinine just above her baseline and review baseline being about 1.5 and patient presenting with creatinine of 1.9.? She was given IV hydration in the ED and continued IV hydration with admission for treatment of her infection.? She was started on Rocephin and doxycycline in the ED which was continued on admission. TSH is stable. Her sodium normalized, she was eating well and taking adequate oral fluids.? She was discharged with cefpodoxime and doxycycline to home with family, no oxygen requirements. Home Meds and New Rx's Prescriptions: New famotidine 20 mg Tablet 10 mg PO DAILY Qty: 0 0RF cefpodoxime 200 mg tablet 200 mg PO BID 10 Days Qty: 20 0RF Rx Instructions: must administer with a meal/food doxycycline hyclate 100 mg capsule 100 mg PO BID 4 Days Qty: 8 0RF Continued hydrochlorothiazide 12.5 mg tablet 12.5 mg PO DAILY Qty: 90 1RF famotidine 40 mg tablet 40 mg PO DAILY Qty: 30 11RF Januvia 50 mg tablet 50 mg PO DAILY Qty: 30 11RF Rx Instructions: Dose adjusted for kidney function magnesium oxide 400 mg magnesium capsule 400 mg PO DAILY Qty: 30 11RF Rx Instructions: Administer at least 2 hours apart from other medications metformin 500 mg tablet 500 mg PO BID MDD 1000 mg Qty: 180 3RF Rx Instructions: DOSED FOR RENAL FUNCTION levothyroxine 25 mcg tablet 25 mcg PO DAILY Qty: 90 3RF Rx Instructions: Administer in the morning on an empty stomach, at least 30-60 minutes before food cyanocobalamin (vitamin B-12) 1,000 mcg tablet 1,000 mcg PO DAILY Qty: 30 11RF glimepiride 4 mg tablet 4 mg PO DAILY Qty: 30 11RF multivitamin [Daily Multi-Vitamin] 1 EACH tablet 1 ea PO DAILY fluoxetine 20 mg capsule 20 mg PO DAILY Qty: 90 3RF simvastatin 20 mg tablet 20 mg PO HS Qty: 90 3RF (DME) [place]anc[place] [facility] [place]ose [place] .ROUTE .MEDSUPPLY Qty: 200 3RF Dose Instruction: As directed to check daily morning fasting blood glucose Rx Instructions: As directed to check twice daily blood glucose. No insulin. Dispense covered brand. (DME) Blood Glucose Test Strip See Dose Instructions .ROUTE .MEDSUPPLY Qty: 100 3RF Dose Instruction: As directed to check daily morning fasting blood glucose. No insulin. Rx Instructions: As directed to check once daily blood glucose. No insulin. Dispense covered brand. ferrous sulfate 325 mg (65 mg iron) tablet 325 mg PO BID Qty: 180 3RF calcium phosphate-vitamin D3 250 mg-12.5 mcg (500 unit) tablet,chewable 2 tab PO DAILY Qty: 180 3RF (DME) blood-glucose meter Misc 1 ea Miscellaneous DAILY Qty: 1 0RF Rx Instructions: Dx: E11.9 to maintain HbA1c less than 7%. No insulin. Please dispense brand covered by insurance. albuterol sulfate [ProAir HFA] 90 mcg/actuation HFA aerosol inhaler 1 - 2 puff Inhalation .Q4-6H PRN (Reason: shortness of breath or wheezing) Qty: 1 3RF Rx Instructions: DISPENSE ALBUTEROL INHALER BRAND COVERED BY INSURANCE budesonide-formoterol [Symbicort] 160-4.5 mcg/actuation HFA aerosol inhaler 2 puff Inhalation BID Qty: 3 3RF Discharge Instructions Instructions: Doxycycline (By mouth), Cefpodoxime Proxetil (By mouth), How to Use a Metered-Dose Inhaler and a Spacer (ED), Pneumonia (DC) Additional Instructions: Rest, hydrate. Take your antibiotics exactly as directed. Do not stop taking the medicine just because you are feeling better. You need to take the full course of antibiotics. Take an lgkz-zor-noaeeqd pain medicine, such as acetaminophen (Tylenol), ibuprofen (Advil, Motrin), or naproxen (Aleve). Read and follow all instructions on the label. Recommend flu vaccine Have labs checked in one week Return to the emergency department if difficulty breathing, chest pain, or other new concerns. Stand Alone Forms: Nursing Discharge Form Referrals: Francy Moran NP [Primary Care Provider] - (Please call Sunday to make a follow up appointment.) Activity:: Activity as Tolerated Equipment/Supplies:: No Equipment Needed Diet:: Low Sodium Discharge Orders Discharge Orders: Discharge Order (Routine); Ordered 07/16/22 Ordered By: Destiny Rodriguez Other Ambulatory Orders: Basic Metabolic Panel (Routine) Timeframe: 1 Week Location: None Selected Ordered By: Destiny Rodriguez Complete Blood Count w/Diff (Routine) Timeframe: 1 Week Location: None Selected Ordered By: Destiny Rodriguez Discharge Data Discharge Date/Time-TO BE ENTERED AT DEPARTURE: 07/16/22 19:09 DS: Summary Time Spent with Patient providing and/or coordinating discharge services: Less than 30 minutes Status at Discharge Functional status at discharge: uses cane/walker Overall status at discharge: patient is progressing back to baseline Mental Status: mental status grossly normal Speech and Movement: speech and movement normal Mood: congruent mood Affect: normal affect Exam Narrative Exam Narrative: General: Patient appears older than stated age - She is alert and oriented to person and place. Pleasant, conversant, motivated to go home. HEENT: Normocephalic with coarsened facial features, unkempt hair, eyes with pupils equal and reactive to light symmetrically, extraocular movement intact and sclera anicteric. Oropharynx moist, dentition with dental plates above and below. Neck: Supple without JVD. Back: Kyphotic without CVA tenderness. Lungs:Lungs clear, distant throughout. Breast: Exam deferred. Heart: Regular rate and rhythm with no murmurs gallops appreciated. Abdomen: Obese contour, soft and nontender to palpation with no palpable hepatosplenomegaly. Genitalia/rectal: Exam deferred. Extremity: Without clubbing, cyanosis or pitting edema. 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 Actinic changes over sun exposed areas. Neuro: Cranial nerves II through XII grossly intact, no focalizing motor deficits or tremor. No Babinski. Psych: Flattened affect with normal mood. No abnormal thought processes. Remote and recent memory intact. Psych Mental Status: mental status grossly normal Speech and Movement: speech and movement normal Mood: congruent mood Affect: normal affect DS: Data Vitals/I&O Vitals and I&O: Vital Signs Temperature 36.8 C 07/16/22 11:13 Temperature Source Tympanic 07/16/22 11:13 Pulse 68 07/16/22 11:13 Pulse Rhythm Regular 07/16/22 08:00 Pulse 91 H 07/12/22 23:50 Respiratory Rate 16 07/16/22 11:13 Respiratory Effort Non-Labored 07/16/22 08:00 Respiratory Depth Normal 07/16/22 08:00 Respiratory Pattern Normal 07/16/22 08:00 Blood Pressure 146/71 H 07/16/22 11:13 Blood Pressure Mean 68 07/12/22 23:31 Pulse Oximetry 95 07/16/22 11:13 Oxygen Delivery Method Room Air 07/16/22 11:13 Oxygen Flow Rate 0 07/16/22 11:13 Pain Level 0 07/16/22 11:15 Comment 07/16/22 11:15 Intake & Output 07/15/22 07/16/22 07/16/22 23:59 11:59 23:59 Intake Total 1153.333 / 2253.333 1826.667 / 1826.667 Output Total 400 / 600 800 / 800 Balance 753.333 / 3628.649 8996.667 / 1026.667 Intake: IV 913.333 / 2012.333 1826.667 / 1826.667 Oral 240 / 240 Output: Urine 400 / 600 800 / 800 Other: Urine Color Yellow Yellow Urine Appearance Clear Clear Urine Odor None Normal Stool Occult Blood Positive Stool Size Moderate Small Stool Characteristics Soft Soft Formed Black Voiding Methods Bedside Commode Bedside Commode Diaper Incontinent Data Completed and Pending Labs on day of discharge: Labs from last 24 hours 07/16/22 07/16/22 07/13/22 05:34 05:34 11:15 WBC 9.62 RBC 2.62 L Hgb 8.5 L Hct 26.3 L MCV 100 H MCH 32.4 MCHC 32.3 RDW 13.2 Plt Count 220 MPV 11.2 H Immature Gran % 0.4 Neutrophils % 46.4 Lymphocytes % 35.7 Monocytes % 12.9 Eosinophils % 4.1 Basophils % 0.5 Nucleated RBC % 0.0 Absolute Neutrophils 4.47 Absolute Lymphocytes 3.43 H Absolute Monocytes 1.24 H Absolute Eosinophils 0.39 Absolute Basophils 0.05 Sodium 139 Potassium 5.1 Chloride 109 H Carbon Dioxide 23.4 Anion Gap 6.6 BUN 18 Creatinine 1.4 H Est GFR (CKD-EPI 2020) 37.10 Glucose 139 H Calcium 8.3 L Magnesium 1.9 Legionella Source SPUTUM Legionella DNA (PCR) Negative Preliminary micro results at discharge 07/12/22 22:05 Blood Culture - Preliminary Blood NO GROWTH 72 HOURS 07/12/22 22:18 Blood Culture - Preliminary Blood NO GROWTH 72 HOURS PFSH All Active Problems (Updated 07/17/22 @ 00:05 by ROSALIO TORRES) Syncope and collapse (Acute) Pneumonia (Acute) Breast mass, left (Acute) Anemia, unspecified (Chronic) Microalbuminuria due to type 2 diabetes mellitus (Acute) Cognitive complaints (Chronic) 09/22/2021 MOCA: 27/30 = NORMAL; monitor Hypothyroidism (Chronic) CKD (chronic kidney disease) (Chronic) Macrocytic anemia (Chronic) Borderline low B12 level, normal Epo (suggesting due to CKD as well); 06/16/2019 [facility] [place] Hematology consult: multifactorial & recommended iron supplement Type 2 diabetes mellitus with diabetic neuropathy, without long-term current use of insulin (Chronic) Unspecified essential hypertension (Chronic 01/31/13) Hyperkalemia with NATALIIA-I --> AVOID Other disorders of Eustachian tube (Chronic 09/07/14) Other diseases of lung, not elsewhere classified (Chronic 11/21/11) rt 4mm ct stable 08/17; restrictive lung disease, neuromuscular weakness etiol? Dr Patel follows PFTs 08/2013 restrictive 47% NM weakness + response BD Osteoporosis (Chronic 07/12/16) DEXA 07/11/16 Hip T-3.2, Spine T-1.5, forearm T-3.5 Hypomagnesemia (Chronic 03/14/18) Hyperlipidemia (Chronic 11/21/11) Heart murmur (Chronic 08/24/17) 09/12/2017 echo: no significant valvular disease Gastroesophageal reflux disease (Chronic 11/21/11) Diabetic neuropathy, type II diabetes mellitus (Chronic 08/12/14) Anxiety (Chronic 11/21/11) Medical History Cerebral meningioma (01/31/13) 2004 Craniotomy, resection of frontal mennigioma [facility] [place] Closed nondisplaced comminuted fracture of shaft of left humerus (05/26/16) Neoplasm of skin (08/26/14) Pneumonia Restrictive lung disease Shingles Surgical History irrigation and debridement (10/05/15) R wrist Dr Lafleur Splenomegaly Family History Mother Personal history of malignant neoplasm breast and ovarian CA Father Myocardial infarction Social History Smoking/Tobacco Use Status: Never Smoking risk assessment performed?: Yes Alcohol Intake: never Drug use: Never Substance use type: does not use Caregiver/Support person: No Housing: apartment Number of Children: 3 number of grandchildren: 5 Pets and animals: No Sexually active: No Current gender identity: female What type of physical activity do you participate in: walking Frequency: daily Do you feel safe at home: Yes Do you feel safe in your relationship?: Yes
--- NOTE | 2022-07-16 14:32 | PDOC.CMDIS ---
- If Service Date Differs Date of service: 07/16/22 Time of Service: 14:32 LACE Index Scoring Tool - Questions: Length of Stay (in days): 4 - 6 Acuity (Admit via E.D.?): Yes Comorbidities: Liver or Renal Disease E.D. Visits: 1 - Answers: Total Score: 13 Risk of Readmission: High Risk Care Management Discharge Reason for Hospitalization: Syncope, Pneumonia, hyponatremia Discharge Plan: Geno is discharged home with no services. She will follow up with her PCP and discharge plan of care as prescribed. She is driven home by her daughter via private vehicle. Patient/Family Education Needs: Review of discharge instructions re medications, limitations, and follow up plan of care; discuss Ask Me Three.
[2022-07-17 17:04] LABS: Streptococcus Pneumoniae Ag, U Negative (Negative)
== END 2022-07-16 19:09 | disposition home or self-care (01) | DRG 190 ==
LOC: ER 23:36 → MS 07-13 00:47
PROVIDERS: Internal Medicine; Nurse Practitioner Family; Admitting Provider Family Medicine; Emergency Provider Physician Assistant; PCP Nurse Practitioner Family; Visit Provider Family Medicine
DX: J44.0 Chronic obstructive pulmonary disease with (acute) lower respiratory infection (principal); J18.9 Pneumonia, unspecified organism; E87.1 Hypo-osmolality and hyponatremia; R53.1 Weakness; E03.9 Hypothyroidism, unspecified; E11.40 Type 2 diabetes mellitus with diabetic neuropathy, unspecified; R55 Syncope and collapse; E11.22 Type 2 diabetes mellitus with diabetic chronic kidney disease; N18.30 Chronic kidney disease, stage 3 unspecified; Z79.84 Long term (current) use of oral hypoglycemic drugs; I12.9 Hypertensive chronic kidney disease with stage 1 through stage 4 chronic kidney disease, or unspecified chronic kidney disease; E83.42 Hypomagnesemia; E78.5 Hyperlipidemia, unspecified; E86.0 Dehydration; D53.9 Nutritional anemia, unspecified; W18.30XA Fall on same level, unspecified, initial encounter; K21.9 Gastro-esophageal reflux disease without esophagitis; F41.9 Anxiety disorder, unspecified; M81.0 Age-related osteoporosis without current pathological fracture; J98.4 Other disorders of lung
CPT/HCPCS: 36415; 71250; 80048; 80053; 82550; 82805; 84145; 87040; 87449; 87635; 87801; 93005; 94640; 96361; 96365; 96366; 96367; 96368; 96372; 96375; 99285; 70450; 72125; 72128; 81003; 81015; 82728; 83010; 83540; 83550; 83605; 83615; 83735; 84443; 84484; 85025; 85045; 87070; 87205; 87899; 93010; 94664; 94667; 99217; 99220; 99223; 99225; 99232; 99238; G0378; J0696; J1644; J7613

== ENCOUNTER → 2022-08-08 01:53 | Outpatient (CLI) | payer OTHER, SELFPAY ==
--- NOTE | 2022-08-08 07:15 | DI.MAMMO_ITS ---
Exam(s) US BREAST LT COMPLETE MAMMO DIAGNOSTIC BI EXAM: MAMMO DIAGNOSTIC BI and U/S breast LT complete CLINICAL HISTORY: Palpable mass, L upper quadrant, L breast,N63.20. TECHNIQUE: Craniocaudal and mediolateral oblique Full Field Digital Mammography views with Computer Aided Diagnosis followed by Tomosynthesis and left breast ultrasound. COMPARISON: There were no priors for comparison at this time. When, and if, priors become available , they will be reviewed and an addendum will be issued. FINDINGS: Mammography/Tomosynthesis: Masses/Architectural Distortion: None seen. Microcalcifictions: No suspicious pleomorphic-type are seen. Skin Thickening/Nipple Retraction: None. Complete left breast US: Echotexture: Normal appearance of the glandular tissue. Shadowing: No suspicious foci. Cyst: None. Solid lesions: None seen. Ductal dilation: None. IMPRESSION: 1. No evidence of malignancy is noted. 2. Unless there is more urgent need, follow-up screening mammography is recommended, as per [employer] guidelines. 3. The findings were discussed with the patient on the date of the examination. BI-RADS Category 1 - Negative Breast Density - Category B - Scattered areas of fibroglandular density Breast density Category C or D implies that the patient has dense breast tissue. Dense breast tissue can make it harder to find cancer on a mammogram. Dense breast tissue is also associated with an incr eased risk of breast cancer. This information about the result of the mammogram report was provided to the patient to raise their awareness. Use this report when you speak with the patient about their risks for breast cancer, which includes their family history. At that time, you may recommend additional screening tests (Ultrasoun d or MRI) as these tests may add significant information. A negative radiographic report should not delay biopsy if a dominant or clinically suspicious mass is present. Up to ten percent of cancers are not identified on mammography. A negative report may reinforce clinical impression. Adenosis and dense breasts may obscure an underlying neoplasm. False positive reports average 6 to 10%. Patient will receive a letter notifying them of these results.
== END ==
PROVIDERS: PCP Nurse Practitioner Family; Visit Provider Family Medicine
DX: N63.21 Unspecified lump in the left breast, upper outer quadrant; Z12.31 Encounter for screening mammogram for malignant neoplasm of breast
CPT/HCPCS: 76642; 77062; 77066; G0279

== ENCOUNTER 2022-08-30 01:43 | Outpatient (CLI) | payer OTHER, SELFPAY ==
--- NOTE | 2022-08-30 07:00 | DI.RAD_ITS ---
Exam(s) XR CHEST 2V PA LATERAL EXAM: XR CHEST 2V PA LATERAL CLINICAL HISTORY: 8 wk f/u multifocal PNEUMONIA, J18.9. TECHNIQUE: 2D digital imaging was performed. COMPARISON: No exams were available for comparison FINDINGS: 2 views: Mild elevation of the left hemidiaphragm is unchanged from the 2018 study Heart size is normal. The mediastinum is not widened. Lungs are clear. No infiltrates nor pleural effusions. IMPRESSION: No acute pulmonary findings. DATA REPOSITORY: RADIATION DOSE DELIVERED:
[2022-08-30 09:41] LABS: Abs Immature Grans 0.01 10^3/uL (0.0-0.06); Absolute Basophil Count 0.06 10^3/uL (0.0-0.2); Absolute Eosinophil Count 0.37 10^3/uL (0.0-0.7); Absolute Lymphocyte Count 3.88 10^3/uL (1.2-3.4); Absolute Monocyte Count 0.86 10^3/uL (0.1-0.8); Absolute Neutrophil Count 3.81 10^3/uL (1.2-6.7); Basophils % 0.7; Eosinophils % 4.1; HCT 33.8 % (36.0-46.0); HGB 10.7 g/dL (11.2-15.7); Immature Grans % 0.1; Lymphocytes % 43.2; MCH 31.8 pg (27.0-33.0); MCHC 31.7 % (32.0-36.0); MCV 101 fL (80-95); MPV 10.9 fL (8.0-11.0); Monocytes % 9.6; Neutrophils % 42.3; Platelet Count 204 10^3/uL (130-400); RBC 3.36 10^6/uL (3.93-5.22); RDW 13.1 % (11.7-14.6); RDW-SD 48.4 fL; WBC 8.99 10^3/uL (4.4-10.8)
[2022-08-30 10:21] LABS: Hemoglobin A1C 7.6 % (<5.7)
[2022-08-30 10:34] LABS: Iron 88 ug/dL (50-170); Total Iron Binding Capacity 291 ug/dL (250-450); Transferrin Sat 30 % (15-50)
[2022-08-30 10:47] LABS: Folate 15.2 ng/mL (8.6-20.0)
[2022-08-30 10:56] LABS: ALT 27 U/L (14-59); AST 27 U/L (15-37); Albumin 3.9 g/dL (3.4-5.0); Alkaline Phosphatase 113 U/L (46-116); Anion Gap 9.1 mmol/L (3-11); BUN 24 mg/dL (7-18); Bilirubin, Total 0.3 mg/dL (0.2-1.0); CO2 27.9 mmol/L (21.0-32.0); CREATININE 1.8 mg/dL (0.55-1.02); Calculated LDL 52 mg/dL (<100); Chloride 102 mmol/L (98-107); Cholesterol 132 mg/dL (<200); Estimated GFR 27.44 (mL/min/1.73m2); Ferritin 43 ng/mL (8-252); Glucose 190 mg/dL (74-106); HDL Cholesterol 57 mg/dL (40-60); Magnesium 2.4 mg/dL (1.8-2.4); Potassium 4.3 mmol/L (3.5-5.1); Sodium 139 mmol/L (136-145); Total Protein 7.7 g/dL (6.4-8.2); Triglyceride 115 mg/dL (<150); Vitamin B12 1649 pg/mL (193-986)
== END 2022-08-30 01:44 | disposition home or self-care (01) ==
PROVIDERS: PCP Nurse Practitioner Family; Visit Provider Nurse Practitioner Family
DX: J18.9 Pneumonia, unspecified organism (principal); E11.40 Type 2 diabetes mellitus with diabetic neuropathy, unspecified; I10 Essential (primary) hypertension; N18.30 Chronic kidney disease, stage 3 unspecified; D64.9 Anemia, unspecified; E03.9 Hypothyroidism, unspecified; E83.42 Hypomagnesemia; E78.5 Hyperlipidemia, unspecified
CPT/HCPCS: 36415; 80053; 80061; 71046; 82607; 82728; 82746; 83036; 83540; 83550; 83735; 84443; 85025

== ENCOUNTER 2022-09-21 04:57 | Outpatient (CLI) | payer OTHER, SELFPAY ==
[2022-09-21 13:24] LABS: Abs Immature Grans 0.02 10^3/uL (0.0-0.06); Absolute Basophil Count 0.08 10^3/uL (0.0-0.2); Absolute Eosinophil Count 0.29 10^3/uL (0.0-0.7); Absolute Lymphocyte Count 4.47 10^3/uL (1.2-3.4); Absolute Monocyte Count 1.12 10^3/uL (0.1-0.8); Absolute Neutrophil Count 4.78 10^3/uL (1.2-6.7); Basophils % 0.7; Eosinophils % 2.7; HCT 33.5 % (36.0-46.0); HGB 10.8 g/dL (11.2-15.7); Immature Grans % 0.2; Lymphocytes % 41.5; MCH 32.4 pg (27.0-33.0); MCHC 32.2 % (32.0-36.0); MCV 101 fL (80-95); MPV 10.7 fL (8.0-11.0); Monocytes % 10.4; Neutrophils % 44.5; Platelet Count 208 10^3/uL (130-400); RBC 3.33 10^6/uL (3.93-5.22); RDW 12.8 % (11.7-14.6); RDW-SD 47.1 fL; WBC 10.76 10^3/uL (4.4-10.8)
[2022-09-21 13:49] LABS: COMMENT (LAB VIEW ONLY) 161.54 mg/dL
[2022-09-21 13:59] LABS: Albumin 3.7 g/dL (3.4-5.0); Anion Gap 9.1 mmol/L (3-11); BUN 31 mg/dL (7-18); CO2 28.9 mmol/L (21.0-32.0); CREATININE 1.9 mg/dL (0.55-1.02); Chloride 102 mmol/L (98-107); Estimated GFR 25.72 (mL/min/1.73m2); Glucose 176 mg/dL (74-106); Magnesium 2.3 mg/dL (1.8-2.4); PHOSPHORUS 3.7 mg/dL (2.6-4.7); Sodium 140 mmol/L (136-145)
[2022-09-21 14:11] LABS: Bilirubin Negative (Negative); Blood Trace-intact (Negative); Clarity Clear (Clear); Glucose 100 mg/dL (Negative); Ketones Negative (Negative); Leukocyte Esterase Negative (Negative); Nitrite Negative (Negative); Specific Gravity 1.025 (1.005-1.025); Urobilinogen 0.2 EU/dL (Up TO 0.2)
[2022-09-21 14:21] LABS: Ferritin 38 ng/mL (8-252)
[2022-09-21 14:26] LABS: Bacteria Few HPF (Negative); C & S Indicated? No; Casts Negative LPF (Negative); Crystals Negative HPF (Negative); Epithelial Cells Few HPF (Negative); Mucus Moderate (Negative); Other Cells Negative (Negative); RBC Negative HPF (0-2); WBC Negative HPF (0-5)
[2022-09-21 14:44] LABS: Iron 114 ug/dL (50-170); Total Iron Binding Capacity 323 ug/dL (250-450); Transferrin Sat 35 % (15-50)
[2022-09-21 23:35] LABS: Parathyroid Hormone,Intact 183 pg/mL (19-88)
== END 2022-09-21 04:58 | disposition home or self-care (01) ==
LOC: LBO 04:57
PROVIDERS: PCP Nurse Practitioner Family; Visit Provider Internal Medicine Nephrology
DX: N18.4 Chronic kidney disease, stage 4 (severe) (principal); D63.1 Anemia in chronic kidney disease
CPT/HCPCS: 36415; 80048; 81003; 81015; 82040; 82043; 82570; 82728; 83540; 83550; 83735; 83970; 84100; 84550; 85025

== ENCOUNTER 2023-03-06 12:22 | Emergency (ER) | payer OTHER, SELFPAY ==
--- NOTE | 2023-03-06 12:15 | RT.EKG_ITS ---
APPROVED REPORT Exam: Resting ECG Reason for Exam: vomiting Patient Location: E HR:85 bpm ECG Measurements Heart Rate [address] 153 P 62 QRSd 87 QRS 59 QT 395 T 46 QTc 469 Conclusion Sinus rhythm...normal P axis, V-rate 60- 99 Probable anteroseptal infarct, recent...Q, ST>0.15mV, T neg, V1-V2
[2023-03-06 12:26] VITALS: BP 163/71; PULSE 87; RESP 15; TEMP 36.8; O2SAT 99
--- NOTE | 2023-03-06 12:30 | DI.RAD_ITS ---
Exam(s) XR CHEST 2V PA LATERAL EXAM: XR CHEST 2V PA LATERAL CLINICAL HISTORY: ?pneumonia TECHNIQUE: 2D digital imaging was performed of the chest. Two images were obtained. PA and lateral views were obtained. COMPARISON: CR XR CHEST 2V PA LATERAL from 08/30/2022 FINDINGS: MEDIASTINUM: Normal. HEART: Normal. PULMONARY VASCULATURE: Normal. LUNGS: No consolidating infiltrates are seen. PLEURAL SPACE: There is blunting of the left costophrenic angle which may represent scarring or tiny effusion. BONE:Within normal limits for the patient's age. OTHER FINDINGS:Normal. IMPRESSION: 1. No focal infiltrates. 2. Tiny effusion or scarring in the left costophrenic angle. DATA REPOSITORY: RADIATION DOSE DELIVERED:
[2023-03-06 12:40] LABS: BE (Venous) 4 mmol/L (-2-3); HCO3 (Venous) 28 mmol/L (23-28); O2 Sat (Venous) 70 %; TCO2 (Venous) 26 mmol/L (24-29); pCO2 (Venous) 44 mmHg (41-51); pH (Venous) 7.42 (7.31-7.41); pO2 (Venous) 36 mmHg
--- NOTE | 2023-03-06 12:43 | ED.GENADUL_ITS ---
Discharge Plan Disposition Patient Disposition: Home Condition: Stable Discharge Details Clinical Impression: N&V (nausea and vomiting), Diverticulitis Primary Care Provider: Dejuan Carlisle ED Provider: Wade Littlejohn [place] Meds and New Rx's Prescriptions: New ondansetron 4 mg tablet,disintegrating 4 mg PO Q8H PRN (Reason: nausea and vomiting) Qty: 30 0RF amoxicillin-pot clavulanate 400-57 mg/5 mL suspension for reconstitution 10 ml PO BID 5 Days Qty: 100 0RF Continued Ozempic 0.25 mg or 0.5 mg (2 mg/3 mL) pen injector 0.5 mg subcut QWEEK Qty: 3 0RF Rx Instructions: dose increase Januvia 50 mg tablet 50 mg PO DAILY Qty: 30 11RF Rx Instructions: Dose adjusted for kidney function simvastatin 20 mg tablet 20 mg PO HS Qty: 90 3RF magnesium oxide 400 mg magnesium capsule 400 mg PO DAILY Qty: 30 11RF Rx Instructions: Administer at least 2 hours apart from other medications levothyroxine 25 mcg tablet 25 mcg PO DAILY Qty: 90 0RF Rx Instructions: Administer in the morning on an empty stomach, at least 30-60 minutes before food hydrochlorothiazide 12.5 mg tablet 12.5 mg PO DAILY Qty: 90 0RF glimepiride 4 mg tablet 4 mg PO DAILY Qty: 30 11RF fluoxetine 20 mg capsule 20 mg PO DAILY Qty: 90 3RF ferrous sulfate 325 mg (65 mg iron) tablet 325 mg PO BID Qty: 180 3RF famotidine 20 mg tablet 10 mg PO DAILY Qty: 45 4RF budesonide-formoterol [Symbicort] 160-4.5 mcg/actuation HFA aerosol inhaler 2 puff Inhalation BID Qty: 3 3RF calcium phosphate-vitamin D3 250 mg-12.5 mcg (500 unit) tablet,chewable 2 tab PO DAILY Qty: 180 3RF Ozempic 0.25 mg or 0.5 mg (2 mg/3 mL) pen injector 0.25 mg subcut QWEEK Qty: 3 0RF Rx Instructions: for 4 weeks clotrimazole 1 % cream 1 applic topical BID Qty: 45 0RF Rx Instructions: Apply to affected areas twice a dayfor 2-4wks multivitamin [Daily Multi-Vitamin] 1 EACH tablet 1 ea PO DAILY albuterol sulfate [ProAir HFA] 90 mcg/actuation HFA aerosol inhaler 1 - 2 puff Inhalation .Q4-6H PRN (Reason: shortness of breath or wheezing) Qty: 1 3RF Rx Instructions: DISPENSE ALBUTEROL INHALER BRAND COVERED BY INSURANCE (DME) lancets [facility] [place] See Dose Instructions .ROUTE .MEDSUPPLY Qty: 200 3RF Dose Instruction: As directed to check daily morning fasting blood glucose Rx Instructions: As directed to check twice daily blood glucose. No insulin. Dispense covered brand. cyanocobalamin (vitamin B-12) 1,000 mcg tablet 1,000 mcg PO DAILY Qty: 90 0RF (DME) Blood Glucose Test Strip See Dose Instructions .ROUTE .MEDSUPPLY Qty: 100 3RF Dose Instruction: As directed to check daily morning fasting blood glucose. No insulin. Rx Instructions: As directed to check once daily blood glucose. No insulin. Dispense covered brand. (DME) blood-glucose meter [OneTouch Ultra2 Meter] Kit See Rx Instructions .ROUTE .MEDSUPPLY Qty: 1 2RF Rx Instructions: Check blood sugar once a day famotidine 40 mg tablet 40 mg PO DAILY Qty: 30 11RF Discharge Instructions Instructions: Diverticulitis (ED) Additional Instructions: follow up with your primary care provider within 1 week if you feel more ill, have severe worsening pain, persistent vomiting or fevers return to the emergency department Medical Decision Making 87 yo male female with hx of ckd, hld, gerd, t2dm, who comes in with ems with n/v and lower abdominal cramping that started this morning. She also has had diarrhea. She states this feels similar to when she had pneumonia in July of last year. She denies fevers, chest pain, cough, dyspnea. She arrives stable, caox4 speaking clearly. She has a soft nondistended abdomen, mild tenderness in the llq otherwise no abdominal tenderness. Her symptoms seem most consistent with a viral gastroenteritis but given location of pain and n/v will proceed with cbc, cmp, lipase, and ct abd/pelvis to evaluate for possible diverticulitis vs sbo, and obtain cxr. labs show wbc of 20, K of 3.2. CT shows diverticulitis no other findings, xray u nremarkable. Pt stable, tolerating po without problems and has no abdominal pain now. Discussed with her results and at this time given her stability will start oral antibiotics and she is comfortable with this plan. Return precautions given, advised to f/u with pcp Differential Diagnosis Differential Diagnosis: gastroenteritis, pneumonia, diverticulitis, Medical Records Medical records reviewed: Yes I reviewed the patient's medical records. Imaging Data Radiologic Study: Attestation: I personally reviewed and interpreted this imaging study as follows: Imaging: CT Scan Radiologist's impression: Patient Name: Geno Angela Unit #: [id number] Loc: ER ? Ordering Provider:? Wade Littlejohn M.D. Status: PRE ER ? Primary Care Provider: Dejuan Carlisle NP Date of Exam: 03/06/23 Sex: F ? : 1935 Age: 87 ? Exam(s) a CT:CT abdomen & pelvis wo Exam(s) CT ABDOMEN ? PELVIS WO EXAM:? CT ABDOMEN ? PELVIS WO CLINICAL HISTORY: ? lower abdominal cramping, n/v.? TECHNIQUE:? Imaging Protocol: Axial computed tomography images with coronal and sagittal reformatted images were created and reviewed. COMPARISON:? CT CT ABDOMEN ? PELVIS W from 06/28/2021 FINDINGS: ABDOMEN: Lung Bases: Coronary artery calcification is present.? Liver: Normal density. No measurable mass. Gallbladder and biliary tract: No radiodense calculus or biliary ductal dilation. Pancreas: Normal density, no abnormal calcifications or inflammatory process. Spleen: Calcification is again seen at the posterior aspect of the spleen.? Kidneys: Normal size, contour and axis.No radiodense stones or obstructive uropathy. No masses seen. Adrenal glands: No mass is seen. Lymph nodes: Within normal limits.? Abdominal Aorta: Abdominal portion non-dilated. Atherosclerosis is present. PELVIS:? Bladder:Symmetric distention, no gross wall thickening. Bowel: There is colonic diverticulosis.? There is bowel wall thickening seen in the distal transverse colon and descending colon.? Pericolonic inflammatory changes are present.? There is no evidence of bowel obstruction.? No other bowel wall thickening is seen.? Appendix is unremarkable.? Peritoneal cavity: No ascites, collection or mesenteric inflammatory response.? No free air.? Reproductive organs: Unremarkable as visualized.? Bones: Within normal limits for the patient's age.? The bones are osteopenic. Soft Tissues: Within normal limits. IMPRESSION: 1. Findings consistent with diverticulitis involving the distal transverse colon and descending colon.? No abscess or free air. 2. Findings were discussed with Dr. Littlejohn at 1:19 p.m. on 03/06/2023. Radiologic Study #2: Attestation: I personally reviewed and interpreted this imaging study as follows: Imaging: X-Ray Radiologist's impression: no acute findings Lab Data Lab results reviewed: Yes I reviewed the patient's lab results. ECG Data Attestation: I personally reviewed and interpreted this ECG (s) as follows: Prior ECG tracings: available for review Interpretation: sinus rhythm, rate 85, pr 153, no stemi HPI General Mode of arrival: EMS . Date/Time Provider Initiated Documentation: 03/06/23 12:34 . Limitations to Documentation: no limitations . Information obtained by: patient . History of Present Illness 87 year old F presents to the emergency department with the chief complaint of n/v, described as moderate, Patient started experiencing this day(s) (1) and it has been intermittent. No relieving factors improve symptom(s), No exacerbating factors reported . Patient notes denies shortness of breath. Patient did receive the following treatments prior to arrival, none Related Data Home Medications Medication Instructions Recorded Confirmed multivitamin (Daily Multi-Vitamin 1 ea PO DAILY 04/17/18 03/06/23 tablet) albuterol sulfate 90 mcg/actuation 1 - 2 puff inhalation .Q4-6H PRN 05/29/22 03/06/23 aerosol inhaler (ProAir HFA) shortness of breath or wheezing #1 unit lancets #200 ea 08/08/22 03/06/23 cyanocobalamin (vitamin B-12) 1,000 mcg PO DAILY #90 tab-caps 10/26/22 03/06/23 1,000 mcg tablet clotrimazole 1 % topical cream 1 applic topical BID #45 grams 01/03/23 03/06/23 semaglutide 0.25 mg or 0.5 mg (2 0.25 mg (0.4 mL) subcut QWEEK #3 mL 01/03/23 03/06/23 mg/3 mL) subcutaneous pen injector (Ozempic) blood sugar diagnostic (Blood #100 ea 01/19/23 03/06/23 Glucose Test strips) blood-glucose meter (OneTouch #1 ea 01/19/23 03/06/23 Ultra2 Meter kit) famotidine 40 mg tablet 40 mg PO DAILY #30 tabs 01/30/23 03/06/23 budesonide-formoterol HFA 160 2 puff inhalation BID ##3 02/02/23 03/06/23 mcg-4.5 mcg/actuation aerosol inhaler (Symbicort) calcium phosphate 250 mg-vit D3 2 tab PO DAILY #180 tabs 02/02/23 03/06/23 12.5 mcg (500 unit) chewable tablet famotidine 20 mg tablet 10 mg PO DAILY #45 tabs 02/02/23 03/06/23 ferrous sulfate 325 mg (65 mg 325 mg PO BID #180 tabs 02/02/23 03/06/23 iron) tablet fluoxetine 20 mg capsule 20 mg PO DAILY #90 caps 02/02/23 03/06/23 glimepiride 4 mg tablet 4 mg PO DAILY #30 tab-caps 02/02/23 03/06/23 hydrochlorothiazide 12.5 mg tablet 12.5 mg PO DAILY #90 tabs 02/02/23 03/06/23 levothyroxine 25 mcg tablet 25 mcg PO DAILY #90 tab-caps 02/02/23 03/06/23 magnesium oxide 400 mg PO DAILY #30 tab-caps 02/02/23 03/06/23 semaglutide 0.25 mg or 0.5 mg (2 0.5 mg (0.8 mL) subcut QWEEK #3 mL 02/02/23 03/06/23 mg/3 mL) subcutaneous pen injector (Ozempic) simvastatin 20 mg tablet 20 mg PO HS #90 tab-caps 02/02/23 03/06/23 sitagliptin phosphate 50 mg tablet 50 mg PO DAILY #30 tabs 02/02/23 03/06/23 (Januvia) amoxicillin 400 mg-potassium 10 ml PO BID 5 days #100 mL 03/06/23 clavulanate 57 mg/5 mL oral suspension ondansetron 4 mg disintegrating 4 mg PO Q8H PRN nausea and 03/06/23 tablet vomiting #30 tabs Previous Rx's Medication Instructions Recorded albuterol sulfate 90 mcg/actuation 1 - 2 puff inhalation .Q4-6H PRN 05/29/22 aerosol inhaler (ProAir HFA) shortness of breath or wheezing #1 unit lancets #200 ea 08/08/22 cyanocobalamin (vitamin B-12) 1,000 mcg PO DAILY #90 tab-caps 10/26/22 1,000 mcg tablet clotrimazole 1 % topical cream 1 applic topical BID #45 grams 01/03/23 semaglutide 0.25 mg or 0.5 mg (2 0.25 mg (0.4 mL) subcut QWEEK #3 mL 01/03/23 mg/3 mL) subcutaneous pen injector (Ozempic) blood sugar diagnostic (Blood #100 ea 01/19/23 Glucose Test strips) blood-glucose meter (OneTouch #1 ea 01/19/23 Ultra2 Meter kit) famotidine 40 mg tablet 40 mg PO DAILY #30 tabs 01/30/23 budesonide-formoterol HFA 160 2 puff inhalation BID ##3 02/02/23 mcg-4.5 mcg/actuation aerosol inhaler (Symbicort) calcium phosphate 250 mg-vit D3 2 tab PO DAILY #180 tabs 02/02/23 12.5 mcg (500 unit) chewable tablet famotidine 20 mg tablet 10 mg PO DAILY #45 tabs 02/02/23 ferrous sulfate 325 mg (65 mg 325 mg PO BID #180 tabs 02/02/23 iron) tablet fluoxetine 20 mg capsule 20 mg PO DAILY #90 caps 02/02/23 glimepiride 4 mg tablet 4 mg PO DAILY #30 tab-caps 02/02/23 hydrochlorothiazide 12.5 mg tablet 12.5 mg PO DAILY #90 tabs 02/02/23 levothyroxine 25 mcg tablet 25 mcg PO DAILY #90 tab-caps 02/02/23 magnesium oxide 400 mg PO DAILY #30 tab-caps 02/02/23 semaglutide 0.25 mg or 0.5 mg (2 0.5 mg (0.8 mL) subcut QWEEK #3 mL 02/02/23 mg/3 mL) subcutaneous pen injector (Ozempic) simvastatin 20 mg tablet 20 mg PO HS #90 tab-caps 02/02/23 sitagliptin phosphate 50 mg tablet 50 mg PO DAILY #30 tabs 02/02/23 (Januvia) amoxicillin 400 mg-potassium 10 ml PO BID 5 days #100 mL 03/06/23 clavulanate 57 mg/5 mL oral suspension ondansetron 4 mg disintegrating 4 mg PO Q8H PRN nausea and 03/06/23 tablet vomiting #30 tabs Allergies Allergy/AdvReac Type Severity Reaction Status Date / Time azithromycin AdvReac Unknown nausea Verified 02/02/23 09:56 erythromycin base AdvReac Unknown Nausea Verified 02/02/23 09:56 shellfish derived AdvReac Unknown N/V/D Verified 02/02/23 09:56 Tetracyclines AdvReac Unknown Nausea Verified 02/02/23 09:56 NATALIIA Inhibitors AdvReac Other (See Verified 02/02/23 09:56 Comment) General Stated Complaint: Nausea/Vomit/Diar SAM: 3 Review of Systems All systems reviewed & are unremarkable except as noted in HPI and below Constitutional Constitutional: Denies chills, Denies fever(s) and Denies weakness Cardiovascular Cardiovascular: Denies chest pain and Denies dyspnea Respiratory Respiratory: Denies cough and Denies dyspnea Gastrointestinal Gastrointestinal: Reports abdominal pain, Reports nausea and Reports vomiting Genitourinary Genitourinary: Denies dysuria Musculoskeletal Musculoskeletal: Denies joint swelling Integumentary/Breasts Skin/Breast: Denies rash Neurologic Neurologic: Denies weakness PFSH All Active Problems (Updated 03/06/23 @ 14:27 by Wade Littlejohn MD) Anxiety (Chronic 11/21/11) Diabetic neuropathy, type II diabetes mellitus (Chronic 08/12/14) Gastroesophageal reflux disease (Chronic 11/21/11) Heart murmur (Chronic 08/24/17) 09/12/2017 echo: no significant valvular disease Hyperlipidemia (Chronic 11/21/11) Hypomagnesemia (Chronic 03/14/18) Osteoporosis (Chronic 07/12/16) DEXA 07/11/16 Hip T-3.2, Spine T-1.5, forearm T-3.5 Other diseases of lung, not elsewhere classified (Chronic 11/21/11) rt 4mm ct stable 08/17; restrictive lung disease, neuromuscular weakness etiol? Dr Patel follows PFTs 08/2013 restrictive 47% NM weakness + response BD Other disorders of Eustachian tube (Chronic 09/07/14) Unspecified essential hypertension (Chronic 01/31/13) Hyperkalemia with NATALIIA-I --> AVOID Type 2 diabetes mellitus with diabetic neuropathy, without long-term current use of insulin (Chronic) Macrocytic anemia (Chronic) Borderline low B12 level, normal Epo (suggesting due to CKD as well); 06/16/2019 [facility] [place] Hematology consult: multifactorial & recommended iron supplement CKD (chronic kidney disease) (Chronic) Hypothyroidism (Chronic) Cognitive complaints (Chronic) 09/22/2021 MOCA: = NORMAL; monitor Microalbuminuria due to type 2 diabetes mellitus (Acute) Breast mass, left (Acute) Onychomycosis (Acute) Tinea pedis (Acute) Vomiting and diarrhea (Acute) N&V (nausea and vomiting) (Acute) Diverticulitis (Chronic) Medical History Cerebral meningioma (01/31/13) 2004 Craniotomy, resection of frontal mennigioma [facility] [place] Closed nondisplaced comminuted fracture of shaft of left humerus (05/26/16) Neoplasm of skin (08/26/14) Pneumonia Restrictive lung disease Sepsis Shingles Surgical History irrigation and debridement (10/05/15) R wrist Dr Cerdabach Splenomegaly Family History Mother , 76 Personal history of malignant neoplasm breast and ovarian CA Breast cancer Ovarian cancer Father , 83 Myocardial infarction Heart disease Sister , 55 Lymphoma Ovarian cancer Brother , 63 Heart disease Son No problems noted. Son Heart disease Daughter No problems noted. Social History Smoking/Tobacco Use Status: Never Second Hand Exposure: Yes Smoking risk assessment performed?: Yes Alcohol Intake: never Drug use: Never Substance use type: does not use Caregiver/Support person: Yes Household members: none Housing: apartment Number of Children: 3 number of grandchildren: 5 Do you need help understanding health information?: Never Pets and animals: No Sexually active: No Do you think of yourself as: straight/heterosexual Current gender identity: female What is your relationship status?: How often do you talk on the phone with friends or family?: three or more times per week How often do you get together with friends or relatives?: three or more times per week How often do you attend yazidi or jewish services?: 1-3 times per year Do you belong to any clubs or organized social groups?: no Panel score (0-1 are the most socially isolated patients): 1 What type of physical activity do you participate in: none Frequency: does not exercise Stacey/Nondenominational: Mandaen Special stacey needs: Yes Seatbelt use: always 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 Do you feel safe at home: Yes Do you feel safe in your relationship?: Yes Exam Const General: no acute distress Orientation: alert HENMT Head: normal to inspection Ears: external ears normal General nose exam: external nose normal Mouth: moist mucous membranes Eyes General: appearance normal, both eyes and all related structures Neck Neck: normal visual inspection Resp Effort & Inspection: normal respiratory effort and able to speak in complete sentences Cardio Rate: regular rate GI Palpation: soft, not firm and no guarding Skin General skin exam: no rashes or lesions noted Neuro General: patient alert and patient oriented x3 Extrem General: normal to inspection Psych Mental Status: mental status grossly normal Course Vital Signs Vital signs: Vital Signs Temperature 36.8 C 03/06/23 12:26 Pulse 87 03/06/23 12:26 Respiratory Rate 15 03/06/23 12:26 Blood Pressure 163/71 H 03/06/23 12:26 Pulse Oximetry 99 03/06/23 12:26 Temperature 36.8 C 03/06/23 12:26 Temperature Source Tympanic 03/06/23 12:26 Pulse 87 03/06/23 12:26 Respiratory Rate 15 03/06/23 12:26 Respiratory Effort Normal 03/06/23 12:34 Blood Pressure 163/71 H 03/06/23 12:26 Blood Pressure Position Sitting 03/06/23 12:26 Pulse Oximetry 99 03/06/23 12:26 Oxygen Delivery Method Room Air 03/06/23 12:26 Oxygen Flow Rate 0 03/06/23 12:26 Pain Level 0 03/06/23 12:26
--- NOTE | 2023-03-06 12:43 | DI.CT_ITS ---
Exam(s) CT ABDOMEN PELVIS WO EXAM: CT ABDOMEN PELVIS WO CLINICAL HISTORY: lower abdominal cramping, n/v. TECHNIQUE: Imaging Protocol: Axial computed tomography images with coronal and sagittal reformatted images were created and reviewed. COMPARISON: CT CT ABDOMEN PELVIS W from 06/28/2021 FINDINGS: ABDOMEN: Lung Bases: Coronary artery calcification is present. Liver: Normal density. No measurable mass. Gallbladder and biliary tract: No radiodense calculus or biliary ductal dilation. Pancreas: Normal density, no abnormal calcifications or inflammatory process. Spleen: Calcification is again seen at the posterior aspect of the spleen. Kidneys: Normal size, contour and axis.No radiodense stones or obstructive uropathy. No masses seen. Adrenal glands: No mass is seen. Lymph nodes: Within normal limits. Abdominal Aorta: Abdominal portion non-dilated. Atherosclerosis is present. PELVIS: Bladder:Symmetric distention, no gross wall thickening. Bowel: There is colonic diverticulosis. There is bowel wall thickening seen in the distal transverse colon and descending colon. Pericolonic inflammatory changes are present. There is no evidence of bowel obstruction. No other bowel wall thickening is seen. Appendix is unremarkable. Peritoneal cavity: No ascites, collection or mesenteric inflammatory response. No free air. Reproductive organs: Unremarkable as visualized. Bones: Within normal limits for the patient's age. The bones are osteopenic. Soft Tissues: Within normal limits. IMPRESSION: 1. Findings consistent with diverticulitis involving the distal transverse colon and descending colon . No abscess or free air. 2. Findings were discussed with Dr. Littlejohn at 1:19 p.m. on 03/06/2023. RADIATION DOSE DELIVERED: 748.66mGy.cm Total DLP DATA REPOSITORY: All CT scans at this facility are submitted to the National Radiology Data Registry (NRDR) Dose Index Registry (DIR) with the [employer] (A[employer]). RADIATION OPTIMIZATION: All CT scans at this facility use at least one of these dose optimization te chniques: automated exposure control; mA and/or kV adjustment per patient size (includes targeted exa ms where dose is matched to clinical indication); or iterative reconstruction.
[2023-03-06 12:44] LABS: Abs Immature Grans 0.14 10^3/uL (0.0-0.06); Absolute Basophil Count 0.04 10^3/uL (0.0-0.2); Absolute Eosinophil Count 0.02 10^3/uL (0.0-0.7); Absolute Lymphocyte Count 1.07 10^3/uL (1.2-3.4); Absolute Monocyte Count 1.13 10^3/uL (0.1-0.8); Absolute Neutrophil Count 18.11 10^3/uL (1.2-6.7); Basophils % 0.2; Eosinophils % 0.1; HCT 38.2 % (36.0-46.0); Immature Grans % 0.7; Lymphocytes % 5.2; MCH 33.2 pg (27.0-33.0); MCV 97 fL (80-95); MPV 11.2 fL (8.0-11.0); Monocytes % 5.5; Neutrophils % 88.3; Platelet Count 186 10^3/uL (130-400); RBC 3.92 10^6/uL (3.93-5.22); RDW 11.8 % (11.7-14.6); RDW-SD 41.8 fL; WBC 20.51 10^3/uL (4.4-10.8)
[2023-03-06 13:01] LABS: PTT Activated 21.5 sec (21.5-31.9); Prothrombin Time 9.8 sec (9.3-11.0)
[2023-03-06 13:10] LABS: ALT 22 U/L (14-59); AST 28 U/L (15-37); Alkaline Phosphatase 100 U/L (46-116); Anion Gap 9.7 mmol/L (3-11); BUN 28 mg/dL (7-18); Bilirubin, Total 0.5 mg/dL (0.2-1.0); CO2 29.3 mmol/L (21.0-32.0); Calcium 9.9 mg/dL (8.5-10.1); Chloride 97 mmol/L (98-107); Estimated GFR 24.03 (mL/min/1.73m2); Glucose 293 mg/dL (74-106); Lipase 34 U/L (16-77); Magnesium 1.9 mg/dL (1.8-2.4); Potassium 3.2 mmol/L (3.5-5.1); Sodium 136 mmol/L (136-145); Total Protein 8.2 g/dL (6.4-8.2); Troponin I < 50 ng/L (<or=60)
[2023-03-06 13:31] VITALS: BP 142/62; PULSE 86; RESP 19; O2SAT 98
[2023-03-06] MEDS: Normal Saline 250 ML IV (13:40)
[2023-03-06 13:41] LABS: COVID-19 PCR Negative (Negative); Influenza A PCR Negative (Negative); Influenza B PCR Negative (Negative); RSV PCR Negative (Negative)
[2023-03-06] MEDS: Ondansetron 4 MG/2 ML VIAL IVP (13:41)
[2023-03-06 13:46] VITALS: BP 140/57; PULSE 89; PULSE 90; RESP 23; O2SAT 98
[2023-03-06 13:53] LABS: Source Nasopharynx
[2023-03-06 14:00] VITALS: BP 153/52; PULSE 80; PULSE 84; RESP 22; O2SAT 94
[2023-03-06] MEDS: Amoxicillin 400 MG/Clav. 57 MG 100 ML BTL 10 ML PO (14:11)
[2023-03-06 14:16] VITALS: BP 155/56; PULSE 80; PULSE 90; RESP 16
[2023-03-06 14:31] VITALS: BP 109/74; PULSE 81; PULSE 83; RESP 15
--- NOTE | 2023-03-07 08:13 | NUR.NOTE ---
Nursing Note: Accessed patient chart to determine how many EKG orders were in the chart from the ED. There was an outstanding EKG in ordered status. There are no EKG's in the [employer] system that are outstanding. EKG order was deleted.
== END 2023-03-06 14:55 | disposition home or self-care (01) ==
LOC: ER 14:54
PROVIDERS: Emergency Provider Emergency Medicine; PCP Nurse Practitioner Family
DX: K57.32 Diverticulitis of large intestine without perforation or abscess without bleeding (principal); E11.22 Type 2 diabetes mellitus with diabetic chronic kidney disease; N18.9 Chronic kidney disease, unspecified; Z20.822 Contact with and (suspected) exposure to COVID-19
CPT/HCPCS: 80053; 82805; 83690; 84145; 87637; 93005; 96361; 96374; 99284; 71046; 74176; 81003; 83735; 84484; 85025; 85610; 85730; 93010; J2405

== ENCOUNTER 2023-08-08 10:29 | Outpatient (CLI) | payer OTHER, SELFPAY ==
[2023-08-08 13:19] LABS: Anion Gap 11.1 mmol/L (3-11); BUN 17 mg/dL (7-18); CO2 24.9 mmol/L (21.0-32.0); CREATININE 1.7 mg/dL (0.55-1.02); Calcium 9.1 mg/dL (8.5-10.1); Chloride 102 mmol/L (98-107); Estimated GFR 29.21 (mL/min/1.73m2); Glucose 305 mg/dL (74-106); Potassium 3.7 mmol/L (3.5-5.1); Sodium 138 mmol/L (136-145); TSH (W/Ref FT4) 6.89 uIU/mL (0.36-3.74)
[2023-08-08 13:54] LABS: FREE T4 0.85 ng/dL (0.76-1.46)
== END 2023-08-08 10:30 | disposition home or self-care (01) ==
LOC: LOS 10:29
PROVIDERS: PCP Nurse Practitioner Family; Referring Provider Nurse Practitioner Family; Visit Provider Nurse Practitioner Family
DX: E03.9 Hypothyroidism, unspecified (principal); N18.30 Chronic kidney disease, stage 3 unspecified
CPT/HCPCS: 36415; 80048; 84439; 84443

== ENCOUNTER 2023-08-09 16:03 | Inpatient (IN) | payer OTHER, SELFPAY ==
[2023-08-09] VITALS (28 sets, daily range): BP systolic 158–222; BP diastolic 51–98; PULSE 88–118; RESP 16; TEMP 37.1; O2SAT 83–99
--- NOTE | 2023-08-09 16:45 | RT.EKG_ITS ---
APPROVED REPORT Exam: Resting ECG Reason for Exam: nausea, weak Patient Location: E HR:102 bpm ECG Measurements Heart Rate 102 AXIS ND 142 P 68 QRSd 82 QRS 53 QT 350 T 58 QTc 455 Conclusion Sinus tachycardia...rate> 99 Probable anterolateral infarct, old...Q>35mS, abnrm ST-T, V2-V6,I,aVL Appropriate intervals. No ST segment or T wave abnormalities to suggest occlusive ND
[2023-08-09] MEDS: Ondansetron 4 MG/2 ML VIAL IVP (17:00)
[2023-08-09] MEDS: MORPHine 10 MG/ML VIAL 2 MG IVP ×2 (17:00→18:21)
[2023-08-09] MEDS: Lactated Ringers 1,000 ML 1000 ML IV (17:00)
[2023-08-09 17:18] LABS: Abs Immature Grans 0.05 10^3/uL (0.0-0.06); Absolute Basophil Count 0.04 10^3/uL (0.0-0.2); Absolute Eosinophil Count 0.14 10^3/uL (0.0-0.7); Absolute Lymphocyte Count 3.48 10^3/uL (1.2-3.4); Absolute Monocyte Count 1.09 10^3/uL (0.1-0.8); Absolute Neutrophil Count 4.57 10^3/uL (1.2-6.7); Basophils % 0.4; Eosinophils % 1.5; HCT 35.5 % (36.0-46.0); HGB 11.8 g/dL (11.2-15.7); Immature Grans % 0.5; Lymphocytes % 37.1; MCH 32.9 pg (27.0-33.0); MCHC 33.2 % (32.0-36.0); MCV 99 fL (80-95); Monocytes % 11.6; Neutrophils % 48.9; Platelet Count 184 10^3/uL (130-400); RBC 3.59 10^6/uL (3.93-5.22); RDW 11.8 % (11.7-14.6); RDW-SD 42.9 fL; WBC 9.37 10^3/uL (4.4-10.8)
[2023-08-09 17:33] LABS: ALT 24 U/L (14-59); AST 26 U/L (15-37); Albumin 3.6 g/dL (3.4-5.0); Alkaline Phosphatase 108 U/L (46-116); Anion Gap 6.7 mmol/L (3-11); BUN 16 mg/dL (7-18); Bilirubin, Total 0.3 mg/dL (0.2-1.0); CO2 29.3 mmol/L (21.0-32.0); CREATININE 1.5 mg/dL (0.55-1.02); Calcium 9.2 mg/dL (8.5-10.1); Chloride 102 mmol/L (98-107); Estimated GFR 33.94 (mL/min/1.73m2); Glucose 205 mg/dL (74-106); Potassium 4.5 mmol/L (3.5-5.1); Sodium 138 mmol/L (136-145); Total Protein 7.5 g/dL (6.4-8.2)
--- NOTE | 2023-08-09 17:41 | DI.RAD_ITS ---
Exam(s) XR HIP LT COMPLETE AP PELVIS EXAM: XR HIP LT COMPLETE AP PELVIS CLINICAL HISTORY: left hip injury. TECHNIQUE: 2D digital imaging was performed of the left hip. Two views were obtained. AP pelvis an d lateral left hip views were obtained. COMPARISON: No exams were available for comparison FINDINGS: BONES: There is an acute subcapital fracture of the left femur. There is proximal migration of the d istal fracture. No bony destructive lesion is seen. JOINTS: No dislocation present. SOFT TISSUE: Atherosclerosis. IMPRESSION: Displaced subcapital fracture of the left femur. DATA REPOSITORY: RADIATION DOSE DELIVERED:
--- NOTE | 2023-08-09 17:45 | DI.RAD_ITS ---
Exam(s) XR FEMUR LT EXAM: XR FEMUR LT CLINICAL HISTORY: hip fracture. TECHNIQUE: 2D digital imaging was performed of the left femur. Two images were obtained. AP and late ral views were obtained. COMPARISON: No exams were available for comparison FINDINGS: Only the distal half of the left femur was included on this examination. The patient has a known sub capital left femoral neck fracture as identified from x-ray from [facility] from the same day. BONES: No acute fracture is present. No bony destructive lesion is seen. Visualized portion of knee i s unremarkable. SOFT TISSUE: Atherosclerosis. IMPRESSION: The distal left femur is intact. DATA REPOSITORY: RADIATION DOSE DELIVERED:
--- NOTE | 2023-08-09 17:45 | DI.RAD_ITS ---
Exam(s) XR CHEST 1V IN DI DEPT EXAM: XR CHEST 2V PA LATERAL CLINICAL HISTORY: copd, fall, hip fx TECHNIQUE: 2D digital imaging was performed of the chest. One image was obtained. An AP view was ob tained. COMPARISON: CR XR CHEST 2V PA LATERAL from 03/06/2023 FINDINGS: MEDIASTINUM: Normal. HEART: Normal. PULMONARY VASCULATURE: Normal. LUNGS: Clear. PLEURAL SPACE: No pleural effusion or pneumothorax. BONE:Within normal limits for the patient's age. OTHER FINDINGS:Normal. IMPRESSION: No acute pulmonary findings. DATA REPOSITORY: RADIATION DOSE DELIVERED:
--- NOTE | 2023-08-09 17:57 | W.ORTHOCONSU ---
Date of service: 08/10/23 Time of Service: 11:30 History of Present Illness Narrative: 87-year-old female 1 day status post displaced left femoral neck fracture. Patient reports that injury occurred yesterday in the communal laundry room at her apartment complex when she quickly turned and lost her balance falling onto her left hip. She reports that she typically uses a cane for balance but was not using it at the time of the fall. Only other injury is a skin tear on the left elbow. She denies any elbow pain with motion. Denies any pre-existing left hip discomfort. She reports that she lives alone in an apartment complex and ambulates inside with a cane and for short distances outside with a cane. She reports that she is unable to walk for longer distance because of breathing problems secondary to COPD. Daughter lives nearby and checks on her frequently. Assessment and Plan Assessment and plan (1) Left displaced femoral neck fracture: Status: Acute Assessment and plan: 87-year-old female with displaced left femoral neck fracture Mechanical fall today, significant medical comorbidities, discussed with emergency room provider: Obtained femur x-rays, chest x-ray, n.p.o. after midnight, and bilateral SCDs. Consider single geriatric and renal dose of SQH or Lovenox this evening as surgery probably will not be until tomorrow afternoon based on the number of cases that already need to be done. Recommend hospitalist admission and optimization for surgery tomorrow: Left hip hemiarthroplasty Improve blood glycemic control as best possible Will discussed with medical team. SKILLED HELPER evaluation for surgery in the a.m. Sooner if uncomfortable and benefit from nerve block. Day of surgery update? Pulmonary risks better clarified. Decision made to proceed today with left hip hemiarthroplasty. Cementation would be typical given advanced age and comorbidities, but also could increase pulmonary risks. Will make final decision based on intraoperative bone quality. The risks, benefits, and alternatives were thoroughly discussed. Patient was counseled regarding pain management, expected postoperative course, and recovery timeline. All questions were answered. Informed consent was obtained. Patient agrees and understands the treatment plan Appreciate medical management PFSH All Active Problems (Updated 08/10/23 @ 07:15 by Marcelle Wynne MD) Restrictive lung disease (Acute) Left displaced femoral neck fracture (Acute 08/09/23) Anxiety (Chronic 01/10/12) Diabetic neuropathy, type II diabetes mellitus (Chronic 08/12/14) Gastroesophageal reflux disease (Chronic 11/21/11) Heart murmur (Chronic 08/24/17) 09/12/2017 echo: no significant valvular disease Hyperlipidemia (Chronic 11/21/11) Hypomagnesemia (Chronic 03/14/18) Osteoporosis (Chronic 07/12/16) DEXA 07/11/16 Hip T-3.2, Spine T-1.5, forearm T-3.5 Other diseases of lung, not elsewhere classified (Chronic 11/21/11) rt 4mm ct stable 08/17; restrictive lung disease, neuromuscular weakness etiol? Dr Patel follows PFTs 08/2013 restrictive 47% NM weakness + response BD Other disorders of Eustachian tube (Chronic 09/07/14) Unspecified essential hypertension (Chronic 01/31/13) Hyperkalemia with NATALIIA-I --> AVOID Type 2 diabetes mellitus with diabetic neuropathy, without long-term current use of insulin (Chronic) Macrocytic anemia (Chronic) Borderline low B12 level, normal Epo (suggesting due to CKD as well); [place] [facility] [place] consult: multifactorial & recommended iron supplement CKD (chronic kidney disease) (Chronic) Hypothyroidism (Chronic) Cognitive complaints (Chronic) 09/22/2021 MOCA: = NORMAL; monitor Microalbuminuria due to type 2 diabetes mellitus (Acute) Breast mass, left (Acute) Onychomycosis (Acute) Tinea pedis (Acute) Decreased hearing (Acute) Frequent falls (Acute) Medical History Cerebral meningioma (01/31/13) 2004 Craniotomy, resection of frontal mennigioma [facility] [place]osed nondisplaced comminuted fracture of shaft of left humerus (05/26/16) Neoplasm of skin (08/26/14) Pneumonia Restrictive lung disease Sepsis Shingles Vomiting and diarrhea Surgical History irrigation and debridement (10/05/15) R wrist Dr Lafleur Splenomegaly Family History Mother , 76 Personal history of malignant neoplasm breast and ovarian CA Breast cancer Ovarian cancer Father , 83 Myocardial infarction Heart disease Sister , 55 Lymphoma Ovarian cancer Brother , 63 Heart disease Son No problems noted. Son Heart disease Daughter No problems noted. Social History Smoking/Tobacco Use Status: Never Second Hand Exposure: Yes Smoking risk assessment performed?: Yes Alcohol Intake: never Drug use: Never Substance use type: does not use Caregiver/Support person: Yes Household members: none Housing: apartment Number of Children: 3 number of grandchildren: 5 Do you need help understanding health information?: Never Pets and animals: No Sexually active: No Do you think of yourself as: straight/heterosexual Current gender identity: female What is your relationship status?: How often do you talk on the phone with friends or family?: three or more times per week How often do you get together with friends or relatives?: three or more times per week How often do you attend buddhist or samaritan services?: 1-3 times per year Do you belong to any clubs or organized social groups?: no Panel score (0-1 are the most socially isolated patients): 1 What type of physical activity do you participate in: none Frequency: does not exercise Stacey/Adventism: Yazdanism Special stacey needs: Yes Seatbelt use: always Drive intox or ride w/intox driver sales: No Do you feel safe at home: Yes Do you feel safe in your relationship?: Yes Exam Narrative Exam Narrative: Patient resting comfortably in bed with pillow under the left hip. No obvious skin lesions or ecchymosis on the left lower extremity. Demonstrates limited active dorsiflexion and plantarflexion. 1+ dorsalis pedis pulse. Sensation intact to light touch. Small dressing over the lateral left elbow is intact. Demonstrates active flexion and extension of the left elbow and wrist without any discomfort. Results Labs 08/10/23 11:50 08/10/23 11:50 Labs: Laboratory Results - last 24 hr 08/09/23 08/09/23 08/09/23 16:10 16:10 16:47 WBC 9.37 RBC 3.59 L Hgb 11.8 Hct 35.5 L MCV 99 H MCH 32.9 MCHC 33.2 RDW 11.8 Plt Count 184 MPV 12.0 H Immature Gran % 0.5 Neutrophils % 48.9 Lymphocytes % 37.1 Monocytes % 11.6 Eosinophils % 1.5 Basophils % 0.4 Nucleated RBC % 0.0 Absolute Neutrophils 4.57 Absolute Lymphocytes 3.48 H Absolute Monocytes 1.09 H Absolute Eosinophils 0.14 Absolute Basophils 0.04 Sodium 138 Cancelled Potassium 4.5 Cancelled Chloride 102 Cancelled Carbon Dioxide 29.3 Cancelled Anion Gap 6.7 Cancelled BUN 16 Cancelled Creatinine 1.5 H Cancelled Est GFR (CKD-EPI 2020) 33.94 Cancelled Glucose 205 H Cancelled Calcium 9.2 Cancelled Total Bilirubin 0.3 Cancelled AST 26 Cancelled ALT 24 Cancelled Alkaline Phosphatase 108 Cancelled Total Protein 7.5 Cancelled Albumin 3.6 Cancelled
[2023-08-09] MEDS: oxyCODONE 5 MG TAB PO ×2 (18:22→21:16)
[2023-08-09] MEDS: ACETAMINOPHEN 1,000 MG/100 ML BTL 400 MG IVPB (18:22)
[2023-08-09 18:53] LABS: Source Nasal/Nares
[2023-08-09 19:26] LABS: COVID-19 PCR Negative (Negative)
[2023-08-09 21:04] LABS: Bilirubin Negative (Negative); Blood Small (Negative); Clarity Clear (Clear); Glucose 100 mg/dL (Negative); Ketones Negative (Negative); Leukocyte Esterase Negative (Negative); Nitrite Negative (Negative); Urobilinogen 0.2 mg/dL (Up to 0.2); pH 7.5 (5-8)
--- NOTE | 2023-08-09 21:21 | W.ED.GENAD ---
Discharge Plan Discharge Details Chief Complaint: Orthopedic Admit Date/Time: 08/09/23 18:36 Admit Provider: Drew Cain Attending Provider: Drew Cain Primary Care Provider: Dejuan Carlisle ED Provider: Kelsea Smith Medical Decision Making 87-year-old female presenting for left hip pain after mechanical fall Alert and oriented, no visible signs of head trauma, alert and oriented x4, cranial nerves II through XII intact, abducted internally rotated hip, tenderness to left hip, no tenderness to left knee, neurovascularly intact, no visible signs of trauma to right hip or lower extremity, no abdominal tenderness, no chest tenderness, no back tenderness, left elbow with skin tear, neurovascularly intact, no tenderness to left wrist, no tenderness to left shoulder. Tetanus up-to-date Case discussed with Dr. Ryan after reviewing x-ray showing femoral neck fracture who will take patient to the OR likely tomorrow, if possible this chooses to anticoagulate, single dose of Lovenox only, n.p.o. after midnight, compression devices to lower extremities, patient has received several doses of morphine, oxycodone, IV Tylenol, resting comfortably at time of reassessment. Dr. Ryan's request, femur and chest x-ray were ordered, do not show evidence of acute abnormality, full CODE STATUS HPI General Date/Time Provider Initiated Documentation: 08/09/23 16:07. HPI Narrative: This 87-year-old female presents with report of left hip pain after a mechanical fall. She turned quickly while holding laundry and lost her balance, landing on her left hip. She has been unable to ambulate since that time. She denies any head injury. She denies any sensation changes distally, denies history of coagulopathy. Related Data Home Medications Medication Instructions Recorded Confirmed multivitamin (Daily Multi-Vitamin 1 ea PO DAILY 04/17/18 08/09/23 tablet) albuterol sulfate 90 mcg/actuation 1 - 2 puff inhalation .Q4-6H PRN 05/29/22 08/09/23 aerosol inhaler (ProAir HFA) shortness of breath or wheezing #1 unit blood sugar diagnostic (Blood #100 ea 01/19/23 08/09/23 Glucose Test strips) blood-glucose meter (OneTouch #1 ea 01/19/23 08/09/23 Ultra2 Meter kit) famotidine 40 mg tablet 40 mg PO DAILY #30 tabs 01/30/23 08/09/23 budesonide-formoterol HFA 160 2 puff inhalation BID ##3 02/02/23 08/09/23 mcg-4.5 mcg/actuation aerosol inhaler (Symbicort) calcium phosphate 250 mg-vit D3 2 tab PO DAILY #180 tabs 02/02/23 08/09/23 12.5 mcg (500 unit) chewable tablet famotidine 20 mg tablet 10 mg PO DAILY #45 tabs 02/02/23 08/09/23 ferrous sulfate 325 mg (65 mg 325 mg PO BID #180 tabs 02/02/23 08/09/23 iron) tablet fluoxetine 20 mg capsule 20 mg PO DAILY #90 caps 02/02/23 08/09/23 glimepiride 4 mg tablet 4 mg PO DAILY #30 tab-caps 02/02/23 08/09/23 magnesium oxide 400 mg PO DAILY #30 tab-caps 02/02/23 08/09/23 simvastatin 20 mg tablet 20 mg PO HS #90 tab-caps 02/02/23 08/09/23 sitagliptin phosphate 50 mg tablet 50 mg PO DAILY #30 tabs 02/02/23 08/09/23 (Januvia) polyethylene glycol 3350 17 17 g PO DAILY PRN constipation 03/13/23 08/09/23 gram/dose oral powder #238 grams clotrimazole 1 % topical cream 1 applic topical BID #45 grams 04/06/23 08/09/23 cyanocobalamin (vitamin B-12) 1,000 mcg PO DAILY #90 tab-caps 04/20/23 08/09/23 1,000 mcg tablet hydrochlorothiazide 12.5 mg tablet 12.5 mg PO DAILY #90 tabs 04/20/23 08/09/23 ondansetron 4 mg disintegrating 4 mg PO Q8H PRN nausea and 05/18/23 08/09/23 tablet vomiting #30 tabs mirtazapine 7.5 mg tablet 7.5 mg PO QHS #90 tabs 06/06/23 08/09/23 lancets #200 ea 06/11/23 08/09/23 semaglutide 2 mg/dose (8 mg/3 mL) 2 mg (0.75 mL) subcut QWEEK #3 mL 07/04/23 08/09/23 subcutaneous pen injector (Ozempic) levothyroxine 25 mcg tablet 25 mcg PO DAILY #90 tab-caps 08/06/23 08/09/23 Previous Rx's Medication Instructions Recorded albuterol sulfate 90 mcg/actuation 1 - 2 puff inhalation .Q4-6H PRN 05/29/22 aerosol inhaler (ProAir HFA) shortness of breath or wheezing #1 unit blood sugar diagnostic (Blood #100 ea 01/19/23 Glucose Test strips) blood-glucose meter (OneTouch #1 ea 01/19/23 Ultra2 Meter kit) famotidine 40 mg tablet 40 mg PO DAILY #30 tabs 01/30/23 budesonide-formoterol HFA 160 2 puff inhalation BID ##3 02/02/23 mcg-4.5 mcg/actuation aerosol inhaler (Symbicort) calcium phosphate 250 mg-vit D3 2 tab PO DAILY #180 tabs 02/02/23 12.5 mcg (500 unit) chewable tablet famotidine 20 mg tablet 10 mg PO DAILY #45 tabs 02/02/23 ferrous sulfate 325 mg (65 mg 325 mg PO BID #180 tabs 02/02/23 iron) tablet fluoxetine 20 mg capsule 20 mg PO DAILY #90 caps 02/02/23 glimepiride 4 mg tablet 4 mg PO DAILY #30 tab-caps 02/02/23 magnesium oxide 400 mg PO DAILY #30 tab-caps 02/02/23 simvastatin 20 mg tablet 20 mg PO HS #90 tab-caps 02/02/23 sitagliptin phosphate 50 mg tablet 50 mg PO DAILY #30 tabs 02/02/23 (Januvia) polyethylene glycol 3350 17 17 g PO DAILY PRN constipation 03/13/23 gram/dose oral powder #238 grams clotrimazole 1 % topical cream 1 applic topical BID #45 grams 04/06/23 cyanocobalamin (vitamin B-12) 1,000 mcg PO DAILY #90 tab-caps 04/20/23 1,000 mcg tablet hydrochlorothiazide 12.5 mg tablet 12.5 mg PO DAILY #90 tabs 04/20/23 ondansetron 4 mg disintegrating 4 mg PO Q8H PRN nausea and 05/18/23 tablet vomiting #30 tabs mirtazapine 7.5 mg tablet 7.5 mg PO QHS #90 tabs 06/06/23 lancets #200 ea 06/11/23 semaglutide 2 mg/dose (8 mg/3 mL) 2 mg (0.75 mL) subcut QWEEK #3 mL 07/04/23 subcutaneous pen injector (Ozempic) levothyroxine 25 mcg tablet 25 mcg PO DAILY #90 tab-caps 08/06/23 Allergies Allergy/AdvReac Type Severity Reaction Status Date / Time azithromycin AdvReac Unknown nausea Verified 08/08/23 10:03 erythromycin base AdvReac Unknown Nausea Verified 08/08/23 10:03 shellfish derived AdvReac Unknown N/V/D Verified 08/08/23 10:03 Tetracyclines AdvReac Unknown Nausea Verified 08/08/23 10:03 NATALIIA Inhibitors AdvReac Other (See Verified 08/08/23 10:03 Comment) General Stated Complaint: Orthopedic SAM: 3 PFSH All Active Problems (Updated 08/09/23 @ 17:58 by Edgardo Ryan MD) Left displaced femoral neck fracture (Acute 08/09/23) Anxiety (Chronic 11/21/11) Diabetic neuropathy, type II diabetes mellitus (Chronic 08/12/14) Gastroesophageal reflux disease (Chronic 11/21/11) Heart murmur (Chronic 08/24/17) 09/12/2017 echo: no significant valvular disease Hyperlipidemia (Chronic 11/21/11) Hypomagnesemia (Chronic 03/14/18) Osteoporosis (Chronic 07/12/16) DEXA 07/11/16 Hip T-3.2, Spine T-1.5, forearm T-3.5 Other diseases of lung, not elsewhere classified (Chronic 11/21/11) rt 4mm ct stable 08/17; restrictive lung disease, neuromuscular weakness etiol? Dr Patel follows PFTs 08/2013 restrictive 47% NM weakness + response BD Other disorders of Eustachian tube (Chronic 09/07/14) Unspecified essential hypertension (Chronic 01/31/13) Hyperkalemia with NATALIIA-I --> AVOID Type 2 diabetes mellitus with diabetic neuropathy, without long-term current use of insulin (Chronic) Macrocytic anemia (Chronic) Borderline low B12 level, normal Epo (suggesting due to CKD as well); [place]16/[place] [facility] [place] consult: multifactorial & recommended iron supplement CKD (chronic kidney disease) (Chronic) Hypothyroidism (Chronic) Cognitive complaints (Chronic) 09/22/2021 MOCA: = NORMAL; monitor Microalbuminuria due to type 2 diabetes mellitus (Acute) Breast mass, left (Acute) Onychomycosis (Acute) Tinea pedis (Acute) Decreased hearing (Acute) Frequent falls (Acute) Medical History Cerebral meningioma (01/31/13) 2004 Craniotomy, resection of frontal mennigioma [facility] [place] Closed nondisplaced comminuted fracture of shaft of left humerus (05/26/16) Neoplasm of skin (08/26/14) Pneumonia Restrictive lung disease Sepsis Shingles Vomiting and diarrhea Surgical History irrigation and debridement (10/05/15) R wrist Dr Lafleur Splenomegaly Family History Mother , 76 Personal history of malignant neoplasm breast and ovarian CA Breast cancer Ovarian cancer Father , 83 Myocardial infarction Heart disease Sister , 55 Lymphoma Ovarian cancer Brother , 63 Heart disease Son No problems noted. Son Heart disease Daughter No problems noted. Social History Smoking/Tobacco Use Status: Never Second Hand Exposure: Yes Smoking risk assessment performed?: Yes Alcohol Intake: never Drug use: Never Substance use type: does not use Caregiver/Support person: Yes Household members: none Housing: apartment Number of Children: 3 number of grandchildren: 5 Do you need help understanding health information?: Never Pets and animals: No Sexually active: No Do you think of yourself as: straight/heterosexual Current gender identity: female What is your relationship status?: How often do you talk on the phone with friends or family?: three or more times per week How often do you get together with friends or relatives?: three or more times per week How often do you attend christian or hoahaoism services?: 1-3 times per year Do you belong to any clubs or organized social groups?: no Panel score (0-1 are the most socially isolated patients): 1 What type of physical activity do you participate in: none Frequency: does not exercise Stacey/Mandaen: Amish Special stacey needs: Yes Seatbelt use: always Drive intox or ride w/intox ross carrier driver: No Do you feel safe at home: Yes Do you feel safe in your relationship?: Yes Course Vital Signs Vital signs: Vital Signs Pulse Oximetry 96 08/09/23 16:16 Temperature 37.1 C 08/09/23 20:15 Pulse 101 H 08/09/23 20:15 Pulse Rhythm Regular 08/09/23 20:15 Respiratory Rate 16 08/09/23 20:15 Respiratory Effort Non-Labored 08/09/23 20:15 Respiratory Depth Normal 08/09/23 20:15 Respiratory Pattern Normal 08/09/23 20:15 Blood Pressure 160/78 H 08/09/23 20:15 Blood Pressure Mean 98 08/09/23 19:31 Pulse Oximetry 91 L 08/09/23 20:15 Oxygen Delivery Method Room Air 08/09/23 20:15 Oxygen Flow Rate 0 08/09/23 20:15 Pain Level 4 08/09/23 20:15 Lab/Test Results Lab/Test Results: Laboratory Tests Range/Units 08/09/23 08/09/23 08/09/23 16:10 16:10 16:47 WBC (4.4-10.8) 10^3/uL 9.37 RBC (3.93-5.22) 10^6/uL 3.59 L Hgb (11.2-15.7) g/dL 11.8 Hct (36.0-46.0) % 35.5 L MCV (80-95) fL 99 H MCH (27.0-33.0) pg 32.9 MCHC (32.0-36.0) % 33.2 RDW (11.7-14.6) % 11.8 Plt Count (130-400) 10^3/uL 184 MPV (8.0-11.0) fL 12.0 H Immature Gran % 0.5 Neutrophils % 48.9 Lymphocytes % 37.1 Monocytes % 11.6 Eosinophils % 1.5 Basophils % 0.4 Nucleated RBC % (0.0-0.3) % 0.0 Absolute Neutrophils (1.2-6.7) 10^3/uL 4.57 Absolute Lymphocytes (1.2-3.4) 10^3/uL 3.48 H Absolute Monocytes (0.1-0.8) 10^3/uL 1.09 H Absolute Eosinophils (0.0-0.7) 10^3/uL 0.14 Absolute Basophils (0.0-0.2) 10^3/uL 0.04 Sodium (136-145) mmol/L 138 Cancelled Potassium (3.5-5.1) mmol/L 4.5 Cancelled Chloride (98-107) mmol/L 102 Cancelled Carbon Dioxide (21.0-32.0) mmol/L 29.3 Cancelled Anion Gap (3-11) mmol/L 6.7 Cancelled BUN (7-18) mg/dL 16 Cancelled Creatinine (0.55-1.02) mg/dL 1.5 H Cancelled Est GFR (CKD-EPI 2020) (mL/min/1.73m2) 33.94 Cancelled Glucose (74-106) mg/dL 205 H Cancelled Calcium (8.5-10.1) mg/dL 9.2 Cancelled Total Bilirubin (0.2-1.0) mg/dL 0.3 Cancelled AST (15-37) U/L 26 Cancelled ALT (14-59) U/L 24 Cancelled Alkaline Phosphatase (46-116) U/L 108 Cancelled Total Protein (6.4-8.2) g/dL 7.5 Cancelled Albumin (3.4-5.0) g/dL 3.6 Cancelled
[2023-08-09 21:34] LABS: Bacteria Negative HPF (Negative); C & S Indicated? No; Crystals Negative HPF (Negative); Epithelial Cells Negative HPF (Negative); Mucus Trace (Negative); WBC 0-2 HPF (0-5)
--- NOTE | 2023-08-09 22:12 | W.PM.HP.N ---
Date of service: 08/09/23 Time of Service: 22:13 Assessment and Plan Assessment and plan (1) Left displaced femoral neck fracture: Status: Acute Assessment and plan: She will be seen by orthopedics and the tentative plan is to have surgery to repair left hip tomorrow if she is cleared medically. (2) Diabetic neuropathy, type II diabetes mellitus: Status: Chronic Assessment and plan: Her blood sugars elevated now. She has not been doing any recent blood sugars. I see that her last A1c was over 8.5. This indicates lack of ideal control. She will be placed on every 6-hour blood sugar testing with supplemental insulin as needed. Hospitalist will follow along after surgery to help keep sugars under control. Her semaglutide will be held. Anesthesia should be aware that she has been on this medicine. (3) COPD (chronic obstructive pulmonary disease): Status: Chronic Assessment and plan: I see in the record a note of restrictive lung disease. I am not sure if she has had pulmonary functions done but her breathing at this time appears stable. Her chest x-ray does not show any acute disease. I see that anesthesia has requested a pulmonary consult. History of Present Illness History of Present Illness Chief Complaint: Left hip pain Narrative: This 87-year-old female this afternoon and was going to get some food in her home. She lives by herself. She often uses a cane to help her ambulate and to help her with her balance but she neglected to bring it at that time and fell. She states that she had gotten some food and because she had not brought her cane with her she lost her balance and fell to the left side landing on her hip. She was unable to get up. There were no witnesses present but she says that she did not hit her head. She says that she then got a can of salmon and banged it on the window until someone could come help her. An ambulance was called and brought her to the hospital. She was found to have a displaced fracture of her left femoral neck and orthopedics was consulted. They requested that medicine admit her to clear her for surgery to repair the femoral neck fracture and to follow along for her chronic medical problems. Surgery will likely be tomorrow afternoon as long as she is cleared medically. She has a history of diabetes mellitus but she has not checked her sugars very recently. She also has a history of chronic obstructive lung disease that she says is likely due to secondhand cigarette smoke exposure. She states that she never smoked cigarettes herself. She does have inhalers at home and she says that she uses them once or twice a week. I see on her med list that she has both steroid and bronchodilator medicines and I am not clear which she uses at home as needed. She says her breathing does not bother her much except if she walks up a hill. She apparently went with her ex- and daughter [place] to the [place] and she states that her is currently hospitalized here for COVID. Her daughter also got COVID but she says that she was not around her at all while she was sick with COVID. She states that she usually takes her semaglutide/Ozempic weekly on Sundays or Mondays. Today is and I presume she took it a few days ago. I asked about CODE STATUS and at this time the patient would like to remain as a full code. She understands that she has comorbidities such as her age, COPD and diabetes mellitus and the presence of these increases her risk for surgery. She also understands that she may require a rehab stay after this surgery because she lives by herself and may need time to regain her strength after the hip surgery. Review of Systems Constitutional Constitutional: Denies chills, Denies fever(s), Denies headache(s) and Denies weakness ENT Ears, Nose, Mouth, and Throat: Denies headache(s) Cardiovascular Cardiovascular: Denies chest pain, Denies syncope, Denies irregular heart rhythm, Denies palpitations, Denies dyspnea and Reports dyspnea on exertion Respiratory Respiratory: Denies cough, Denies dyspnea, Reports dyspnea on exertion and Denies wheezing Gastrointestinal Gastrointestinal: Denies abdominal pain, Denies bloating, Denies change in stool character, Denies heartburn, Reports nausea and Reports vomiting Comments: She became nauseated and vomited once today which she thinks was due to the pain of her leg. Genitourinary Genitourinary: Denies hematuria, Denies difficulty voiding and Denies urinary incontinence Musculoskeletal Musculoskeletal: Reports arthralgias Neurologic Neurologic: Denies syncope, Denies headache(s) and Denies weakness Endocrine Endocrine: Denies palpitations Allergic/Immunologic Allergic/Immunologic: Denies wheezing PFSH All Active Problems (Updated 08/09/23 @ 22:31 by Drew Cain MD) COPD (chronic obstructive pulmonary disease) (Chronic) Left displaced femoral neck fracture (Acute 08/09/23) Anxiety (Chronic 11/21/11) Diabetic neuropathy, type II diabetes mellitus (Chronic 08/12/14) Gastroesophageal reflux disease (Chronic 11/21/11) Heart murmur (Chronic 08/24/17) 09/12/2017 echo: no significant valvular disease Hyperlipidemia (Chronic 11/21/11) Hypomagnesemia (Chronic 03/14/18) Osteoporosis (Chronic 07/12/16) DEXA 07/11/16 Hip T-3.2, Spine T-1.5, forearm T-3.5 Other diseases of lung, not elsewhere classified (Chronic 11/21/11) rt 4mm ct stable 08/17; restrictive lung disease, neuromuscular weakness etiol? Dr Patel follows PFTs 08/2013 restrictive 47% NM weakness + response BD Other disorders of Eustachian tube (Chronic 09/07/14) Unspecified essential hypertension (Chronic 01/31/13) Hyperkalemia with NATALIIA-I --> AVOID Type 2 diabetes mellitus with diabetic neuropathy, without long-term current use of insulin (Chronic) Macrocytic anemia (Chronic) Borderline low B12 level, normal Epo (suggesting due to CKD as well); [place] [facility] [place]: multifactorial & recommended iron supplement CKD (chronic kidney disease) (Chronic) Hypothyroidism (Chronic) Cognitive complaints (Chronic) 09/22/2021 MOCA: = NORMAL; monitor Microalbuminuria due to type 2 diabetes mellitus (Acute) Breast mass, left (Acute) Onychomycosis (Acute) Tinea pedis (Acute) Decreased hearing (Acute) Frequent falls (Acute) Medical History Cerebral meningioma (01/31/13) 2005 Craniotomy, [place] of frontal mennigi[place] [facility] [place]osed nondisplaced comminuted fracture of shaft of left humerus (05/26/16) Neoplasm of skin (08/26/14) Pneumonia Restrictive lung disease Sepsis Shingles Vomiting and diarrhea Surgical History irrigation and debridement (10/05/15) R wrist Dr Lafleur Splenomegaly Family History Mother , 76 Personal history of malignant neoplasm breast and ovarian CA Breast cancer Ovarian cancer Father , 83 Myocardial infarction Heart disease Sister , 55 Lymphoma Ovarian cancer Brother , 63 Heart disease Son No problems noted. Son Heart disease Daughter No problems noted. Social History Smoking/Tobacco Use Status: Never Second Hand Exposure: Yes Smoking risk assessment performed?: Yes Alcohol Intake: never Drug use: Never Substance use type: does not use Caregiver/Support person: Yes Household members: none Housing: apartment Number of Children: 3 number of grandchildren: 5 Do you need help understanding health information?: Never Pets and animals: No Sexually active: No Do you think of yourself as: straight/heterosexual Current gender identity: female What is your relationship status?: How often do you talk on the phone with friends or family?: three or more times per week How often do you get together with friends or relatives?: three or more times per week How often do you attend uatsdin or latter-day services?: 1-3 times per year Do you belong to any clubs or organized social groups?: no Panel score (0-1 are the most socially isolated patients): 1 What type of physical activity do you participate in: none Frequency: does not exercise Stacey/Presybeterian: Yazidism Special stacey needs: Yes Seatbelt use: always Drive intox or ride w/intox pack train driver: No Do you feel safe at home: Yes Do you feel safe in your relationship?: Yes Meds Allergies and Home Medications Allergies Allergy/AdvReac Type Severity Reaction Status Date / Time azithromycin AdvReac Unknown nausea Verified 08/08/23 10:03 erythromycin base AdvReac Unknown Nausea Verified 08/08/23 10:03 shellfish derived AdvReac Unknown N/V/D Verified 08/08/23 10:03 Tetracyclines AdvReac Unknown Nausea Verified 08/08/23 10:03 NATALIIA Inhibitors AdvReac Other (See Verified 08/08/23 10:03 Comment) Home Medications Medication Instructions Recorded Confirmed Type multivitamin (Daily Multi-Vitamin 1 ea PO DAILY 04/17/18 08/09/23 History tablet) albuterol sulfate 90 mcg/actuation 1 - 2 puff inhalation .Q4-6H PRN 05/29/22 08/09/23 Rx aerosol inhaler (ProAir HFA) shortness of breath or wheezing #1 unit blood sugar diagnostic (Blood #100 ea 01/19/23 08/09/23 Rx Glucose Test strips) blood-glucose meter (OneTouch #1 ea 01/19/23 08/09/23 Rx Ultra2 Meter kit) famotidine 40 mg tablet 40 mg PO DAILY #30 tabs 01/30/23 08/09/23 Rx budesonide-formoterol HFA 160 2 puff inhalation BID ##3 02/02/23 08/09/23 Rx mcg-4.5 mcg/actuation aerosol inhaler (Symbicort) calcium phosphate 250 mg-vit D3 2 tab PO DAILY #180 tabs 02/02/23 08/09/23 Rx 12.5 mcg (500 unit) chewable tablet famotidine 20 mg tablet 10 mg PO DAILY #45 tabs 02/02/23 08/09/23 Rx ferrous sulfate 325 mg (65 mg 325 mg PO BID #180 tabs 02/02/23 08/09/23 Rx iron) tablet fluoxetine 20 mg capsule 20 mg PO DAILY #90 caps 02/02/23 08/09/23 Rx glimepiride 4 mg tablet 4 mg PO DAILY #30 tab-caps 02/02/23 08/09/23 Rx magnesium oxide 400 mg PO DAILY #30 tab-caps 02/02/23 08/09/23 Rx simvastatin 20 mg tablet 20 mg PO HS #90 tab-caps 02/02/23 08/09/23 Rx sitagliptin phosphate 50 mg tablet 50 mg PO DAILY #30 tabs 02/02/23 08/09/23 Rx (Januvia) polyethylene glycol 3350 17 17 g PO DAILY PRN constipation 03/13/23 08/09/23 Rx gram/dose oral powder #238 grams clotrimazole 1 % topical cream 1 applic topical BID #45 grams 04/06/23 08/09/23 Rx cyanocobalamin (vitamin B-12) 1,000 mcg PO DAILY #90 tab-caps 04/20/23 08/09/23 Rx 1,000 mcg tablet hydrochlorothiazide 12.5 mg tablet 12.5 mg PO DAILY #90 tabs 04/20/23 08/09/23 Rx ondansetron 4 mg disintegrating 4 mg PO Q8H PRN nausea and 05/18/23 08/09/23 Rx tablet vomiting #30 tabs mirtazapine 7.5 mg tablet 7.5 mg PO QHS #90 tabs 06/06/23 08/09/23 Rx lancets #200 ea 06/11/23 08/09/23 Rx semaglutide 2 mg/dose (8 mg/3 mL) 2 mg (0.75 mL) subcut QWEEK #3 mL 07/04/23 08/09/23 Rx subcutaneous pen injector (Ozempic) levothyroxine 25 mcg tablet 25 mcg PO DAILY #90 tab-caps 08/06/23 08/09/23 Rx Exam Const General: cooperative and comfortable Orientation: alert and awake Other: She appears older than her stated age. She appears frail. HENMT Other: Mouth is dry. Neck Neck: no lymphadenopathy and no JVD Resp Auscultation: clear to auscultation bilaterally, no rales, no rhonchi and no wheezes Other: She appears to have some increased AP diameter of her chest. Cardio Rate: regular rate Rhythm: regular rhythm Heart Sounds: S1 normal, S2 normal, no gallops and no murmurs GI Palpation: soft, no hepatosplenomegaly, not firm, no guarding and nontender Extrem General: no clubbing, cyanosis or edema Other: Left lower extremity is shortened and externally rotated consistent with a fracture of her hip. She has intact lower extremities light touch sensation. Capillary refill is normal. Results Labs 08/09/23 16:10 08/09/23 16:10 Labs: Laboratory Results - last 24 hr 08/09/23 08/09/23 08/09/23 16:10 16:10 16:47 WBC 9.37 RBC 3.59 L Hgb 11.8 Hct 35.5 L MCV 99 H MCH 32.9 MCHC 33.2 RDW 11.8 Plt Count 184 MPV 12.0 H Immature Gran % 0.5 Neutrophils % 48.9 Lymphocytes % 37.1 Monocytes % 11.6 Eosinophils % 1.5 Basophils % 0.4 Nucleated RBC % 0.0 Absolute Neutrophils 4.57 Absolute Lymphocytes 3.48 H Absolute Monocytes 1.09 H Absolute Eosinophils 0.14 Absolute Basophils 0.04 Sodium 138 Cancelled Potassium 4.5 Cancelled Chloride 102 Cancelled Carbon Dioxide 29.3 Cancelled Anion Gap 6.7 Cancelled BUN 16 Cancelled Creatinine 1.5 H Cancelled Est GFR (CKD-EPI 2020) 33.94 Cancelled Glucose 205 H Cancelled Calcium 9.2 Cancelled Total Bilirubin 0.3 Cancelled AST 26 Cancelled ALT 24 Cancelled Alkaline Phosphatase 108 Cancelled Total Protein 7.5 Cancelled Albumin 3.6 Cancelled Urine Color Urine Clarity Urine pH Ur Specific [place] Urine Protein Urine Ketones Urine Blood Urine Nitrite Urine Bilirubin Urine Urobilinogen Ur Leukocyte Esterase Urine RBC Urine WBC Ur Epithelial Cells Urine Crystals Urine Bacteria Urine Mucus Ur Culture Indicated? Urine Glucose COVID-19 Source SARS-CoV-2 (PCR) 08/09/23 08/09/23 18:45 20:40 WBC RBC Hgb Hct MCV MCH MCHC RDW Plt Count MPV Immature Gran % Neutrophils % Lymphocytes % Monocytes % Eosinophils % Basophils % Nucleated RBC % Absolute Neutrophils Absolute Lymphocytes Absolute Monocytes Absolute Eosinophils Absolute Basophils Sodium Potassium Chloride Carbon Dioxide Anion Gap BUN Creatinine Est GFR (CKD-EPI 2020) Glucose Calcium Total Bilirubin AST ALT Alkaline Phosphatase Total Protein Albumin Urine Color Yellow Urine Clarity Clear Urine pH 7.5 Ur Specific [place] 1.020 Urine Protein Trace H Urine Ketones Negative Urine Blood Small H Urine Nitrite Negative Urine Bilirubin Negative Urine Urobilinogen 0.2 Ur Leukocyte Esterase Negative Urine RBC 5-10 H Urine WBC 0-2 Ur Epithelial Cells Negative Urine Crystals Negative Urine Bacteria Negative Urine Mucus Trace Ur Culture Indicated? No Urine Glucose 100 H COVID-19 Source Nasal/Nares SARS-CoV-2 (PCR) Negative Last Vital Signs Temp 37.1 C 08/09/23 20:15 Pulse 101 H 08/09/23 20:15 Resp 16 08/09/23 20:15 BP 160/78 H 08/09/23 20:15 Pulse Ox 91 L 08/09/23 20:15 Time Spent Time spent with Patient: 55-74 minutes Time was spent: preparing to see the patient(eg.review tests), obtaining and/or reviewing separately otained hiistory, ordering medications,tests, procedures, referring, communicating with other health career information specialist and indepentently interpreting results
[2023-08-09] MEDS: Enoxaparin 30 MG/0.3 ML SYR SC (22:56)
[2023-08-09] MEDS: Lactated Ringers 1,000 ML 75 ML IV (22:56)
[2023-08-09] MEDS: Mirtazapine 15 MG TAB 7.5 MG PO (22:59)
[2023-08-09] MEDS: Simvastatin 20 MG TAB PO (23:05)
[2023-08-10] VITALS (10 sets, daily range): BP systolic 131–180; BP diastolic 68–96; PULSE 94–105; RESP 14–20; TEMP 35.9–38.9; O2SAT 90–97; BMI 21.3
[2023-08-10] MEDS: MORPHine 2 MG/ML SYR IVP (00:39)
--- NOTE | 2023-08-10 07:02 | W.PULMCON ---
General Date Of Service Date of service: 08/10/23 Time of Service: 07:02 Reason for Consult: Pre-operative assessment Assessment and Plan Assessment and plan (1) Left displaced femoral neck fracture: Status: Acute (2) Restrictive lung disease: Status: Acute Assessment and plan: This is an 87 yo with mechanical fall resulting in left femur fracture. I was asked to assess the patient for appropriateness of completing the repair at [facility] given the documented history of severe restrictive lung disease. On my assessment of her PFT's, albeit old, her true restriction is mild. Her total lung capacity in 2010 was 73% predicted. The FVC and FEV1 are likely falsely lowered, as these tests are patient effort dependant. The TLC is a more reliable test for restriction. That being said her TLC and DLCO were low, which would typically point to ILD, however imaging does now support this. She does not have COPD based on her PFT's, nor does she have emphysema on imaging. 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 There may be a component of asthma. Her ARISCAT score is low to intermediate risk equating to up to a 13.3% risk of in hospital post-op pulmonary complications (composite including respiratory failure, respiratory infection, pleural effusion, atelectasis, pneumothorax, bronchospasm, aspiration pneumonitis). I believe she would be appropriate for her surgery at [facility], given the potential for muscle weakness, a block may be more appropriate if able, however if general anesthesia is necessary, she may require some respiratory support following her procedure in the way of CPAP. Mild restrictive lung disease - NIF completed today: -10, -15, -18 - IS, VibraPEP - may require CPAP support post operatively if using GA Asthma - recommend albuterol prn - continue Symbicort History of Present Illness Narrative: This is an 87 yo admitted due to a hip fracture. I have been consulted at the request of anesthesia to assess pre-operatively for safety in performing the repair at [facility]. He holds a diagnosis of COPD (no objective data for this), restrictive lung disease and likely asthma. She previously followed with Dr. Patel, however I do not have access to these records at this time, however in our charting it appears there was a question of possible muscle weakness as the etiology for the restriction. On a chest CT from 2021, there was what looks like pneumonia, but there is no emphysema and nothing concerning for an ILD. Spirometry Date FEV1/FVC LLN FEV1 % LLN FVC % LLN Comments 01/15/09 76 1.39 61 1.82 60 No BD 05/30/11 78 63 1.08 49 1.85 1.38 47 2.46 +BD Date TLC % LLN RV % DLCO LLN sGaw % Pressures 05/30/11 3.74 73 4.10 2.38 105 11.86 48% 0.12 61 Today she feels well. She is having left hip pain with any movement. She is not complaining of any respiratory symptoms at this time. She only uses her Symbicort as needed and often does not need it everyday. She is a never smoker but does have second hand smoke exposure. Review of Systems All systems reviewed & are unremarkable except as noted in HPI and below PFSH All Active Problems (Updated 08/10/23 @ 07:15 by Marcelle Wynne MD) Restrictive lung disease (Acute) Left displaced femoral neck fracture (Acute 08/09/23) Anxiety (Chronic 11/21/11) Diabetic neuropathy, type II diabetes mellitus (Chronic 08/12/14) Gastroesophageal reflux disease (Chronic 11/21/11) Heart murmur (Chronic 08/24/17) 09/12/2017 echo: no significant valvular disease Hyperlipidemia (Chronic 11/21/11) Hypomagnesemia (Chronic 03/14/18) Osteoporosis (Chronic 07/12/16) DEXA 07/11/16 Hip T-3.2, Spine T-1.5, forearm T-3.5 Other diseases of lung, not elsewhere classified (Chronic 11/21/11) rt 4mm ct stable 08/17; restrictive lung disease, neuromuscular weakness etiol? Dr Patel follows PFTs 08/2013 restrictive 47% NM weakness + response BD Other disorders of Eustachian tube (Chronic 09/07/14) Unspecified essential hypertension (Chronic 01/31/13) Hyperkalemia with NATALIIA-I --> AVOID Type 2 diabetes mellitus with diabetic neuropathy, without long-term current use of insulin (Chronic) Macrocytic anemia (Chronic) Borderline low B12 level, normal Epo (suggesting due to CKD as well); 06/16/2019 [facility] [place] Hematology consult: multifactorial & recommended iron supplement CKD (chronic kidney disease) (Chronic) Hypothyroidism (Chronic) Cognitive complaints (Chronic) 09/22/2021 MOCA: = NORMAL; monitor Microalbuminuria due to type 2 diabetes mellitus (Acute) Breast mass, left (Acute) Onychomycosis (Acute) Tinea pedis (Acute) Decreased hearing (Acute) Frequent falls (Acute) Medical History Cerebral meningioma (01/31/13) 2004 Craniotomy, resection of frontal mennigioma [facility] [place] Closed nondisplaced comminuted fracture of shaft of left humerus (05/26/16) Neoplasm of skin (08/26/14) Pneumonia Restrictive lung disease Sepsis Shingles Vomiting and diarrhea Surgical History irrigation and debridement (10/05/15) R wrist Dr Lafleur Splenomegaly Family History Mother , 76 Personal history of malignant neoplasm breast and ovarian CA Breast cancer Ovarian cancer Father , 83 Myocardial infarction Heart disease Sister , 55 Lymphoma Ovarian cancer Brother , 63 Heart disease Son No problems noted. Son Heart disease Daughter No problems noted. Social History Smoking/Tobacco Use Status: Never Second Hand Exposure: Yes Smoking risk assessment performed?: Yes Alcohol Intake: never Drug use: Never Substance use type: does not use Caregiver/Support person: Yes Household members: none Housing: apartment Number of Children: 3 number of grandchildren: 5 Do you need help understanding health information?: Never Pets and animals: No Sexually active: No Do you think of yourself as: straight/heterosexual Current gender identity: female What is your relationship status?: How often do you talk on the phone with friends or family?: three or more times per week How often do you get together with friends or relatives?: three or more times per week How often do you attend druze or advent services?: 1-3 times per year Do you belong to any clubs or organized social groups?: no Panel score (0-1 are the most socially isolated patients): 1 What type of physical activity do you participate in: none Frequency: does not exercise Stacey/Orthodox: Faith Special stacey needs: Yes Seatbelt use: always Drive intox or ride w/intox armor reconnaissance vehicle driver: No Do you feel safe at home: Yes Do you feel safe in your relationship?: Yes Visit Medication and Allergies Active Medications Generic Name Dose Route Start Last Admin Trade Name Freq PRN Reason Stop Dose Admin Albuterol Sulfate 1 - 2 puff 08/09/23 22:02 Albuterol Hfa 8 Gm 60 Puff Inh IH Q4H PRN PRN shortness of breath / wheezing Budesonide/Formoterol Fumarate 2 puff 08/10/23 08:30 Budesonide/Formoterol 160/4.5 6 Gm 60 Puff Inh IH BID KERRIE Device 1 each 08/09/23 23:00 Inhaler, Assist Device MC DIRECTED KERRIE Dextrose 0 gm 08/09/23 22:18 Glucose Oral Gel 15 Gm/37.5 Gm Tube PO DIRECTED PRN Dextrose/Water 0 gm 08/09/23 22:18 Dextrose 50%-Water 25 Gm/50 Ml Syr IVP DIRECTED PRN Ringer's Solution 1,000 mls @ 75 mls/hr 08/09/23 22:15 08/09/23 22:56 IV 75 mls/hr INFUSION KERRIE Administration Acetaminophen 1,000 mg in 100 mls @ 400 mls/hr 08/10/23 03:15 Ofirmev IVPB Q8H PRN PRN Insulin Aspart 0 - 18 units 08/10/23 06:00 08/10/23 05:15 Insulin Aspart 300 Units/3 Ml Pen SC Not Given Q6H [facility] Protocol Levothyroxine Sodium 37.5 mcg 08/10/23 06:00 08/10/23 05:16 Levothyroxine 25 Mcg Tab PO Not Given 0600 KERRIE Mirtazapine 7.5 mg 08/09/23 23:00 08/09/23 22:59 Mirtazapine 15 Mg Tab PO 7.5 mg HS KERRIE Administration Morphine Sulfate 2 - 4 mg 08/10/23 03:18 Morphine 2 Mg/Ml Syr IVP Q2H PRN PRN Ondansetron HCl 4 mg 08/09/23 22:02 Ondansetron O.D.T. 4 Mg Tabef PO Q8H PRN PRN nausea and vomiting Simvastatin 20 mg 08/09/23 23:00 08/09/23 23:05 Simvastatin 20 Mg Tab PO 20 mg QPM KERRIE Administration Allergies azithromycin Adverse Reaction (Unknown, Verified 08/08/23 10:03) nausea erythromycin base Adverse Reaction (Unknown, Verified 08/08/23 10:03) Nausea shellfish derived Adverse Reaction (Unknown, Verified 08/08/23 10:03) N/V/D Tetracyclines Adverse Reaction (Unknown, Verified 08/08/23 10:03) Nausea NATALIIA Inhibitors Adverse Reaction (Verified 08/08/23 10:03) Other (See Comment) Exam Narrative Exam Narrative: Gen: NAD, normal respiratory effort, well-nourished HENT: PERRL Chest: No respiratory distress, normal appearance of chest, clear to auscultation bilaterally, no crackles or wheezes, normal inspiratory effort Heart: regular rate and rhythym, no murmurs, rubs or gallops Abdomen: Non-distended, soft, non tender Extremities: No clubbing, edema, cyanosis, rashes Neuro: AAOx3 , non focal Psych: cooperative, appropriate mental affect Results Last Vital Signs Temp 37.6 C H 08/10/23 05:07 Pulse 94 H 08/10/23 05:07 Resp 18 08/10/23 05:07 BP 148/72 H 08/10/23 05:07 Pulse Ox 96 08/10/23 05:07 Labs 08/09/23 16:10 08/09/23 16:10 Labs: Laboratory Results - last 24 hr 08/09/23 08/09/23 08/09/23 16:10 16:10 16:47 WBC 9.37 RBC 3.59 L Hgb 11.8 Hct 35.5 L MCV 99 H MCH 32.9 MCHC 33.2 RDW 11.8 Plt Count 184 MPV 12.0 H Immature Gran % 0.5 Neutrophils % 48.9 Lymphocytes % 37.1 Monocytes % 11.6 Eosinophils % 1.5 Basophils % 0.4 Nucleated RBC % 0.0 Absolute Neutrophils 4.57 Absolute Lymphocytes 3.48 H Absolute Monocytes 1.09 H Absolute Eosinophils 0.14 Absolute Basophils 0.04 Sodium 138 Cancelled Potassium 4.5 Cancelled Chloride 102 Cancelled Carbon Dioxide 29.3 Cancelled Anion Gap 6.7 Cancelled BUN 16 Cancelled Creatinine 1.5 H Cancelled Est GFR (CKD-EPI 2020) 33.94 Cancelled Glucose 205 H Cancelled Calcium 9.2 Cancelled Total Bilirubin 0.3 Cancelled AST 26 Cancelled ALT 24 Cancelled Alkaline Phosphatase 108 Cancelled Total Protein 7.5 Cancelled Albumin 3.6 Cancelled Urine Color Urine Clarity Urine pH Ur Specific [place] Urine Protein Urine Ketones Urine Blood Urine Nitrite Urine Bilirubin Urine Urobilinogen Ur Leukocyte Esterase Urine RBC Urine WBC Ur Epithelial Cells Urine Crystals Urine Bacteria Urine Mucus Ur Culture Indicated? Urine Glucose COVID-19 Source SARS-CoV-2 (PCR) 08/09/23 08/09/23 18:45 20:40 WBC RBC Hgb Hct MCV MCH MCHC RDW Plt Count MPV Immature Gran % Neutrophils % Lymphocytes % Monocytes % Eosinophils % Basophils % Nucleated RBC % Absolute Neutrophils Absolute Lymphocytes Absolute Monocytes Absolute Eosinophils Absolute Basophils Sodium Potassium Chloride Carbon Dioxide Anion Gap BUN Creatinine Est GFR (CKD-EPI 2020) Glucose Calcium Total Bilirubin AST ALT Alkaline Phosphatase Total Protein Albumin Urine Color Yellow Urine Clarity Clear Urine pH 7.5 Ur Specific [place] 1.020 Urine Protein Trace H Urine Ketones Negative Urine Blood Small H Urine Nitrite Negative Urine Bilirubin Negative Urine Urobilinogen 0.2 Ur Leukocyte Esterase Negative Urine RBC 5-10 H Urine WBC 0-2 Ur Epithelial Cells Negative Urine Crystals Negative Urine Bacteria Negative Urine Mucus Trace Ur Culture Indicated? No Urine Glucose 100 H COVID-19 Source Nasal/Nares SARS-CoV-2 (PCR) Negative Pocus Exam Limited Thoracic Lung Exam DATE OF EXAM: 08/10/23 TIME OF EXAM: 08:15 PROVIDER THAT PERFORMED THE STUDY: Marcelle Wynne IS THIS A REPEAT EXAM DURING THIS ENCOUNTER: No REASON FOR EXAM: Other indication: restrictive lung disease VISUALIZED STRUCTURES: right posterior and left posterior PERTINENT FINDINGS/IMPRESSION: Other impression: right mariano-diaphragm with decreased excursion INCIDENTAL FINDINGS: note - Right posterior lung images mislabelled as left. Exam complete
[2023-08-10] MEDS: ACETAMINOPHEN 1,000 MG/100 ML BTL 400 MG IVPB (07:48)
[2023-08-10] MEDS: Budesonide/Formoterol 160/4.5 6 GM 60 PUFF INH IH ×2 (08:34→19:16)
--- NOTE | 2023-08-10 08:48 | W.ANESPRE ---
General Info Date of Service Date Performed: 08/10/23 Height: 5 ft 4 in Weight: 56.336 kg Body Mass Index (BMI): 21.3 Surgical Procedure: Operation Date: 08/10/23 14:10 Proposed Procedure Side Surgeon p Hip Eliseo Arthroplasty Left Edgardo Ryan MD Meds Allergies and Home Medications Allergies Allergy/AdvReac Type Severity Reaction Status Date / Time azithromycin AdvReac Unknown nausea Verified 08/08/23 10:03 erythromycin base AdvReac Unknown Nausea Verified 08/08/23 10:03 shellfish derived AdvReac Unknown N/V/D Verified 08/08/23 10:03 Tetracyclines AdvReac Unknown Nausea Verified 08/08/23 10:03 NATALIIA Inhibitors AdvReac Other (See Verified 08/08/23 10:03 Comment) Home Medication Medication Instructions Recorded multivitamin (Daily Multi-Vitamin 1 ea PO DAILY 04/17/18 tablet) albuterol sulfate 90 mcg/actuation 1 - 2 puff inhalation .Q4-6H PRN 05/29/22 aerosol inhaler (ProAir HFA) shortness of breath or wheezing #1 unit blood sugar diagnostic (Blood #100 ea 01/19/23 Glucose Test strips) blood-glucose meter (OneTouch #1 ea 01/19/23 Ultra2 Meter kit) famotidine 40 mg tablet 40 mg PO DAILY #30 tabs 01/30/23 budesonide-formoterol HFA 160 2 puff inhalation BID ##3 02/02/23 mcg-4.5 mcg/actuation aerosol inhaler (Symbicort) calcium phosphate 250 mg-vit D3 2 tab PO DAILY #180 tabs 02/02/23 12.5 mcg (500 unit) chewable tablet famotidine 20 mg tablet 10 mg PO DAILY #45 tabs 02/02/23 ferrous sulfate 325 mg (65 mg 325 mg PO BID #180 tabs 02/02/23 iron) tablet fluoxetine 20 mg capsule 20 mg PO DAILY #90 caps 02/02/23 glimepiride 4 mg tablet 4 mg PO DAILY #30 tab-caps 02/02/23 magnesium oxide 400 mg PO DAILY #30 tab-caps 02/02/23 simvastatin 20 mg tablet 20 mg PO HS #90 tab-caps 02/02/23 sitagliptin phosphate 50 mg tablet 50 mg PO DAILY #30 tabs 02/02/23 (Januvia) polyethylene glycol 3350 17 17 g PO DAILY PRN constipation 03/13/23 gram/dose oral powder #238 grams clotrimazole 1 % topical cream 1 applic topical BID #45 grams 04/06/23 cyanocobalamin (vitamin B-12) 1,000 mcg PO DAILY #90 tab-caps 04/20/23 1,000 mcg tablet hydrochlorothiazide 12.5 mg tablet 12.5 mg PO DAILY #90 tabs 04/20/23 ondansetron 4 mg disintegrating 4 mg PO Q8H PRN nausea and 05/18/23 tablet vomiting #30 tabs mirtazapine 7.5 mg tablet 7.5 mg PO QHS #90 tabs 06/06/23 lancets #200 ea 06/11/23 semaglutide 2 mg/dose (8 mg/3 mL) 2 mg (0.75 mL) subcut QWEEK #3 mL 07/04/23 subcutaneous pen injector (Ozempic) levothyroxine 25 mcg tablet 25 mcg PO DAILY #90 tab-caps 08/06/23 Current Visit Medications: Current Medications Generic Name Dose Route Start Last Admin Trade Name Freq PRN Reason Stop Dose Admin Albuterol Sulfate 1 - 2 puff 08/09/23 22:02 Albuterol Hfa 8 Gm 60 Puff Inh IH Q4H PRN PRN shortness of breath / wheezing Budesonide/Formoterol Fumarate 2 puff 08/10/23 08:30 08/10/23 08:34 Budesonide/Formoterol 160/4.5 6 Gm 60 Puff Inh IH 2 puffs BID KERRIE Administration Device 1 each 08/09/23 23:00 Inhaler, Assist Device DIRECTED KERRIE Dextrose 0 gm 08/09/23 22:18 Glucose Oral Gel 15 Gm/37.5 Gm Tube PO DIRECTED PRN Dextrose/Water 0 gm 08/09/23 22:18 Dextrose 50%-Water 25 Gm/50 Ml Syr IVP DIRECTED PRN Ringer's Solution 1,000 mls @ 75 mls/hr 08/09/23 22:15 08/09/23 22:56 IV 75 mls/hr INFUSION KERRIE Administration Acetaminophen 1,000 mg in 100 mls @ 400 mls/hr 08/10/23 03:15 08/10/23 07:48 Ofirmev IVPB 400 mls/hr Q8H PRN PRN Administration Sodium Chloride 500 mls @ 0 mls/hr 08/10/23 08:42 Saline 500ml Bag IV PRN PRN As Directed IV Miscellaneous Supplies 1 each 08/10/23 08:45 Iv Access IV DIRECTED [facility] Insulin Aspart 0 - 18 units 08/10/23 06:00 08/10/23 05:15 Insulin Aspart 300 Units/3 Ml Pen SC Not Given Q6H [facility] Protocol Levothyroxine Sodium 37.5 mcg 08/10/23 06:00 08/10/23 05:16 Levothyroxine 25 Mcg Tab PO Not Given 0600 KERRIE Mirtazapine 7.5 mg 08/09/23 23:00 08/09/23 22:59 Mirtazapine 15 Mg Tab PO 7.5 mg HS KERRIE Administration Morphine Sulfate 2 - 4 mg 08/10/23 03:18 Morphine 2 Mg/Ml Syr IVP Q2H PRN PRN Ondansetron HCl 4 mg 08/09/23 22:02 Ondansetron O.D.T. 4 Mg Tabef PO Q8H PRN PRN nausea and vomiting Simvastatin 20 mg 08/09/23 23:00 08/09/23 23:05 Simvastatin 20 Mg Tab PO 20 mg QPM KERRIE Administration Sodium Chloride 0 ml 08/10/23 08:42 Normal Saline Flush 10 Ml Syr IVP PRN PRN PFSH Active Problems Active Problems: Problem Status Onset Code Restrictive lung disease Left displaced femoral neck fracture 08/09/23 S72.002A Anxiety 11/21/11 F41.9 Diabetic neuropathy, type II diabetes mellitus 08/12/14 E11.40 Gastroesophageal reflux disease 11/21/11 K21.9 Heart murmur 08/24/17 R01.1 Hyperlipidemia 11/21/11 E78.5 Hypomagnesemia 03/14/18 E83.42 Osteoporosis 07/12/16 M81.0 Other diseases of lung, not elsewhere classified 11/21/11 J98.4 Other disorders of Eustachian tube 09/07/14 H69.80 Unspecified essential hypertension 01/31/13 I10 Type 2 diabetes mellitus with diabetic neuropathy, without long-term current use of insulin E11.40 Macrocytic anemia D53.9 CKD (chronic kidney disease) N18.9 Hypothyroidism E03.9 Cognitive complaints R41.9 Microalbuminuria due to type 2 diabetes mellitus E11.29, R80.9 Breast mass, left N63.20 Onychomycosis B35.1 Tinea pedis B35.3 Decreased hearing H91.90 Frequent falls R29.6 Medical History Medical History Cerebral meningioma (01/31/13) 2004 Craniotomy, resection of frontal mennigioma [facility] [place] Closed nondisplaced comminuted fracture of shaft of left humerus (05/26/16) Neoplasm of skin (08/26/14) Pneumonia Restrictive lung disease Sepsis Shingles Vomiting and diarrhea Surgical History Surgical History irrigation and debridement (10/05/15) R wrist Dr Ciarra Hand Tobacco Smoking/Tobacco Use Status: Never Passive smoking exposure: Yes Second hand exposure: Yes Alcohol Alcohol Intake: never Substance Use Substance use: Never Substance use type: does not use Vital Signs and Lab Results Vital Signs Most Recent Vital Signs in EMR: Most Recent Vital Signs Temp Pulse Resp BP Pulse Ox 38.9 C H 105 H 20 132/68 90 L 08/10/23 07:40 08/10/23 07:40 08/10/23 07:40 08/10/23 07:40 08/10/23 07:40 Point of Care Results Point of Care Results: Finger Stick Blood Glucose 170 08/10/23 05:05 Lab Results 08/10/23 11:50 08/10/23 11:50 Blood Type / Crossmatch: No Data to Display Complete Blood Count: White Blood Count 15.04 10^3/uL (4.4-10.8) H 08/10/23 11:50 Red Blood Count 3.31 10^6/uL (3.93-5.22) L 08/10/23 11:50 Hemoglobin 10.9 g/dL (11.2-15.7) L 08/10/23 11:50 Hematocrit 32.2 % (36.0-46.0) L 08/10/23 11:50 Platelet Count 151 10^3/uL (130-400) 08/10/23 11:50 Complete Metabolic Panel: Sodium 134 mmol/L (136-145) L 08/10/23 11:50 Potassium 4.7 mmol/L (3.5-5.1) 08/10/23 11:50 Chloride 100 mmol/L (98-107) 08/10/23 11:50 Carbon Dioxide 26.3 mmol/L (21.0-32.0) 08/10/23 11:50 BUN 16 mg/dL (7-18) 08/10/23 11:50 Creatinine 1.5 mg/dL (0.55-1.02) H 08/10/23 11:50 Est GFR (CKD-EPI 2020) 33.94 (mL/min/1.73m2) 08/10/23 11:50 Calcium 9.1 mg/dL (8.5-10.1) 08/10/23 11:50 Albumin 3.6 g/dL (3.4-5.0) 08/09/23 16:10 Glucose 169 mg/dL (74-106) H 08/10/23 11:50 Hemoglobin A1c 8.7 % (4.5-5.7) H 08/08/23 10:21 Liver Function Panel: Alanine Aminotransferase (ALT/SGPT) 24 U/L (14-59) 08/09/23 16:10 Aspartate Amino Transf (AST/SGOT) 26 U/L (15-37) 08/09/23 16:10 Coagulation Panel: No Data to Display Cardiac Panel: NT-Pro-B Natriuret Pep 4144 pg/mL (<300) H 08/10/23 Arterial Blood Gas: No Data to Display Venous Blood Gas: No Data to Display Pancreas Panel: No Data to Display Thyroid Panel: Thyroid Stimulating Hormone (TSH) 6.89 uIU/mL (0.36-3.74) H 08/08/23 10:36 Infectious Disease: Coronavirus (COVID-19)(PCR) Negative (Negative) 08/09/23 18:45 Coronavirus 2019 Source Nasal/Nares 08/09/23 18:45 Blood Cultures: No Data to Display Toxicology Panel: No Data to Display Imaging and Studies Imaging and Studies Study information below may be from another EMR and interpreted by another provider. Please see original notes in EMR for more complete details. EKG Summary: 08/04: sinus tach. Echocardiogram Summary: 2022 [facility] [place]: LVEF 60%, normal RVSP. 2017: LVEF 65-70%, no WMA, normal RVfxn. Pulmonary Function Summary: 2016: moderate restriction, severe diffusion capacity reduction. severe respiratory neuromuscular weakness. Anesthesia Assessment and Plan Anesthesia History Personal History: No History of Anesthesia Complications Family History: No Family History of Anesthesia Complications Exercise Tolerance Exercise Tolerance: Metabolic Equivalents<4 Cardiac & Pulmonary Exam Cardiac Exam: Normal S1/S2 Heart Sounds Pulmonary Exam: Clear Bilateral Breath Sounds Implantable Cardiac Device Does patient have a Pacemaker or an ICD?: No Airway Exam Known Difficult Airway: No Mallampati Class: 4 Mouth Opening: Normal (> 3cm) Thyromental Distance: Less than 3 cm Neck Range of Motion: Limited ROM Neck Circumference: Normal Teeth Condition: Removable Dentures/Plates Upper, Removable Dentures/Plates Lower and Edentulous ASA Classification ASA Score: ASA 3 Emergency Case?: No NPO Status NPO Status: NPO Clears >2 hours, Solids >8 hours Anesthesia Plan Resuscitation Status: Full Code Anesthesia Technique: Spinal Anesthesia Airway Planned: Natural Airway Pain Management: Surgeon and patient request nerve block Monitors Used: Standard Monitors Preoperative Comments:: 87 yo female who fell at home sustaining a hip fracture. Currently in patient. 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 Discussed anesthesia risks and benefits (spinal vs GA) combined with regional anesthesia. Discussed respiratory issues that can be associated with GA. Discussed spinal with light sedation (may have recall of being in OR, but no pain due to spinal) due to her sumaglutide and poorly controlled diabetes. Plan for preop nerve block with spinal anesthesia and light sedation during procedure.
[2023-08-10] MEDS: Lactated Ringers 1,000 ML 75 ML IV (10:23)
--- NOTE | 2023-08-10 11:14 | INITIAL_ITS ---
Date of service: 08/10/23 Time of Service: 11:14 Care Management Initial Assmt Initial Assessment REASON FOR HOSPITALIZATION:: Left Hip Fracture PREVIOUS FUNCTIONAL STATUS/SOCIAL/FAMILY SUPPORTS:: Geno lives in an apartment in [facility], alone. Her daughter, Whitney, lives nearby, and is supportive. She uses [facility] for transportation, and recently her PCP has been assisting her with obtaining a motorized wheelchair. She is independent at baseline, and uses a cane for ambulation. CURRENT FUNCTIONAL STATUS:: Geno was lying in bed when CM met with her. She stated that she was told she will be going to the OR this afternoon, although she isn't sure what time. She plans to call her daughter as soon as she knows the time. CM discussed discharge options, including HH vs SNF. She stated that she has been to rehab in the past, and felt it was helpful, but she had a large portion of her stay unpaid, which was frustrating for her. She expressed concern about her insurance not covering rehab. PT will evaluate her post operatively, likely tomorrow, as she did not go to the OR until late afternoon. CM will continue to follow. ADVANCE DIRECTIVES:: DPOA on file listed as Sadi Angela, her ex . Her daughter, Whitney listed as alternate POA. Has patient been provided with info about the portal/API?: Yes Did the patient sign up for the portal?: No CODE STATUS:: Full Code INSURANCE COVERAGE / FINANCIAL ISSUES:: [employer] CURRENT HOME/COMMUNITY SERVICES/EQUIPMENT:: No current services. Cane. PRIMARY CARE PHYSICIAN:: Dejuan Martines POTENTIAL DISCHARGE NEEDS:: Evaluations for further needs, follow up appointments. PATIENT/FAMILY EDUCATION NEEDS:: Review discharge instructions and limitations, discussion of self care needs including ask me three. ANTICIPATED BARRIERS TO DISCHARGE:: None identified at this time. TRANSPORTATION:: via private vehicle vs w/c van PLAN:: Geno went to the OR today. She will be evaluated by PT tomorrow to help determine her discharge plan. She may return home with new orders for HH vs SNF, depending on her mobility post operatively. She will transport via private vehicle vs w/c van, depending on disposition. She will follow up with her PCP and discharge plan of care. CM will continue to follow. PFSH All Active Problems (Updated 08/10/23 @ 07:15 by Marcelle Wynne MD) Restrictive lung disease (Acute) Left displaced femoral neck fracture (Acute 08/09/23) Anxiety (Chronic 11/21/11) Diabetic neuropathy, type II diabetes mellitus (Chronic 08/12/14) Gastroesophageal reflux disease (Chronic 11/21/11) Heart murmur (Chronic 08/24/17) 09/12/2017 echo: no significant valvular disease Hyperlipidemia (Chronic 11/21/11) Hypomagnesemia (Chronic 03/14/18) Osteoporosis (Chronic 07/12/16) DEXA 07/11/16 Hip T-3.2, Spine T-1.5, forearm T-3.5 Other diseases of lung, not elsewhere classified (Chronic 11/21/11) rt 4mm ct stable 08/17; restrictive lung disease, neuromuscular weakness etiol? Dr Patel follows PFTs 08/2013 restrictive 47% NM weakness + response BD Other disorders of Eustachian tube (Chronic 09/07/14) Unspecified essential hypertension (Chronic 01/31/13) Hyperkalemia with NATALIIA-I --> AVOID Type 2 diabetes mellitus with diabetic neuropathy, without long-term current use of insulin (Chronic) Macrocytic anemia (Chronic) Borderline low B12 level, normal Epo (suggesting due to CKD as well); 06/16/2019 [facility] Hematology consult: multifactorial & recommended iron supplement CKD (chronic kidney disease) (Chronic) Hypothyroidism (Chronic) Cognitive complaints (Chronic) 09/22/2021 MOCA: = NORMAL; monitor Microalbuminuria due to type 2 diabetes mellitus (Acute) Breast mass, left (Acute) Onychomycosis (Acute) Tinea pedis (Acute) Decreased hearing (Acute) Frequent falls (Acute) Medical History Cerebral meningioma (01/31/13) 2005 Craniotomy, resection of frontal mennigioma [facility] Closed nondisplaced comminuted fracture of shaft of left humerus (05/26/16) Neoplasm of skin (08/26/14) Pneumonia Restrictive lung disease Sepsis Shingles Vomiting and diarrhea Surgical History irrigation and debridement (10/05/15) R june Lafleur Splenomegaly Family History Mother , 76 Personal history of malignant neoplasm breast and ovarian CA Breast cancer Ovarian cancer Father , 83 Myocardial infarction Heart disease Sister , 55 Lymphoma Ovarian cancer Brother , 63 Heart disease Son No problems noted. Son Heart disease Daughter No problems noted. Social History Smoking/Tobacco Use Status: Never Second Hand Exposure: Yes Smoking risk assessment performed?: Yes Alcohol Intake: never Drug use: Never Substance use type: does not use Caregiver/Support person: Yes Household members: none Housing: apartment Number of Children: 3 number of grandchildren: 5 Do you need help understanding health information?: Never Pets and animals: No Sexually active: No Do you think of yourself as: straight/heterosexual Current gender identity: female What is your relationship status?: How often do you talk on the phone with friends or family?: three or more times per week How often do you get together with friends or relatives?: three or more times per week How often do you attend caodaism or jehovah's witness services?: 1-3 times per year Do you belong to any clubs or organized social groups?: no Panel score (0-1 are the most socially isolated patients): 1 What type of physical activity do you participate in: none Frequency: does not exercise Stacey/Yazidi: Holiness Special stacey needs: Yes Seatbelt use: always Drive intox 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
[2023-08-10 12:04] LABS: Abs Immature Grans 0.07 10^3/uL (0.0-0.06); Absolute Basophil Count 0.05 10^3/uL (0.0-0.2); Absolute Eosinophil Count 0.14 10^3/uL (0.0-0.7); Absolute Lymphocyte Count 2.53 10^3/uL (1.2-3.4); Absolute Monocyte Count 1.46 10^3/uL (0.1-0.8); Basophils % 0.3; Eosinophils % 0.9; HCT 32.2 % (36.0-46.0); HGB 10.9 g/dL (11.2-15.7); Immature Grans % 0.5; Lymphocytes % 16.8; MCH 32.9 pg (27.0-33.0); MCHC 33.9 % (32.0-36.0); MCV 97 fL (80-95); Monocytes % 9.7; Neutrophils % 71.8; Platelet Count 151 10^3/uL (130-400); RBC 3.31 10^6/uL (3.93-5.22); RDW 11.9 % (11.7-14.6); RDW-SD 42.2 fL; WBC 15.04 10^3/uL (4.4-10.8)
[2023-08-10 12:25] LABS: Anion Gap 7.7 mmol/L (3-11); BUN 16 mg/dL (7-18); CO2 26.3 mmol/L (21.0-32.0); CREATININE 1.5 mg/dL (0.55-1.02); Calcium 9.1 mg/dL (8.5-10.1); Chloride 100 mmol/L (98-107); Estimated GFR 33.94 (mL/min/1.73m2); Glucose 169 mg/dL (74-106); NT-proBNP 4144 pg/mL (<300); Potassium 4.7 mmol/L (3.5-5.1); Sodium 134 mmol/L (136-145)
--- NOTE | 2023-08-10 13:00 | PGE_ITS ---
Date of Service Date of service: 08/10/23 Time of Service: 13:00 Assessment and Plan Assessment and plan (1) Left displaced femoral neck fracture: Status: Acute Assessment and plan: -Plan for surgery this afternoon with Ortho -continue PRN pain control -PT ordered (2) Restrictive lung disease: Status: Acute Assessment and plan: -documented as having severe restrictive lung disease -however, patient reviewed by Pulm who believes that if patient does have lung disease it is likely mild, and therefore she is appropriate for anesthesia at this facility - recommend albuterol prn - continue Symbicort Subjective Subjective Patient reports: no new complaints Interval history since last seen: Patient states that her pain is well controlled and she is looking forward to her surgery later today. Exam Narrative Exam Narrative: AOx4, in no acute distress, heart RRR, lungs CTAB, LLE shortened and externally rotated Objective Last Vital Signs Temp 96.6 F L 08/10/23 11:25 Pulse 100 H 08/10/23 11:25 Resp 16 08/10/23 11:25 BP 131/70 08/10/23 11:25 Pulse Ox 93 08/10/23 11:25 Laboratory Results - last 24 hr 08/09/23 08/09/23 08/09/23 16:10 16:10 16:47 WBC 9.37 RBC 3.59 L Hgb 11.8 Hct 35.5 L MCV 99 H MCH 32.9 MCHC 33.2 RDW 11.8 Plt Count 184 MPV 12.0 H Immature Gran % 0.5 Neutrophils % 48.9 Lymphocytes % 37.1 Monocytes % 11.6 Eosinophils % 1.5 Basophils % 0.4 Nucleated RBC % 0.0 Absolute Neutrophils 4.57 Absolute Lymphocytes 3.48 H Absolute Monocytes 1.09 H Absolute Eosinophils 0.14 Absolute Basophils 0.04 Sodium 138 Cancelled Potassium 4.5 Cancelled Chloride 102 Cancelled Carbon Dioxide 29.3 Cancelled Anion Gap 6.7 Cancelled BUN 16 Cancelled Creatinine 1.5 H Cancelled Est GFR (CKD-EPI 2020) 33.94 Cancelled Glucose 205 H Cancelled Calcium 9.2 Cancelled Total Bilirubin 0.3 Cancelled AST 26 Cancelled ALT 24 Cancelled Alkaline Phosphatase 108 Cancelled NT-Pro-B Natriuret Pep Total Protein 7.5 Cancelled Albumin 3.6 Cancelled Urine Color Urine Clarity Urine pH Ur Specific [place] Urine Protein Urine Ketones Urine Blood Urine Nitrite Urine Bilirubin Urine Urobilinogen Ur Leukocyte Esterase Urine RBC Urine WBC Ur Epithelial Cells Urine Crystals Urine Bacteria Urine Mucus Ur Culture Indicated? Urine Glucose COVID-19 Source SARS-CoV-2 (PCR) 08/09/23 08/09/23 08/10/23 18:45 20:40 11:50 WBC RBC Hgb Hct MCV MCH MCHC RDW Plt Count MPV Immature Gran % Neutrophils % Lymphocytes % Monocytes % Eosinophils % Basophils % Nucleated RBC % Absolute Neutrophils Absolute Lymphocytes Absolute Monocytes Absolute Eosinophils Absolute Basophils Sodium 134 L Potassium 4.7 Chloride 100 Carbon Dioxide 26.3 Anion Gap 7.7 BUN 16 Creatinine 1.5 H Est GFR (CKD-EPI 2020) 33.94 Glucose 169 H Calcium 9.1 Total Bilirubin AST ALT Alkaline Phosphatase NT-Pro-B Natriuret Pep 4144 H Total Protein Albumin Urine Color Yellow Urine Clarity Clear Urine pH 7.5 Ur Specific [place] 1.020 Urine Protein Trace H Urine Ketones Negative Urine Blood Small H Urine Nitrite Negative Urine Bilirubin Negative Urine Urobilinogen 0.2 Ur Leukocyte Esterase Negative Urine RBC 5-10 H Urine WBC 0-2 Ur Epithelial Cells Negative Urine Crystals Negative Urine Bacteria Negative Urine Mucus Trace Ur Culture Indicated? No Urine Glucose 100 H COVID-19 Source Nasal/Nares SARS-CoV-2 (PCR) Negative 08/10/23 11:50 WBC 15.04 H RBC 3.31 L Hgb 10.9 L Hct 32.2 L MCV 97 H MCH 32.9 MCHC 33.9 RDW 11.9 Plt Count 151 MPV 11.0 Immature Gran % 0.5 Neutrophils % 71.8 Lymphocytes % 16.8 Monocytes % 9.7 Eosinophils % 0.9 Basophils % 0.3 Nucleated RBC % 0.0 Absolute Neutrophils 10.80 H Absolute Lymphocytes 2.53 Absolute Monocytes 1.46 H Absolute Eosinophils 0.14 Absolute Basophils 0.05 Sodium Potassium Chloride Carbon Dioxide Anion Gap BUN Creatinine Est GFR (CKD-EPI 2020) Glucose Calcium Total Bilirubin AST ALT Alkaline Phosphatase NT-Pro-B Natriuret Pep Total Protein Albumin Urine Color Urine Clarity Urine pH Ur Specific [place] Urine Protein Urine Ketones Urine Blood Urine Nitrite Urine Bilirubin Urine Urobilinogen Ur Leukocyte Esterase Urine RBC Urine WBC Ur Epithelial Cells Urine Crystals Urine Bacteria Urine Mucus Ur Culture Indicated? Urine Glucose COVID-19 Source SARS-CoV-2 (PCR) Time Spent with Patient Time Spent with Patient: >50 minutes Time was spent: preparing to see the patient(eg.review tests), obtaining and/or reviewing separately otained hiistory, ordering medications,tests, procedures, referring, communicating with other health career services assistant, indepentently interpreting results, counseling the patient and care coordination
--- NOTE | 2023-08-10 13:34 | CHAPLAIN ---
I visited with Geno prior to her surgery. She told me about her fall resulting in a broken hip. She said she met with Ar from anesthesiology who explained that she'll have a spinal block. Geno said her daughter will be in to visit after her surgery. Geno's exsarojsband is in room 214, and Geno said she has been praying for him. He does not know that she is here. He was moved out of the ICU to Med/Surg yesterday, Geno said. Geno has been praying about her hip. She said she prayed that it wouldn't be broken, but God can't answer all the prayers. We talked about how she has everything she needs to move forward with surgery and then healing, even if her hip is broken.
[2023-08-10] MEDS: Lactated Ringers 1,000 ML 30 ML IV (15:03)
[2023-08-10] MEDS: Tranexamic Acid 1,000 MG/10 ML VIAL 1000 MG (15:45)
[2023-08-10] MEDS: Normal Saline 100 ML 600 ML (15:45)
[2023-08-10] MEDS: Bupivacaine 0.25% Pres-Free 30 ML VIAL (16:05)
--- NOTE | 2023-08-10 16:08 | PT.INNT ---
PT Notes Visit Reasons: Left Hip Fracture Per Charge Nurse Amanda as of 4:09 PM, patient is still at the OR. Weekend PT apprised of evaluation tomorrow morning for this patient, as ordered.
--- NOTE | 2023-08-10 17:30 | DI.RAD_ITS ---
Exam(s) XR HIP LT COMPLETE AP PELVIS EXAM: XR HIP LT COMPLETE AP PELVIS CLINICAL HISTORY: Postop. TECHNIQUE: 2D digital imaging was performed. COMPARISON: [facility] XR HIP LT COMPLETE AP PELVIS from 08/09/2023 FINDINGS: Two postop views. Satisfactory position alignment of the newly placed left hip prosthesis. No fracture or loosening ev ident. IMPRESSION: Satisfactory postop appearance. DATA REPOSITORY: RADIATION DOSE DELIVERED:
--- NOTE | 2023-08-10 17:49 | W.PM.OP ---
Date of service: 08/10/23 Time of Service: 17:00 Operative Note Operative Note DATE OF PROCEDURE: 08/10/23 PRE-OP DIAGNOSIS: Left displaced femoral neck fracture PROCEDURE: Left posterior hip hemiarthroplasty SURGEON: Edgardo Ryan PHYSICIAN LIAISON: Karma Sanders ANESTHESIA TYPE: Local By Surgeon Refer to Anesthesia Record ESTIMATED BLOOD LOSS: 50 COMPLICATIONS: None Patient was transported to: PACU Patient's condition: stable Implants: DePuy Corail press fit femoral stem size 10 standard with 46 mm bipolar head +1.5 mm length Procedure Description: In the operating room, spinal anesthesia was induced. The patient was transferred and positioned laterally on the operating room table. All bony prominences were well-padded. Preoperative antibiotics were administered as well as 1 g of TXA. The left hip was prepped and draped in the usual sterile fashion. The correct patient, procedure, and side of the procedure were all verified prior to incision. The posterior lateral approach to left hip was utilized. 30 cc of 0.25% bupivacaine containing epinephrine was infiltrated about the incision. Deeply, care was taken to protect the sciatic nerve. The short external rotators and capsule were reflected off the femoral neck and tagged for retraction and later repair. The femoral neck fracture was cut to an appropriate length and to match the desired implant. The femoral head was removed from the acetabulum and measured on the back table. All bony debris was removed from the wound. The proximal femoral canal was sequentially opened and broached with the appropriate lateralization and anteversion until there was a relatively solid fit. Calcar reamer was done to accommodate the collar. Trial reduction with a standard offset +1.5 mm length bipolar head demonstrated good suction seal and stability throughout physiologic range of motion. The trial implants were removed. The femoral stem was then impacted to the appropriate depth. The same femoral head was trialed and confirmed to have excellent stability throughout supra-physiologic range of motion including vulnerable positions. The hip was dislocated and the trial head was removed. The trunnion was dried, and the final femoral head was impacted, reduced into the acetabulum, and found to have excellent stability. The wound was copiously irrigated with Betadine and normal saline. 1 g of vancomycin powder was distributed mostly deep to the capsule with some superficial to the capsule about the wound. Some vancomycin had been distributed in the proximal fever prior to normal component implanting. The short external rotators were repaired using SutureTape through bone tunnels in the greater trochanter. Distally, the IT band fascia was closed using #1 Vicryl in an interrupted fashion. Proximally, the gluteus valerio muscle fascia was closed using 0 Vicryl in a running fashion. The superficial wound was irrigated with normal saline. Subcutaneous tissue was closed using 2-0 Monocryl in a buried interrupted fashion. Skin was closed using 3-0 Monocryl in a buried subcuticular buried fashion. Skin was sealed with skin glue. A silver impregnated bandage was applied over the wound. The patient awoke from anesthesia without complication and was transferred to the recovery room in a stable condition.
--- NOTE | 2023-08-10 17:52 | PGE_ITS ---
Date of Service Date of service: 08/10/23 Time of Service: 18:02 Assessment and Plan Assessment and plan (1) Left displaced femoral neck fracture: Status: Acute Assessment and plan: 87-year-old female postop day #0 status post Left hip posterior hemiarthroplasty Complete 24 hours postoperative antibiotics Discontinue Herring catheter postop day #1 assuming hemodynamically stable Pain control-Multimodal Physical therapy ordered: Weightbearing as tolerated with assist device. Posterior hip precautions for 6 weeks: Avoid deep hip flexion (past 90 degrees) combined with any internal rotation and adduction May start chemical DVT prophylaxis tomorrow assuming hemodynamically stable: Probably best to start with renally dosed Lovenox while inpatient and transition to aspirin 81 mg twice daily on discharge or when mobile for total of 30 days treatment Continue mechanical DVT prophylaxis with SCDs and/or BASILIO hose Discharge when medically appropriate Follow-up with Dr. Ryan outpatient [facility] in 2 to [address] Atkins Subjective Subjective Interval history since last seen: Awake, alert, comfortable and feeling well. No major complaints or concerns. Exam Narrative Exam Narrative: Awake, alert, and comfortable Breathing and saturating well on room air Bilateral lower extremity leg lengths and rotation about equal Left lower extremity neurovascular intact Distally dorsalis pedis pulse weakly palpable, but excellent Doppler waveform Objective Last Vital Signs Temp 96.6 F L 08/10/23 11:25 Pulse 100 H 08/10/23 11:25 Resp 16 08/10/23 11:25 BP 131/70 08/10/23 11:25 Pulse Ox 93 08/10/23 11:25 Laboratory Results - last 24 hr 08/09/23 08/09/23 08/10/23 18:45 20:40 11:50 WBC RBC Hgb Hct MCV MCH MCHC RDW Plt Count MPV Immature Gran % Neutrophils % Lymphocytes % Monocytes % Eosinophils % Basophils % Nucleated RBC % Absolute Neutrophils Absolute Lymphocytes Absolute Monocytes Absolute Eosinophils Absolute Basophils Sodium 134 L Potassium 4.7 Chloride 100 Carbon Dioxide 26.3 Anion Gap 7.7 BUN 16 Creatinine 1.5 H Est GFR (CKD-EPI 2020) 33.94 Glucose 169 H Calcium 9.1 NT-Pro-B Natriuret Pep 4144 H Urine Color Yellow Urine Clarity Clear Urine pH 7.5 Ur Specific [place] 1.020 Urine Protein Trace H Urine Ketones Negative Urine Blood Small H Urine Nitrite Negative Urine Bilirubin Negative Urine Urobilinogen 0.2 Ur Leukocyte Esterase Negative Urine RBC 5-10 H Urine WBC 0-2 Ur Epithelial Cells Negative Urine Crystals Negative Urine Bacteria Negative Urine Mucus Trace Ur Culture Indicated? No Urine Glucose 100 H COVID-19 Source Nasal/Nares SARS-CoV-2 (PCR) Negative 08/10/23 11:50 WBC 15.04 H RBC 3.31 L Hgb 10.9 L Hct 32.2 L MCV 97 H MCH 32.9 MCHC 33.9 RDW 11.9 Plt Count 151 MPV 11.0 Immature Gran % 0.5 Neutrophils % 71.8 Lymphocytes % 16.8 Monocytes % 9.7 Eosinophils % 0.9 Basophils % 0.3 Nucleated RBC % 0.0 Absolute Neutrophils 10.80 H Absolute Lymphocytes 2.53 Absolute Monocytes 1.46 H Absolute Eosinophils 0.14 Absolute Basophils 0.05 Sodium Potassium Chloride Carbon Dioxide Anion Gap BUN Creatinine Est GFR (CKD-EPI 2020) Glucose Calcium NT-Pro-B Natriuret Pep Urine Color Urine Clarity Urine pH Ur Specific [place] Urine Protein Urine Ketones Urine Blood Urine Nitrite Urine Bilirubin Urine Urobilinogen Ur Leukocyte Esterase Urine RBC Urine WBC Ur Epithelial Cells Urine Crystals Urine Bacteria Urine Mucus Ur Culture Indicated? Urine Glucose COVID-19 Source SARS-CoV-2 (PCR) Time Spent with Patient Time Spent with Patient: <25 minutes Time was spent: ordering medications,tests, procedures, referring, communicating with other health women's health care nurse practitioner, indepentently interpreting results and counseling the patient
--- NOTE | 2023-08-10 18:01 | W.ANESPOSTOP ---
Postoperative Evaluation Date, Time and Location Date Performed: 08/10/23 Time Performed: 18:01 Patient Location: PACU Vital Signs Most Recent Imported Vital Signs: Most Recent Vital Signs Temp Pulse Resp BP Pulse Ox 36.8 C 99 H 17 138/96 H 97 08/10/23 17:38 08/10/23 17:38 08/10/23 17:38 08/10/23 17:38 08/10/23 17:38 Pain Score Most Recent Pain Score: Most Recent Pain Score Pain Level [Left Hip] 5 08/09/23 16:05 Pain Level 0 08/10/23 17:38 Assessment Mental Status: Awake (Alert & Oriented to Patient Baseline) Airway and Respiratory Function: Patent airway with normal (patient baseline) respiratory exam Cardiovascular Function: Hemodynamically Stable Hydration Status: Adequately Hydrated Nausea & Vomiting: No Nausea or Vomiting Pain: Pt. Denies Any Pain Peripheral Nerve Block: Patient did not receive a nerve block
[2023-08-10] MEDS: Mirtazapine 15 MG TAB 7.5 MG PO (21:03)
[2023-08-10] MEDS: ceFAZolin 1 GM/50 ML BAG IVPB (21:03)
[2023-08-10] MEDS: Simvastatin 20 MG TAB PO (21:03)
[2023-08-10] MEDS: Insulin Aspart 300 UNITS/3 ML PEN SC (21:04)
[2023-08-11 00:08] VITALS: BP 162/77; PULSE 96; RESP 14; TEMP 36.1; O2SAT 95
[2023-08-11] MEDS: MORPHine 2 MG/ML SYR IVP ×2 (02:27→13:46)
[2023-08-11] MEDS: Lactated Ringers 1,000 ML 75 ML IV (02:28)
[2023-08-11 02:53] VITALS: BP 114/70; PULSE 97; RESP 14; TEMP 36.3; O2SAT 95
[2023-08-11] MEDS: Levothyroxine 25 MCG TAB 37.5 MCG PO (05:21)
[2023-08-11] MEDS: ceFAZolin 1 GM/50 ML BAG IVPB ×2 (05:21→13:46)
[2023-08-11 07:12] LABS: HCT 31.3 % (36.0-46.0); HGB 10.5 g/dL (11.2-15.7); MCHC 33.5 % (32.0-36.0); MCV 98 fL (80-95); MPV 11.5 fL (8.0-11.0); Platelet Count 145 10^3/uL (130-400); RBC 3.18 10^6/uL (3.93-5.22); RDW 11.9 % (11.7-14.6); RDW-SD 43.6 fL; WBC 16.97 10^3/uL (4.4-10.8)
[2023-08-11 07:27] LABS: Anion Gap 8.3 mmol/L (3-11); BUN 22 mg/dL (7-18); CO2 26.7 mmol/L (21.0-32.0); CREATININE 1.7 mg/dL (0.55-1.02); Calcium 8.9 mg/dL (8.5-10.1); Chloride 100 mmol/L (98-107); Estimated GFR 29.21 (mL/min/1.73m2); Glucose 236 mg/dL (74-106); Potassium 4.5 mmol/L (3.5-5.1); Sodium 135 mmol/L (136-145)
[2023-08-11 07:44] VITALS: BP 125/71; PULSE 99; RESP 16; TEMP 36; O2SAT 96
[2023-08-11] MEDS: Acetaminophen 500 MG TAB 1000 MG PO (08:36)
[2023-08-11] MEDS: Budesonide/Formoterol 160/4.5 6 GM 60 PUFF INH IH ×2 (08:55→20:09)
[2023-08-11] MEDS: Insulin Aspart 300 UNITS/3 ML PEN SC ×4 (09:24→21:04)
--- NOTE | 2023-08-11 11:32 | PT.INIE ---
PT Notes Visit Reasons: Left Hip Fracture Physical Therapy Inpatient Initial Evaluation Date: 08/11/23 Referring Doctor: Edgardo Ryan MD PT Orders: PT CONSULT: s/p ortho surgery Precautions: Fall. Standard. WBAT. Posterior hip precautions. Patient Profile/Admitting Diagnosis: Geno is an 87 yo female that presented to the ER on 08/09/23 after a mechanical fall landing on left hip that resulted in femoral neck fracture. She reported turning quickly while holding laundry and lost her balance. She underwent left posterior hip hemiarthroplasty on 08/10/23 and is currently POD #1. PMHX: See EMR Social History/Home Situation: Lives alone in ground level apartment, uses cane. Daughter calls or takes her grocery shopping. Patient does not drive. Equipment Owned/DME: Cane Subjective: Cleared by nursing to see patient and patient is agreeable to PT. Patient is propped up in bed at tiime of consult with piña catheter. Objective: General Observation: More alert than when first checked in with her this morning Mental Status: A&O x3 Pain: Reports tender in left hip, no rating given ROM: Right Upper Extremity: Shoulder Flexion WFL. Shoulder abduction WFL. Elbow flexion WFL. Wrist flexion WFL. Opening and closing of hand WFL. Left Upper Extremity: Shoulder Flexion WFL. Shoulder abduction WFL. Elbow flexion WFL. Wrist flexion WFL. Opening and closing of hand WFL. Right Lower Extremity: Hip flexion WFL. Hip abduction WFL. Knee flexion WFL. Ankle dorsiflexion WFL. Ankle plantarflexion WFL. Left Lower Extremity: Hip flexion WFL. Hip abduction WFL. Knee flexion WFL. Ankle dorsiflexion WFL. Ankle plantarflexion WFL. Strength: Right Upper Extremity: Shoulder flexors 4/5. Shoulder abductors 4/5. Elbow flexors 5/5. Elbow extensors 5/5. 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 Left Upper Extremity: Shoulder flexors 4/5. Shoulder abductors 4/5. Elbow flexors 5/5. Elbow extensors 5/5. 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 Right Lower Extremity: Hip flexors 4+/5. Knee flexors 5/5. Knee extensors 5/5. Ankle dorsiflexors 5/5. Ankle plantarflexors 5/5. Left Lower Extremity: Hip flexors 3/5. Knee flexors 3/5. Knee extensors 3/5. Ankle dorsiflexors 3/5. Ankle plantarflexors 3/5. Sensation: Decreased sensation left LE secondary to nerve block Bed Mobility/Transfers: Rolling: Max A Supine to sit: 2 person mod A Sit to supine: 2 person mod A Sit to stand: 2 person mod A Stand to sit: 2 person min A - very slow to self lower Gait: Took several steps forward and backward with FWW, CGA verbal cues for foot placement Balance: Static Sitting: Fair Dynamic Sitting: Poor Static Standing: Fair Dynamic Standing: Poor Therapeutic Activity (14093) dynamic movement and functional strengthening to improve physical performance: 15 minutes Instructed patient in bed mobility, transfers, and stepping to assist with return to functional mobility. Special Tests: Mobility Limitations Standardized Measure [facility] AM-PAC 6 clicks Basic Mobility Inpatient Short Form: Raw Score: 7 CMS Score: 92% Informed Consent/Education: Patient instructed in purpose of PT consult and plan of care. Assessment: Geno is POD #1 left posterior hip hemiarthoplasty after a left femoral neck fracture from mechanical fall on 08/09/23. She needs 2 person assist with bed mobility and transfers. Able to help with scooting in bed. Can take a few steps forward and back with weight bearing on left leg. Needs reminders for current task. She will benefit from acute care PT to assist with progression of mobility, strength, and ROM. Progress will be monitored closely. At this time recommend SNF, but possible she could demonstrate progress for return to home dependent on timing of discharge. Patient presents with clinical signs and symptoms consistent with current/admitting diagnoses that have resulted to mobility limitations, gait instability, generalized weakness, and impairment of motor control as demonstrated by the following impairment level findings: 1. Decreased strength to left leg major muscle groups 2. Impaired sitting/standing balance 3. Impaired activity tolerance 4. Limitation of joint range of motion in left hip Impairments are contributing to the following functional limitations: 1. Dependent bed mobility skills 2. Increased dependence with transfers 3. Inability to safely ambulate without assistive device and physical assistance 4. Increase completion time for mobility ADL performance 5. Increased fall risk Patient is assessed as a Moderate complexity based on the following: History: 87 year old female with impairment level findings, functional limitations, and past medical history as indicated above Examination: Demonstrable impairment in strength, balance, and mobility level with underlying impairments and functional limitations as documented above Presentation: Evolving Decision Making: Moderate complexity Goals: Goals x1 week 1. Supine-Sit: independent 2. Sit-Supine: independent 3. Sit-Stand: independent 4. Stand-Sit: independent 5. Bed-Chair: independent 6. Chair-Bed: independent 7. Independent gait on level surface with use of least restrictive device for at least 100 feet without report of pain nor dyspnea 8. Good static and dynamic standing balance/tolerance 9. Independent with home exercise program Plan of Care/Treatment Plan: 1-2x/day, 7 days/week x1 week. Plan of care has been reviewed with the [employer] [employer] providing the service under Physical Therapy direction. Initiate Physical Therapy intervention for strengthening, bed mobility, transfers, gait, stairs, balance training, and use of assistive device. Discharge Plan DISCHARGE RECOMMENDATIONS: SNF for continued rehabilitation versus home with assist and HHPT dependent on progression in functional mobility TREATMENT CODE/TIME: 10:58-11:27 (29 minutes), [id number], [id number] Thank you for the opportunity to participate in the care of this patient. Brenda Morelos, PT, DPT, OCS [facility] [place], [place]
[2023-08-11 11:35] VITALS: BP 105/57; PULSE 95; RESP 16; TEMP 37.1; O2SAT 96
--- NOTE | 2023-08-11 13:11 | PGE_ITS ---
Date of Service Date of service: 08/11/23 Time of Service: 13:11 Assessment and Plan Assessment and plan (1) Left displaced femoral neck fracture: Status: Acute Assessment and plan: She had successful surgery yesterday. Physical therapy will see her today and start ambulation. She will either need a rehab stay or if she improves enough she can be discharged from here. Her labs are stable today. (2) Hypothyroidism: Status: Chronic Assessment and plan: Her levothyroxine was increased at admission because of a slightly elevated TSH. Qualifiers: Hypothyroidism type: unspecified Qualified Code(s): E03.9 - Hypothyroidism, unspecified (3) Restrictive lung disease: Status: Acute Assessment and plan: Her respiratory status appears stable at this time. Her budesonide inhaler will be continued and albuterol can be used as needed. Exam Narrative Exam Narrative: I know this patient from admitting her from 2 days ago. She has mild pulmonary disease as well as her left femoral neck fracture. She had surgery yesterday and it was uneventful. She had spinal anesthesia. She has not been walking yet but will be seen physical therapy today. On admission I had increased her levothyroxine because of elevated TSH. She has hypothyroidism. She was on 25 mcg daily and I increased this slightly to 37.5 mcg daily. If she tolerates thi s she will need a new prescription for discharge. She is not having significant pain at this time. She states she can move her both of her legs. Objective Last Vital Signs Temp 37.1 C 08/11/23 11:35 Pulse 95 H 08/11/23 11:35 Resp 16 08/11/23 11:35 BP 105/57 L 08/11/23 11:35 Pulse Ox 96 08/11/23 11:35 Laboratory Results - last 24 hr 08/11/23 08/11/23 06:51 06:51 WBC 16.97 H RBC 3.18 L Hgb 10.5 L Hct 31.3 L MCV 98 H MCH 33.0 MCHC 33.5 RDW 11.9 Plt Count 145 MPV 11.5 H Sodium 135 L Potassium 4.5 Chloride 100 Carbon Dioxide 26.7 Anion Gap 8.3 BUN 22 H Creatinine 1.7 H Est GFR (CKD-EPI 2020) 29.21 Glucose 236 H Calcium 8.9 Objective Narrative Objective Narrative: Alert female. Vital signs are reviewed. Lungs: Clear breath sounds bilaterally. Heart: Regular rhythm without murmurs. Abdomen: Soft without masses organomegaly. Extremities: No edema. They are both mobile. Time Spent with Patient Time Spent with Patient: 25-34 minutes Time was spent: preparing to see the patient(eg.review tests) and indepentently interpreting results
[2023-08-11 16:43] VITALS: BP 110/64; PULSE 100; RESP 18; TEMP 37.9; O2SAT 94
[2023-08-11 20:00] VITALS: BP 125/73; PULSE 104; RESP 18; TEMP 38; O2SAT 93
[2023-08-11] MEDS: Simvastatin 20 MG TAB PO (21:02)
[2023-08-11] MEDS: traMADol 50 MG TAB PO (21:02)
[2023-08-11] MEDS: Mirtazapine 15 MG TAB 7.5 MG PO (21:03)
[2023-08-12 01:04] VITALS: BP 130/77; PULSE 96; RESP 18; TEMP 37.8; O2SAT 98
[2023-08-12] MEDS: MORPHine 2 MG/ML SYR IVP ×2 (01:55→21:40)
[2023-08-12 03:49] LABS: Source Nasal/Nares
[2023-08-12 04:18] LABS: COVID-19 PCR Negative (Negative)
[2023-08-12] MEDS: Levothyroxine 25 MCG TAB 37.5 MCG PO (05:39)
[2023-08-12 06:10] VITALS: BP 130/69; PULSE 89; RESP 18; TEMP 37.7; O2SAT 94
[2023-08-12 07:22] VITALS: BP 133/67; PULSE 85; RESP 18; TEMP 38; O2SAT 98
[2023-08-12] MEDS: Budesonide/Formoterol 160/4.5 6 GM 60 PUFF INH IH (08:05)
[2023-08-12] MEDS: Acetaminophen 500 MG TAB 1000 MG PO ×2 (08:12→17:17)
[2023-08-12] MEDS: Glimepiride 2 MG TAB 4 MG PO (08:13)
[2023-08-12] MEDS: Insulin Aspart 300 UNITS/3 ML PEN SC ×3 (08:14→17:03)
--- NOTE | 2023-08-12 08:17 | W.PM.PROGNOT ---
Date of Service Date of service: 08/12/23 Time of Service: 08:35 Assessment and Plan Assessment and plan (1) Left displaced femoral neck fracture: Status: Acute Assessment and plan: 87-year-old female postop day #2 status post Left hip posterior hemiarthroplasty Chart reviewed, doing reasonable well postop, continue to encourage increasing mobilization, OOB, progress with PT; Monitor for causes of fever- atelectasis, UTI, PNA, and/or DVT. Unlikely surgical site infection given low grade fevers both immediately pre- and post-op. Pain control-Multimodal Physical therapy: Weightbearing as tolerated with assist device. Posterior hip precautions for 6 weeks: Avoid deep hip flexion (past 90 degrees) combined with any internal rotation and adduction CONFIRM appropriate chemical DVT prophylaxis is being given: Probably best to start with renally dosed Lovenox while inpatient and transition to aspirin 81 mg twice daily on discharge or when mobile for total of 30 days treatment Continue mechanical DVT prophylaxis with SCDs and/or BASILIO hose Discharge when medically appropriate Follow-up with Dr. Ryan outpatient [facility] in 2 to 3 weeks- my office will arrange this appointment Objective Last Vital Signs Temp 100.4 F H 08/12/23 07:22 Pulse 85 08/12/23 07:22 Resp 18 08/12/23 07:22 BP 133/67 08/12/23 07:22 Pulse Ox 98 08/12/23 07:22 Laboratory Results - last 24 hr 08/12/23 01:30 COVID-19 Source Nasal/Nares SARS-CoV-2 (PCR) Negative Time Spent with Patient Time Spent with Patient: <25 minutes Time was spent: other (chart review, documentation)
--- NOTE | 2023-08-12 10:03 | PT.INTREAT ---
Date of service: 08/12/23 PT Notes Visit Reasons: Left Hip Fracture Inpatient Physical Therapy Treatment Note [facility] Date: 08/12/23 PRECAUTIONS: Fall, standard, WBAT, posterior hip precautions for 6 weeks. SUBJECTIVE: Patient reports feeling pretty good today, not a lot of pain so long as she doesn't move too much. OBJECTIVE: Patient supine in bed, agreeable to therapy, wishes to go to the [facility], VASYL P[place] present.? PAIN: Reports hurting pretty good once she is off commode and into chair. VASYL Pyle aware. VITALS: monitored by nursing staff ? Therapeutic Activities ([id number]): Direct one-on-one instruction in dynamic activities to improve functional performance. ? BED MOBILITY/TRANSFERS? Rolling L/R: min assist to preserve posterior hip precautions, with verbal and tactile cues and education provided throughout. Supine-sit: Mod assist of 2 via hand hold and pull sheet. Guard left leg carefully to prevent crossing midline. Verbal and tactile cues provided. ?Sit-supine: not assessed ? Sit-stand: Min assist of two or mod assist of one pulling up on gait belt, helping patient stabilize until she has her balance (5-10 seconds, improved over course of treatment session). Max verbal and visual cues for hand and foot placement, sequencing.? Stand-sit: Min assist of one with max verbal and tactile cues for sequencing, limb placement, compliance with posterior hip precautions. ?Bed-Chair: Min assist with max verbal cues for gait sequencing especially when turning. ? Chair-bed: Min assist with max verbal cues for gait sequencing especially when turning. Provided skilled cues and instruction on performance and technique throughout. Gait Training ([id number]): Direct one-on-one instruction and skilled instruction in: [x] employing an assistive device [x] modified weight-bearing status [x] movement sequencing [x] turning and movement with proper form [x] Provided verbal cues for equipment management and technique [x] Provided instruction in gait pattern [] Patient education regarding pacing and breathing techniques to maximize activity tolerance? GAIT? Assistive Device: FWW ? Weight bearing: WBAT LLE Assist: CGA of two for balance. Two probably unnecessary, CGA of one going forward. ? Distance:? 5 feet x2 ? Deviation: Very slow uncertain step pattern, max verbal cues for sequencing, max reassurance to patient that she is doing well (patient reports nausea with anxiety), patient hesitant to weight shift and tended to prefer shimmying right foot forward and then sliding/dragging left foot forward. Patient demonstrates ability to weight shift appropriately given verbal cues, reminders that she is WBAT and that it is safe even if it is painful to put weight through both legs. ? Therapeutic Exercises: Direct one-on-one instruction in therapeutic exercises to develop strength, endurance, range of motion and flexibility. ? Exercises: HEP established as follows, reviewed with patient. More practice needed with all exercises. Access Code: [email or web address] URL: [email or web address] Date: 08/12/2023 Prepared by: Sophie Villasenor Exercises - Supine Heel Slide - 2 x daily - 7 x weekly - 3 sets - 10 reps - Seated Heel Slide - 2 x daily - 7 x weekly - 3 sets - 10 reps - Seated Quad Set - 2 x daily - 7 x weekly - 3 sets - 10 reps - Supine Gluteal Sets - 2 x daily - 7 x weekly - 3 sets - 10 reps - 10s hold - Supine Single Leg Ankle Pumps - 2 x daily - 7 x weekly - 3 sets - 10 reps - Small Range Straight Leg Raise - 2 x daily - 7 x weekly - 3 sets - 10 reps Patient Education - BEBETO Posterior Precautions ASSESSMENT:? Patient reports pain and fatigue at end of treatment session. Nursing aware. PLAN: Continue education on posterior hip precautions, global strengthening, standing tolerance per plan of care until patient is medically cleared and safe to discharge. TREATMENT CODE/TIME: 42 minutes beginning at 10:06
[2023-08-12] MEDS: traMADol 50 MG TAB PO ×2 (10:47→17:18)
[2023-08-12] MEDS: Polyethylene Glycol 3350 17 GM PACKET PO (11:00)
[2023-08-12] MEDS: Docusate Sodium 100 MG CAP PO ×2 (11:00→21:39)
[2023-08-12 11:15] VITALS: BP 128/68; PULSE 90; RESP 18; TEMP 36.3; O2SAT 97
--- NOTE | 2023-08-12 12:15 | PGE_ITS ---
Date of Service Date of service: 08/12/23 Time of Service: 12:15 Assessment and Plan Assessment and plan (1) Left displaced femoral neck fracture: Status: Acute Assessment and plan: -presented after fall resulting in left displaced femoral neck fracture -now POD #2, tolerating pain well with minimal use of PRN morpine -seen by PT, rec MISHA placement (2) Hypothyroidism: Status: Chronic Assessment and plan: -TSH slighlty elevated, continue increased dose of synthroid Qualifiers: Hypothyroidism type: unspecified Qualified Code(s): E03.9 - Hypothyroidism, unspecified (3) Restrictive lung disease: Status: Acute Assessment and plan: -stable at this time -continue inhalers (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 Exam Narrative Exam Narrative: Well appearing older female laying in bed in no acute distress, AOx4, heart RRR, lungs CTAB, abdomen soft, non-tender, non-distended, decreased ROM of LLE at the hip seoncdary to pain Objective Last Vital Signs Temp 97.3 F L 08/12/23 11:15 Pulse 90 08/12/23 11:15 Resp 18 08/12/23 11:15 BP 128/68 08/12/23 11:15 Pulse Ox 97 08/12/23 11:15 Laboratory Results - last 24 hr 08/12/23 01:30 COVID-19 Source Nasal/Nares SARS-CoV-2 (PCR) Negative Time Spent with Patient Time Spent with Patient: >50 minutes (55) Time was spent: preparing to see the patient(eg.review tests), obtaining and/or reviewing separately otained hiistory, referring, communicating with other health [facility] manager, indepentently interpreting results, counseling the patient and care coordination
[2023-08-12] MEDS: Normal Saline Flush 10 ML SYR IVP ×2 (13:30→21:40)
[2023-08-12 15:48] VITALS: BP 114/65; PULSE 86; RESP 18; TEMP 37.2; O2SAT 98
[2023-08-12 21:31] VITALS: BP 101/62; PULSE 84; RESP 18; TEMP 36.6; O2SAT 94
[2023-08-12] MEDS: Simvastatin 20 MG TAB PO (21:40)
[2023-08-12] MEDS: Mirtazapine 15 MG TAB 7.5 MG PO (21:40)
[2023-08-13] VITALS (7 sets, daily range): BP systolic 99–132; BP diastolic 59–80; PULSE 82–104; RESP 18–20; TEMP 36.1–37.1; O2SAT 94–98
--- NOTE | 2023-08-13 | DI.RAD_ITS ---
Exam(s) XR CHEST 2V PA LATERAL EXAM: XR CHEST 2V PA LATERAL CLINICAL HISTORY: elevated white count. TECHNIQUE: 2D digital imaging was performed. COMPARISON: CR XR CHEST 1V IN DI DEPT from 08/09/2023 FINDINGS: 2 views: Heart size is normal. The mediastinum is not widened. Lungs are clear. No infiltrates nor pleural effusions. IMPRESSION: No acute pulmonary findings. DATA REPOSITORY: RADIATION DOSE DELIVERED:
[2023-08-13] MEDS: Acetaminophen 500 MG TAB 1000 MG PO ×3 (04:52→20:08)
[2023-08-13] MEDS: MORPHine 2 MG/ML SYR IVP (04:52)
[2023-08-13] MEDS: Levothyroxine 25 MCG TAB 37.5 MCG PO (05:00)
[2023-08-13] MEDS: Docusate Sodium 100 MG CAP PO ×2 (07:43→20:07)
[2023-08-13] MEDS: Insulin Aspart 300 UNITS/3 ML PEN SC ×4 (07:43→20:14)
[2023-08-13] MEDS: traMADol 50 MG TAB PO ×3 (07:43→20:07)
[2023-08-13] MEDS: Glimepiride 2 MG TAB 4 MG PO (07:43)
[2023-08-13] MEDS: Budesonide/Formoterol 160/4.5 6 GM 60 PUFF INH IH ×2 (08:39→19:16)
[2023-08-13 09:25] LABS: Abs Immature Grans 0.06 10^3/uL (0.0-0.06); Absolute Basophil Count 0.04 10^3/uL (0.0-0.2); Absolute Eosinophil Count 0.48 10^3/uL (0.0-0.7); Absolute Lymphocyte Count 2.97 10^3/uL (1.2-3.4); Absolute Monocyte Count 1.34 10^3/uL (0.1-0.8); Absolute Neutrophil Count 7.84 10^3/uL (1.2-6.7); Basophils % 0.3; Eosinophils % 3.8; HCT 29.8 % (36.0-46.0); HGB 9.8 g/dL (11.2-15.7); Immature Grans % 0.5; Lymphocytes % 23.3; MCH 32.8 pg (27.0-33.0); MCHC 32.9 % (32.0-36.0); MCV 100 fL (80-95); MPV 11.6 fL (8.0-11.0); Monocytes % 10.5; Neutrophils % 61.6; Platelet Count 144 10^3/uL (130-400); RBC 2.99 10^6/uL (3.93-5.22); RDW 12.1 % (11.7-14.6); RDW-SD 44.2 fL; WBC 12.73 10^3/uL (4.4-10.8)
[2023-08-13 09:33] LABS: Anion Gap 7.8 mmol/L (3-11); BUN 27 mg/dL (7-18); CO2 27.2 mmol/L (21.0-32.0); CREATININE 1.7 mg/dL (0.55-1.02); Calcium 8.8 mg/dL (8.5-10.1); Chloride 97 mmol/L (98-107); Estimated GFR 29.21 (mL/min/1.73m2); Glucose 191 mg/dL (74-106); Magnesium 1.8 mg/dL (1.8-2.4); Potassium 4.3 mmol/L (3.5-5.1); Sodium 132 mmol/L (136-145)
[2023-08-13 09:48] LABS: Bilirubin Negative (Negative); Blood Trace-lysed (Negative); Clarity Clear (Clear); Glucose Negative (Negative); Ketones Negative (Negative); Leukocyte Esterase Trace (Negative); Nitrite Negative (Negative); Specific Gravity 1.015 (1.005-1.025); Urobilinogen 0.2 mg/dL (Up to 0.2); pH 5.5 (5-8)
--- NOTE | 2023-08-13 09:55 | PT.INTREAT ---
Date of service: 08/13/23 Time of Service: 09:22 PT Notes Visit Reasons: Left Hip Fracture Inpatient Physical Therapy Treatment Note [facility] Date: 08/13/23 PRECAUTIONS: Fall, standard, activity as tolerated. Posterior hip precautions until 09/22/23 (six weeks post op). WBAT LLE. SUBJECTIVE: Patient appears alert. States that this morning getting out of bed was rough because she needed to urinate and was also having significant pain. Reports much less pain now, that hip feels pretty good. OBJECTIVE: Sitting up in recliner with feet elevated and on a pillow. Agreeable to therapy. ? PAIN: No pain reported initially. Some hip pain reported during ambulation, especially when trying to lift foot instead of dragging it. Fewer pain signs noted today than yesterday. VITALS: monitored by nursing staff. ? BED MOBILITY/TRANSFERS? Rolling L/R: not assessed Supine-sit: not assessed ? Sit-supine: not assessed ? Sit-stand: Min assist of 1 pulling up on gait belt with min verbal cues as requested by patient for sequencing and hand placement. ?Stand-sit: Min assist of 1 to CGA, mod verbal cues for pacing (patient responds better to control your sit. Prompting her to sit slowly causes her to become preoccupied with moving as slow as possible, which is hard on her arms.) Patient able to sit today without flopping and without report of pain in hip from impact of sitting. ?Bed-Chair: CGA with min to mod verbal cues and reassurance, especially for gait sequence in turning. ? Chair-bed: CGA with min to mod verbal cues and reassurance, especially for gait sequence in turning.? Gait Training ([id number]): Direct one-on-one instruction and skilled instruction in: [x] employing an assistive device [x] modified weight-bearing status - patient is WBAT on LLE, still fearful of putting weight on that leg. [x] movement sequencing - especially when turning or standing up / sitting down. Walking straight requires less cueing. [x] turning and movement with proper form [x] Provided verbal cues for equipment management and technique [x] Provided instruction in gait pattern - especially swing phase LLE. Patient hesitant to push off, hesitant to bend knee or hip. Education that as long as her knee stays below the top rail of her walker, she is safe. That visual cue seems to work well for her. [] Patient education regarding pacing and breathing techniques to maximize activity tolerance? GAIT? Assistive Device: FWW ? Weight bearing: WBAT Assist: CGA, mod verbal cueing as requested by patient. Next session, ask the question back to the patient. I believe she knows and is simply seeking reassurance, and would benefit from demonstrating to herself that she does know the answer. ? Distance:? 80 feet ? Deviation: Extremely slow neida. Short strides, antalgic pattern. Patient intermittently forgets that it is safe to bend the left knee and hip. Intermittently asks how much weight she can put through left leg if any. Requires mod reassurance. Gait improves noticeably after about 50 feet, patient's stride lengthens several inches and patient appears more confident in her weight shift. ? ASSESSMENT:? Patient does report, about 15 feet shy from the end of our walk, that this is when [her] COPD kicks up. Reports feeling SOB, fatigued. No c/o Pain. Patient returns to her recliner, call kimbrough within easy reach, reports feeling sweaty from working hard. PLAN: Continue global strengthening per plan of care until patient is medically cleared for discharge. Patient would benefit from continued skilled rehabilitation prior to returning home, as she still becomes confused in the middle of walking or sitting and forgets whether she is safe. TREATMENT CODE/TIME: 31 minutes beginning at 9:53
[2023-08-13 10:04] LABS: Bacteria Few HPF (Negative); Crystals Negative HPF (Negative); Epithelial Cells Many HPF (Negative); Mucus Trace (Negative)
[2023-08-13 10:04] LABS: Procalcitonin 0.7 ng/mL
[2023-08-13 10:05] LABS: C & S Indicated? No/Sq. Contamination; Casts 0-2 Coarse Granular LPF (Negative)
[2023-08-13] MEDS: Polyethylene Glycol 3350 17 GM PACKET PO (10:11)
[2023-08-13] MEDS: Heparin 5,000 UNITS/ML VIAL 5000 UNITS SC ×2 (10:11→20:09)
--- NOTE | 2023-08-13 10:31 | PDOC.CMPRO ---
Date of service: 08/13/23 Time of Service: 10:31 Care Management Progress Note Progress Note Text Progress Note Text: S/O: Geno was lying in bed when CM met with her. She stated that she is doing well, and working with PT to get stronger. CM discussed SNF, which is recommended by PT, and she stated that she is agreeable, and feels that she will benefit from short term rehab prior to returning home. CM faxed a referral to [facility], at her request. Later this afternoon, she was offered a bed, and accepted. [facility] has initiated a PA. CM will continue to follow. A: Geno is an 87 year old female admitted to [facility] on 08/09/23 with left hip fracture. P: Anticipate Geno will benefit from short term rehab prior to returning home. CM will discuss options for SNF with Geno, if she is agreeable. She will transport via private vehicle vs w/c van, depending on her mobility at the time of discharge. She will follow up with her PCP and discharge plan of care. CM will continue to follow.
--- NOTE | 2023-08-13 12:56 | PGE_ITS ---
Date of Service Date of service: 08/13/23 Time of Service: 12:56 Assessment and Plan Assessment and plan (1) Elevated procalcitonin: Status: Acute Assessment and plan: no obvious source of infection. patient reports feeling well no fever, CXR negative blood cultures pending. continue to monitor closely. repeat labs in am. in setting of recent major surgery and chronic kidney disease, most likely etiology. (2) Left displaced femoral neck fracture: Status: Acute Assessment and plan: -presented after fall resulting in left displaced femoral neck fracture -now POD #3, continue routine post operative care PT, OT, bowel management, pain management has been re-ambulated and awaiting discharge to care home facility for ongoing rehab. (3) Hypothyroidism: Status: Chronic Assessment and plan: -TSH slighlty elevated, continue increased dose of synthroid Qualifiers: Hypothyroidism type: unspecified Qualified Code(s): E03.9 - Hypothyroidism, unspecified (4) Restrictive lung disease: Status: Acute Assessment and plan: -stable at this time -continue inhalers (5) Insulin dependent type 2 diabetes mellitus: Status: Acute Assessment and plan: -continue home regimen of glimepiride, SSI, and Januvia (6) Discharge planning issues: Status: Acute Assessment and plan: dvt prophylaxis heparin in setting of CKD plan to discharge to care home facility discussed with Dr Llamas Subjective Subjective Patient reports: no new complaints, feels better, tolerating liquids well, tolerating a regular diet and afebrile; denies shortness of breath Interval history since last seen: no symptoms of infection or c/o. feels well, working with PT, Exam Const General: cooperative, comfortable and no acute distress Nutritional Appearance: thin Orientation: alert, awake and oriented x3 HENMT Head: normal to inspection and hematoma left occipital Face and sinus: normal facial exam Eyes General: appearance normal, both eyes and all related structures Neck Neck: normal visual inspection, full ROM and no JVD Chest Chest: normal inspection of the chest Resp Effort & Inspection: normal respiratory effort Auscultation: diminished lung sounds (bases) bilaterally Cardio Rate: regular rate Rhythm: regular rhythm GI Inspection: normal to inspection Palpation: soft Skin Lesions: lesion noted (left elbow, mepilex intact) and other (surgical dressing CDI) Rashes: no rashes Neuro General: patient alert, patient awake, patient oriented x3 and no focal motor deficits Cognition: normal cognition Speech: speech normal Extrem General: normal to inspection, full ROM, no pedal edema and no calf tenderness Objective Last Vital Signs Temp 36.7 C 08/13/23 11:48 Pulse 88 08/13/23 11:48 Resp 18 08/13/23 11:48 BP 99/60 L 08/13/23 11:48 Pulse Ox 95 08/13/23 11:48 Laboratory Results - last 24 hr 08/13/23 08/13/23 08/13/23 09:05 09:05 09:05 WBC 12.73 H RBC 2.99 L Hgb 9.8 L Hct 29.8 L MCV 100 H MCH 32.8 MCHC 32.9 RDW 12.1 Plt Count 144 MPV 11.6 H Immature Gran % 0.5 Neutrophils % 61.6 Lymphocytes % 23.3 Monocytes % 10.5 Eosinophils % 3.8 Basophils % 0.3 Nucleated RBC % 0.0 Absolute Neutrophils 7.84 H Absolute Lymphocytes 2.97 Absolute Monocytes 1.34 H Absolute Eosinophils 0.48 Absolute Basophils 0.04 Sodium 132 L Potassium 4.3 Chloride 97 L Carbon Dioxide 27.2 Anion Gap 7.8 BUN 27 H Creatinine 1.7 H Est GFR (CKD-EPI 2020) 29.21 Glucose 191 H Calcium 8.8 Magnesium 1.8 Procalcitonin 0.7 Urine Color Urine Clarity Urine pH Ur Specific [place] Urine Protein Urine Ketones Urine Blood Urine Nitrite Urine Bilirubin Urine Urobilinogen Ur Leukocyte Esterase Urine RBC Urine WBC Ur Epithelial Cells Urine Crystals Urine Bacteria Urine Casts Urine Mucus Ur Culture Indicated? Urine Glucose 08/13/23 09:40 WBC RBC Hgb Hct MCV MCH MCHC RDW Plt Count MPV Immature Gran % Neutrophils % Lymphocytes % Monocytes % Eosinophils % Basophils % Nucleated RBC % Absolute Neutrophils Absolute Lymphocytes Absolute Monocytes Absolute Eosinophils Absolute Basophils Sodium Potassium Chloride Carbon Dioxide Anion Gap BUN Creatinine Est GFR (CKD-EPI 2020) Glucose Calcium Magnesium Procalcitonin Urine Color Yellow Urine Clarity Clear Urine pH 5.5 Ur Specific [place] 1.015 Urine Protein 30 H Urine Ketones Negative Urine Blood Trace-lysed H Urine Nitrite Negative Urine Bilirubin Negative Urine Urobilinogen 0.2 Ur Leukocyte Esterase Trace H Urine RBC 3-5 H Urine WBC 3-5 Ur Epithelial Cells Many Urine Crystals Negative Urine Bacteria Few Urine Casts 0-2 Coarse Granular Urine Mucus Trace Ur Culture Indicated? No/Sq. Contamination Urine Glucose Negative Time Spent with Patient Time Spent with Patient: 25-34 minutes Time was spent: preparing to see the patient(eg.review tests), obtaining and/or reviewing separately otained hiistory, ordering medications,tests, procedures, indepentently interpreting results and counseling the patient
--- NOTE | 2023-08-13 16:14 | PT.INTREAT ---
PT Notes Visit Reasons: Left Hip Fracture Inpatient Physical Therapy Treatment Note [facility] Date: 08/13/23 PRECAUTIONS: left posterior hip precautions, fall, standard SUBJECTIVE: Geno denies pain. She's agreeable to walking. Asks about what she's allowed to do with her leg. OBJECTIVE: ? PAIN: denies VITALS: ? Pre-Treatment: SaO2 92% on room air, lying supine. ? Post-Treatment: SaO2 remains in 90s throughout session. She rests at 96% when sitting up in chair at end of session. ? Therapeutic Activities ([id number]): Direct one-on-one instruction in dynamic activities to improve functional performance. ? BED MOBILITY/TRANSFERS? Supine-sit: mod A x 1, max cues, HOB at 30*? Sit-stand: CGA? Stand-sit: CGA, with max cues for equipment management and technique? Bed-Chair: CGA with FWW ? Chair-bed: CGA with FWW Provided skilled cues and instruction on performance and technique throughout. Requires reassurance and reminders of hip precautions throughout. Expresses anxiety about any movement of the LLE, and requires max cues for bed mobility and advancement of the leg during ambulation. Prior to transfer, completed standing weight shifts to improve confidence with weight bearing. Patient tolerates well and reports the leg feels pretty good. Assisted with toileting, with max A for self care. ? GAIT? Assistive Device: FWW? Weight bearing: WBAT Assist: CGA ? Distance:? 10' x 2? Deviation: cues for advancement of LLE ? STAIRS:unable ? Therapeutic Exercises ([id number]): Direct one-on-one instruction in therapeutic exercises to develop strength, endurance, range of motion and flexibility. ? Exercises : -heel slides, 75% assist and encouragement throughout , 10x -hip AB in supine, 75% assist, 10x -ankle pumps 10x -quad sets, max cues and tactile feedback, 10x -glute sets, max cues, 10x -LAQ, limited range, 10x ASSESSMENT:? Very anxious about hip precautions. Requires encouragement throughout session regarding safety of activity and importance of moving within safe ranges. With reassurance, tolerates treatment well. PLAN: Continue progressing as tolerated. TREATMENT CODE/TIME: [id number] ([id number], [id number]) Cate Friend, PT, DPT [facility]
[2023-08-13] MEDS: Simvastatin 20 MG TAB PO (20:07)
[2023-08-13] MEDS: Mirtazapine 15 MG TAB 7.5 MG PO (20:13)
[2023-08-14] MEDS: MORPHine 2 MG/ML SYR IVP (04:26)
[2023-08-14] MEDS: Levothyroxine 25 MCG TAB 37.5 MCG PO (06:50)
[2023-08-14] MEDS: traMADol 50 MG TAB PO (06:50)
[2023-08-14 07:30] VITALS: BP 116/69; PULSE 95; RESP 18; TEMP 37.7; O2SAT 94
[2023-08-14 07:53] VITALS: BP 116/69
[2023-08-14] MEDS: Budesonide/Formoterol 160/4.5 6 GM 60 PUFF INH IH (07:53)
[2023-08-14 08:01] LABS: Abs Immature Grans 0.02 10^3/uL (0.0-0.06); Absolute Basophil Count 0.05 10^3/uL (0.0-0.2); Absolute Eosinophil Count 0.37 10^3/uL (0.0-0.7); Absolute Monocyte Count 1.14 10^3/uL (0.1-0.8); Absolute Neutrophil Count 4.88 10^3/uL (1.2-6.7); Basophils % 0.5; HCT 29.7 % (36.0-46.0); HGB 9.8 g/dL (11.2-15.7); Immature Grans % 0.2; Lymphocytes % 30.2; MCH 32.8 pg (27.0-33.0); MCV 99 fL (80-95); MPV 11.7 fL (8.0-11.0); Monocytes % 12.3; Neutrophils % 52.8; Platelet Count 149 10^3/uL (130-400); RBC 2.99 10^6/uL (3.93-5.22); RDW 12.3 % (11.7-14.6); WBC 9.26 10^3/uL (4.4-10.8)
[2023-08-14 08:13] LABS: Anion Gap 9.1 mmol/L (3-11); BUN 29 mg/dL (7-18); CO2 26.9 mmol/L (21.0-32.0); CREATININE 1.6 mg/dL (0.55-1.02); Calcium 8.7 mg/dL (8.5-10.1); Chloride 98 mmol/L (98-107); Estimated GFR 31.41 (mL/min/1.73m2); Glucose 130 mg/dL (74-106); Magnesium 1.9 mg/dL (1.8-2.4); Sodium 134 mmol/L (136-145)
[2023-08-14] MEDS: Docusate Sodium 100 MG CAP PO (08:46)
[2023-08-14] MEDS: Glimepiride 2 MG TAB 4 MG PO (08:47)
[2023-08-14] MEDS: Heparin 5,000 UNITS/ML VIAL 5000 UNITS SC (08:48)
[2023-08-14 11:30] VITALS: BP 144/64; PULSE 90; RESP 20; TEMP 36.9; O2SAT 96
[2023-08-14] MEDS: Insulin Aspart 300 UNITS/3 ML PEN SC (11:48)
[2023-08-14 12:04] LABS: Lab Add On Test DONE
--- NOTE | 2023-08-14 12:26 | W.PM.DS.N ---
Date of service: 08/14/23 Time of Service: 12:27 DS: Diagnosis Discharge Diagnosis (1) Elevated procalcitonin: Status: Acute (2) Left displaced femoral neck fracture: Status: Acute (3) Hypothyroidism: Status: Chronic (4) Restrictive lung disease: Status: Acute (5) Insulin dependent type 2 diabetes mellitus: Status: Acute (6) Discharge planning issues: Status: Acute Discharge Plan Disposition Patient Disposition: [facility] Facility(SNF) Condition: Improving Discharge Details Reason For Visit: Left Hip Fracture Admit Date/Time: 08/10/23 11:13 Admit Provider: Drew Cain Attending Provider: Drew Cain Primary Care Provider: Dejuan Carlisle Hospital Course Hospital Course: This is an 87-year-old female patient with past medical history of diabetes, COPD who lives by herself, an on 08/09/2023 fell, loosing her balance, she was not using her cane, and fractured her left hip. Patient is a full code. Patient was brought to the OR by orthopedics and her hip was repaired. She has been released by orthopedics for rehab. She should follow up with them in 3 weeks. They will arrange that appointment. She should take aspirin 81 mg twice a day for 30 days. She should have follow up regarding her diabetes and COPD with her PCP. She should continue to have frequent glucose monitoring and medications adjusted accordingly. She is discharged stable to [facility]. Patient agrees with this plan. Recommend CBC and BMP in 3 days. Home Meds and New Rx's Prescriptions: New tramadol 50 mg Tablet 50 mg PO Q6H PRN PRNQty: 0 0RF aspirin 81 mg tablet,delayed release (DR/EC) 81 mg PO BID Qty: 60 0RF Continued Januvia 50 mg tablet 50 mg PO DAILY Qty: 30 11RF Rx Instructions: Dose adjusted for kidney function simvastatin 20 mg tablet 20 mg PO HS Qty: 90 3RF magnesium oxide 400 mg magnesium capsule 400 mg PO DAILY Qty: 30 11RF Rx Instructions: Administer at least 2 hours apart from other medications glimepiride 4 mg tablet 4 mg PO DAILY Qty: 30 11RF fluoxetine 20 mg capsule 20 mg PO DAILY Qty: 90 3RF ferrous sulfate 325 mg (65 mg iron) tablet 325 mg PO BID Qty: 180 3RF famotidine 20 mg tablet 10 mg PO DAILY Qty: 45 4RF budesonide-formoterol [Symbicort] 160-4.5 mcg/actuation HFA aerosol inhaler 2 puff Inhalation BID Qty: 3 3RF calcium phosphate-vitamin D3 250 mg-12.5 mcg (500 unit) tablet,chewable 2 tab PO DAILY Qty: 180 3RF clotrimazole 1 % cream 1 applic topical BID Qty: 45 0RF Rx Instructions: Apply to affected areas twice a dayfor 2-4wks mirtazapine 7.5 mg tablet 7.5 mg PO QHS Qty: 90 4RF (DME) lancets Misc See Dose Instructions .ROUTE .MEDSUPPLY Qty: 200 3RF Dose Instruction: As directed to check daily morning fasting blood glucose Rx Instructions: As directed to check twice daily blood glucose. No insulin. Dispense covered brand. polyethylene glycol 3350 17 gram/dose powder 17 g PO DAILY PRN (Reason: constipation) Qty: 238 0RF multivitamin [Daily Multi-Vitamin] 1 EACH tablet 1 ea PO DAILY albuterol sulfate [ProAir HFA] 90 mcg/actuation HFA aerosol inhaler 1 - 2 puff Inhalation .Q4-6H PRN (Reason: shortness of breath or wheezing) Qty: 1 3RF Rx Instructions: DISPENSE ALBUTEROL INHALER BRAND C[place]ED [place]UR[place] [place] Blood Glucose Test Strip See Dose Instructions .ROUTE .MEDSUPPLY Qty: 100 3RF Dose Instruction: As directed to check daily morning fasting blood glucose. No insulin. Rx Instructions: As directed to check once daily blood glucose. No insulin. Dispense covered brand. [place] [place] blood-glucose meter [OneTouch Ultra2 Meter] Kit See Rx Instructions .ROUTE .MEDSUPPLY Qty: 1 2RF Rx Instructions: Check blood sugar once a day famotidine 40 mg tablet 40 mg PO DAILY Qty: 30 11RF cyanocobalamin (vitamin B-12) 1,000 mcg tablet 1,000 mcg PO DAILY Qty: 90 3RF hydrochlorothiazide 12.5 mg tablet 12.5 mg PO DAILY Qty: 90 3RF ondansetron 4 mg tablet,disintegrating 4 mg PO Q8H PRN (Reason: nausea and vomiting) Qty: 30 0RF Ozempic 2 mg/dose (8 mg/3 mL) pen injector 2 mg subcut QWEEK Qty: 3 12RF levothyroxine 25 mcg tablet 25 mcg PO DAILY Qty: 90 0RF Rx Instructions: Administer in the morning on an empty stomach, at least 30-60 minutes before food Discharge Instructions Stand Alone Forms: Nursing Discharge Form Activity:: PT Equipment/Supplies:: Blood Glucose Monitor Diet:: Carb Counting DS: Summary Time Spent with Patient providing and/or coordinating discharge services: Greater than 30 minutes Status at Discharge Functional status at discharge: uses cane/walker Overall status at discharge: patient is progressing back to baseline Mental Status: mental status grossly normal Speech and Movement: speech and movement normal Mood: congruent mood Affect: normal affect Exam Const General: cooperative, comfortable and no acute distress Nutritional Appearance: thin Orientation: alert, awake and oriented x3 HENMT Head: normal to inspection and hematoma left occipital Face and sinus: normal facial exam Eyes General: appearance normal, both eyes and all related structures Neck Neck: normal visual inspection, full ROM and no JVD Chest Chest: normal inspection of the chest Resp Effort & Inspection: normal respiratory effort Auscultation: diminished lung sounds (bases) bilaterally Cardio Rate: regular rate Rhythm: regular rhythm GI Inspection: normal to inspection Palpation: soft Skin Lesions: lesion noted (left elbow, mepilex intact) and other (surgical dressing CDI) Rashes: no rashes Neuro General: patient alert, patient awake, patient oriented x3 and no focal motor deficits Cognition: normal cognition Speech: speech normal Extrem General: normal to inspection, full ROM, no pedal edema and no calf tenderness Psych Mental Status: mental status grossly normal Speech and Movement: speech and movement normal Mood: congruent mood Affect: normal affect DS: Data Vitals/I&O Vitals and I&O: Vital Signs Temperature 37.7 C H 08/14/23 07:30 Temperature Source Tympanic 08/14/23 07:30 Pulse 95 H 08/14/23 07:30 Pulse Rhythm Regular 08/14/23 08:30 Respiratory Rate 18 08/14/23 07:30 Respiratory Effort Normal, Non-Labored 08/14/23 08:30 Respiratory Depth Normal 08/14/23 08:30 Respiratory Pattern Normal 08/14/23 08:30 Blood Pressure 116/69 08/14/23 07:53 Blood Pressure Mean 98 08/09/23 19:31 Pulse Oximetry 94 08/14/23 07:30 Respiratory End-tidal CO2 32 08/10/23 18:03 Oxygen Delivery Method Room Air 08/14/23 07:30 Oxygen Flow Rate 0 08/14/23 07:30 Pain Level 9 08/14/23 07:30 Comment RN informed of temp 08/12/23 07:22 Intake & Output 08/13/23 08/14/23 08/14/23 23:59 11:59 23:59 Intake Total 573.75 / 1303.75 Output Total 400 / 700 150 / 150 Balance 173.75 / 603.75 -150 / -150 Intake: IV 323.75 / 323.75 Oral 250 / 980 Output: Urine 400 / 700 150 / 150 Other: Urine Color Yellow Pale Urine Appearance Clear Clear Urine Odor Normal None Comment physical therapy assisted the pt. to the bathroom. Voiding Methods Bedside Commode Bedside Commode Data Completed and Pending Labs on day of discharge: Labs from last 24 hours 08/14/23 08/14/23 08/14/23 07:40 07:40 07:40 WBC 9.26 RBC 2.99 L Hgb 9.8 L Hct 29.7 L MCV 99 H MCH 32.8 MCHC 33.0 RDW 12.3 Plt Count 149 MPV 11.7 H Immature Gran % 0.2 Neutrophils % 52.8 Lymphocytes % 30.2 Monocytes % 12.3 Eosinophils % 4.0 Basophils % 0.5 Nucleated RBC % 0.0 Absolute Neutrophils 4.88 Absolute Lymphocytes 2.80 Absolute Monocytes 1.14 H Absolute Eosinophils 0.37 Absolute Basophils 0.05 Sodium Potassium Chloride Carbon Dioxide Anion Gap BUN Creatinine Est GFR (CKD-EPI 2020) Glucose Calcium Magnesium Procalcitonin Pending Add-On Test Request DONE 08/14/23 07:40 WBC RBC Hgb Hct MCV MCH MCHC RDW Plt Count MPV Immature Gran % Neutrophils % Lymphocytes % Monocytes % Eosinophils % Basophils % Nucleated RBC % Absolute Neutrophils Absolute Lymphocytes Absolute Monocytes Absolute Eosinophils Absolute Basophils Sodium 134 L Potassium 4.0 Chloride 98 Carbon Dioxide 26.9 Anion Gap 9.1 BUN 29 H Creatinine 1.6 H Est GFR (CKD-EPI 2020) 31.41 Glucose 130 H Calcium 8.7 Magnesium 1.9 Procalcitonin Add-On Test Request 08/13/23 11:15 Blood Blood Culture - Pending 08/13/23 11:00 Blood Blood Culture - Pending Preliminary micro results at discharge 08/13/23 11:15 Blood Culture - Pending Blood 08/13/23 11:00 Blood Culture - Pending Blood [facility] All Active Problems (Updated 08/13/23 @ 15:07 by Sofi Johnson NP) Discharge planning issues (Acute) Elevated procalcitonin (Acute) Insulin dependent type 2 diabetes mellitus (Acute) Restrictive lung disease (Acute) Left displaced femoral neck fracture (Acute 08/09/23) Anxiety (Chronic 11/21/11) Diabetic neuropathy, type II diabetes mellitus (Chronic 08/12/14) Gastroesophageal reflux disease (Chronic 11/21/11) Heart murmur (Chronic 08/24/17) 09/12/2017 echo: no significant valvular disease Hyperlipidemia (Chronic 11/21/11) Hypomagnesemia (Chronic 03/14/18) Osteoporosis (Chronic 07/12/16) DEXA 07/11/16 Hip T-3.2, Spine T-1.5, forearm T-3.5 Other diseases of lung, not elsewhere classified (Chronic 11/21/11) rt 4mm ct stable 08/17; restrictive lung disease, neuromuscular weakness etiol? Dr Patel follows PFTs 08/2013 restrictive 47% NM weakness + response BD Other disorders of Eustachian tube (Chronic 09/07/14) Unspecified essential hypertension (Chronic 01/31/13) Hyperkalemia with NATALIIA-I --> AVOID Type 2 diabetes mellitus with diabetic neuropathy, without long-term current use of insulin (Chronic) Macrocytic anemia (Chronic) Borderline low B12 level, normal Epo (suggesting due to CKD as well); 06/16/2019 [facility] Hematology consult: multifactorial & recommended iron supplement CKD (chronic kidney disease) (Chronic) Hypothyroidism (Chronic) Cognitive complaints (Chronic) 09/22/2021 MOCA: = NORMAL; monitor Microalbuminuria due to type 2 diabetes mellitus (Acute) Breast mass, left (Acute) Onychomycosis (Acute) Tinea pedis (Acute) Decreased hearing (Acute) Frequent falls (Acute) Medical History Cerebral meningioma (01/31/13) 2004 Craniotomy, resection of frontal mennigioma [facility] Closed nondisplaced comminuted fracture of shaft of left humerus (05/26/16) Neoplasm of skin (08/26/14) Pneumonia Restrictive lung disease Sepsis Shingles Vomiting and diarrhea Surgical History irrigation and debridement (10/05/15) R wrist Dr Lafleur Splenomegaly Family History Mother , 76 Personal history of malignant neoplasm breast and ovarian CA Breast cancer Ovarian cancer Father , 83 Myocardial infarction Heart disease Sister , 55 Lymphoma Ovarian cancer Brother , 63 Heart disease Son No problems noted. Son Heart disease Daughter No problems noted. Social History Smoking/Tobacco Use Status: Never Second Hand Exposure: Yes Smoking risk assessment performed?: Yes Alcohol Intake: never Drug use: Never Substance use type: does not use Caregiver/Support person: Yes Household members: none Housing: apartment Number of Children: 3 number of grandchildren: 5 Do you need help understanding health information?: Never Pets and animals: No Sexually active: No Do you think of yourself as: straight/heterosexual Current gender identity: female What is your relationship status?: How often do you talk on the phone with friends or family?: three or more times per week How often do you get together with friends or relatives?: three or more times per week How often do you attend uatsdin or yarsani services?: 1-3 times per year Do you belong to any clubs or organized social groups?: no Panel score (0-1 are the most socially isolated patients): 1 What type of physical activity do you participate in: none Frequency: does not exercise Stacey/Episcopal: Bahai Special stacey needs: Yes Seatbelt use: always Drive intox or ride w/intox straight truck driver: No Do you feel safe at home: Yes Do you feel safe in your relationship?: Yes Time Spent with Patient Time Spent with Patient: 45-69 minutes Time was spent: preparing to see the patient(eg.review tests), ordering medications,tests, procedures, referring, communicating with other health congregational care pastor, indepentently interpreting results, counseling the patient and care coordination
[2023-08-14 12:40] LABS: Procalcitonin 0.4 ng/mL
--- NOTE | 2023-08-14 12:42 | W.PM.PROGNOT ---
Date of Service Date of service: 08/14/23 Time of Service: 12:42 Assessment and Plan Assessment and plan (1) Left displaced femoral neck fracture: Status: Acute Assessment and plan: 87-year-old female postop day #4 status post Left hip posterior hemiarthroplasty Chart reviewed, continues to do well postop, continue to encourage increasing mobilization, OOB, progress with PT; No source of fever identified, no fever over the past 24 hours. WBC has returned to normal limits. Unlikely surgical site infection given low grade fevers both immediately pre- and post-op. Patient appears well, resting comfortably, eating lunch without difficulty. Dressing was intact over the left hip surgical incision, there is no surrounding erythema, tenderness, obvious signs of infection. Patient was able to demonstrate gentle flexion, internal and external rotation of the hip without significant discomfort. Bilateral calves were soft, nontender, no evidence of DVT. Pain control-Multimodal Physical therapy: Weightbearing as tolerated with assist device. Posterior hip precautions for 6 weeks: Avoid deep hip flexion (past 90 degrees) combined with any internal rotation and adduction. Appropriate chemical DVT prophylaxis was started: Heparin Original recommendations were, probably best to start with renally dosed Lovenox while inpatient and transition to aspirin 81 mg twice daily on discharge or when mobile for total of 30 days treatment Continue mechanical DVT prophylaxis with SCDs and/or BASILIO elizabeth I was able to confirm with care management that the patient will be transferred to [facility] and rehab at approximately 1400 today Follow-up with Dr. Ryan outpatient [facility] in 2 to 3 weeks- ortho office will arrange this appointment Objective Last Vital Signs Temp 37.7 C H 08/14/23 07:30 Pulse 95 H 08/14/23 07:30 Resp 18 08/14/23 07:30 BP 116/69 08/14/23 07:53 Pulse Ox 94 08/14/23 07:30 Laboratory Results - last 24 hr 08/14/23 08/14/23 08/14/23 07:40 07:40 07:40 WBC 9.26 RBC 2.99 L Hgb 9.8 L Hct 29.7 L MCV 99 H MCH 32.8 MCHC 33.0 RDW 12.3 Plt Count 149 MPV 11.7 H Immature Gran % 0.2 Neutrophils % 52.8 Lymphocytes % 30.2 Monocytes % 12.3 Eosinophils % 4.0 Basophils % 0.5 Nucleated RBC % 0.0 Absolute Neutrophils 4.88 Absolute Lymphocytes 2.80 Absolute Monocytes 1.14 H Absolute Eosinophils 0.37 Absolute Basophils 0.05 Sodium 134 L Potassium 4.0 Chloride 98 Carbon Dioxide 26.9 Anion Gap 9.1 BUN 29 H Creatinine 1.6 H Est GFR (CKD-EPI 2020) 31.41 Glucose 130 H Calcium 8.7 Magnesium 1.9 Procalcitonin Add-On Test Request DONE 08/14/23 07:40 WBC RBC Hgb Hct MCV MCH MCHC RDW Plt Count MPV Immature Gran % Neutrophils % Lymphocytes % Monocytes % Eosinophils % Basophils % Nucleated RBC % Absolute Neutrophils Absolute Lymphocytes Absolute Monocytes Absolute Eosinophils Absolute Basophils Sodium Potassium Chloride Carbon Dioxide Anion Gap BUN Creatinine Est GFR (CKD-EPI 2020) Glucose Calcium Magnesium Procalcitonin 0.4 Add-On Test Request Time Spent with Patient Time Spent with Patient: <25 minutes Time was spent: preparing to see the patient(eg.review tests), obtaining and/or reviewing separately otained hiistory, referring, communicating with other health insurance healthcare consultant, indepentently interpreting results and counseling the patient
--- NOTE | 2023-08-14 13:46 | PT.INTREAT ---
Date of service: 08/14/23 Time of Service: 08:57 PT Notes Visit Reasons: Left Hip Fracture Inpatient Physical Therapy Treatment Note [facility] Date: 08/14/23 PRECAUTIONS: Fall, standard, activity as tolerated SUBJECTIVE: patient reports feeling better OBJECTIVE: patient sitting up in recliner with feet elevated, blanket on. Morning session, patient has not quite finished breakfast but needs to use the toilet, agreeable to walk with therapist on the condition that her cream of wheat gets re-heated. Afternoon session, agreeable to therapy. ? PAIN: none reported initially, then patient attempts to stand and repeatedly comments on how stiff she feels. VITALS: monitored by nursing staff ? Therapeutic Activities ([id number]): Direct one-on-one instruction in dynamic activities to improve functional performance. ? BED MOBILITY/TRANSFERS? Rolling L/R: not assessed Supine-sit: not assessed ? Sit-supine: not assessed ? Sit-stand: CGA. Takes additional time. ? Stand-sit: Min assist, verbal cues for hand placement and pacing. ? Bed-Chair: CGA? Chair-bed: CGA Provided skilled cues and instruction on performance and technique throughout. ? Therapeutic Exercises ([id number]): Direct one-on-one instruction in therapeutic exercises to develop strength, endurance, range of motion and flexibility. ?Ambulation ? Assistive Device: FWW ? Weight bearing: full Assist: CGA with wheelchair follow ? Distance:? 100 feet with 2 seated rests. ? Deviation: Kyphotic posture, reduced step length, antalgic gait pattern, tends to be fearful of bending knee and hip on surgical side.? Provided skilled instruction in proper exercise performance Provided skilled manual cues to facilitate proper muscle recruitment and/or form. ASSESSMENT:? Patient tolerates therapy well, no complaint of increased pain after ambulation, no dyspnea reported or observed. Returned to rest comfortably in recliner at end of both therapy sessions. PLAN: Continue global strengthening per plan of care until patient is medically cleared for discharge and achieves safe discharge plan. TREATMENT CODE/TIME: 12 minutes beginning at 8:57 and 30 minutes beginning at 13:00 for a total of 42 minutes for the day.
--- NOTE | 2023-08-14 14:20 | CHAPLAIN ---
Geno was up in the chair when I visited this morning. She said she had a rough start to the day after having difficulty getting out of bed and having pain. She said she is better now. She told me about family members' plans to travel to [place] to visit more family and attend a rodeo. Geno asked for help looking through her clothes for a bank card that she needs for her daughter to have access to her bank account to pay some of Geno's bills. I gave her a jacket and pair of pants that were in her back, to check for the bank cars. Geno is in touch with her daughter and expects that she'll be sent to [facility] soon. I will continue to visit.
--- NOTE | 2023-08-14 17:03 | PDOC.CMDIS ---
Date of service: 08/14/23 Time of Service: 17:03 LACE Index Scoring Tool Questions: Length of Stay (in days): 4 - 6 Was the patient admitted via the E.D.?: Yes Comorbidities: Diabetes w/o Complication and Liver or Renal Disease E.D. Visits: 1 Answers: Total Score: 13 Risk of Readmission: High Risk Care Management Discharge Plan Reason for Hospitalization: Left Hip Fracture Discharge Plan: Geno transferred to [facility] today for short term rehab prior to her returning home. She was transported via facility w/c van, coordinated by KESH[facility]. CM contacted her daughter with Geno present, to update her on the plan for Geno to discharge to rehab today. She will follow up with her PCP and discharge plan of care. She is happy to be going to rehab.
--- NOTE | 2023-08-15 13:29 | INDS_ITS ---
PT Notes Visit Reasons: Left Hip Fracture Physical Therapy Inpatient Discharge Summary Dates of Service: 08/11/23 - 08/14/23 Date: 08/15/23 Referring Doctor: Edgardo Ryan MD PT Orders: PT CONSULT: s/p ortho surgery Precautions: Fall. Standard. WBAT. Posterior hip precautions. This document serves as a summary of care. No PT services were provided on this date. Patient Profile/Admitting Diagnosis: Geno is an 87 yo female that presented to the ER on 08/09/23 after a mechanical fall landing on left hip that resulted in femoral neck fracture. She reported turning quickly while holding laundry and lost her balance. She underwent left posterior hip hemiarthroplasty on 08/10/23. Patient participated in PT intervention over the course of 4 days. She demonstrated continued limitations in functional mobility, and requires continued rehabilitation in SNF setting. PMHX: See EMR Social History/Home Situation: Lives alone in ground level apartment, uses cane. Daughter calls or takes her grocery shopping. Patient does not drive. Equipment Owned/DME: Cane Subjective: none obtained Objective: ROM: Right Upper Extremity: Shoulder Flexion WFL. Shoulder abduction WFL. Elbow flexion WFL. Wrist flexion WFL. Opening and closing of hand WFL. Left Upper Extremity: Shoulder Flexion WFL. Shoulder abduction WFL. Elbow flexion WFL. Wrist flexion WFL. Opening and closing of hand WFL. Right Lower Extremity: Hip flexion WFL. Hip abduction WFL. Knee flexion WFL. Ankle dorsiflexion WFL. Ankle plantarflexion WFL. Left Lower Extremity: Hip flexion WFL. Hip abduction WFL. Knee flexion WFL. Ankle dorsiflexion WFL. Ankle plantarflexion WFL. Strength: Right Upper Extremity: Shoulder flexors 4/5. Shoulder abductors 4/5. Elbow flexors 5/5. Elbow extensors 5/5. Marketing Communications Specialist strong. Left Upper Extremity: Shoulder flexors 4/5. Shoulder abductors 4/5. Elbow flexors 5/5. Elbow extensors 5/5. Marketing Communications Specialist strong. Right Lower Extremity: Hip flexors 4+/5. Knee flexors 5/5. Knee extensors 5/5. Ankle dorsiflexors 5/5. Ankle plantarflexors 5/5. Left Lower Extremity: Hip flexors 3/5. Knee flexors 3/5. Knee extensors 3/5. Ankle dorsiflexors 3/5. Ankle plantarflexors 3/5. Sensation: Decreased sensation left LE secondary to nerve block BED MOBILITY/TRANSFERS? Supine-sit: mod A x 1, max cues, HOB at 30*?Stand-sit: CGA, with max cues for equipment management and technique?Sit-stand: CGA. Takes additional time.?Bed-Chair: CGA?Chair-bed: CGA ?Ambulation ?Assistive Device: FWW ?Weight bearing: full ?Assist: CGA with wheelchair follow ?Distance:? 100 feet with 2 seated rests.?Deviation: Kyphotic posture, reduced step length, antalgic gait pattern, tends to be fearful of bending knee and hip on surgical side.? Balance: Static Sitting: Fair Dynamic Sitting: Fair Static Standing: Fair Dynamic Standing: Fair Assessment: Geno is s/p left posterior hip hemiarthoplasty after a left femoral neck fracture from mechanical fall on 08/09/23. She participated in PT intervention over the course of 4 days, with slow gains in mobility. She demonstrated continued limitations in functional mobility, and requires continued rehabilitation in SNF setting. Goals: Goals x1 week 1. Supine-Sit: independent (NOT MET) 2. Sit-Supine: independent(NOT MET) 3. Sit-Stand: independent (Progressing Toward) 4. Stand-Sit: independent (Progressing Toward) 5. Bed-Chair: independent (Progressing Toward) 6. Chair-Bed: independent (Progressing Toward) 7. Independent gait on level surface with use of least restrictive device for at least 100 feet without report of pain nor dyspnea (Progressing Toward) 8. Good static and dynamic standing balance/tolerance (Progressing Toward) 9. Independent with home exercise program (NOT MET) Plan of Care/Treatment Plan: D/C from PT in acute care setting Discharge Plan DISCHARGE RECOMMENDATIONS: SNF for continued rehabilitation TREATMENT CODE/TIME: None Thank you for the opportunity to participate in the care of this patient. Cate Friend, PT, DPT [facility] [place], [place]
== END 2023-08-14 14:27 | disposition skilled nursing facility (03) | DRG 522 ==
LOC: ER 19:34 → MS 20:15
PROVIDERS: Family Medicine; Internal Medicine; Student in an Organized Health Care Education/Training Program; Admitting Provider Family Medicine; Emergency Provider Physician Assistant; PCP Nurse Practitioner Family; Visit Provider Family Medicine
PROC: 0SRS0JA Replacement of Left Hip Joint, Femoral Surface with Synthetic Substitute, Uncemented, Open Approach (ICD-10-PCS; CPT 27125; principal; 2023-08-10 14:00)
DX: S72.012A Unspecified intracapsular fracture of left femur, initial encounter for closed fracture (principal); E11.40 Type 2 diabetes mellitus with diabetic neuropathy, unspecified; J44.9 Chronic obstructive pulmonary disease, unspecified; J98.4 Other disorders of lung; E03.9 Hypothyroidism, unspecified; Z79.4 Long term (current) use of insulin; R79.89 Other specified abnormal findings of blood chemistry; W01.0XXA Fall on same level from slipping, tripping and stumbling without subsequent striking against object, initial encounter; F41.9 Anxiety disorder, unspecified; K21.9 Gastro-esophageal reflux disease without esophagitis; R01.1 Cardiac murmur, unspecified; E78.5 Hyperlipidemia, unspecified; E83.42 Hypomagnesemia; M81.0 Age-related osteoporosis without current pathological fracture; D53.9 Nutritional anemia, unspecified; E11.22 Type 2 diabetes mellitus with diabetic chronic kidney disease; R29.6 Repeated falls
CPT/HCPCS: 27236; 36410; 36415; 73552; 76604; 80048; 80053; 84145; 85027; 87040; 87635; 93005; 94640; 96365; 96375; 96376; 97110; 97116; 97162; 97530; 99223; 99285; 71045; 71046; 73502; 81003; 81015; 83735; 83880; 85025; 93010; 94664; 99222; 99232; 99233; 99239; G0378; J0131; J0690; J1100; J1644; J1650; J2001; J2250; J2270; J2371; J2405

== ENCOUNTER 2023-09-03 17:02 | Emergency (ER) | payer OTHER, SELFPAY ==
[2023-09-03] VITALS (16 sets, daily range): BP systolic 149–200; BP diastolic 39–91; PULSE 75–98; RESP 16–18; TEMP 37.7; O2SAT 94–99
--- NOTE | 2023-09-03 17:15 | DI.RAD_ITS ---
Exam(s) XR HIP RT COMPLETE AP PELVIS EXAM: XR HIP RT COMPLETE AP PELVIS CLINICAL HISTORY: trauma. TECHNIQUE: 2D digital imaging was performed. Two views COMPARISON: CR XR HIP LT COMPLETE AP PELVIS from 08/09/2023 FINDINGS: BONES: No acute fracture is present. No bony destructive lesion is seen. JOINTS: No dislocation present. Left hip prosthesis is unremarkable. SOFT TISSUE: Vascular calcifications. IMPRESSION: No acute abnormality. DATA REPOSITORY: RADIATION DOSE DELIVERED:
--- NOTE | 2023-09-03 17:15 | DI.RAD_ITS ---
Exam(s) XR FOREARM RT EXAM: XR FOREARM RT CLINICAL HISTORY: trauma. TECHNIQUE: 2D digital imaging was performed. Two views. COMPARISON: CR XR HUMERUS RT from 09/03/2023 FINDINGS: BONES: No acute fracture is present. No bony destructive lesion is seen. Joints: Elbow joint unremarkable. Degenerative changes noted at wrist. SOFT TISSUE: Vascular calcifications. IMPRESSION: No acute abnormality. DATA REPOSITORY: RADIATION DOSE DELIVERED:
--- NOTE | 2023-09-03 17:15 | DI.RAD_ITS ---
Exam(s) XR CHEST 1V IN DI DEPT EXAM: XR CHEST 1V IN DI DEPT CLINICAL HISTORY: trauma TECHNIQUE: 2D digital imaging was performed. COMPARISON: CR XR CHEST 2V PA LATERAL from 08/13/2023 FINDINGS: LUNGS: Fibrotic changes, otherwise clear. No pleural abnormality seen. HEART: Normal size. AORTA: Normal diameter. BONES: No displaced rib fracture visible. Soft tissues: Unremarkable. IMPRESSION: No acute findings. DATA REPOSITORY: RADIATION DOSE DELIVERED:
--- NOTE | 2023-09-03 17:15 | DI.RAD_ITS ---
Exam(s) XR HUMERUS RT EXAM: XR HUMERUS RT CLINICAL HISTORY: trauma. TECHNIQUE: 2D digital imaging was performed. COMPARISON: DX DEXA BONE DENSITY WITH TIMOTEO from 07/11/2016 FINDINGS: Exam limited by overlying material. BONES: No acute fracture is present. No bony destructive lesion is seen. Joints: Visualized portion of elbow and shoulder joints are unremarkable. No AC joint widening or gl enohumeral joint dislocation. Elbow not included on the exam. Degenerative changes glenohumeral mone nt. SOFT TISSUE: Normal. IMPRESSION: Degenerative changes. No acute abnormality. DATA REPOSITORY: RADIATION DOSE DELIVERED:
--- NOTE | 2023-09-03 17:15 | DI.CT_ITS ---
Exam(s) CT HEAD CERVICAL SPINE WO EXAM: CT HEAD CERVICAL SPINE WO CLINICAL HISTORY: trauma. TECHNIQUE: Imaging Protocol: Axial computed tomography images with coronal and sagittal reformatted images were created and reviewed COMPARISON: CT CT HEAD CERVICAL SPINE WO from 07/12/2022 FINDINGS: Head CT Ventricles and Extra axial spaces: Normal in size and morphology for the patient's age. Hemorrhage: None. Cerebral parenchyma: Atrophy. White matter changes of small vessel disease. 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 Midline shift: None. Brainstem/Cerebellum: Normal. Calvarium: Right frontal craniotomy again noted. Visualized Paranasal sinuses/Mastoids: Clear. Soft tissues: Frontal scalp swelling. Cervical Spine CT BONES: Vertebral body heights are maintained. Alignment is normal. There is no evidence of acute frac ture. Degenerative disc changes and facet degenerative changes are seen . SOFT TISSUES: No paraspinal hematoma. The airway appears intact. No pneumothorax is seen at the lung apices. IMPRESSION: Head CT: No acute abnormality. C-spine CT: Degenerative changes, no acute abnormality. RADIATION DOSE DELIVERED: Total DLP DATA REPOSITORY: All CT scans at this facility are submitted to the National Radiology Data Registry (NRDR) Dose Index Registry (DIR) with the [employer] (ACR). RADIATION OPTIMIZATION: All CT scans at this facility use at least one of these dose optimization te chniques: automated exposure control; mA and/or kV adjustment per patient size (includes targeted exa ms where dose is matched to clinical indication); or iterative reconstruction.
--- NOTE | 2023-09-03 17:27 | W.ED.GENAD ---
Discharge Plan Disposition Patient Disposition: Intermediate Facility(SNF) Discharge Details Clinical Impression: Incidental pulmonary nodule, Head injury, Closed right humeral fracture Primary Care Provider: Dejuan Carlisle ED Provider: Cornelio Littlejohn Home Meds and New Rx's Prescriptions: Continued Januvia 50 mg tablet 50 mg PO DAILY Qty: 30 11RF Rx Instructions: Dose adjusted for kidney function simvastatin 20 mg tablet 20 mg PO HS Qty: 90 3RF magnesium oxide 400 mg magnesium capsule 400 mg PO DAILY Qty: 30 11RF Rx Instructions: Administer at least 2 hours apart from other medications glimepiride 4 mg tablet 4 mg PO DAILY Qty: 30 11RF fluoxetine 20 mg capsule 20 mg PO DAILY Qty: 90 3RF ferrous sulfate 325 mg (65 mg iron) tablet 325 mg PO BID Qty: 180 3RF famotidine 20 mg tablet 10 mg PO DAILY Qty: 45 4RF budesonide-formoterol [Symbicort] 160-4.5 mcg/actuation HFA aerosol inhaler 2 puff Inhalation BID Qty: 3 3RF calcium phosphate-vitamin D3 250 mg-12.5 mcg (500 unit) tablet,chewable 2 tab PO DAILY Qty: 180 3RF clotrimazole 1 % cream 1 applic topical BID Qty: 45 0RF Rx Instructions: Apply to affected areas twice a dayfor 2-4wks mirtazapine 7.5 mg tablet 7.5 mg PO QHS Qty: 90 4RF (DME) lancets Misc See Dose Instructions .ROUTE .MEDSUPPLY Qty: 200 3RF Dose Instruction: As directed to check daily morning fasting blood glucose Rx Instructions: As directed to check twice daily blood glucose. No insulin. Dispense covered brand. polyethylene glycol 3350 17 gram/dose powder 17 g PO DAILY PRN (Reason: constipation) Qty: 238 0RF multivitamin [Daily Multi-Vitamin] 1 EACH tablet 1 ea PO DAILY albuterol sulfate [ProAir HFA] 90 mcg/actuation HFA aerosol inhaler 1 - 2 puff Inhalation .Q4-6H PRN (Reason: shortness of breath or wheezing) Qty: 1 3RF Rx Instructions: DISPENSE ALBUTEROL INHALER BRAND COVERED BY INSURANCE (DME) Blood Glucose Test Strip See Dose Instructions .ROUTE .MEDSUPPLY Qty: 100 3RF Dose Instruction: As directed to check daily morning fasting blood glucose. No insulin. Rx Instructions: As directed to check once daily blood glucose. No insulin. Dispense covered brand. (DME) blood-glucose meter [OneTouch Ultra2 Meter] Kit See Rx Instructions .ROUTE .MEDSUPPLY Qty: 1 2RF Rx Instructions: Check blood sugar once a day cyanocobalamin (vitamin B-12) 1,000 mcg tablet 1,000 mcg PO DAILY Qty: 90 3RF hydrochlorothiazide 12.5 mg tablet 12.5 mg PO DAILY Qty: 90 3RF ondansetron 4 mg tablet,disintegrating 4 mg PO Q8H PRN (Reason: nausea and vomiting) Qty: 30 0RF Ozempic 2 mg/dose (8 mg/3 mL) pen injector 2 mg subcut QWEEK Qty: 3 12RF levothyroxine 25 mcg tablet 25 mcg PO DAILY Qty: 90 0RF Rx Instructions: Administer in the morning on an empty stomach, at least 30-60 minutes before food aspirin 81 mg tablet,delayed release (DR/EC) 81 mg PO BID Qty: 60 0RF Discharge Instructions Instructions: Pulmonary Nodules (ED), Proximal Humerus Fracture (ED) Additional Instructions: You were seen in the emergency department after a fall. We performed a CAT scan of your head and neck that were unremarkable. The x-rays of your chest and arm and right hip were unremarkable. You were still having right shoulder pain so we got a CAT scan that shows an acute avulsion fracture of the lesser tuberosity of the right humerus. We placed you in a sling for this. Take Tylenol and ibuprofen per bottle directions for pain. Ice the area for pain additionally. Follow-up with the orthopedics team in the next week for repeat imaging and to discuss treatment options. You were incidentally found to have a pulmonary nodule in the right lung. You should talk to your primary care doctor as you will need a repeat CT scan of your chest in 6 to 12 months to make sure that this is not changing. Please return to the emergency department if you develop worsening pain, loss of function to your arm, or if you have any other concerns. Referrals: [facility] [Provider Group] - 1 week Dejuan Carlisle NP [Primary Care Provider] - 1 week Medical Decision Making 87-year-old female presents after a fall. Gives a good story for mechanical fall. No role for medical work-up for falls at this time. Did hit her head and will get CT head and cervical spine to evaluate for hematoma or fracture. Tenderness to the right upper arm and right forearm and will get plain films to evaluate for fracture. No left hip tenderness. Has right hip tenderness and will get plain films to evaluate for fracture. Will provide some analgesia while awaiting initial imaging and reevaluate. 847pm Plain films were unremarkable. CT head and cervical spine were unremarkable. She was still having significant pain with range of motion of the right shoulder. Obtain CT right upper extremity without contrast. This is showing an acute avulsion fracture of the lesser tuberosity of the right humerus. Will place in a sling and give orthopedic follow-up. Pain is controlled. Incidentally found to have a pulmonary nodule in informed her of this and she will need a repeat CT in 6 to 12 months. Will discharge back to rehab. Medical Records Medical records reviewed: Yes I reviewed the patient's medical records. Imaging Data Radiologic Study: Attestation: I personally reviewed and interpreted this imaging study as follows: Imaging: X-Ray (chest, right hip with pelvis, right humerus, right forearm) Radiologist's impression: unremarkable Radiologic Study #2: Attestation: I personally reviewed and interpreted this imaging study as follows: Imaging: CT Scan (head and cervical spine) Radiologist's impression: Unremarkable Radiologic Study #3: Attestation: I personally reviewed and interpreted this imaging study as follows: Imaging: CT Scan (right upper extremity without contrast) Radiologist's impression: IMPRESSION: Acute avulsion fracture of lesser tuberosity of right humerus. No dislocation. Visualized right lung nodules, largest 8 mm and perifissural. Recommend follow-up CT Chest in 6-12 months. (References: Shamika and Radha) Lab Data Lab results reviewed: Yes I reviewed the patient's lab results. HPI General Mode of arrival: EMS. Date/Time Provider Initiated Documentation: 09/03/23 17:13. Limitations to Documentation: no limitations. Information obtained by: patient and EMS. HPI Narrative: 87-year-old female with history of diabetes, COPD, and recent admission for left hip fracture status postrepair is now presenting after a fall. Patient coming from rehab across the street. Has been feeling well rehabbing from the left hip fracture status post repair. She has been keeping her door closed because multiple people in the facility have COVID. She is not endorsing any preceding symptoms but says her walker tipped over as she was walking to the door and she landed on her right hip and right arm. Endorsing significant pain to the right shoulder. Says she hit her head but did not lose consciousness. Not on any blood thinners. Denying any other injuries. Related Data Home Medications Medication Instructions Recorded Confirmed multivitamin (Daily Multi-Vitamin 1 ea PO DAILY 04/17/18 09/03/23 tablet) albuterol sulfate 90 mcg/actuation 1 - 2 puff inhalation .Q4-6H PRN 05/29/22 09/03/23 aerosol inhaler (ProAir HFA) shortness of breath or wheezing #1 unit blood sugar diagnostic (Blood #100 ea 01/19/23 08/09/23 Glucose Test strips) blood-glucose meter (OneTouch #1 ea 01/19/23 08/09/23 Ultra2 Meter kit) budesonide-formoterol HFA 160 2 puff inhalation BID ##3 02/02/23 09/03/23 mcg-4.5 mcg/actuation aerosol inhaler (Symbicort) calcium phosphate 250 mg-vit D3 2 tab PO DAILY #180 tabs 02/02/23 09/03/23 12.5 mcg (500 unit) chewable tablet famotidine 20 mg tablet 10 mg (1/2 x 20 mg) PO DAILY #45 02/02/23 09/03/23 tabs ferrous sulfate 325 mg (65 mg 325 mg PO BID #180 tabs 02/02/23 09/03/23 iron) tablet fluoxetine 20 mg capsule 20 mg PO DAILY #90 caps 02/02/23 09/03/23 glimepiride 4 mg tablet 4 mg PO DAILY #30 tab-caps 02/02/23 09/03/23 magnesium oxide 400 mg PO DAILY #30 tab-caps 02/02/23 09/03/23 simvastatin 20 mg tablet 20 mg PO HS #90 tab-caps 02/02/23 09/03/23 sitagliptin phosphate 50 mg tablet 50 mg PO DAILY #30 tabs 02/02/23 09/03/23 (Januvia) polyethylene glycol 3350 17 17 g PO DAILY PRN constipation 03/13/23 09/03/23 gram/dose oral powder #238 grams clotrimazole 1 % topical cream 1 applic topical BID #45 grams 04/06/23 09/03/23 cyanocobalamin (vitamin B-12) 1,000 mcg PO DAILY #90 tab-caps 04/20/23 09/03/23 1,000 mcg tablet hydrochlorothiazide 12.5 mg tablet 12.5 mg PO DAILY #90 tabs 04/20/23 09/03/23 ondansetron 4 mg disintegrating 4 mg PO Q8H PRN nausea and 05/18/23 09/03/23 tablet vomiting #30 tabs mirtazapine 7.5 mg tablet 7.5 mg PO QHS #90 tabs 06/06/23 09/03/23 lancets #200 ea 06/11/23 08/09/23 semaglutide 2 mg/dose (8 mg/3 mL) 2 mg (0.75 mL) subcut QWEEK #3 mL 07/04/23 09/03/23 subcutaneous pen injector (Ozempic) levothyroxine 25 mcg tablet 25 mcg PO DAILY #90 tab-caps 08/06/23 09/03/23 aspirin 81 mg tablet,delayed 81 mg PO BID #60 tabs 08/14/23 09/03/23 release Previous Rx's Medication Instructions Recorded albuterol sulfate 90 mcg/actuation 1 - 2 puff inhalation .Q4-6H PRN 05/29/22 aerosol inhaler (ProAir HFA) shortness of breath or wheezing #1 unit blood sugar diagnostic (Blood #100 ea 01/19/23 Glucose Test strips) blood-glucose meter (OneTouch #1 ea 01/19/23 Ultra2 Meter kit) budesonide-formoterol HFA 160 2 puff inhalation BID ##3 02/02/23 mcg-4.5 mcg/actuation aerosol inhaler (Symbicort) calcium phosphate 250 mg-vit D3 2 tab PO DAILY #180 tabs 02/02/23 12.5 mcg (500 unit) chewable tablet famotidine 20 mg tablet 10 mg (1/2 x 20 mg) PO DAILY #45 02/02/23 tabs ferrous sulfate 325 mg (65 mg 325 mg PO BID #180 tabs 02/02/23 iron) tablet fluoxetine 20 mg capsule 20 mg PO DAILY #90 caps 02/02/23 glimepiride 4 mg tablet 4 mg PO DAILY #30 tab-caps 02/02/23 magnesium oxide 400 mg PO DAILY #30 tab-caps 02/02/23 simvastatin 20 mg tablet 20 mg PO HS #90 tab-caps 02/02/23 sitagliptin phosphate 50 mg tablet 50 mg PO DAILY #30 tabs 02/02/23 (Januvia) polyethylene glycol 3350 17 17 g PO DAILY PRN constipation 03/13/23 gram/dose oral powder #238 grams clotrimazole 1 % topical cream 1 applic topical BID #45 grams 04/06/23 cyanocobalamin (vitamin B-12) 1,000 mcg PO DAILY #90 tab-caps 04/20/23 1,000 mcg tablet hydrochlorothiazide 12.5 mg tablet 12.5 mg PO DAILY #90 tabs 04/20/23 ondansetron 4 mg disintegrating 4 mg PO Q8H PRN nausea and 05/18/23 tablet vomiting #30 tabs mirtazapine 7.5 mg tablet 7.5 mg PO QHS #90 tabs 06/06/23 lancets #200 ea 06/11/23 semaglutide 2 mg/dose (8 mg/3 mL) 2 mg (0.75 mL) subcut QWEEK #3 mL 07/04/23 subcutaneous pen injector (Ozempic) levothyroxine 25 mcg tablet 25 mcg PO DAILY #90 tab-caps 08/06/23 aspirin 81 mg tablet,delayed 81 mg PO BID #60 tabs 08/14/23 release Allergies Allergy/AdvReac Type Severity Reaction Status Date / Time azithromycin AdvReac Unknown nausea Verified 09/03/23 17:09 erythromycin base AdvReac Unknown Nausea Verified 09/03/23 17:09 shellfish derived AdvReac Unknown N/V/D Verified 09/03/23 17:09 Tetracyclines AdvReac Unknown Nausea Verified 09/03/23 17:09 NATALIIA Inhibitors AdvReac Other (See Verified 09/03/23 17:09 Comment) General Stated Complaint: Trauma SAM: 3 Review of Systems Constitutional Constitutional: Denies chills, Denies fever(s) and Reports headache(s) Eyes Eyes: Denies change in vision ENT Ears, Nose, Mouth, and Throat: Reports headache(s) and Denies odynophagia Cardiovascular Cardiovascular: Denies chest pain and Denies dyspnea Respiratory Respiratory: Denies dyspnea Gastrointestinal Gastrointestinal: Denies abdominal pain, Denies diarrhea, Denies nausea, Denies odynophagia and Denies vomiting Genitourinary Genitourinary: Denies dysuria Musculoskeletal Comments: Right hip pain, right shoulder pain Integumentary/Breasts Skin/Breast: Denies changing lesions Neurologic Neurologic: Denies behavioral changes and Reports headache(s) Psychiatric Psychiatric: Denies behavioral changes Endocrine Endocrine: Denies heat intolerance Hematologic/Lymphatic Hematologic/Lymphatic: Denies lymphadenopathy PFSH All Active Problems (Updated 09/03/23 @ 20:50 by Cornelio Littlejohn MD) Closed right humeral fracture (Acute) Head injury (Acute) Incidental pulmonary nodule (Acute) Elevated procalcitonin (Acute) Insulin dependent type 2 diabetes mellitus (Acute) Restrictive lung disease (Acute) Left displaced femoral neck fracture (Acute 08/09/23) Anxiety (Chronic 11/21/11) Diabetic neuropathy, type II diabetes mellitus (Chronic 08/12/14) Gastroesophageal reflux disease (Chronic 11/21/11) Heart murmur (Chronic 08/24/17) 09/12/2017 echo: no significant valvular disease Hyperlipidemia (Chronic 11/21/11) Hypomagnesemia (Chronic 03/14/18) Osteoporosis (Chronic 07/12/16) DEXA 07/11/16 Hip T-3.2, Spine T-1.5, forearm T-3.5 Other diseases of lung, not elsewhere classified (Chronic 11/21/11) rt 4mm ct stable 08/17; restrictive lung disease, neuromuscular weakness etiol? Dr Patel follows PFTs 08/2013 restrictive 47% NM weakness + response BD Other disorders of Eustachian tube (Chronic 09/07/14) Unspecified essential hypertension (Chronic 01/31/13) Hyperkalemia with NATALIIA-I --> AVOID Type 2 diabetes mellitus with diabetic neuropathy, without long-term current use of insulin (Chronic) Macrocytic anemia (Chronic) Borderline low B12 level, normal Epo (suggesting due to CKD as well); 06/16/2019 [facility] [place]ematology consult: multifactorial & recommended iron supplement CKD (chronic kidney disease) (Chronic) Hypothyroidism (Chronic) Cognitive complaints (Chronic) 09/22/2021 MOCA: = NORMAL; monitor Microalbuminuria due to type 2 diabetes mellitus (Acute) Breast mass, left (Acute) Onychomycosis (Acute) Tinea pedis (Acute) Decreased hearing (Acute) Frequent falls (Acute) Medical History Vomiting and diarrhea Sepsis Shingles Neoplasm of skin (08/26/14) Closed nondisplaced comminuted fracture of shaft of left humerus (05/26/16) Cerebral meningioma (01/31/13) 2005 Craniotomy, resection of frontal mennigioma [facility] [place] Pneumonia Surgical History irrigation and debridement (10/05/15) R wrist Dr Lafleur Splenomegaly Family History Mother , 76 Personal history of malignant neoplasm breast and ovarian CA Breast cancer Ovarian cancer Father , 83 Myocardial infarction Heart disease Sister , 55 Lymphoma Ovarian cancer Brother , 63 Heart disease Son No problems noted. Son Heart disease Daughter No problems noted. Social History Smoking/Tobacco Use Status: Never Second Hand Exposure: Yes Smoking risk assessment performed?: Yes Alcohol Intake: never Drug use: Never Substance use type: does not use Caregiver/Support person: Yes Household members: none Housing: custodial Number of Children: 3 number of grandchildren: 5 Do you need help understanding health information?: Never Pets and animals: No Sexually active: No Do you think of yourself as: straight/heterosexual Current gender identity: female What is your relationship status?: How often do you talk on the phone with friends or family?: three or more times per week How often do you get together with friends or relatives?: three or more times per week How often do you attend mu-ism or congregation services?: 1-3 times per year Do you belong to any clubs or organized social groups?: no Panel score (0-1 are the most socially isolated patients): 1 What type of physical activity do you participate in: none Frequency: does not exercise Stacey/Adventism: Gnosticist Special stacey needs: Yes Seatbelt use: always Drive intox or ride w/intox garbage collector driver: No Do you feel safe at home: Yes Do you feel safe in your relationship?: Yes Additional Social history: living at the rehab for now while she recovers from left hip replacement. Exam Const General: cooperative Nutritional Appearance: average body habitus Orientation: alert, awake and oriented x3 HENMT Head: normal to inspection Ears: external ears normal Mouth: moist mucous membranes Eyes Pupils: PERRL EOM: EOM intact bilaterally and No nystagmus Neck Neck: full ROM, nontender and no tracheal deviation Chest Chest: normal inspection of the chest Resp Auscultation: clear to auscultation bilaterally Cardio Rate: regular rate Rhythm: regular rhythm GI Inspection: normal to inspection Palpation: soft, no guarding, not rigid and nontender Back/Spine/Pelvis Back: No no CVA tenderness Thoracic/Lumbar Spine: thoracic and lumbar spine normal to inspection, No thoracic spinal tenderness and No lumbar spinal tenderness Skin General skin exam: no rashes or lesions noted Neuro General: patient alert, patient awake and patient oriented x3 Cranial Nerves: CN's II-XI intact bilaterally, PERRL and no nystagmus Cognition: normal cognition Motor: muscle tone normal throughout and strength 5/5 throughout Sensory Exam: no sensory deficits noted Extrem Other: Tenderness to the right forearm and right shoulder. Still able to range all joints. Sensation motor and circulation intact in the bilateral upper extremities. Tenderness to the right hip. Still with full range of motion in the bilateral lower extremities. Able to keep the knee fully in extension with the leg lifted off the bed bilaterally. Compartments of the lower extremity are soft. Surgical sites from the previous left hip replacement are healing well. Course Vital Signs Vital signs: Vital Signs Temperature 37.7 C H 09/03/23 17:02 Pulse 98 H 09/03/23 17:02 Respiratory Rate 18 09/03/23 17:02 Blood Pressure 164/91 H 09/03/23 17:02 Temperature 37.7 C H 09/03/23 17:02 Temperature Source Oral 09/03/23 17:02 Pulse 98 H 09/03/23 17:02 Respiratory Rate 18 09/03/23 17:02 Respiratory Effort Normal, Non-Labored 09/03/23 17:11 Blood Pressure 164/91 H 09/03/23 17:02 Blood Pressure Position Sitting 09/03/23 17:02 Oxygen Delivery Method Room Air 09/03/23 17:02 Oxygen Flow Rate 0 09/03/23 17:02 Pain Level 8 09/03/23 17:02
--- NOTE | 2023-09-03 18:30 | DI.CT_ITS ---
Exam(s) CT UPPER EXTREMITY RT WO EXAM: CT UPPER EXTREMITY RT WO CLINICAL HISTORY: right shoulder/upper arm pain. ? fracture TECHNIQUE: Imaging Protocol: Axial computed tomography images with coronal and sagittal reformatted images were created and reviewed. CONTRAST MATERIAL: Noncontrast COMPARISON: CT CT CHEST WO from 07/12/[address] THORACIC SPINE WO from 07/12/2022 CR XR HUMERUS RT from 09/03/2023 CR XR FOREARM RT from 09/03/2023 FINDINGS: Bones: Nondisplaced, mildly impacted fracture of the anterior humeral head. No additional fractures. Bones appear osteoporotic. No evidence of dislocation. No cellulitic or osteomyelitic changes are identified. Mild degenerative changes glenohumeral joint and AC joint. Soft Tissues: Small amount of joint fluid visible. Small amount of fluid in the subcoracoid bursa. No evidence of pneumothorax. Lungs show fibrotic changes. Stable 8 millimeter perifissural nodule in right middle lobe. IMPRESSION: Nondisplaced fracture anterior humeral head at level of lesser tuberosity.. RADIATION DOSE DELIVERED: Total DLP DATA REPOSITORY: All CT scans at this facility are submitted to the National Radiology Data Registry (NRDR) Dose Index Registry (DIR) with the [employer] (ACR). RADIATION OPTIMIZATION: All CT scans at this facility use at least one of these dose optimization te chniques: automated exposure control; mA and/or kV adjustment per patient size (includes targeted exa ms where dose is matched to clinical indication); or iterative reconstruction.
[2023-09-03] MEDS: Ketorolac 30 MG/ML VIAL IM (18:51)
--- NOTE | 2023-09-03 20:43 | DI.VRAD_ITS ---
PROCEDURE INFORMATION: Exam: CT Right Upper Extremity Without Contrast, Shoulder Exam date and time: 09/03/2023 7:22 PM Age: 87 years old Clinical indication: Other: Right shoulder/upper arm pain. ? Fracture TECHNIQUE: Imaging protocol: Computed tomography of the right upper extremity without contrast. Exam focused on the shoulder. COMPARISON: CR XR HUMERUS RT 09/03/2023 6:02 PM FINDINGS: Bones/joints: Osteopenia. Acute avulsion fracture of humeral lesser tuberosity with regional soft tissue edema/hemorrhage. No dislocation or significant joint effusion. Mild glenohumeral osteoarthrosis. Narrowing of acromioclavicular joint. Degenerative changes in visualized spine. Chronic-appearing mild/moderate loss of height of several visualized cervicothoracic vertebrae. Soft tissues: See above. Evaluation for rotator cuff pathology, especially involving subscapularis tendon, is limited on this non-arthrographic exam. No significant muscle atrophy. Lungs: Areas of scarring/atelectasis in visualized right lung with some nodules, largest 8 mm and perifissural. Bronchial wall thickening in visualized bilateral lungs, possible chronic bronchitis. Other: Thyroid gland appears heterogeneous, without discrete nodule. Arterial atherosclerotic calcifications. IMPRESSION: Acute avulsion fracture of lesser tuberosity of right humerus. No dislocation. Visualized right lung nodules, largest 8 mm and perifissural. Recommend follow-up CT Chest in 6-12 months. (References: Shamika and Radha) References: Suzyhoneo H, et al. Guidelines for Management of Incidental Pulmonary Nodules Detected on CT Images: From the Fleischner Society 2017. Radiology. 2017;284(1):228-243. References: Radha J, et al. Updated Fleischner Society Guidelines for Managing Incidental Pulmonary Nodules: Common Questions and Challenging Scenarios. Radiographics. 2018;38(5):8726-3933. Additional findings as discussed above. Dictated and Authenticated by: Aliza Altman MD. Ordering:KIMBELREY Grimes MD
--- NOTE | 2023-09-03 20:44 | NUR.NOTE ---
Got pt up to use the the bathroom, she was able to stand pivot and sit on bedside commode with assistance as well as return to bed, CINDI
--- NOTE | 2023-09-04 06:52 | NUR.NOTE ---
Accessed pt chart for diagnosis for [facility] billing purposes. Nursing Note:
== END 2023-09-03 21:21 | disposition skilled nursing facility (03) ==
PROVIDERS: Emergency Provider Student in an Organized Health Care Education/Training Program; PCP Nurse Practitioner Family
DX: S09.90XA Unspecified injury of head, initial encounter (principal); S42.355A Nondisplaced comminuted fracture of shaft of humerus, left arm, initial encounter for closed fracture; E11.40 Type 2 diabetes mellitus with diabetic neuropathy, unspecified; J44.9 Chronic obstructive pulmonary disease, unspecified; I10 Essential (primary) hypertension; Z79.4 Long term (current) use of insulin; Z79.899 Other long term (current) drug therapy; W18.39XA Other fall on same level, initial encounter
CPT/HCPCS: 96372; 99284; 70450; 71045; 72125; 73060; 73090; 73200; 73502; J1885

== ENCOUNTER 2023-09-06 09:26 | Outpatient (CLI) | payer OTHER, SELFPAY ==
--- NOTE | 2023-09-06 08:30 | DI.RAD_ITS ---
Exam(s) XR SHOULDER RT COMPLETE 2+V EXAM: XR SHOULDER RT COMPLETE 2+V CLINICAL HISTORY: F/U FRACTURE. TECHNIQUE: 2D digital imaging was performed. Five views. COMPARISON: CR XR HUMERUS RT from 09/03/[address] UPPER EXTREMITY RT WO from 09/03/2023 CR XR CHEST 1V IN DI DEPT from 09/03/2023 CR XR FOREARM RT from 09/03/2023 FINDINGS: Fracture seen in the anterior humeral head on prior CT is not well on the current exam due to bony o verlap on the scapular Y-view. DATA REPOSITORY: RADIATION DOSE DELIVERED:
--- NOTE | 2023-09-06 08:30 | DI.RAD_ITS ---
Exam(s) XR HIP LT AP LAT ONLY EXAM: XR HIP LT AP LAT ONLY CLINICAL HISTORY: F/U FRACTURE. TECHNIQUE: 2D digital imaging was performed. Two views. COMPARISON: CR XR HIP LT COMPLETE AP PELVIS from 08/10/2023 FINDINGS: BONES: No acute fracture is present. No bony destructive lesion is seen. No change in alignment of le ft hip prosthesis. JOINTS: No dislocation present. SOFT TISSUE: Vascular calcifications. IMPRESSION: Stable appearance of left hip prosthesis. DATA REPOSITORY: RADIATION DOSE DELIVERED:
== END 2023-09-06 09:27 | disposition home or self-care (01) ==
LOC: DIORS 09:26
PROVIDERS: PCP Nurse Practitioner Family; Referring Provider Nurse Practitioner Family
DX: S72.002D Fracture of unspecified part of neck of left femur, subsequent encounter for closed fracture with routine healing; S42.201D Unspecified fracture of upper end of right humerus, subsequent encounter for fracture with routine healing; X58.XXXD Exposure to other specified factors, subsequent encounter
CPT/HCPCS: 73030; 73502

== ENCOUNTER 2023-09-14 14:33 | Outpatient (REF) | payer OTHER, SELFPAY ==
[2023-09-14 12:56] LABS: Anion Gap 11.3 mmol/L (3-11); BUN 21 mg/dL (7-18); CO2 28.7 mmol/L (21.0-32.0); CREATININE 1.6 mg/dL (0.55-1.02); Calcium 9.1 mg/dL (8.5-10.1); Chloride 99 mmol/L (98-107); Estimated GFR 31.41 (mL/min/1.73m2); Glucose 147 mg/dL (74-106); Potassium 3.9 mmol/L (3.5-5.1); Sodium 139 mmol/L (136-145)
[2023-09-14 13:14] LABS: Hemoglobin A1C 8.1 % (<5.7)
== END 2023-09-14 14:34 | disposition home or self-care (01) ==
LOC: LBN 14:33
PROVIDERS: PCP Nurse Practitioner Family; Visit Provider Family Medicine
DX: E11.40 Type 2 diabetes mellitus with diabetic neuropathy, unspecified (principal); E11.22 Type 2 diabetes mellitus with diabetic chronic kidney disease; N18.9 Chronic kidney disease, unspecified
CPT/HCPCS: 80048; 83036

== ENCOUNTER 2023-09-26 10:07 | Outpatient (CLI) | payer OTHER, SELFPAY ==
--- NOTE | 2023-09-26 09:15 | DI.RAD_ITS ---
Exam(s) XR SHOULDER RT COMPLETE 2+V EXAM: XR SHOULDER RT COMPLETE 2+V CLINICAL HISTORY: F/U FRACTURE. TECHNIQUE: 2D digital imaging was performed. COMPARISON: CT CT UPPER EXTREMITY RT WO from 09/03/2023 CR XR SHOULDER RT COMPLETE 2+V from 09/06/2023 FINDINGS: 3 views No evidence of obvious fracture or dislocation or abnormal soft tissue calcifications. The subacromi al space is not decreased. Again noted is moderate degenerative change in the glenohumeral joint. Mild joint space narrowing an d there also osteophytes on the inferior articular surfaces of the humeral head and glenoid again not ed. There are no significant osseous lesions. IMPRESSION: Moderate degenerative changes in the glenohumeral joint. Previously described possible fracture is less evident on the present images. DATA REPOSITORY: RADIATION DOSE DELIVERED:
--- NOTE | 2023-09-26 09:15 | DI.RAD_ITS ---
Exam(s) XR HIP LT AP LAT ONLY EXAM: XR HIP LT AP LAT ONLY CLINICAL HISTORY: F/U FRACTURE. TECHNIQUE: 2D digital imaging was performed. Two views. COMPARISON: CR XR HIP RT COMPLETE AP PELVIS from 09/03/2023 CR XR HIP LT AP LAT ONLY from 09/06/2023 FINDINGS: BONES: No acute fracture is present. No bony destructive lesion is seen. JOINTS: No dislocation present. There has been no change in the alignment of the left hip prosthesis . SOFT TISSUE: Vascular calcifications. IMPRESSION: Stable appearance of left hip prosthesis. DATA REPOSITORY: RADIATION DOSE DELIVERED:
== END 2023-09-26 10:08 | disposition home or self-care (01) ==
LOC: DIORS 10:07
PROVIDERS: PCP Nurse Practitioner Family; Referring Provider Nurse Practitioner Family; Visit Provider Student in an Organized Health Care Education/Training Program
DX: S42.201A Unspecified fracture of upper end of right humerus, initial encounter for closed fracture (principal); S72.002D Fracture of unspecified part of neck of left femur, subsequent encounter for closed fracture with routine healing; S42.201D Unspecified fracture of upper end of right humerus, subsequent encounter for fracture with routine healing; X58.XXXD Exposure to other specified factors, subsequent encounter
CPT/HCPCS: 73030; 73502

== ENCOUNTER 2023-10-23 09:00 | Emergency (ER) | payer OTHER, SELFPAY ==
[2023-10-23 09:05] VITALS: BP 164/137; PULSE 105; RESP 20; TEMP 36.9; O2SAT 95
[2023-10-23 09:11] VITALS: BP 145/61
--- NOTE | 2023-10-23 09:12 | ED.GENADUL_ITS ---
Discharge Plan Disposition Patient Disposition: Home Condition: Good Discharge Details Clinical Impression: Cough, Pneumonia Primary Care Provider: Dejuan Carlisle ED Provider: Wanda Heller Home Meds and New Rx's Prescriptions: New doxycycline hyclate 100 mg tablet 100 mg PO BID 10 Days Qty: 20 0RF Continued Januvia 50 mg tablet 50 mg PO DAILY Qty: 30 11RF Rx Instructions: Dose adjusted for kidney function simvastatin 20 mg tablet 20 mg PO HS Qty: 90 3RF magnesium oxide 400 mg magnesium capsule 400 mg PO DAILY Qty: 30 11RF Rx Instructions: Administer at least 2 hours apart from other medications glimepiride 4 mg tablet 4 mg PO DAILY Qty: 30 11RF fluoxetine 20 mg capsule 20 mg PO DAILY Qty: 90 3RF calcium phosphate-vitamin D3 250 mg-12.5 mcg (500 unit) tablet,chewable 2 tab PO DAILY Qty: 180 3RF clotrimazole 1 % cream 1 applic topical BID Qty: 45 0RF Rx Instructions: Apply to affected areas twice a dayfor 2-4wks mirtazapine 7.5 mg tablet 7.5 mg PO QHS Qty: 90 4RF (DME) lancets [facility] See Dose Instructions .ROUTE .MEDSUPPLY Qty: 200 3RF Dose Instruction: As directed to check daily morning fasting blood glucose Rx Instructions: As directed to check twice daily blood glucose. No insulin. Dispense covered brand. polyethylene glycol 3350 17 gram/dose powder 17 g PO DAILY PRN (Reason: constipation) Qty: 238 0RF Ozempic 2 mg/dose (8 mg/3 mL) pen injector 2 mg subcut QWEEK Qty: 3 12RF albuterol sulfate [ProAir HFA] 90 mcg/actuation HFA aerosol inhaler 1 - 2 puff Inhalation .Q4-6H PRN (Reason: shortness of breath or wheezing) Qty: 1 3RF Rx Instructions: DISPENSE ALBUTEROL INHALER BRAND COVERED BY INSURANCE aspirin 81 mg tablet,delayed release (DR/EC) 81 mg PO BID Qty: 60 11RF budesonide-formoterol [Symbicort] 160-4.5 mcg/actuation HFA aerosol inhaler 2 puff Inhalation BID Qty: 3 3RF famotidine 40 mg tablet 40 mg PO DAILY Qty: 90 4RF multivitamin [Daily Multi-Vitamin] 1 EACH tablet 1 ea PO DAILY (DME) Blood Glucose Test Strip See Dose Instructions .ROUTE .MEDSUPPLY Qty: 100 3RF Dose Instruction: As directed to check daily morning fasting blood glucose. No insulin. Rx Instructions: As directed to check once daily blood glucose. No insulin. Dispense covered brand. (DME) blood-glucose meter [OneTouch Ultra2 Meter] Kit See Rx Instructions .ROUTE .MEDSUPPLY Qty: 1 2RF Rx Instructions: Check blood sugar once a day cyanocobalamin (vitamin B-12) 1,000 mcg tablet 1,000 mcg PO DAILY Qty: 90 3RF hydrochlorothiazide 12.5 mg tablet 12.5 mg PO DAILY Qty: 90 3RF ondansetron 4 mg tablet,disintegrating 4 mg PO Q8H PRN (Reason: nausea and vomiting) Qty: 30 0RF levothyroxine 25 mcg tablet 25 mcg PO DAILY Qty: 90 0RF Rx Instructions: Administer in the morning on an empty stomach, at least 30-60 minutes before food Discharge Instructions Instructions: Pneumonia (ED), Acute Cough (ED) Additional Instructions: Your chest x-ray is reassuring here today. However, your exam is concerning that you may be developing a pneumonia. I have prescribed you antibiotics, you have not received your first dose here. I would like for you to take your morning medications as well as have some fluid and then take your first dose for the day. This will be taken twice a day and should be taken as directed on the packaging. Please continue to use your medications as previously prescribed. Please encourage hydration. Please follow-up with your primary care in the next 1 to 2 weeks for reevaluation. If you develop fever/chills, shortness of breath, chest pain or other new/worsening symptoms please seek care urgently once again. Referrals: Dejuan Carlisle NP [Primary Care Provider] - Discharge Data Discharge Date/Time-TO BE ENTERED AT DEPARTURE: 10/23/23 11:05 Medical Decision Making Patient is a pleasant 88-year-old female with past medical history of anxiety, diabetes, GERD, hypertension, chronic anemia, CKD, hypothyroid, restrictive lung disease, presented with chief complaint of 3 weeks of cold. She reports that she has been having nasal congestion, mild sore throat and cough. States the cough has been becoming more productive. Denies any fevers. Was seen by her primary care 3 days ago. At that time, they were concerned that some of her cough may have been associated with medication noncompliance. Patient suffered a arm fracture and had difficulty with her inhaler and nebulizer. She reports that with the assistance of her daughter, she been taking her medications and despite this continues to have productive cough, runny nose and general malaise. She denies any weight loss. No chest pain. No previous blood clot. She is not anticoagulated. Denies any lower extremity pain. Has had pneumonia in the past and she feels like this is what is occurring once again. COVID negative last week. On exam, patient appears frail but not acutely ill. Slightly tachy with a heart rate of 105. Crackles auscultated at the right middle lobe. Concerned for pneumonia. Mild BLE edema which she states is chronic and unchanged, no calf pain. Give progression, sputum production, concerned for infectious etiology. She has no pleuritic pain, SOB or calf pain, find PE less likely. No sxs of ACS or dissection. Will obtain cxr, give APAP, obtain flu/COVID. No wheezing on exam, no respiratory distress to suggest COPD exacerbation. XR reviewed by radiologist: MEDIASTINUM: Normal. HEART: Normal. PULMONARY VASCULATURE: Normal. LUNGS: Clear. PLEURAL SPACE: No pleural effusion or pneumothorax. BONE:Within normal limits for the patient's age. OTHER FINDINGS:Normal. IMPRESSION: No acute pulmonary findings. COVID and flu negative. Discussed with patient. She has not yet taken her medications today. Her HR is WNL at this time. She remains hemodynamically stable. She continues to have productive cough. concerned she is developing bacterial pneumonia with crackles on auscultation, despite CXR findings. Will begin on abx. No wheezing, SOB to suggest COPD exacerbation or bronchitis. Discussed with daughter as well, she will pick her up, help with medications. Also discussed abx selection, will start Doxy. She has been on this in the past, no SE at that time, has had nausea with some other abx. Return precautions discussed. Encouraged reevaluation with PCP. All of her questions and concerns were addressed, she is in agreement with this plan. HPI General Date/Time Provider Initiated Documentation: 10/23/23 09:11 . Limitations to Documentation: no limitations . Information obtained by: patient, family (spoke with daughter on phone), RN notes reviewed and old records reviewed . History of Present Illness 88 year old F presents to the emergency department with the chief complaint of cough, sputum production, rhinorrhea, sore throat, described as moderate and similar to prior episodes (feels like when she has had pneumonia in ), Quality is described as other (denies any pain at this time), and is localized to the chest. Patient started experiencing this week(s) (3) and it has been constant. No relieving factors improve symptom(s), No exacerbating factors reported . Patient notes cough and malaise; denies chest pain, diaphoresis, fever/chills, loss of appetite, nausea/vomiting, shortness of breath and syncope. Patient did receive the following treatments prior to arrival, none Related Data Home Medications Medication Instructions Recorded Confirmed multivitamin (Daily Multi-Vitamin 1 ea PO DAILY 04/17/18 10/23/23 tablet) blood sugar diagnostic (Blood #100 ea 01/19/23 10/19/23 Glucose Test strips) blood-glucose meter (Nerdiesuch #1 ea 01/19/23 10/19/23 Ultra2 Meter kit) calcium phosphate 250 mg-vit D3 2 tab PO DAILY #180 tabs 02/02/23 10/23/23 12.5 mcg (500 unit) chewable tablet fluoxetine 20 mg capsule 20 mg PO DAILY #90 caps 02/02/23 10/23/23 glimepiride 4 mg tablet 4 mg PO DAILY #30 tab-caps 02/02/23 10/23/23 magnesium oxide 400 mg PO DAILY #30 tab-caps 02/02/23 10/23/23 simvastatin 20 mg tablet 20 mg PO HS #90 tab-caps 02/02/23 10/23/23 sitagliptin phosphate 50 mg tablet 50 mg PO DAILY #30 tabs 02/02/23 10/23/23 (Januvia) polyethylene glycol 3350 17 17 g PO DAILY PRN constipation 03/13/23 10/23/23 gram/dose oral powder #238 grams clotrimazole 1 % topical cream 1 applic topical BID #45 grams 04/06/23 10/23/23 cyanocobalamin (vitamin B-12) 1,000 mcg PO DAILY #90 tab-caps 06/09/23 12/12/23 1,000 mcg tablet hydrochlorothiazide 12.5 mg tablet 12.5 mg PO DAILY #90 tabs 04/20/23 10/23/23 ondansetron 4 mg disintegrating 4 mg PO Q8H PRN nausea and 05/18/23 10/23/23 tablet vomiting #30 tabs mirtazapine 7.5 mg tablet 7.5 mg PO QHS #90 tabs 06/06/23 10/23/23 lancets #200 ea 06/11/23 10/19/23 levothyroxine 25 mcg tablet 25 mcg PO DAILY #90 tab-caps 08/06/23 10/23/23 albuterol sulfate 90 mcg/actuation 1 - 2 puff inhalation .Q4-6H PRN 10/19/23 10/23/23 aerosol inhaler (ProAir HFA) shortness of breath or wheezing #1 unit aspirin 81 mg tablet,delayed 81 mg PO BID #60 tabs 10/19/23 10/23/23 release budesonide-formoterol HFA 160 2 puff inhalation BID ##3 10/19/23 10/23/23 mcg-4.5 mcg/actuation aerosol inhaler (Symbicort) famotidine 40 mg tablet 40 mg PO DAILY #90 tabs 10/19/23 10/23/23 semaglutide 2 mg/dose (8 mg/3 mL) 2 mg (0.75 mL) subcut QWEEK #3 mL 10/19/23 10/23/23 subcutaneous pen injector (Ozempic) doxycycline hyclate 100 mg tablet 100 mg PO BID 10 days #20 tabs 10/23/23 Previous Rx's Medication Instructions Recorded blood sugar diagnostic (Blood #100 ea 01/19/23 Glucose Test strips) blood-glucose meter (OneTouch #1 ea 01/19/23 Ultra2 Meter kit) calcium phosphate 250 mg-vit D3 2 tab PO DAILY #180 tabs 02/02/23 12.5 mcg (500 unit) chewable tablet fluoxetine 20 mg capsule 20 mg PO DAILY #90 caps 02/02/23 glimepiride 4 mg tablet 4 mg PO DAILY #30 tab-caps 02/02/23 magnesium oxide 400 mg PO DAILY #30 tab-caps 02/02/23 simvastatin 20 mg tablet 20 mg PO HS #90 tab-caps 02/02/23 sitagliptin phosphate 50 mg tablet 50 mg PO DAILY #30 tabs 02/02/23 (Januvia) polyethylene glycol 3350 17 17 g PO DAILY PRN constipation 03/13/23 gram/dose oral powder #238 grams clotrimazole 1 % topical cream 1 applic topical BID #45 grams 04/06/23 cyanocobalamin (vitamin B-12) 1,000 mcg PO DAILY #90 tab-caps 04/20/23 1,000 mcg tablet hydrochlorothiazide 12.5 mg tablet 12.5 mg PO DAILY #90 tabs 04/20/23 ondansetron 4 mg disintegrating 4 mg PO Q8H PRN nausea and 05/18/23 tablet vomiting #30 tabs mirtazapine 7.5 mg tablet 7.5 mg PO QHS #90 tabs 06/06/23 lancets #200 ea 06/11/23 levothyroxine 25 mcg tablet 25 mcg PO DAILY #90 tab-caps 08/06/23 albuterol sulfate 90 mcg/actuation 1 - 2 puff inhalation .Q4-6H PRN 10/19/23 aerosol inhaler (ProAir HFA) shortness of breath or wheezing #1 unit aspirin 81 mg tablet,delayed 81 mg PO BID #60 tabs 10/19/23 release budesonide-formoterol HFA 160 2 puff inhalation BID ##3 10/19/23 mcg-4.5 mcg/actuation aerosol inhaler (Symbicort) famotidine 40 mg tablet 40 mg PO DAILY #90 tabs 10/19/23 semaglutide 2 mg/dose (8 mg/3 mL) 2 mg (0.75 mL) subcut QWEEK #3 mL 10/19/23 subcutaneous pen injector (Ozempic) doxycycline hyclate 100 mg tablet 100 mg PO BID 10 days #20 tabs 10/23/23 Allergies Allergy/AdvReac Type Severity Reaction Status Date / Time azithromycin AdvReac Unknown nausea Verified 10/23/23 09:10 erythromycin base AdvReac Unknown Nausea Verified 10/23/23 09:10 shellfish derived AdvReac Unknown N/V/D Verified 10/23/23 09:10 Tetracyclines AdvReac Unknown Nausea Verified 10/23/23 09:10 NATALIIA Inhibitors AdvReac Other (See Verified 10/23/23 09:10 Comment) General Stated Complaint: RespSymp SAM: 3 Review of Systems Constitutional Constitutional: Reports as per HPI, Denies chills, Reports difficulty sleeping (associates with productive cough), Reports fatigue, Denies fever(s), Denies headache(s), Reports lethargy and Reports malaise Eyes Eyes: Reports as per HPI, Denies eye discharge and Denies irritation ENT Ears, Nose, Mouth, and Throat: Reports as per HPI and Denies headache(s) Cardiovascular Cardiovascular: Reports as per HPI, Denies chest pain and Denies dyspnea Respiratory Respiratory: Reports as per HPI, Reports chest congestion, Reports cough, Denies hemoptysis, Reports excessive phlegm production, Denies pain on inspiration, Denies pain with cough, Denies dyspnea and Denies wheezing Gastrointestinal Gastrointestinal: Reports as per HPI, Denies abdominal pain, Denies change in bowel habits, Denies nausea and Denies vomiting Integumentary/Breasts Skin/Breast: Reports as per HPI and Denies rash Neurologic Neurologic: Reports as per HPI and Denies headache(s) Endocrine Endocrine: Reports fatigue Allergic/Immunologic Allergic/Immunologic: Denies wheezing PFSH All Active Problems (Updated 10/23/23 @ 10:40 by LEXIE Lopez) Pneumonia (Acute) Cough (Acute) Closed fracture of right proximal humerus (Acute 09/03/23) Elevated procalcitonin (Acute) Restrictive lung disease (Acute) Left displaced femoral neck fracture (Acute 08/09/23) s/p Left hip hemiarthroplasty 08/10/23 Anxiety (Chronic 11/21/11) Diabetic neuropathy, type II diabetes mellitus (Chronic 08/12/14) Gastroesophageal reflux disease (Chronic 11/21/11) Heart murmur (Chronic 08/24/17) 09/12/2017 echo: no significant valvular disease Hyperlipidemia (Chronic 11/21/11) Hypomagnesemia (Chronic 03/14/18) Osteoporosis (Chronic 07/12/16) DEXA 07/11/16 Hip T-3.2, Spine T-1.5, forearm T-3.5 Other diseases of lung, not elsewhere classified (Chronic 11/21/11) rt 4mm ct stable 08/17; restrictive lung disease, neuromuscular weakness etiol? Dr Patel follows PFTs 08/2013 restrictive 47% NM weakness + response BD Other disorders of Eustachian tube (Chronic 09/07/14) Unspecified essential hypertension (Chronic 01/31/13) Hyperkalemia with NATALIIA-I --> AVOID Type 2 diabetes mellitus with diabetic neuropathy, without long-term current use of insulin (Chronic) Macrocytic anemia (Chronic) Borderline low B12 level, normal Epo (suggesting due to CKD as well); [place]16[place] [facility] [place]: multifactorial & recommended iron supplement CKD (chronic kidney disease) (Chronic) Hypothyroidism (Chronic) Cognitive complaints (Chronic) 09/22/2021 MOCA: = NORMAL; monitor Microalbuminuria due to type 2 diabetes mellitus (Acute) Breast mass, left (Acute) Onychomycosis (Acute) Tinea pedis (Acute) Decreased hearing (Acute) Frequent falls (Acute) Medical History (Updated 10/23/23 @ 10:40 by LEXIE Lopez) Insulin dependent type 2 diabetes mellitus Vomiting and diarrhea Sepsis Shingles Neoplasm of skin (08/26/14) Closed nondisplaced comminuted fracture of shaft of left humerus (05/26/16) Cerebral meningioma (01/31/13) 2005 Craniotomy, resection of frontal mennigioma [facility] [place] Surgical History (Updated 09/06/23 @ 08:37 by LEXIE Awad) irrigation and debridement (10/05/15) R wrist Dr Cerdabach Splenomegaly Family History Mother , 76 Personal history of malignant neoplasm breast and ovarian CA Breast cancer Ovarian cancer Father , 83 Myocardial infarction Heart disease Sister , 55 Lymphoma Ovarian cancer Brother , 63 Heart disease Son No problems noted. Son Heart disease Daughter No problems noted. Social History Smoking/Tobacco Use Status: Never Second Hand Exposure: Yes Smoking risk assessment performed?: Yes Alcohol Intake: never Drug use: Never Substance use type: does not use Caregiver/Support person: Yes Household members: none [facility] Number of Children: 3 number of grandchildren: 5 Do you need help understanding health information?: Never Pets and animals: No Sexually active: No Do you think of yourself as: straight/heterosexual Current gender identity: female What is your relationship status?: How often do you talk on the phone with friends or family?: three or more times per week How often do you get together with friends or relatives?: three or more times per week How often do you attend yazidi or sabianist services?: 1-3 times per year Do you belong to any clubs or organized social groups?: no Panel score (0-1 are the most socially isolated patients): 1 What type of physical activity do you participate in: none Frequency: does not exercise Stacey/Rastafarian: Taoist Special stacey needs: Yes Seatbelt use: always Drive intox 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 Exam Const General: cooperative, healthy appearing, comfortable, no acute distress, well developed and well groomed Nutritional Appearance: average body habitus and thin Orientation: alert and awake HENPA Head: normal to inspection, normocephalic and atraumatic Ears: hearing grossly normal bilaterally, external ears normal and TM's normal bilaterally General nose exam: external nose normal and nares normal Face and sinus: normal facial exam, sinuses nontender and face symmetric Mouth: oral mucosae normal, lip normal, tongue normal, oropharynx normal and mucous membranes dry (appears dry, hydrating orally now) Teeth and gingiva: dentition normal Throat: posterior oropharynx normal, tonsils normal and uvula midline Eyes General: appearance normal, both eyes and all related structures Neck Neck: normal visual inspection, full ROM, no lymphadenopathy and no meningeal signs Chest Chest: normal inspection of the chest, normal palpation of entire chest wall and no crepitus Resp Effort & Inspection: normal respiratory effort, able to speak in complete sentences and no respiratory distress Auscultation: crackles on the right, no rales, no rhonchi and no wheezes Cardio Rate: regular rate Rhythm: regular rhythm Heart Sounds: S1 normal and S2 normal Skin General skin exam: no rashes or lesions noted Neuro General: patient alert and patient awake Cognition: normal cognition Speech: speech normal Gait: normal gait Extrem General: normal to inspection, full ROM, capillary refill normal, no calf tenderness, normal gait and edema Laterality: bilateral (mild BLE edema) Course Vital Signs Vital signs: Vital Signs Temperature 36.9 C 10/23/23 09:05 Pulse 105 H 10/23/23 09:05 Respiratory Rate 20 12/12/23 09:05 Blood Pressure 164/137 H 10/23/23 09:05 Pulse Oximetry 95 10/23/23 09:05 Temperature 36.9 C 10/23/23 09:05 Temperature Source Temporal Artery Scan 10/23/23 09:05 Pulse 105 H 10/23/23 09:05 Respiratory Rate 20 10/23/23 09:05 Respiratory Effort Short of Breath 10/23/23 09:07 Blood Pressure 145/61 H 10/23/23 09:11 Pulse Oximetry 95 10/23/23 09:05 Oxygen Delivery Method Room Air 10/23/23 09:05 Oxygen Flow Rate 0 10/23/23 09:05
[2023-10-23] MEDS: Acetaminophen 325 MG TAB 650 MG PO (09:46)
--- NOTE | 2023-10-23 09:59 | DI.RAD_ITS ---
Exam(s) XR CHEST 2V PA LATERAL EXAM: XR CHEST 2V PA LATERAL CLINICAL HISTORY: cough, hx COPD TECHNIQUE: 2D digital imaging was performed of the chest. Two images were obtained. PA and lateral views were obtained. COMPARISON: CR CHEST 2 VIEWS PA,LAT from 06/07/2017 CR CHEST 2 VIEWS PA,LAT from 03/02/2018 CR CHEST 2 VIEWS PA,LAT from 03/04/2018 CR XR CHEST 2V PA LATERAL from 08/13/2023 CR XR CHEST 1V IN DI DEPT from 09/03/2023 FINDINGS: MEDIASTINUM: Normal. HEART: Normal. PULMONARY VASCULATURE: Normal. LUNGS: Clear. PLEURAL SPACE: No pleural effusion or pneumothorax. BONE:Within normal limits for the patient's age. OTHER FINDINGS:Normal. IMPRESSION: No acute pulmonary findings. DATA REPOSITORY: RADIATION DOSE DELIVERED:
== END 2023-10-23 11:05 | disposition home or self-care (01) ==
PROVIDERS: Emergency Provider Physician Assistant; PCP Nurse Practitioner Family
DX: J18.9 Pneumonia, unspecified organism; R05.9 Cough, unspecified; F41.9 Anxiety disorder, unspecified; E11.9 Type 2 diabetes mellitus without complications; K21.9 Gastro-esophageal reflux disease without esophagitis; I10 Essential (primary) hypertension; D64.9 Anemia, unspecified; Z79.899 Other long term (current) drug therapy; Z79.82 Long term (current) use of aspirin
CPT/HCPCS: 87426; 99283; 71046; 99284

== ENCOUNTER 2023-10-31 11:48 | Outpatient (CLI) | payer OTHER, SELFPAY ==
--- NOTE | 2023-10-31 11:21 | DI.RAD_ITS ---
Exam(s) XR SHOULDER RT COMPLETE 2+V EXAM: XR SHOULDER RT COMPLETE 2+V CLINICAL HISTORY: F/U FRACTURE. TECHNIQUE: 2D digital imaging was performed. COMPARISON: CR XR SHOULDER RT COMPLETE 2+V from 09/06/2023 CR XR SHOULDER RT COMPLETE 2+V from 09/26/2023 FINDINGS: Two views. No evidence of acute fracture or dislocation. No abnormal soft tissue calcifications in the subacrom ial space is not diminished. There are moderate degenerative changes in the glenohumeral joint. No osseous lesions. Bone density age-appropriate. IMPRESSION: Moderate degenerative changes in the glenohumeral joint. No fractures evident. DATA REPOSITORY: RADIATION DOSE DELIVERED:
--- NOTE | 2023-10-31 11:21 | DI.RAD_ITS ---
Exam(s) XR HIP LT AP LAT ONLY EXAM: XR HIP LT AP LAT ONLY CLINICAL HISTORY: F/U FRACTURE. TECHNIQUE: 2D digital imaging was performed. COMPARISON: CR XR HIP LT AP LAT ONLY from 09/26/2023 FINDINGS: 3 views Stable position and alignment of the components of the prosthesis. No fracture or loosening evident. IMPRESSION: Stable satisfactory appearance. DATA REPOSITORY: RADIATION DOSE DELIVERED:
== END 2023-10-31 11:49 | disposition home or self-care (01) ==
LOC: DIORS 11:49
PROVIDERS: PCP Nurse Practitioner Family; Visit Provider Student in an Organized Health Care Education/Training Program
DX: S42.301D Unspecified fracture of shaft of humerus, right arm, subsequent encounter for fracture with routine healing (principal); S72.002D Fracture of unspecified part of neck of left femur, subsequent encounter for closed fracture with routine healing; S42.201D Unspecified fracture of upper end of right humerus, subsequent encounter for fracture with routine healing; X58.XXXD Exposure to other specified factors, subsequent encounter
CPT/HCPCS: 99213; 73030; 73502

== ENCOUNTER 2023-12-12 11:52 | Outpatient (CLI) | payer OTHER, SELFPAY ==
--- NOTE | 2023-12-12 10:15 | DI.RAD_ITS ---
Exam(s) XR SHOULDER RT COMPLETE 2+V EXAM: XR SHOULDER RT COMPLETE 2+V CLINICAL HISTORY: F/U FRACTURE. TECHNIQUE: 2D digital imaging was performed of the right shoulder. Three images were obtained. AP, Grashey, Y-view and axillary views were obtained. COMPARISON: CR XR SHOULDER RT COMPLETE 2+V from 10/31/2023 FINDINGS: BONES: There is a fracture of the greater tuberosity which appears comminuted. It is best appreciate d on the axillary view. No bony destructive lesion is seen. JOINTS: No dislocation present. SOFT TISSUE: Normal. IMPRESSION: Fracture involving the greater tuberosity. DATA REPOSITORY: RADIATION DOSE DELIVERED:
== END 2023-12-12 11:53 | disposition home or self-care (01) ==
LOC: DIORS 11:52
PROVIDERS: PCP Nurse Practitioner Family; Referring Provider Nurse Practitioner Family; Visit Provider Student in an Organized Health Care Education/Training Program
DX: S72.002D Fracture of unspecified part of neck of left femur, subsequent encounter for closed fracture with routine healing (principal); S42.201D Unspecified fracture of upper end of right humerus, subsequent encounter for fracture with routine healing; X58.XXXD Exposure to other specified factors, subsequent encounter
CPT/HCPCS: 99213; 73030

== ENCOUNTER 2024-05-19 13:11 | Inpatient (IN) | payer OTHER, SELFPAY ==
[2024-05-19] VITALS (24 sets, daily range): BP systolic 117–166; BP diastolic 51–63; PULSE 66–88; RESP 12–26; TEMP 37.1; O2SAT 94–99
--- NOTE | 2024-05-19 15:30 | DI.MRI_ITS ---
Exam(s) MR BRAIN WO EXAM: MR BRAIN WO CLINICAL HISTORY: altered mental status TECHNIQUE: Multiplanar multisequence MRI of the brain was performed. COMPARISON: MR MR BRAIN W/WO CONTRAST from 12/12/2011 MR MRI - BRAIN WO CONTRAST from 02/23/2017 FINDINGS: VENTRICLES AND EXTRA AXIAL SPACES: Normal in size and morphology for the patient's age. MIDLINE SHIFT: None. CEREBRAL PARENCHYMA: There is an area of restricted diffusion involving the left frontal parietal juana ershed region consistent with an acute infarct. There are multiple areas of hyperintense signal seen in the white matter on the FLAIR and T2 weighted images consistent with chronic microvascular ischem ic disease. HEMORRHAGE: None. BRAINSTEM/CEREBELLUM: Normal. CALVARIUM: There again seen findings of a prior right frontal craniotomy. VISUALIZED PARANASAL SINUSES/MASTOIDS:Clear. AL[place]II[place] OF DAV[place]: Normal flow void. PITUITARY GLAND: There is a partially empty sella. OTHER FINDINGS: None. IMPRESSION: 1. 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 2. Age-related cerebral atrophy and chronic microvascular ischemic disease. 3. Findings were discussed with Dr. Littlejohn at 4:55 p.m. on 05/19/2024. DATA REPOSITORY:
--- NOTE | 2024-05-19 15:35 | ED.GENADUL_ITS ---
Discharge Plan Disposition Patient Disposition: Admit to [facility] Condition: Stable Discharge Details Chief Complaint: AMS/LOC Clinical Impression: Acute CVA (cerebrovascular accident) Primary Care Provider: Dejuan Carlisle ED Provider: Wade Littlejohn [place] Meds and New Rx's Prescriptions: No Action ferrous sulfate 325 mg (65 mg iron) tablet 325 mg PO BID Qty: 180 3RF fluoxetine 20 mg capsule 20 mg PO DAILY Qty: 90 3RF glimepiride 4 mg tablet 4 mg PO DAILY Qty: 30 11RF magnesium oxide 400 mg magnesium capsule 400 mg PO DAILY Qty: 30 11RF Rx Instructions: Administer at least 2 hours apart from other medications Januvia 50 mg tablet 50 mg PO DAILY Qty: 30 11RF Rx Instructions: Dose adjusted for kidney function polyethylene glycol 3350 17 gram/dose powder 17 g PO DAILY PRN (Reason: constipation) Qty: 238 0RF Ozempic 2 mg/dose (8 mg/3 mL) pen injector 2 mg subcut QWEEK Qty: 3 12RF famotidine 40 mg tablet 40 mg PO DAILY Qty: 90 4RF levothyroxine 25 mcg tablet 25 mcg PO DAILY Qty: 90 3RF Rx Instructions: Administer in the morning on an empty stomach, at least 30-60 minutes before food (DME) lancets Misc See Dose Instructions .ROUTE .MEDSUPPLY Qty: 200 3RF Dose Instruction: As directed to check daily morning fasting blood glucose Rx Instructions: As directed to check twice daily blood glucose. No insulin. Dispense covered brand. (DME) blood-glucose meter Kit See Rx Instructions .ROUTE .MEDSUPPLY Qty: 1 2RF Rx Instructions: Check blood sugar once a day aspirin 81 mg tablet,delayed release (DR/EC) 81 mg PO BID Qty: 60 11RF multivitamin [Daily Multi-Vitamin] 1 EACH tablet 1 ea PO DAILY ondansetron 4 mg tablet,disintegrating 4 mg PO Q8H PRN (Reason: nausea and vomiting) Qty: 30 0RF (DME) Blood Glucose Test Strip See Dose Instructions .ROUTE .MEDSUPPLY Qty: 100 3RF Dose Instruction: As directed to check daily morning fasting blood glucose. No insulin. Rx Instructions: Once daily. No insulin. Dispense covered brand. simvastatin 20 mg tablet 20 mg PO HS Qty: 90 3RF hydrochlorothiazide 12.5 mg tablet 12.5 mg PO DAILY Qty: 90 3RF cyanocobalamin (vitamin B-12) 1,000 mcg tablet 1,000 mcg PO DAILY Qty: 90 3RF clotrimazole 1 % cream 1 applic topical BID Qty: 45 0RF Rx Instructions: Apply to affected areas twice a dayfor 2-4wks calcium phosphate-vitamin D3 250 mg-12.5 mcg (500 unit) tablet,chewable 2 tab PO DAILY Qty: 180 3RF budesonide-formoterol [Symbicort] 160-4.5 mcg/actuation HFA aerosol inhaler 2 puff Inhalation BID Qty: 3 3RF albuterol sulfate [ProAir HFA] 90 mcg/actuation HFA aerosol inhaler 1 - 2 puff Inhalation .Q4-6H PRN (Reason: shortness of breath or wheezing) Qty: 1 3RF Rx Instructions: DISPENSE ALBUTEROL INHALER BRAND COVERED BY INSURANCE mirtazapine 7.5 mg tablet 7.5 mg PO QHS Qty: 90 4RF HPI General Mode of arrival: ambulatory . Date/Time Provider Initiated Documentation: 05/19/24 13:52 . Information obtained by: patient and family . History of Present Illness 88 year old F presents to the emergency department with the chief complaint of intermittent confusion, described as moderate, Patient started experiencing this week(s) (1) and it has been intermittent. No relieving factors improve symptom(s), No exacerbating factors reported . Patient notes no other symptoms.; denies chest pain, fever/chills and shortness of breath. Patient did receive the following treatments prior to arrival, none Related Data Home Medications Medication Instructions Recorded Confirmed multivitamin (Daily Multi-Vitamin 1 ea PO DAILY 04/17/18 05/19/24 tablet) polyethylene glycol 3350 17 17 g PO DAILY PRN constipation 03/13/23 05/19/24 gram/dose oral powder #238 grams ondansetron 4 mg disintegrating 4 mg PO Q8H PRN nausea and 05/18/23 05/19/24 tablet vomiting #30 tabs famotidine 40 mg tablet 40 mg PO DAILY #90 tabs 10/19/23 05/19/24 semaglutide 2 mg/dose (8 mg/3 mL) 2 mg (0.75 mL) subcut QWEEK #3 mL 10/19/23 05/19/24 subcutaneous pen injector (Ozempic) aspirin 81 mg tablet,delayed 81 mg PO BID #60 tabs 11/26/23 05/19/24 release blood-glucose meter #1 ea 11/26/23 05/01/24 lancets #200 ea 11/26/23 05/01/24 levothyroxine 25 mcg tablet 25 mcg PO DAILY #90 tab-caps 11/26/23 05/19/24 ferrous sulfate 325 mg (65 mg 325 mg PO BID #180 tabs 12/28/23 05/19/24 iron) tablet fluoxetine 20 mg capsule 20 mg PO DAILY #90 caps 12/28/23 05/19/24 glimepiride 4 mg tablet 4 mg PO DAILY #30 tab-caps 12/28/23 05/19/24 magnesium oxide 400 mg PO DAILY #30 tab-caps 12/28/23 05/19/24 sitagliptin phosphate 50 mg tablet 50 mg PO DAILY #30 tabs 12/28/23 05/19/24 (Romy) blood sugar diagnostic (Blood #100 ea 03/17/24 05/01/24 Glucose Test strips) albuterol sulfate 90 mcg/actuation 1 - 2 puff inhalation .Q4-6H PRN 04/11/24 05/19/24 aerosol inhaler (ProAir HFA) shortness of breath or wheezing #1 unit budesonide-formoterol HFA 160 2 puff inhalation BID ##3 04/11/24 05/19/24 mcg-4.5 mcg/actuation aerosol inhaler (Symbicort) calcium phosphate 250 mg-vit D3 2 tab PO DAILY #180 tabs 04/11/24 05/19/24 12.5 mcg (500 unit) chewable tablet clotrimazole 1 % topical cream 1 applic topical BID #45 grams 04/11/24 05/19/24 cyanocobalamin (vitamin B-12) 1,000 mcg PO DAILY #90 tab-caps 04/11/24 05/19/24 1,000 mcg tablet hydrochlorothiazide 12.5 mg tablet 12.5 mg PO DAILY #90 tabs 04/11/24 05/19/24 mirtazapine 7.5 mg tablet 7.5 mg PO QHS #90 tabs 04/11/24 05/19/24 simvastatin 20 mg tablet 20 mg PO HS #90 tab-caps 04/11/24 05/19/24 Previous Rx's Medication Instructions Recorded polyethylene glycol 3350 17 17 g PO DAILY PRN constipation 03/13/23 gram/dose oral powder #238 grams ondansetron 4 mg disintegrating 4 mg PO Q8H PRN nausea and 05/18/23 tablet vomiting #30 tabs famotidine 40 mg tablet 40 mg PO DAILY #90 tabs 10/19/23 semaglutide 2 mg/dose (8 mg/3 mL) 2 mg (0.75 mL) subcut QWEEK #3 mL 10/19/23 subcutaneous pen injector (Ozempic) aspirin 81 mg tablet,delayed 81 mg PO BID #60 tabs 11/26/23 release blood-glucose meter #1 ea 11/26/23 lancets #200 ea 11/26/23 levothyroxine 25 mcg tablet 25 mcg PO DAILY #90 tab-caps 11/26/23 ferrous sulfate 325 mg (65 mg 325 mg PO BID #180 tabs 12/28/23 iron) tablet fluoxetine 20 mg capsule 20 mg PO DAILY #90 caps 12/28/23 glimepiride 4 mg tablet 4 mg PO DAILY #30 tab-caps 12/28/23 magnesium oxide 400 mg PO DAILY #30 tab-caps 12/28/23 sitagliptin phosphate 50 mg tablet 50 mg PO DAILY #30 tabs 12/28/23 (Januvia) blood sugar diagnostic (Blood #100 ea 03/17/24 Glucose Test strips) albuterol sulfate 90 mcg/actuation 1 - 2 puff inhalation .Q4-6H PRN 04/11/24 aerosol inhaler (ProAir HFA) shortness of breath or wheezing #1 unit budesonide-formoterol HFA 160 2 puff inhalation BID ##3 04/11/24 mcg-4.5 mcg/actuation aerosol inhaler (Symbicort) calcium phosphate 250 mg-vit D3 2 tab PO DAILY #180 tabs 04/11/24 12.5 mcg (500 unit) chewable tablet clotrimazole 1 % topical cream 1 applic topical BID #45 grams 04/11/24 cyanocobalamin (vitamin B-12) 1,000 mcg PO DAILY #90 tab-caps 04/11/24 1,000 mcg tablet hydrochlorothiazide 12.5 mg tablet 12.5 mg PO DAILY #90 tabs 04/11/24 mirtazapine 7.5 mg tablet 7.5 mg PO QHS #90 tabs 04/11/24 simvastatin 20 mg tablet 20 mg PO HS #90 tab-caps 04/11/24 Allergies Allergy/AdvReac Type Severity Reaction Status Date / Time azithromycin AdvReac Unknown nausea Verified 05/19/24 17:27 erythromycin base AdvReac Unknown Nausea Verified 05/19/24 17:27 shellfish derived AdvReac Unknown N/V/D Verified 05/19/24 17:27 Tetracyclines AdvReac Unknown Nausea Verified 05/19/24 17:27 NATALIIA Inhibitors AdvReac Other (See Verified 05/19/24 17:27 Comment) General Stated Complaint: AMS/LOC SAM: 3 Review of Systems All systems reviewed & are unremarkable except as noted in HPI and below Constitutional Constitutional: Denies chills, Denies fever(s) and Denies weakness Cardiovascular Cardiovascular: Denies chest pain and Denies dyspnea Respiratory Respiratory: Denies cough and Denies dyspnea Gastrointestinal Gastrointestinal: Denies abdominal pain, Denies nausea and Denies vomiting Integumentary/Breasts Skin/Breast: Denies rash Neurologic Neurologic: Reports confusion and Denies weakness Psychiatric Psychiatric: Reports confusion Exam Const General: no acute distress Orientation: alert HENIN Head: normal to inspection Ears: external ears normal General nose exam: external nose normal Mouth: moist mucous membranes Eyes General: appearance normal, both eyes and all related structures Neck Neck: normal visual inspection Resp Effort & Inspection: normal respiratory effort and able to speak in complete sentences Cardio Rate: regular rate Skin General skin exam: no rashes or lesions noted Neuro General: patient alert and patient oriented x3 Cranial Nerves: CN's II-XI intact bilaterally and PERRL Extrem General: normal to inspection Psych Mental Status: mental status grossly normal Course Vital Signs Vital signs: Vital Signs Temperature 37.1 C 05/19/24 13:18 Pulse 88 05/19/24 13:18 Respiratory Rate 12 05/19/24 13:18 Blood Pressure 117/62 05/19/24 13:18 Pulse Oximetry 95 05/19/24 13:18 Temperature 37.1 C 05/19/24 15:27 Temperature Source Oral 05/19/24 15:27 Pulse 79 05/19/24 15:27 Respiratory Rate 15 05/19/24 15:27 Respiratory Effort Normal 05/19/24 15:27 Respiratory Depth Normal 05/19/24 15:27 Respiratory Pattern Normal 05/19/24 15:27 Blood Pressure 144/51 H 05/19/24 15:27 Blood Pressure Position Supine 05/19/24 15:27 Pulse Oximetry 96 05/19/24 15:27 Oxygen Delivery Method Room Air 05/19/24 15:27 Oxygen Flow Rate 0 05/19/24 13:18 Pain Level 0 05/19/24 13:18 Medical Decision Making 88-year-old female with a history of diabetes, GERD, CKD who has a history of cognitive impairment but has never been formally diagnosed with dementia per family comes in with intermittent confusion for the past week. Apparently on she was able to get out of her house using a walker and normally does not ambulate well even with a walker and got to a local business, patient has no recollection of this. She is intermittently also, things like putting on for shirts to go out. She is currently alert and oriented x 4 and arrival speaking clearly. She has no focal deficits, cranial nerves II through XII are intact. She denies any headaches, neck stiffness, chest pain, abdominal pain. She has clear lung sounds, no leg swelling, no JVD. Unclear etiology for her intermittent confusion, given reassuring neuroexam doubt CVA, will obtain CBC, CMP to evaluate for anemia and electrolyte abnormalities specifically hyponatremia, will also check a UA to evaluate for UTI. Currently our CT scanner is out of commission, will try to get an MRI of her head to exclude CVA though seems unlikely given her neurological exam. Suspect she could have dementia. Patient's MRI shows acute left parietal CVA, patient is stable. Given she has had symptoms for close to a week not a candidate for any interventions. Will consult teleneurology. Patient met with teleneurology who evaluated her and recommended the routine stroke workup including echo, vascular imaging, recommended loading with 324 mg of aspirin as well as 300 mg of Plavix and then starting daily 75 mg Plavix and 81 mg of aspirin tomorrow. Discussed with hospitalist who accepts for admission. Differential Diagnosis Differential Diagnosis: Dementia, hyponatremia, UTI, CVA/TIA Medical Records Medical records reviewed: Yes I reviewed the patient's medical records. Imaging Data Radiologic Study: Attestation: I personally reviewed and interpreted this imaging study as follows: Imaging: MRI Radiologist's impression: IMPRESSION: 1. 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 2. Age-related cerebral atrophy and chronic microvascular ischemic disease. 3. Findings were discussed with Dr. Littlejohn at 4:55 p.m. on 05/19/2024. Lab Data Lab results reviewed: Yes I reviewed the patient's lab results. Quality:SDOH Health Related Social Needs: No Data to Display PFSH All Active Problems (Updated 05/19/24 @ 19:04 by Wade Littlejohn MD) Acute CVA (cerebrovascular accident) (Acute) HTN (hypertension) (Chronic) CVA (cerebral vascular accident) (Acute) Restrictive lung disease (Chronic) Left displaced femoral neck fracture (Acute 08/09/23) s/p Left hip hemiarthroplasty 08/10/23 Anxiety (Chronic 11/21/11) Diabetic neuropathy, type II diabetes mellitus (Chronic 08/12/14) Gastroesophageal reflux disease (Chronic 11/21/11) Heart murmur (Chronic 08/24/17) 09/12/2017 echo: no significant valvular disease Hyperlipidemia (Chronic 11/21/11) Hypomagnesemia (Chronic 03/14/18) Osteoporosis (Chronic 07/12/16) DEXA 07/11/16 Hip T-3.2, Spine T-1.5, forearm T-3.5 Other diseases of lung, not elsewhere classified (Chronic 11/21/11) rt 4mm ct stable 08/17; restrictive lung disease, neuromuscular weakness etiol? Dr Patel follows PFTs 08/2013 restrictive 47% NM weakness + response BD Other disorders of Eustachian tube (Chronic 09/07/14) Unspecified essential hypertension (Chronic 01/31/13) Hyperkalemia with NATALIIA-I --> AVOID Macrocytic anemia (Chronic) Borderline low B12 level, normal Epo (suggesting due to CKD as well); 06/16/2019 [facility] – [place] Hematology consult: multifactorial & recommended iron supplement CKD (chronic kidney disease) (Chronic) Hypothyroidism (Chronic) Cognitive complaints (Chronic) 09/22/2021 MOCA: = NORMAL; monitor Breast mass, left (Acute) Onychomycosis (Acute) Tinea pedis (Acute) Decreased hearing (Acute) Frequent falls (Acute) Medical History Closed fracture of right proximal humerus (09/03/23) Elevated procalcitonin Insulin dependent type 2 diabetes mellitus Microalbuminuria due to type 2 diabetes mellitus Type 2 diabetes mellitus with diabetic neuropathy, without long-term current use of insulin Vomiting and diarrhea Sepsis Shingles Neoplasm of skin (08/26/14) Closed nondisplaced comminuted fracture of shaft of left humerus (05/26/16) Cerebral meningioma (01/31/13) 2004 Craniotomy, resection of frontal mennigioma [facility] – [place] Pneumonia Surgical History irrigation and debridement (10/05/15) R wrist Dr Lafleur Splenomegaly Family History Mother , 76 Personal history of malignant neoplasm breast and ovarian CA Breast cancer Ovarian cancer Father , 83 Myocardial infarction Heart disease Sister , 55 Lymphoma Ovarian cancer Brother , 63 Heart disease Son No problems noted. Son Heart disease Daughter No problems noted. Social History Second Hand Exposure: Yes Smoking risk assessment performed?: No Alcohol Intake: never Drug use: Never Substance use type: does not use Caregiver/Support person: Yes Household members: none Housing: alf Number of Children: 3 number of grandchildren: 5 Do you need help understanding health information?: Never Pets and animals: No Sexually active: No Do you think of yourself as: straight/heterosexual Current gender identity: female What is your relationship status?: How often do you talk on the phone with friends or family?: three or more times per week How often do you get together with friends or relatives?: three or more times per week How often do you attend protestant or judaism services?: 1-3 times per year Do you belong to any clubs or organized social groups?: no Panel score (0-1 are the most socially isolated patients): 1 What type of physical activity do you participate in: none Frequency: does not exercise Stacey/Evangelical: Rastafarian Special stacey needs: Yes Seatbelt use: always Drive intox or ride w/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
[2024-05-19 15:57] LABS: Abs Immature Grans 0.03 10^3/uL (0.0-0.06); Absolute Basophil Count 0.07 10^3/uL (0.0-0.2); Absolute Eosinophil Count 0.12 10^3/uL (0.0-0.7); Absolute Lymphocyte Count 3.25 10^3/uL (1.2-3.4); Basophils % 0.6 %; Eosinophils % 1.1 %; HCT 37.8 % (36.0-46.0); HGB 12.6 g/dL (11.2-15.7); Immature Grans % 0.3 %; Lymphocytes % 29.5 %; MCH 32.9 pg (27.0-33.0); MCHC 33.3 % (32.0-36.0); MCV 99 fL (80-95); MPV 11.2 fL (8.0-11.0); Monocytes % 10.4 %; Neutrophils % 58.1 %; Platelet Count 154 10^3/uL (130-400); RBC 3.83 10^6/uL (3.93-5.22); RDW 11.7 % (11.7-14.6); RDW-SD 42.6 fL; WBC 11.01 10^3/uL (4.4-10.8)
[2024-05-19 16:01] LABS: Absolute Monocyte Count 1.15 10^3/uL (0.1-0.8)
[2024-05-19 16:11] LABS: Magnesium 1.9 mg/dL (1.8-2.4)
[2024-05-19 16:14] LABS: Bilirubin Small (Negative); Blood Negative (Negative); Clarity Clear (Clear); Glucose 500 mg/dL (Negative); Ketones Trace mg/dL (Negative); Leukocyte Esterase Negative (Negative); Nitrite Negative (Negative); Specific Gravity 1.025 (1.005-1.025); Urobilinogen 0.2 mg/dL (Up to 0.2)
[2024-05-19 16:26] LABS: ALT 22 U/L (14-59); AST 19 U/L (15-37); Albumin 3.7 g/dL (3.4-5.0); Alkaline Phosphatase 92 U/L (46-116); Anion Gap 7.8 mmol/L (3-11); BUN 32 mg/dL (7-18); Bilirubin, Total 0.31 mg/dL (0.2-1.0); CO2 27.2 mmol/L (21.0-32.0); CREATININE 1.7 mg/dL (0.55-1.02); Chloride 103 mmol/L (98-107); Estimated GFR 29.02 (mL/min/1.73m2); Glucose 279 mg/dL (74-106); Potassium 3.7 mmol/L (3.5-5.1); Sodium 138 mmol/L (136-145); TSH (W/Ref FT4) 3.06 uIU/mL (0.36-3.74); Total Protein 7.3 g/dL (6.4-8.2)
[2024-05-19] MEDS: Aspirin 325 MG TAB PO (17:51)
[2024-05-19] MEDS: Clopidogrel 300 MG TAB PO (17:52)
--- NOTE | 2024-05-19 18:50 | HPE_ITS ---
Date of service: 05/19/24 Time of Service: 18:50 Assessment and Plan Assessment and plan (1) CVA (cerebral vascular accident): Start date: 05/19/24 Status: Acute Assessment and plan: This is an 88-year-old lady with a 1 week history of stuttering symptoms prompting evaluation in the ED and found to have acute left frontal parietal infarct without hemorrhage or edema. She was outside the window for any interventions other than increasing her protection with dual platelet therapy. She was given a loading dose of aspirin having missed many doses of her daily aspirin in the past and on loading dose of Plavix with both aspirin and Plavix to be continued daily. She also was given high-dose statin. Further evaluation with echocardiogram and bubble study as well as MR angiogram of the head and neck with carotid Doppler for further evaluation of the carotids. CTA of the head and neck is not available. Patient will be seeing all of the rehab services and long-term may need increased assistance at home. Her family appears to be supportive. Patient is a full code. Qualifiers: CVA mechanism: occlusion Laterality of affected vessel: left P recerebral and cerebral artery: anterior cerebral artery Qualified Code(s): I 63.522 - Cerebral infarction due to unspecified occlusion or stenosis of left anterior cerebral artery (2) HTN (hypertension): Status: Chronic Assessment and plan: Permissive hypertension with patient acute stroke. Hold outpatient medical therapy and slowly adjust if needed possibly using beta-delfina with split dosing. Qualifiers: Hypertension type: primary hypertension Qualified Code(s): I10 - Essential (primary) hypertension (3) Diabetic neuropathy, type II diabetes mellitus: Status: Chronic Assessment and plan: Hold outpatient therapy and check glucometers before meals and at bedtime with short acting insulin coverage. Qualifiers: Diabetes mellitus termite control representative insulin use: without termite control representative use Qualified Code(s): E11.40 - Type 2 diabetes mellitus with diabetic neuropathy, unspecified (4) Hyperlipidemia: Status: Chronic Assessment and plan: Change simvastatin to high-dose atorvastatin 80 mg daily with first dose given in the ED. Qualifiers: Hyperlipidemia type: unspecified Qualified Code(s): E78.5 - Hyperlipidemia, unspecified (5) Restrictive lung disease: Status: Chronic Assessment and plan: Continue outpatient respiratory therapy. (6) CKD (chronic kidney disease): Status: Chronic Assessment and plan: This appears overall stable patient to be evaluated with swallow evaluation before pushing oral intake. IV hydration as needed. Qualifiers: Chronic kidney disease stage: stage 3 (moderate) Qualified Code(s): N 18.3 - Chronic kidney disease, stage 3 (moderate) (7) Hypomagnesemia: Status: Chronic Assessment and plan: Continue outpatient oral magnesium supplement with low normal levels upon admission. She is chronically on hydrochlorothiazide. (8) Gastroesophageal reflux disease: Status: Chronic Assessment and plan: Discontinue H2 antagonist and start Protonix which will not conflict with Plavix. Qualifiers: Esophagitis presence: esophagitis presence not specified Qualified Code(s): K21.9 - Gastro-esophageal reflux disease without esophagitis (9) Hypothyroidism: Status: Chronic Assessment and plan: Continue outpatient supplement. TSH is normal. Qualifiers: Hypothyroidism type: unspecified Qualified Code(s): E03.9 - Hypothyroidism, unspecified (10) Hypokalemia: Status: Chronic Assessment and plan: Patient has been intermittently on potassium supplement and her potassium did dip with morning lab with one-time dose of potassium to be given and reevaluation of palpation potassium and foods to avoid hypokalemia versus low- dose supplement daily. History of Present Illness History of Present Illness Chief Complaint: Acute confusion Narrative: This is an 88-year-old female patient brought to the ED by her daughter with a 1 week history of intermittent confusion with no other focalizing neurological complaints. She also has had no constitutional complaints denies fever, dysuria or GI symptoms. She also was not short of breath or having chest pain. She denies palpitations. In the ED she was evaluated with MRI which revealed an acute left frontal parietal watershed region infarct without hemorrhage or edema. She also had diffuse microvascular changes. Patient has no history of dementia but does have cognitive impairment. She usually functions well. At the time my interview the patient was soft-spoken and knew she was in the hospital but was less oriented but was able to follow commands. She was moving all of her extremities and her face slightly asymmetric but normal when she grimaced or lift upwards. She had no complaints at time of my exam and did have some hesitancy in her speech. Teleneurology did advise further evaluation for circulation with CTA of the head and neck or MRA of the head and neck at which point we would also have to have carotid Dopplers with MRI a being less sensitive than CTA. She was placed on dual antiplatelet therapy having already been on aspirin with missing doses. They also advised high-dose statin and permissive hypertension. She is on antihypertensives chronically. She was admitted for telemetry and neurological monitoring awaiting further studies. She also needs to be seen by rehabilitation services with PT, OT and ST with swallow evaluation. She is a full code. Review of Systems Narrative: 13 point review of systems otherwise unobtainable or stable as per HPI when daughter was interviewed with patient in the ED. PFSH All Active Problems (Updated 05/20/24 @ 11:42 by Garland Fierro) Hypokalemia (Chronic) Acute CVA (cerebrovascular accident) (Acute) HTN (hypertension) (Chronic) CVA (cerebral vascular accident) (Acute) Restrictive lung disease (Chronic) Left displaced femoral neck fracture (Acute 08/09/23) s/p Left hip hemiarthroplasty 08/10/23 Anxiety (Chronic 11/21/11) Diabetic neuropathy, type II diabetes mellitus (Chronic 08/12/14) Gastroesophageal reflux disease (Chronic 11/21/11) Heart murmur (Chronic 08/24/17) 09/12/2017 echo: no significant valvular disease Hyperlipidemia (Chronic 11/21/11) Hypomagnesemia (Chronic 03/14/18) Osteoporosis (Chronic 07/12/16) DEXA 07/11/16 Hip T-3.2, Spine T-1.5, forearm T-3.5 Other diseases of lung, not elsewhere classified (Chronic 11/21/11) rt 4mm ct stable 08/17; restrictive lung disease, neuromuscular weakness etiol? Dr Patel follows PFTs 08/2013 restrictive 47% NM weakness + response BD Other disorders of Eustachian tube (Chronic 09/07/14) Unspecified essential hypertension (Chronic 01/31/13) Hyperkalemia with NATALIIA-I --> AVOID Macrocytic anemia (Chronic) Borderline low B12 level, normal Epo (suggesting due to CKD as well); [place]16/[place] [facility] [place] consult: multifactorial & recommended iron supplement CKD (chronic kidney disease) (Chronic) Hypothyroidism (Chronic) Cognitive complaints (Chronic) 09/22/2021 MOCA: = NORMAL; monitor Breast mass, left (Acute) Onychomycosis (Acute) Tinea pedis (Acute) Decreased hearing (Acute) Frequent falls (Acute) Medical History Closed fracture of right proximal humerus (09/03/23) Elevated procalcitonin Insulin dependent type 2 diabetes mellitus Microalbuminuria due to type 2 diabetes mellitus Type 2 diabetes mellitus with diabetic neuropathy, without long-term current use of insulin Vomiting and diarrhea Sepsis Shingles Neoplasm of skin (08/26/14) Closed nondisplaced comminuted fracture of shaft of left humerus (05/26/16) Cerebral meningioma (01/31/13) 2004 Craniotomy, resection of frontal mennigioma [facility] [place] Pneumonia Surgical History irrigation and debridement (10/05/15) R june Lafleur Splenomegaly Family History Mother , 76 Personal history of malignant neoplasm breast and ovarian CA Breast cancer Ovarian cancer Father , 83 Myocardial infarction Heart disease Sister , 55 Lymphoma Ovarian cancer Brother , 63 Heart disease Son No problems noted. Son Heart disease Daughter No problems noted. Social History Second Hand Exposure: Yes Smoking risk assessment performed?: No Alcohol Intake: never Drug use: Never Substance use type: does not use Caregiver/Support person: Yes Household members: none Housing: detention Number of Children: 3 number of grandchildren: 5 Do you need help understanding health information?: Never Pets and animals: No Sexually active: No Do you think of yourself as: straight/heterosexual Current gender identity: female What is your relationship status?: How often do you talk on the phone with friends or family?: three or more times per week How often do you get together with friends or relatives?: three or more times per week How often do you attend catholic or worship services?: 1-3 times per year Do you belong to any clubs or organized social groups?: no Panel score (0-1 are the most socially isolated patients): 1 What type of physical activity do you participate in: none Frequency: does not exercise Stacey/Zoroastrianism: Congregation Special stacey needs: Yes Seatbelt use: always Drive intox or ride w/intox route 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 Meds Allergies and Home Medications Allergies Allergy/AdvReac Type Severity Reaction Status Date / Time azithromycin AdvReac Unknown nausea Verified 05/19/24 17:27 erythromycin base AdvReac Unknown Nausea Verified 05/19/24 17:27 shellfish derived AdvReac Unknown N/V/D Verified 05/19/24 17:27 Tetracyclines AdvReac Unknown Nausea Verified 05/19/24 17:27 NATALIIA Inhibitors AdvReac Other (See Verified 05/19/24 17:27 Comment) Home Medications Medication Instructions Recorded Confirmed Type multivitamin (Daily Multi-Vitamin 1 ea PO DAILY 04/17/18 05/19/24 History tablet) polyethylene glycol 3350 17 17 g PO DAILY PRN constipation 03/13/23 05/19/24 Rx gram/dose oral powder #238 grams ondansetron 4 mg disintegrating 4 mg PO Q8H PRN nausea and 05/18/23 05/19/24 Rx tablet vomiting #30 tabs famotidine 40 mg tablet 40 mg PO DAILY #90 tabs 10/19/23 05/19/24 Rx semaglutide 2 mg/dose (8 mg/3 mL) 2 mg (0.75 mL) subcut QWEEK #3 mL 10/19/23 05/19/24 Rx subcutaneous pen injector (Ozempic) aspirin 81 mg tablet,delayed 81 mg PO BID #60 tabs 11/26/23 05/19/24 Rx release blood-glucose meter #1 ea 11/26/23 05/01/24 Rx lancets #200 ea 11/26/23 05/01/24 Rx levothyroxine 25 mcg tablet 25 mcg PO DAILY #90 tab-caps 11/26/23 05/19/24 Rx ferrous sulfate 325 mg (65 mg 325 mg PO BID #180 tabs 12/28/23 05/19/24 Rx iron) tablet fluoxetine 20 mg capsule 20 mg PO DAILY #90 caps 12/28/23 05/19/24 Rx glimepiride 4 mg tablet 4 mg PO DAILY #30 tab-caps 12/28/23 05/19/24 Rx magnesium oxide 400 mg PO DAILY #30 tab-caps 12/28/23 05/19/24 Rx sitagliptin phosphate 50 mg tablet 50 mg PO DAILY #30 tabs 12/28/23 05/19/24 Rx (Januvia) blood sugar diagnostic (Blood #100 ea 03/17/24 05/01/24 Rx Glucose Test strips) albuterol sulfate 90 mcg/actuation 1 - 2 puff inhalation .Q4-6H PRN 04/11/24 05/19/24 Rx aerosol inhaler (ProAir HFA) shortness of breath or wheezing #1 unit budesonide-formoterol HFA 160 2 puff inhalation BID ##3 04/11/24 05/19/24 Rx mcg-4.5 mcg/actuation aerosol inhaler (Symbicort) calcium phosphate 250 mg-vit D3 2 tab PO DAILY #180 tabs 04/11/24 05/19/24 Rx 12.5 mcg (500 unit) chewable tablet clotrimazole 1 % topical cream 1 applic topical BID #45 grams 04/11/24 05/19/24 Rx cyanocobalamin (vitamin B-12) 1,000 mcg PO DAILY #90 tab-caps 04/11/24 05/19/24 Rx 1,000 mcg tablet hydrochlorothiazide 12.5 mg tablet 12.5 mg PO DAILY #90 tabs 04/11/24 05/19/24 Rx mirtazapine 7.5 mg tablet 7.5 mg PO QHS #90 tabs 04/11/24 05/19/24 Rx simvastatin 20 mg tablet 20 mg PO HS #90 tab-caps 04/11/24 05/19/24 Rx Exam Narrative Exam Narrative: General: Patient appears appropriate for age, thinly built, alert and oriented to place at least and possibly person but not to time or purpose. She is in no acute distress. HEENT: Normocephalic, eyes with pupils equal and reactive to light symmetrically, extraocular movement intact and sclera anicteric. Fairly dense arcus senilis over both cornea. Oropharynx with moist mucosa and poor dentition. Neck: Supple without JVD and no auscultated bruits. Back: Kyphotic without CVA tenderness. Lungs: Fair aeration and clear to auscultation percussion. No focalizing rales or rhonchi and no expiratory wheeze Heart: Regular rate and rhythm with no appreciable murmur or gallop. Distant heart sounds. Breast: Exam deferred. Abdomen: Scaphoid contour, soft and nontender to palpation with no palpable hepatosplenomegaly. Bowel sounds positive in all quadrants. No guarding or rebound. Genitalia/rectal: Exam deferred. Extremities: Without clubbing, cyanosis or pitting edema. Fair capillary refill. Muscle wasting diffusely. Neuro: Cranial nerves II through XII grossly intact. Patient does have speech hesitancy and wanders in conversation. No focalizing motor deficits but patient is very generally weak. No tremor. Skin: Normal color, warm and dry with rough texture. Psych: Flattened affect with normal mood. No abnormal thought processes but patient does wander in conversation. She has some speech hesitancy. Remote memory not testable and recent memory appears less intact. Results Imaging Imaging Studies: EXAM: MR BRAIN WO CLINICAL HISTORY: altered mental status TECHNIQUE: Multiplanar multisequence MRI of the brain was performed. COMPARISON: MR MR BRAIN W/WO CONTRAST from 12/12/2011 MR MRI - BRAIN WO CONTRAST from 02/23/2017 FINDINGS: VENTRICLES AND EXTRA AXIAL SPACES: Normal in size and morphology for the patient's age. MIDLINE SHIFT: None. CEREBRAL PARENCHYMA: There is an area of restricted diffusion involving the left frontal parietal watershed region consistent with an acute infarct. There are multiple areas of hyperintense signal seen in the white matter on the FLAIR and T2 weighted images consistent with chronic microvascular ischemic disease. HEMORRHAGE: None. BRAINSTEM/CEREBELLUM: Normal. CALVARIUM: There again seen findings of a prior right frontal craniotomy. VISUALIZED PARANASAL SINUSES/MASTOIDS:Clear. [place]: Normal flow void. [place]: There is a partially empty sella. OTHER FINDINGS: None. IMPRESSION: 1. 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 2. Age-related cerebral atrophy and chronic microvascular ischemic disease. Labs 05/20/24 09:32 05/20/24 09:32 Labs: Laboratory Results - last 24 hr 05/19/24 05/19/24 15:50 16:06 WBC 11.01 H RBC 3.83 L Hgb 12.6 Hct 37.8 MCV 99 H MCH 32.9 MCHC 33.3 RDW 11.7 Plt Count 154 MPV 11.2 H Immature Gran % 0.3 Neutrophils % 58.1 Lymphocytes % 29.5 Monocytes % 10.4 Eosinophils % 1.1 Basophils % 0.6 Nucleated RBC % 0.0 Absolute Neutrophils 6.40 Absolute Lymphocytes 3.25 Absolute Monocytes 1.15 H Absolute Eosinophils 0.12 Absolute Basophils 0.07 VBG pH 7.35 VBG pCO2 43 VBG pO2 53 VBG HCO3 24 VBG Total CO2 25 VBG O2 Saturation 85 VBG Base Excess -2 Sodium 138 Potassium 3.7 Chloride 103 Carbon Dioxide 27.2 Anion Gap 7.8 BUN 32 H Creatinine 1.7 H Est GFR (CKD-EPI 2020) 29.02 Glucose 279 H Calcium 9.0 Magnesium 1.9 Total Bilirubin 0.31 AST 19 ALT 22 Alkaline Phosphatase 92 Total Protein 7.3 Albumin 3.7 TSH 3.06 Urine Color Yellow Urine Clarity Clear Urine pH 5.0 Ur Specific [place] 1.025 Urine Protein Negative Urine Ketones Trace H Urine Blood Negative Urine Nitrite Negative Urine Bilirubin Small H Urine Urobilinogen 0.2 Ur Leukocyte Esterase Negative Urine Glucose 500 H Last Vital Signs Temp 37.1 C 05/19/24 15:27 Pulse 69 05/19/24 18:31 Resp 23 05/19/24 18:31 BP 148/55 H 05/19/24 18:31 Pulse Ox 97 05/19/24 18:31 Time Spent Time spent with Patient: >75 minutes Time was spent: preparing to see the patient(eg.review tests), obtaining and/or reviewing separately otained hiistory, ordering medications,tests, procedures, referring, communicating with other health rn complex care, indepentently interpreting results and care coordination
[2024-05-19 20:50] LABS: BE (Venous) -2 mmol/L (-2-3); HCO3 (Venous) 24 mmol/L (23-28); O2 Sat (Venous) 85 %; TCO2 (Venous) 25 mmol/L (24-29); pCO2 (Venous) 43 mmHg (41-51); pH (Venous) 7.35 (7.31-7.41); pO2 (Venous) 53 mmHg
[2024-05-19] MEDS: Atorvastatin 40 MG TAB 80 MG PO (23:06)
[2024-05-19] MEDS: Clotrimazole 1% 15 GM TUBE TP (23:09)
[2024-05-19] MEDS: Budesonide/Formoterol 160/4.5 6 GM 60 PUFF INH IH (23:09)
[2024-05-19] MEDS: Ferrous Sulfate 325 MG TAB PO (23:10)
[2024-05-19] MEDS: Mirtazapine 15 MG TAB 7.5 MG PO (23:14)
[2024-05-20] VITALS (81 sets, daily range): BP systolic 114–186; BP diastolic 43–86; PULSE 64–93; RESP 12–29; TEMP 37.1–37.4; O2SAT 97–99
[2024-05-20] MEDS: Insulin Aspart 300 UNITS/3 ML PEN SC ×3 (07:51→23:12)
--- NOTE | 2024-05-20 08:00 | DI.US_ITS ---
Exam(s) US CAROTID EXAM: US CAROTID CLINICAL HISTORY: Left CVA. TECHNIQUE: Ultrasound carotids performed using grayscale, color-flow, and spectral Doppler imaging. COMPARISON: No exams were available for comparison FINDINGS: RIGHT CAROTID ARTERY: Plaque: Mild calcific plaque at bulb and proximal internal and external carotid arteries.. Velocity elevation: None. LEFT CAROTID ARTERY: Plaque: Mild 2 moderate calcific plaque at bulb, proximal internal and external carotid arteries. Velocity elevation: None. VERTEBRAL ARTERIES: Antegrade flow. Measurements: R Bulb: 50.1cm/s PS / 11.5cm/s ED R CCA: 52.9cm/s PS / 12.8cm/s ED R ECA: 112.6cm/s PS / 10.7cm/s ED R ICA Prox: 48.5cm/s PS / 12.4cm/s ED R ICA Mid: 64.7cm/s PS / 16.1cm/s ED R ICA Distal: 90cm/s PS /19.7cm/s ED R Vert: 48.1cm/s PS / 14.1cm/s ED R SVR: 1.7 R DVR: 1.5 L Bulb: 107.2cm/s PS / 32cm/s ED L CCA: PS / 17.7cm/s ED L ECA: 57.1cm/s PS / 8.8cm/s ED L ICA Prox: 104.7cm/s PS / 21.6cm/s ED L ICA Mid: 98.7cm/s PS / 19.6cm/s ED L ICA Distal: 92.7cm/s PS / 21.6cm/s ED L Vert: 37.7cm/s PS / 10.8cm/s ED L SVR: 1.7 L DVR: 1.8 IMPRESSION: No evidence for hemodynamically significant carotid stenosis. [id number] calcific plaque at th e common carotid bulbs, proximal internal and external carotid arteries. Criteria for Carotid Stenosis: Normal: ICA PSV <125 cm/s no plaque or intimal thickening is visible. <50% stenosis: ICA PSV <125 cm/s and plaque or intimal thickening is visible. 50-69% stenosis: ICA PSV is 125-250 cm/s and plaque is visible. >70% stenosis to near occlusion: ICA PSV >250 cm/s with visible plaque and luminal narrowing. DATA REPOSITORY:
--- NOTE | 2024-05-20 08:00 | DI.US_ITS ---
APPROVED REPORT EXAM: Comprehensive 2D, Doppler, and color-flow Echocardiogram Patient Location: ER Room/Bed: 4 Senior Application Security Consultant: Tatiana Donovan RDCS (AE) Indications: Left CVA with acute symptoms Echo Enhancing Agent Indication: Rule out Shunt Agent(s) / Amount(s) Used: Agitated Saline 30.0 cc Comments: Contrast study was performed with 3 IV injections of 10ccs of agitated normal saline, at [facility], with cough and post valsalva maneuver. Patient was unable to cooperate completely Negative contrast study for shunt flow.with maneuvers. Other Information Study Quality: Fair. Technically limited study due to body habitus, inability to position patient exa m done supine bedside er. Patient terminated exam. Unable to tolerate any pressure from probe.. Conclusion Normal left ventricular chamber size. There is disproportionate upper septal thickening. Ejection f raction is 55 to 60%. There are no segmental wall motion abnormalities Grossly normal right ventricular size Both atria are normal in size No intracardiac shunting is identified on injection of agitated saline Arctic valve sclerosis, mildly thickened mitral leaflets No hemodynamically significant valvular disease Wall motion Left Ventricle Technically limited parasternal imaging. The overall left ventricular systolic function appears matthew l. Patient terminated exam. Unable to tolerate any pressure on her chest. Disproportionate upper sept al thickening EF 55 to 60% Right Ventricle The right ventricle is normal size. Atria The left atrium size is grossly normal. The right atrium size is grossly normal. Aortic Valve The Aortic valve is sclerotic. Number of aortic valve leaflets could not be assessed. There is no aor tic valvular stenosis. No aortic regurgitation is present. Mitral Valve Mildly thickened mitral leaflets No evidence of mitral valve stenosis. Trace mitral regurgitation. Tricuspid Valve The tricuspid valve is normal in structure. There is no tricuspid valve stenosis. Trace tricuspid reg urgitation. Unable to assess PA pressure. Pulmonic Valve Pulmonic valve is not well visualized. There is no pulmonic valvular stenosis. There is no pulmonic v alvular regurgitation. Great Vessels The aortic root is normal in size. Ascending aorta is not well visualized. The IVC was not visualized . Exam terminated by patient. Pericardium Not visualized. Exam terminated by patient 2D Dimensions Ao Root d 2.84 cm F: 2.7 - 3.3 M-Mode TAPSE 1.86 cm (M/F) >1.7 Auto EF LV EDV A4C 69.0 mL LV EDV A2C LV EDV BP LV ESV A4C 29.2 mL LV ESV A2C LV ESV BP LVEF(%) A4C 57.7 % LVEF(%) A2C LVEF(%) BP LV SV A4C 39.8 ml LV SV A2C LV SV BP LV CO A4C 3.0 L/min LV CO A2C LV CO BP HR A4C 76.41 BPM HR A2C LV EDV Index (BP) LA Volume LA Length A4C 3.7 cm LA Length A2C LA Area A4C s 9.61 cm2 LA Area A2C s LA Vol A4C A-L 20.91 mL LA Vol A2C A-L LA Vol Biplane A-L LA Vol A4C MOD 19.9 mL LA Vol A2C MOD LA Vol BP MOD LV Diastology MV E' medial 0.076 (>0.07 m/s) MV E Vmax 0.82 (0.4-1.3 m/s) MV E/E' MED 10.81 (<14) MV A Vmax 1.15 (0.4-1.3 m/s) MV E' lateral 0.079 (>0.1 m/s) E/A Ratio 0.7 MV E/E' LAT 10.45 (<14) MV E' Average 0.077 m/s MV E/E'(average) 10.63 Aortic Valve AoV Vmax 1.62 m/s LVOT Vmax 0.95 m/s AoV Peak Grad 10.5 mmHg LVOT Peak Grad 3.6 mmHg AoV Area (Vmax) 1.66 cm2 LVOT VTI 0.212 m AoV VTI 0.362 m LVOT Mean Grad 2.5 mmHg AoV Mean Wilberto. 1.24 m/s LVOT SV 60.21 mL AoV Mean Grad 6.7 mmHg LVOT Diam s 1.90 cm AoV Area (VTI) 1.66 cm2 Velocity Ratio 0.59 Mitral Valve MV DT 438 (160-240 msec) MV Vmax TIPS 1.14 m/s MV Mean Grad 1.9 (<2mmHg) MV VTI 0.308 m Pulmonary Valve PV Vmax 0.81 (0.5-1.5 m/s) RVOT Vmax 0.65 m/s PV Peak Grad 2.6 mmHg RVOT Peak Gr. 1.7 mmHg PV Mean Wilberto 0.65 m/s RVOT VTI 0.132 m PV Mean Grad 1.8 mmHg RVOT Mean Gr. 0.8 mmHg Tricuspid Valve TV S' 0.12 m/s
--- NOTE | 2024-05-20 08:00 | DI.MRI_ITS ---
Exam(s) MR ANGIO BRAIN WO CLINICAL HISTORY: CVA left frontal. TECHNIQUE: 3D [id number] study was performed without contrast. COMPARISON: None. FINDINGS: Carotid Arteries: Petrous: Normal. Cavernous: Normal. Cerebral: Normal. Middle Cerebral Arteries: Right: No aneurysm or significant stenosis. Left: No aneurysm or significant stenosis. Anterior Cerebral Arteries: Right: No aneurysm or significant stenosis. Left: No aneurysm or significant stenosis. Posterior cerebral arteries: Right: No aneurysm or significant stenosis Left: No aneurysm or significant stenosis Vertebral Arteries: Right: Dominant no aneurysm or significant stenosis. No dissection. Left: No aneurysm or significant stenosis. No dissection.. Basilar Artery: No aneurysm or significant stenosis. Small Vessels: No evidence of beading. IMPRESSION: Normal MRA examination of the [place]. DATA REPOSITORY:
--- NOTE | 2024-05-20 08:00 | DI.MRI_ITS ---
Exam(s) MR ANGIO NECK WO EXAM: MR ANGIO NECK WO CLINICAL HISTORY: CVA left frontal. TECHNIQUE: 2D and 3D [id number] MRA of the Neck was performed. COMPARISON: MR MR BRAIN WO from 05/19/2024 MR MR ANGIO BRAIN WO from 05/20/2024 FINDINGS: Common Carotid: Right: No dissection, occlusion or significant stenosis. Left: No dissection, occlusion or significant stenosis. External Carotid: Right: No evidence of occlusion or significant stenosis. Left: No evidence of occlusion or significant stenosis. Internal Carotid: Right: No dissection, occlusion or significant stenosis. Left: No dissection, occlusion or significant stenosis. Vertebral Artery: Somewhat limited visualization proximally due to artifact. Right: No dissection, occlusion or significant stenosis. Left: No dissection, occlusion or significant stenosis. The visualized paraspinal soft tissues are unremarkable. IMPRESSION: No evidence of dissection, occlusion or significant stenosis. DATA REPOSITORY:
[2024-05-20] MEDS: Normal Saline Flush 10 ML SYR IVP ×2 (09:35→20:00)
[2024-05-20 09:37] LABS: HCT 39.6 % (36.0-46.0); HGB 13.3 g/dL (11.2-15.7); MCH 33.5 pg (27.0-33.0); MCHC 33.6 % (32.0-36.0); MCV 100 fL (80-95); RBC 3.97 10^6/uL (3.93-5.22); RDW 11.7 % (11.7-14.6); RDW-SD 42.8 fL; WBC 13.18 10^3/uL (4.4-10.8)
--- NOTE | 2024-05-20 09:53 | NUR.NOTE ---
Upon assessment this AM, pt is answering questions slowly but appropriately. LS are clear bilat throughout. HRR. HTN noted. Pt remains on RA. No acute resp distress noted. Pt unable to swallow ordered medications this AM, attempts with water and applesauce unsuccessful. ST consult has been ordered at this time. Pt incontinent of stool this AM. Brain MRI taken this AM. Awaiting bed availability on MS. Will continue to monitor. Nursing Note:
[2024-05-20 09:56] LABS: ALT 23 U/L (14-59); AST 24 U/L (15-37); Albumin 3.8 g/dL (3.4-5.0); Alkaline Phosphatase 101 U/L (46-116); Anion Gap 10.1 mmol/L (3-11); BUN 30 mg/dL (7-18); Bilirubin, Total 0.31 mg/dL (0.2-1.0); CO2 27.9 mmol/L (21.0-32.0); CREATININE 1.5 mg/dL (0.55-1.02); Calcium 9.7 mg/dL (8.5-10.1); Chloride 102 mmol/L (98-107); Estimated GFR 33.73 (mL/min/1.73m2); Glucose 153 mg/dL (74-106); Magnesium 1.8 mg/dL (1.8-2.4); Potassium 3.4 mmol/L (3.5-5.1); Sodium 140 mmol/L (136-145); Total Protein 7.7 g/dL (6.4-8.2)
--- NOTE | 2024-05-20 13:46 | IN_ITS ---
PT Notes Visit Reasons: Acute left Frontal CVA, HTN, NIDDM Physical Therapy Inpatient Initial Evaluation Date: 05/20/2024 Referring Doctor: Garland Fierro MD PT Orders: PT CONSULT: Limited ability Precautions: Fall. Standard. Activity as tolerated. Patient Profile/Admitting Diagnosis: Geno is an 88-year-old female who presented to the ED on 08/09/23 due to increasing confusion and worsening stuttering. She is admitted for continued monitoring of L frontal parietal infarction. MRI IMPRESSION as of 05/19/2024: 1. 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 2. Age-related cerebral atrophy and chronic microvascular ischemic disease. PMHX: All Active Problems (Updated 05/20/24 @ 11:42 by Garland Fierro) Hypokalemia (Chronic) Acute CVA (cerebrovascular accident) (Acute) HTN (hypertension) (Chronic) CVA (cerebral vascular accident) (Acute) Restrictive lung disease (Chronic) Left displaced femoral neck fracture (Acute 08/09/23) s/p Left hip hemiarthroplasty 08/10/23 Anxiety (Chronic 11/21/11) Diabetic neuropathy, type II diabetes mellitus (Chronic 08/12/14) Gastroesophageal reflux disease (Chronic 11/21/11) Heart murmur (Chronic 08/24/17) 09/12/2017 echo: no significant valvular disease Hyperlipidemia (Chronic 11/21/11) Hypomagnesemia (Chronic 03/14/18) Osteoporosis (Chronic 07/12/16) DEXA 07/11/16 Hip T-3.2, Spine T-1.5, forearm T-3.5 Other diseases of lung, not elsewhere classified (Chronic 11/21/11) rt 4mm ct stable 08/17; restrictive lung disease, neuromuscular weakness etiol? Dr Patel follows PFTs 08/2013 restrictive 47% NM weakness + response BD Other disorders of Eustachian tube (Chronic 09/07/14) Unspecified essential hypertension (Chronic 01/31/13) Hyperkalemia with NATALIIA-I --> AVOID Macrocytic anemia (Chronic) Borderline low B12 level, normal Epo (suggesting due to CKD as well); [place] [facility] [place] consult: multifactorial & recommended iron supplement CKD (chronic kidney disease) (Chronic) Hypothyroidism (Chronic) Cognitive complaints (Chronic) 09/22/2021 MOCA: 27/30 = NORMAL; monitor Breast mass, left (Acute) Onychomycosis (Acute) Tinea pedis (Acute) Decreased hearing (Acute) Frequent falls (Acute) Medical History Closed fracture of right proximal humerus (09/03/23) Elevated procalcitonin Insulin dependent type 2 diabetes mellitus Microalbuminuria due to type 2 diabetes mellitus Type 2 diabetes mellitus with diabetic neuropathy, without long-term current use of insulin Vomiting and diarrhea Sepsis Shingles Neoplasm of skin (08/26/14) Closed nondisplaced comminuted fracture of shaft of left humerus (05/26/16) Cerebral meningioma (01/31/13) 2004 [place]iot[place], [place] frontal [place] [facility] [place] Surgical History Irrigation and debridement (10/05/15) R wrist Dr Ciarra Hand Social History/Home Situation: Lives alone in ground level apartment, uses cane. Daughter calls or takes her grocery shopping. Daughter is recovering from recent heart attack and all her four other siblings are out of state. Patient does not drive. Uses FWW indoors. Equipment Owned/DME: Single point cane Subjective: Complained of pain in her neck and discomfort in her shoulders, R more than the L. Per sister Kelsi and daughter La, patient has had increased confusion and has had worsening speech difficulty. Patient agreeable with getting out of bed and seeing how she does with walking Objective: General Observation: Patient resting in bed. Daughter and sister in room. Assisted with underwear change prior to mobility assessment. Mental Status: Alert, slow to respond to questions. Aware of where she is. Directions needed to be repeated prior to execution. Pain: As above ROM: Right Upper Extremity: Shoulder Flexion lacks the last 25% of AROM. Shoulder abduction lacks the last 25% of AROM. Elbow flexion WFL. Wrist flexion WFL. Opening and closing of hand WFL. Left Upper Extremity: Shoulder Flexion lacks the last 25% of AROM. Shoulder abduction lacks the last 25% of AROM. Elbow flexion WFL. Wrist flexion WFL. Opening and closing of hand WFL. Right Lower Extremity: Hip flexion WFL. Hip abduction WFL. Knee flexion WFL. Ankle dorsiflexion to neutral only. Ankle plantarflexion WFL. Left Lower Extremity: Hip flexion WFL. Hip abduction WFL. Knee flexion WFL. Ankle dorsiflexion to neutral only. Ankle plantarflexion WFL. Strength: Right Upper Extremity: Shoulder flexors 3-/5. Shoulder abductors 3-/5. Elbow flexors 4-/5. Elbow extensors 4-/5. Director Of Quality Control strong. Left Upper Extremity: Shoulder flexors 3-/5. Shoulder abductors 3-/5. Elbow flexors 4-/5. Elbow extensors 4-/5. Director Of Quality Control strong. Right Lower Extremity: Hip flexors 4-/5. Knee flexors 4-/5. Knee extensors 4-/5. Ankle dorsiflexors 3-/5. Ankle plantarflexors 4-/5. Left Lower Extremity: Hip flexors 3+/5. Knee flexors 3+/5. Knee extensors 4-/5. Ankle dorsiflexors 3-/5. Ankle plantarflexors 4-/5. Sensation: Inatct as to pain and light pressure in B UE/LE Bed Mobility/Transfers: Moderate] cueing provided for use of B hands as needed for support, movement sequence, AD management, and posture to reduce fall risk and minimize pain report Supine to sit moderate assist Sit to supine moderate assist Sit to stand minimal assist using FWW Stand to sit minimal assist using FWW Bed to chair minimal assist using FWW Chair to bed minimal assist using FWW Gait: Facilitated safe and correct performance level surface ambulation covering a distance of about 30 feet with asymmetrical step length and minimal lag on the left LE due to left hip weakness from previous left BEBETO. Unastable, needed minimal assist for safety and moderate verbal cueing for AD management, limb adavncement, and posture. Balance: Static Sitting: Fair Dynamic Sitting: Fair Static Standing: Fair Dynamic Standing: Poor Special Tests: Mobility Limitations Standardized Measure [facility] AM-PAC 6 clicks Basic Mobility Inpatient Short Form: Raw Score: 17 CMS Score: 50% Informed Consent/Education: Patient instructed in purpose of PT consult and plan of care. Assessment: Patient will require use of ffront-wheeld walker and assistance of 1 person for all mobility ADL performance to maximize independence and reduce fall risk. She will require moderate verbal cueing for safety. R UE relatively weaker than R LE. L LE limb advancement reduced due to previous L hip partial replacement. Slowed response from pre-existing cognitive decline compounded by acute infarction in [id number] region. Will continue to assess patient status and mobility as she receives acute rehab. Responses limited and will benefit from speech evaluation. Patient presents with clinical signs and symptoms consistent with current/admitting diagnoses that have resulted to mobility limitations, gait instability, generalized weakness, and impairment of motor control as demonstrated by the following impairment level findings: 1. Decreased strength to B UE/LE with R UE more affected than L and L LE more affected than L 2. Impaired standing balance 3. Impaired activity tolerance 4. Decreased ability to follow commands 5. Impaired safety awareness Impairments are contributing to the following functional limitations: 1. Dependent bed mobility skills 2. Increased dependence with transfers 3. Inability to safely ambulate without assistive device and physical assistance 4. Increase completion time for mobility ADL performance 5. Increased fall risk Patient is assessed as a Moderate complexity based on the following: History: 88 year old female with impairment level findings, functional limitations, and past medical history as indicated above Examination: Demonstrable impairment in strength, balance, and mobility level with underlying impairments and functional limitations as documented above Presentation: Evolving Decision Makin Moderate complexity Goals: Goals x1 week 1. Supine-Sit: independent 2. Sit-Supine: independent 3. Sit-Stand: independent 4. Stand-Sit: independent 5. Bed-Chair: independent 6. Chair-Bed: independent 7. Independent gait on level surface with use of least restrictive device for at least 100 feet without report of pain nor dyspnea 8. Good static and dynamic standing balance/tolerance 9. Independent with home exercise program Plan of Care/Treatment Plan: 1-2x/day, 7 days/week x1 week. Plan of care has been reviewed with the COPRA SAMPLER providing the service under Physical Therapy direction. Initiate Physical Therapy intervention for strengthening, bed mobility, transfers, gait, stairs, balance training, and use of assistive device. Discharge Plan DISCHARGE RECOMMENDATIONS: SNF for continued neurologic rehabilitation TREATMENT CODE/TIME: 9716 2 x 20 minutes for 1 unit, 9753 0 x 12 minutes for 1 unit (13:46-14:18). Thank you for the opportunity to participate in the care of this patient. Rosemarie Christine PT, DPT, CLT [facility] [place], [place]
--- NOTE | 2024-05-20 14:26 | OT.INIE ---
Occupational Therapy Notes Inpatient Occupational Therapy Evaluation Date: 05/21/24 Referring Doctor:Garland Fierro MD OT Orders: Non urgent Precautions: Fall, Standard, full PATIENT PROFILE/ADMITTING DIAGNOSIS: Pt is a 88 year old female who was admitted d/t a dx of Hypokalemia, acute CVA, HTN, restricted lung disease. Her daughter reports that she had symptoms for a couple days and was having difficulty with eating and walking. She presented to the ED and was admitted. Past Medical History: All Active Problems (Updated 05/20/24 @ 11:42 by Garland Fierro) Hypokalemia (Chronic) Acute CVA (cerebrovascular accident) (Acute) HTN (hypertension) (Chronic) CVA (cerebral vascular accident) (Acute) Restrictive lung disease (Chronic) Left displaced femoral neck fracture (Acute 08/09/23) s/p Left hip hemiarthroplasty 08/10/23Anxiety (Chronic 11/21/11) Diabetic neuropathy, type II diabetes mellitus (Chronic 08/12/14) Gastroesophageal reflux disease (Chronic 11/21/11) Heart murmur (Chronic 08/24/17) 09/12/2017 echo: no significant valvular disease Hyperlipidemia (Chronic 11/21/11) Hypomagnesemia (Chronic 03/14/18) Osteoporosis (Chronic 07/12/16) DEXA 07/11/16 Hip T-3.2, Spine T-1.5, forearm T-3.5 Other diseases of lung, not elsewhere classified (Chronic 11/21/11) rt 4mm ct stable 08/17; restrictive lung disease, neuromuscular weakness etiol? Dr Patel follows PFTs 08/2013 restrictive 47% NM weakness + response BD Other disorders of Eustachian tube (Chronic 09/07/14) Unspecified essential hypertension (Chronic 01/31/13) Hyperkalemia with NATALIIA-I --> AVOIDMacrocytic anemia (Chronic) Borderline low B12 level, normal Epo (suggesting due to CKD as well); 06/16/2019 [facility] [place] Hematology consult: multifactorial & recommended iron supplementCKD (chronic kidney disease) (Chronic) Hypothyroidism (Chronic) Cognitive complaints (Chronic) 09/22/2021 MOCA: = NORMAL; monitorBreast mass, left (Acute) Onychomycosis (Acute) Tinea pedis (Acute) Decreased hearing (Acute) Frequent falls (Acute) Medical History Closed fracture of right proximal humerus (09/03/23) Elevated procalcitonin Insulin dependent type 2 diabetes mellitus Microalbuminuria due to type 2 diabetes mellitus Type 2 diabetes mellitus with diabetic neuropathy, without long-term current use of insulin Vomiting and diarrhea Sepsis Shingles Neoplasm of skin (08/26/14) Closed nondisplaced comminuted fracture of shaft of left humerus (05/26/16) Cerebral meningioma (01/31/13) 2004 Craniotomy, resection of frontal mennigioma [facility] [place] Pneumonia Surgical History irrigation and debridement (10/05/15) R wrist Dr LafleurSplenomegaly Social History/Home Situation/Supports and Challenges: Supports- Has supportive daughter and sister Receptive to education Uses a FWW/cane wants to be as (I) as possible Challenges- Daughter is dealing with recent medical issues unable to provide care for mom Cognitively challenged with possible dementia increased performance time for tasks decreased strength decreased functional activity tolerance impairments in LE dressing unable to care for self at home poor eating habits per family with weight loss Equipment owned/DME: FWW, Cane SUBJECTIVE: Pt was sitting on bed she is alert and agreeable to consult. She is in the room with daughter and sister. OBJECTIVE: General Observation: Pleasant, cognitively challenged with possible dementia dx per family, IV in (L) UE Mental Status: alert to name and place but confused Pain: no c/o pain ROM: RUE WFL with past hx of shoulder fx L UE WFL STRENGTH: RUE Assistant Project Manager is weak, Shoulder flexion 3/5, Bicep 4/5, Tricep 4-/5 LUE Assistant Project Manager is strong, Shoulder flexion 3+/5, Bicep 4-/5, Tricep 4-/5 FUNCTIONAL MOBILITY/ADLS: Transfers Supine-sit (I) with increased time Sit-supine (I) BATHING NT in the ED but pt has ideal ROM to perform she does take increased performance time DRESSING seated on side of the bed Dressing UE Mod (A) don and doffing UE Dressing LE (I) with donning and doffing (R) sock, max (A) (L) GROOMING (I) in seated position TOILETING NT but pts family reports that she is incontinent and has difficulty making it to the bathroom. EATING sitting in bed with max (A) support to back (I) with eating routine. Noted by family that she has difficulty with swallowing medications. OT recommends SCOURING MACHINE OPERATOR consult. BALANCE: Static sitting Normal Dynamic Sitting Good but back lean in seated position INFORMED CONSENT/EDUCATION: Pt instructed in purpose of OT Consult and plan of care. ASSESSMENT: Patient is a 88-year-old female referred to occupational therapy services with diagnosis of Hypokalemia, acute CVA, HTN, restricted lung disease. Patient presents with clinical signs and symptoms consistent with dx, as demonstrated by the following impairment level findings/functional limitations: Impairments in ADL/IADL and leisure activities, decreased functional activity tolerance, impairments in gross and ifne motor control, delayed and increased performance reaction time. Patient is assessed as a Moderate 09698 complexity based on the following: History: see above Examination: see functional limitations as noted above Presentation: evolving Decision Making: moderate complexity GOALS Goals x1 week 1. Transfers (I) 2. Dressing seated on side of the bed mod (I) 3. Bathing seated on side of bed (I) UE/LE 4. Toileting on toilet (I) 5. Eating (I) PLAN OF CARE/TREATMENT PLAN: 1x/day, 5 days/ week x 1week Initiate Occupational Therapy Services for bathing, dressing, grooming, toileting, eating, transfer training. DISCHARGE RECOMMENDATIONS OT recommends SNF when medically cleared per MD. TREATMENT TIME/MINUTES/CODES 14439, 45301, 35 minutes [facility] [place], [place]
--- NOTE | 2024-05-20 14:44 | PGE_ITS ---
Date of Service Date of service: 05/20/24 Time of Service: 14:44 Assessment and Plan Assessment and plan (1) CVA (cerebral vascular accident): Start date: 05/19/24 Status: Acute Assessment and plan: MRI of the brain - Normal MRA examination of the [place]. No evidence for hemodynamically significant carotid stenosis. [id number] calcific plaque at the common carotid bulbs, proximal internal and external carotid arteries. MRI brain No evidence of dissection, occlusion or significant stenosis. Echo - Normal left ventricular chamber size. There is disproportionate upper septal thickening. Ejection fraction is 55 to 60%. There are no segmental wall motion abnormalities Grossly normal right ventricular size Both atria are normal in size No intracardiac shunting is identified on injection of agitated saline Arctic valve sclerosis, mildly thickened mitral leaflets No hemodynamically significant valvular disease Qualifiers: CVA mechanism: occlusion Precerebral and cerebral artery: anterior cerebral artery Laterality of affected vessel: left Qualified Code(s): I63.522 - Cerebral infarction due to unspecified occlusion or stenosis of left anterior cerebral artery (2) HTN (hypertension): Status: Chronic Assessment and plan: Permissive hypertension with patient acute stroke. Hold outpatient medical therapy and slowly adjust if needed possibly using beta-delfina with split dosing. Qualifiers: Hypertension type: primary hypertension Qualified Code(s): I10 - Essential (primary) hypertension (3) Diabetic neuropathy, type II diabetes mellitus: Status: Chronic Assessment and plan: Hold outpatient therapy and check glucometers before meals and at bedtime with short acting insulin coverage. Qualifiers: Diabetes mellitus fci insulin use: without intermission coordinator use Qualified Code(s): E11.40 - Type 2 diabetes mellitus with diabetic neuropathy, unspecified (4) Hyperlipidemia: Status: Chronic Assessment and plan: Continue atorvastatin 80 mg daily Qualifiers: Hyperlipidemia type: unspecified Qualified Code(s): E78.5 - Hyperlipidemia, unspecified (5) Restrictive lung disease: Status: Chronic Assessment and plan: Continue outpatient respiratory therapy. (6) CKD (chronic kidney disease): Status: Chronic Assessment and plan: This appears overall stable patient to be evaluated with swallow evaluation before pushing oral intake. IV hydration as needed. Qualifiers: Chronic kidney disease stage: stage 3 (moderate) Qualified Code(s): N18.3 - Chronic kidney disease, stage 3 (moderate) (7) Hypomagnesemia: Status: Chronic Assessment and plan: Continue outpatient oral magnesium supplement with low normal levels upon admission. She is chronically on hydrochlorothiazide. (8) Gastroesophageal reflux disease: Status: Chronic Assessment and plan: Discontinue H2 antagonist and start Protonix which will not conflict with Plavix. Qualifiers: Esophagitis presence: esophagitis presence not specified Qualified Code(s): K21.9 - Gastro-esophageal reflux disease without esophagitis (9) Hypothyroidism: Status: Chronic Assessment and plan: Continue outpatient supplement. TSH is normal. Qualifiers: Hypothyroidism type: unspecified Qualified Code(s): E03.9 - Hypothyroidism, unspecified (10) Hypokalemia: Status: Chronic Assessment and plan: repleted, trend Subjective Subjective Patient reports: no new complaints and feels better Exam Const General: no acute distress Orientation: alert HENMT Head: normal to inspection Ears: external ears normal General nose exam: external nose normal Mouth: moist mucous membranes Eyes General: appearance normal, both eyes and all related structures Neck Neck: normal visual inspection Resp Effort & Inspection: normal respiratory effort and able to speak in complete sentences Cardio Rate: regular rate Skin General skin exam: no rashes or lesions noted Neuro General: patient alert and oriented Patient Orientation: Person, Place and Confused Cranial Nerves: CN's II-XI intact bilaterally and PERRL Extrem General: normal to inspection Psych Mental Status: mental status grossly normal Objective Last Vital Signs Temp 37.1 C 05/19/24 15:27 Pulse 80 05/20/24 13:30 Resp 16 05/20/24 14:30 BP 149/56 H 05/20/24 13:30 Pulse Ox 98 05/20/24 10:50 Laboratory Results - last 24 hr 05/19/24 05/19/24 05/20/24 15:50 16:06 09:32 WBC 11.01 H 13.18 H RBC 3.83 L 3.97 Hgb 12.6 13.3 Hct 37.8 39.6 MCV 99 H 100 H MCH 32.9 33.5 H MCHC 33.3 33.6 RDW 11.7 11.7 Plt Count 154 MPV 11.2 H Immature Gran % 0.3 Neutrophils % 58.1 Lymphocytes % 29.5 Monocytes % 10.4 Eosinophils % 1.1 Basophils % 0.6 Nucleated RBC % 0.0 Absolute Neutrophils 6.40 Absolute Lymphocytes 3.25 Absolute Monocytes 1.15 H Absolute Eosinophils 0.12 Absolute Basophils 0.07 VBG pH 7.35 VBG pCO2 43 VBG pO2 53 VBG HCO3 24 VBG Total CO2 25 VBG O2 Saturation 85 VBG Base Excess -2 Sodium 138 140 Potassium 3.7 3.4 L Chloride 103 102 Carbon Dioxide 27.2 27.9 Anion Gap 7.8 10.1 BUN 32 H 30 H Creatinine 1.7 H 1.5 H Est GFR (CKD-EPI 2020) 29.02 33.73 Glucose 279 H 153 H Calcium 9.0 9.7 Magnesium 1.9 1.8 Total Bilirubin 0.31 0.31 AST 19 24 ALT 22 23 Alkaline Phosphatase 92 101 Total Protein 7.3 7.7 Albumin 3.7 3.8 TSH 3.06 Urine Color Yellow Urine Clarity Clear Urine pH 5.0 Ur Specific [place] 1.025 Urine Protein Negative Urine Ketones Trace H Urine Blood Negative Urine Nitrite Negative Urine Bilirubin Small H Urine Urobilinogen 0.2 Ur Leukocyte Esterase Negative Urine Glucose 500 H Time Spent with Patient Time Spent with Patient: 25-34 minutes Time was spent: preparing to see the patient(eg.review tests), ordering medications,tests, procedures, referring, communicating with other health patient care nursing assistant, indepentently interpreting results, counseling the patient and care coordination
[2024-05-20] MEDS: Potassium Chloride 20 MEQ TABCR 40 MEQ PO (15:31)
--- NOTE | 2024-05-20 18:54 | W.PC.ACHO ---
Registration Status: ADM IN Primary Language: Preferred Language: Bulgarian ED Information & Data Chief Complaint AMS/LOC 05/19/24 15:36 Triage Note Pt arrives to ED w/ AMS; pt' 05/19/24 13:18 s family states pt had an episode last where she wandered off. No dementia dx at baseline. Pt' s family has noticed a cognitive decline but this was the first time she wandered off. Family concerned for a possible UTI . Pt is not her normal chatty self. per family. Pt A&O x 4 in triage. Equal bilateral UE strength Medical / Surgical History (Last Reviewed 05/20/24 @ 03:01 by Garland Fierro) Closed fracture of right proximal humerus (09/03/23) Elevated procalcitonin Insulin dependent type 2 diabetes mellitus Microalbuminuria due to type 2 diabetes mellitus Type 2 diabetes mellitus with diabetic neuropathy, without long-term current use of insulin Vomiting and diarrhea Sepsis Shingles Neoplasm of skin (08/26/14) Closed nondisplaced comminuted fracture of shaft of left humerus (05/26/16) Cerebral meningioma (01/31/13) Pneumonia (Last Reviewed 05/20/24 @ 03:01 by Garland Fierro) irrigation and debridement (10/05/15) Splenomegaly Most Recent Vital Signs Temperature 37.1 C 05/20/24 15:34 Temperature Source Skin 05/20/24 15:07 Pulse 90 05/20/24 15:34 Pulse Rhythm Regular 05/20/24 15:34 Pulse 80 05/20/24 14:30 Respiratory Rate 17 05/20/24 15:34 Respiratory Effort Normal, Non-Labored 05/20/24 15:34 Respiratory Depth Normal 05/20/24 15:34 Respiratory Pattern Normal 05/20/24 15:34 Blood Pressure 126/67 05/20/24 15:34 Blood Pressure Mean 99 05/20/24 13:01 Blood Pressure Position Supine 05/19/24 15:27 Pulse Oximetry 98 05/20/24 15:34 Oxygen Delivery Method Room Air 05/20/24 15:34 Oxygen Flow Rate 0 05/20/24 15:34 Pain Level 0 05/20/24 15:34 Allergies azithromycin Adverse Reaction (Unknown, Verified 05/19/24 17:27) nausea erythromycin base Adverse Reaction (Unknown, Verified 05/19/24 17:27) Nausea shellfish derived Adverse Reaction (Unknown, Verified 05/19/24 17:27) N/V/D Tetracyclines Adverse Reaction (Unknown, Verified 05/19/24 17:27) Nausea NATALIIA Inhibitors Adverse Reaction (Verified 05/19/24 17:27) Other (See Comment) Hyperkalemia Precautions Isolation Standard precaution 05/19/24 15:27 Active Medications Generic Name Dose Route Start Last Admin Trade Name Adela PRN Reason Stop Dose Admin Aspirin 81 mg 05/20/24 08:30 05/20/24 09:33 Aspirin E.C. 81 Mg Tabec PO Not Given DAILY [facility] Atorvastatin Calcium 80 mg 05/19/24 20:00 05/19/24 23:06 Atorvastatin 40 Mg Tab PO 80 mg QPM KERRIE Administration Budesonide/Formoterol Fumarate 2 puff 05/19/24 20:00 05/20/24 09:33 Budesonide/Formoterol 160/4.5 6 Gm 60 Puff Inh IH Not Given BID [facility] Calcium/Vitamin D 2 tab 05/20/24 08:30 05/20/24 09:33 Calcium 600mg/Vit D 200u Tab PO Not Given DAILY [facility] Clopidogrel Bisulfate 75 mg 05/20/24 08:30 05/20/24 09:34 Clopidogrel 75 Mg Tab PO Not Given DAILY [facility] Clotrimazole 1 gm 05/19/24 20:00 05/19/24 23:09 Clotrimazole 1% 15 Gm Tube TP 1 gm BID KERRIE Administration Cyanocobalamin 1,000 mcg 05/20/24 08:30 05/20/24 09:34 Cyanocobalamin 500 Mcg Tab PO Not Given DAILY [facility] Ferrous Sulfate 325 mg 05/19/24 20:00 05/20/24 09:34 Ferrous Sulfate 325 Mg Tab PO Not Given BID [facility] Fluoxetine HCl 20 mg 05/20/24 08:30 05/20/24 09:34 Fluoxetine 20 Mg Cap PO Not Given DAILY [facility] Insulin Aspart 0 units 05/19/24 22:00 05/20/24 17:46 Insulin Aspart 300 Units/3 Ml Pen SC 4 units 0800,1200,1700,2200 [facility] Administration Protocol Levothyroxine Sodium 25 mcg 05/20/24 06:00 05/20/24 09:34 Levothyroxine 25 Mcg Tab PO Not Given DAILY@0600 [facility] Magnesium Oxide 400 mg 05/20/24 08:30 05/20/24 09:35 Magnesium Oxide 400 Mg Tab PO Not Given DAILY KERRIE Mirtazapine 7.5 mg 05/20/24 20:00 05/19/24 23:14 Mirtazapine 15 Mg Tab PO 7.5 mg HS KERRIE Administration Multivitamins 1 tab 05/20/24 08:30 05/20/24 09:35 Multivitamin Tab PO Not Given DAILY KERRIE Pantoprazole Sodium 40 mg 05/20/24 07:30 05/20/24 09:36 Pantoprazole 40 Mg Tabcr PO Not Given DAILY@0730 KERRIE Sitagliptin Phosphate 50 mg 05/20/24 08:30 05/20/24 09:36 Sitagliptin 25 Mg Tab PO Not Given DAILY KERRIE Sodium Chloride 0 ml 05/19/24 20:00 05/20/24 09:35 Normal Saline Flush 10 Ml Syr IVP 5 ml BID KERRIE Administration IV IV Catheter Type [Left Saline Lock Antecubital] IV Catheter Gauge [Left 18 Antecubital] Diagnostics 05/20/24 05/19/24 Range/Units 09:32 15:50 WBC 13.18 H (4.4-10.8) 10^3/uL RBC 3.97 (3.93-5.22) 10^6/uL Hgb 13.3 (11.2-15.7) g/dL Hct 39.6 (36.0-46.0) % MCV 100 H (80-95) fL MCH 33.5 H (27.0-33.0) pg MCHC 33.6 (32.0-36.0) % RDW 11.7 (11.7-14.6) % Plt Count (130-400) 10^3/uL MPV (8.0-11.0) fL VBG pH 7.35 (7.31-7.41) VBG pCO2 43 (41-51) mmHg VBG pO2 53 mmHg VBG HCO3 24 (23-28) mmol/L VBG Total CO2 25 (24-29) mmol/L VBG O2 Saturation 85 % VBG Base Excess -2 (-2-3) mmol/L Sodium 140 (136-145) mmol/L Potassium 3.4 L (3.5-5.1) mmol/L Chloride 102 (98-107) mmol/L Carbon Dioxide 27.9 (21.0-32.0) mmol/L Anion Gap 10.1 (3-11) mmol/L BUN 30 H (7-18) mg/dL Creatinine 1.5 H (0.55-1.02) mg/dL Est GFR (CKD-EPI 2020) 33.73 (mL/min/1.73m2) Glucose 153 H (74-106) mg/dL Calcium 9.7 (8.5-10.1) mg/dL Magnesium 1.8 (1.8-2.4) mg/dL Total Bilirubin 0.31 (0.2-1.0) mg/dL AST 24 (15-37) U/L ALT 23 (14-59) U/L Alkaline Phosphatase 101 (46-116) U/L Total Protein 7.7 (6.4-8.2) g/dL Albumin 3.8 (3.4-5.0) g/dL [id number] Documentation Fingerstick Glucose Start: 05/19/24 19:06 Freq: AC & HS Status: Active Protocol: Activity Type Activity Date Activity User E-sign Co-sign Detail Recorded Client Recorded Date Recorded By Document 05/20/24 17:19 ROSALIO DAEDUARD(3) [id number] 05/20/24 17:21 ROSALIO DAMEMEON(4) Intake and Output - 24 Hour Total 05/19/24 13:11 thru 05/20/24 18:31 Weight 53.5 kg Other: Urine Color Yellow Urine Odor Strong Voiding Methods Toilet Diaper Incontinent Falls Risk Assessment History of Falls Previous History 05/20/24 15:34 Contributing Factors Confusion,Impairments, 05/20/24 15:34 Incontinence Ambulatory Aids Uses ambulatory device 05/20/24 15:34 Tubes/Lines None 05/20/24 15:34 Gait Evaluation W/no contributing factors 05/20/24 15:34 Cognition Cognitive impairment 05/20/24 15:34 Fall Total Score 64 05/20/24 15:34 Level of Risk High Risk 05/20/24 15:34 Problems (Last Reviewed 05/20/24 @ 03:01 by Garland Fierro) Hypokalemia (Chronic) HTN (hypertension) (Chronic) CVA (cerebral vascular accident) (Acute) Restrictive lung disease (Chronic) Diabetic neuropathy, type II diabetes mellitus (Chronic 08/12/14) Gastroesophageal reflux disease (Chronic 11/21/11) Hyperlipidemia (Chronic 11/21/11) Hypomagnesemia (Chronic 03/14/18) CKD (chronic kidney disease) (Chronic) Hypothyroidism (Chronic) Notes 05/20/24 09:53 Nursing Notes by Tia Carranza Upon assessment this AM, pt is answering questions slowly but appropriately. LS are clear bilat throughout. HRR. HTN noted. Pt remains on RA. No acute resp distress noted. Pt unable to swallow ordered medications this AM, attempts with water and applesauce unsuccessful. ST consult has been ordered at this time. Pt incontinent of stool this AM. Brain MRI taken this AM. Awaiting bed availability on [place]. Will continue to monitor. Nursing Note: Initialized on 05/20/24 09:53 - END OF NOTE v v v v v v v v v Sending and/or Receiving Nurses: Please use comment section below to note any information pertinent to the patient hand-off not included above. Information / Comments: Report received from:
[2024-05-20] MEDS: Atorvastatin 40 MG TAB 80 MG PO (19:59)
[2024-05-20] MEDS: Mirtazapine 15 MG TAB 7.5 MG PO (19:59)
[2024-05-20] MEDS: Ferrous Sulfate 325 MG TAB PO (20:00)
[2024-05-20] MEDS: Budesonide/Formoterol 160/4.5 6 GM 60 PUFF INH IH (20:21)
[2024-05-21] VITALS (8 sets, daily range): BP systolic 116–159; BP diastolic 58–85; PULSE 66–84; RESP 16–20; TEMP 36–37.4; O2SAT 96–99
[2024-05-21] MEDS: Acetaminophen 325 MG TAB PO (08:37)
--- NOTE | 2024-05-21 09:12 | DI.CT_ITS ---
Exam(s) CT HEAD WO EXAM: CT HEAD WO CLINICAL HISTORY: patient w/ L. frontoparietal CVA; now severe CANELA. TECHNIQUE: Imaging Protocol: Axial computed tomography images with coronal and sagittal reformatted images were created and reviewed COMPARISON: CT CT HEAD CERVICAL SPINE WO from 09/03/2023 MR MR BRAIN WO from 05/19/2024 MR MR ANGIO NECK WO from 05/20/2024 FINDINGS: Ventricles and Extra axial spaces: Normal in size and morphology for the patient's age. Hemorrhage: None. Cerebral parenchyma: Significant atrophy. Underlying moderate white matter changes of small vessel d isease. Old right frontoparietal infarct. New area of decreased attenuation in the left frontal lob e corresponding to the infarct seen on recent MRI. Midline shift: None. Brainstem/Cerebellum: Normal. Calvarium: Right frontal craniotomy defect. Visualized Paranasal sinuses:Clear. Mastoids: Clear. Soft Tissues: Unremarkable. ORBITS: Unremarkable. PITUITARY: Not enlarged. IMPRESSION: Acute infarct in the left frontal lobe as seen on prior MRI. No evidence of hemorrhage. RADIATION DOSE DELIVERED: 633.29mGy.cm Total DLP DATA REPOSITORY: All CT scans at this facility are submitted to the National Radiology Data Registry (NRDR) Dose Index Registry (DIR) with the [employer] (ACR). RADIATION OPTIMIZATION: All CT scans at this facility use at least one of these dose optimization te chniques: automated exposure control; mA and/or kV adjustment per patient size (includes targeted exa ms where dose is matched to clinical indication); or iterative reconstruction.
--- NOTE | 2024-05-21 09:18 | SP_ITS ---
Date of service: 05/21/24 Time of Service: 08:30 Subjective Clinical (Bedside) Swallow Evaluation - Inpatient Speech Language Pathology Referred by: Garladn Fierro MD Time of service: :30-08:50, :30-:50 Total patient contact: 40min Referral Type: Routine Swallow Consult Precautions: Standard, Full Code Reason for Referral/HPI: Geno is an 88 y/o F with history of HTN, HLD, DMII, CKD, baseline cognitive impairment, anxiety, GERD, who was brought by her daughter to ED for intermittent AMS/confusion and was found to have L KYLE infarct. Per nursing, she spent yesterday in the ED and struggled to swallow PO medications 2/2 cognitive factors, but was eating a regular texture diet without issue. Nursing also reported that she was verbally responsive, but slow to respond. She was transferred to med surge unit and PT/OT/FUSING FURNACE LOADER consults placed. This morning, nursing reports they tried to get her up to chair but she was havi ng neck/head pain so they returned her to bed. FUSING FURNACE LOADER IMPRESSIONS & RECOMMENDATIONS: Patient presents with moderate oral>pharyngeal dysphagia characterized by prolonged anterior and vertical mastication pattern, oral fixation, and intermittent expectoration especially of meds and even smaller pieces of crushed meds. These problems were exacerbated by absence of dentures, once dentures placed, patient was more accepting of PO and better able to chew and manipulate solid bolus. However, rate is very slow and patient requires 1:1 feeding with alternating sips of liquid via straw to clear mouth of bolus. Recommend minced/moist solids to maximize PO intake at this time, especially given nursing/family report of increased lethargy this morning. FUSING FURNACE LOADER will follow patient while on unit and continue to trial upgraded textures. FURTHER INPATIENT FUSING FURNACE LOADER SERVICES: Patient to be followed while on unit Suggested Referrals/Consults: Cable Splicer DISCHARGE RECOMMENDATIONS: Recommend FUSING FURNACE LOADER services at [facility] with consideration of belt maker helper care pending progress. Diet modification is indicated as follows for the purpose of reduced risk of choking, reduced mastication abilities, reduced oral residue, energy conservation, to increase oral intake. Diet Recommendations: ? SOLIDS: 5-Minced & Moist Solids LIQUIDS: 0-Thin Liquids VIA STRAW ONLY ENSURE PATIENT HAS DENTURES IN PRIOR TO ANY PO INTAKE INCLUDING WATER AND MEDS MEDICATIONS: Crushed as able or liquid formulation as needed. Take in tsp pudding or applesauce and follow with sips of water to ensure oral clearance. Alter medications only as advised by MD or Pharmacist RISK MANAGEMENT: Level of Assistance/Supervision: 1:1Assistive feeding only by trained staff/family Positioning and environment: PO intake only when awake/alert? Reduce auditory and/or visual distractions when eating Baker upright for all PO intake. Up to chair if able Oral hygiene Before/after PO intake Using friction with toothbrush on all oral structures as tolerated Strategies/Adaptations/Assistive Equipment: Small sips Small bites Slow rate of intake Sips by straw only Alternate intake of liquids and solids Reflux Precautions: Small+frequent meals throughout day Maintain fully upright position at least 30 minutes after meals Avoid meals/snacks 2-3 hours prior to reclining/sleeping Sleep with head of bed elevated to reduce likelihood of nocturnal reflux Education Provided to: Nursing Patient Family Topics Addressed: anatomy/physiology of swallowing mechanism definition and impacts of aspiration impact of current diagnoses on swallow function role of FUSING FURNACE LOADER in management of swallow disorders overt s/sx to monitor for re: potential aspiration of food / liquids relationship between reflux, GERD and swallow fxn relationship between respiratory function and deglutition rationale and instruction for additional risk management strategies as below SUBJECTIVE: Patient received: lethargic. Participates in evaluation with additional prompting and encouragement. Pain Reported neck (RN aware) Baseline Swallow Function: Patient unable to report swallow function, minimally verbal at time of evaluation. Patient's daughter states she is generally able to eat what she wants but doesn't eat a lot at home, will eat little snacks througout the day. Sometimes would regurgitate pills and has a hx reflux. OBJECTIVE Patient positioning: As upright as possible using HOB/bed tilt controls Respiratory status: Room air, Tolerates well without s/sx dyspnea Orientation/Mental status: confused, unable to follow instructions, minimall verbally responsive but will answer yes/no with head nod/shake, appears with low sensory awareness. Speech: unable to assess Oral Mechanism Examination: Dentition: Edentulous, Full dentures Oral mucosa: Difficult to assess, patient does not open mouth when instructed. ? Cranial Nerve Assessment: Unable to assess due to difficulty following instructions. No focal deficits noted at rest or during PO trials. PO Intake: Trials Assessed: IDDSI 0 Thin Liquids via cup edge x3, via straw x 10+ IDDSI 4 Puree Solid IDDSI 5 Minced and Moist Solid IDDSI 6 Soft & Bite Size Solid Medications administered by RN - whole and crushed in puree Oral Phase Findings: Difficulty with bolus manipulation Mildly weak but adequate straw sucking Difficulty with a-p transport Difficulty chewing Residue and oral fixation with hard solids, even pill fragments, expectoration Anterior/vertical prolonged mastication. Pharyngeal Phase Findings: Delayed swallow initiation Cough after swallow x 1 with thin liquid via cup edge, resolved with straw sips ? [place] Swallow Protocol Results: FAIL ? Unable to complete without stopping/starting PLAN: Frequency: 2-3x/week for 1-2 weeks Goals: Regulatory Affairs Consultant Goals: Patient will remain free from aspiration-related illness, malnutrition, and dehydration. Short Term Goals: Patient will tolerate Minced/Moist Diet and Thin liquids without overt s/s aspiration across 2/2 visits. Patient will tolerate PO trials for consideration of diet upgrade without overt s/s aspiration across 2/2 visits.
[2024-05-21] MEDS: Insulin Aspart 300 UNITS/3 ML PEN SC ×2 (12:26→21:43)
--- NOTE | 2024-05-21 13:53 | OT.INTREAT ---
Occupational Therapy Notes Occupational Therapy Inpatient Treatment Note Date: 05/21/24 PRECAUTIONS: Fall, Standard, full SUBJECTIVE: Pt was sitting in bed when OT arrived. She is agreeable to performing her ADLs today and notes that she is doing well. She is slightly confused but willing to participate. OBJECTIVE: PAIN:no c/o pain BATHING: sitting in bed with max (A) set up/clean up Upper Body: able to wash face, mod (A) (B) UE, mod (A) abdomen Lower Body: mod vc mod (A) (B) LE DRESSING: sitting in bed with min vc Upper Extremity: mod (A) don and doffing hospital gown with min vc Lower Extremity: max (A) (L) LE, min (A) (R) don and doffing (B) socks GROOMING: seated in bed with min vc pt is (I) with brushing her hair ASSESSMENT/PLAN: OT continues to recommend SNF when medically cleared per MD. TREATMENT CODES/TIME: [id number], 25 minutes Rossana Bailey OTR/L [facility] [place], [place]
--- NOTE | 2024-05-21 14:43 | W.PM.PROGNOT ---
Date of Service Date of service: 05/21/24 Time of Service: 14:44 Assessment and Plan Assessment and plan (1) CVA (cerebral vascular accident): Start date: 05/19/24 Status: Acute Assessment and plan: Headache this morning - relieved by tylenol - head CT - no changes Qualifiers: CVA mechanism: occlusion Precerebral and cerebral artery: anterior cerebral artery Laterality of affected vessel: left Qualified Code(s): I63.522 - Cerebral infarction due to unspecified occlusion or stenosis of left anterior cerebral artery (2) HTN (hypertension): Status: Chronic Assessment and plan: Permissive hypertension with patient acute stroke. Hold outpatient medical therapy and slowly adjust if needed possibly using beta-delfina with split dosing. Qualifiers: Hypertension type: primary hypertension Qualified Code(s): I10 - Essential (primary) hypertension (3) Diabetic neuropathy, type II diabetes mellitus: Status: Chronic Assessment and plan: Hold outpatient therapy and check glucometers before meals and at bedtime with short acting insulin coverage. Qualifiers: Diabetes mellitus prison insulin use: without plywood stock grader use Qualified Code(s): E11.40 - Type 2 diabetes mellitus with diabetic neuropathy, unspecified (4) Hyperlipidemia: Status: Chronic Assessment and plan: Continue atorvastatin 80 mg daily Qualifiers: Hyperlipidemia type: unspecified Qualified Code(s): E78.5 - Hyperlipidemia, unspecified (5) Restrictive lung disease: Status: Chronic Assessment and plan: Continue outpatient respiratory therapy. (6) CKD (chronic kidney disease): Status: Chronic Assessment and plan: This appears overall stable patient to be evaluated with swallow evaluation before pushing oral intake. IV hydration as needed. Qualifiers: Chronic kidney disease stage: stage 3 (moderate) Qualified Code(s): N18.3 - Chronic kidney disease, stage 3 (moderate) (7) Hypomagnesemia: Status: Chronic Assessment and plan: Continue outpatient oral magnesium supplement with low normal levels upon admission. She is chronically on hydrochlorothiazide. (8) Gastroesophageal reflux disease: Status: Chronic Assessment and plan: Discontinue H2 antagonist and start Protonix which will not conflict with Plavix. Qualifiers: Esophagitis presence: esophagitis presence not specified Qualified Code(s): K21.9 - Gastro-esophageal reflux disease without esophagitis (9) Hypothyroidism: Status: Chronic Assessment and plan: Continue outpatient supplement. TSH is normal. Qualifiers: Hypothyroidism type: unspecified Qualified Code(s): E03.9 - Hypothyroidism, unspecified (10) Hypokalemia: Status: Chronic Assessment and plan: Patient refused lab work today Subjective Subjective Patient reports: no new complaints, tolerating liquids well and tolerating a regular diet; denies flatus, diarrhea or vomiting Interval history since last seen: Sitting up in bed, conversant, slow to respond, but responds correctly Daughter states she has had a recent heart attack and is unable to care for her mother at home. She would like her mother placed in a intermediate, care managers are working on this. Exam Const General: no acute distress Orientation: alert HENMT Head: normal to inspection Ears: external ears normal General nose exam: external nose normal Mouth: moist mucous membranes Eyes General: appearance normal, both eyes and all related structures Neck Neck: normal visual inspection Resp Effort & Inspection: normal respiratory effort and able to speak in complete sentences Cardio Rate: regular rate Skin General skin exam: no rashes or lesions noted Neuro General: patient alert and oriented Patient Orientation: Person, Place and Confused Cranial Nerves: CN's II-XI intact bilaterally and PERRL Extrem General: normal to inspection Psych Mental Status: mental status grossly normal Objective Last Vital Signs Temp 37.0 C 05/21/24 12:42 Pulse 82 05/21/24 12:42 Resp 18 05/21/24 12:42 BP 125/66 05/21/24 12:42 Pulse Ox 97 05/21/24 12:56 Time Spent with Patient Time Spent with Patient: 25-34 minutes Time was spent: preparing to see the patient(eg.review tests), ordering medications,tests, procedures, referring, communicating with other health care companion, indepentently interpreting results, counseling the patient and care coordination
--- NOTE | 2024-05-21 14:51 | PT.INTREAT ---
PT Notes Visit Reasons: Acute left Frontal CVA, HTN, NIDDM Inpatient Physical Therapy Treatment Note [facility] Date: 05/21/24 SUBJECTIVE: Geno states that she is doing better. She is agreeable to PT. OBJECTIVE: []? VITALS: ?monitored by nsg. Therapeutic Activities ([id number]): Direct one-on-one instruction in dynamic activities to improve functional performance. ? BED MOBILITY/TRANSFERS? Supine-sit:SBA? Sit-stand: SBA ? Stand-sit: SBA ? Bed-Chair: CGA? Provided skilled cues and instruction on performance and technique throughout. GAIT? Assistive Device: FWW ? Weight bearing: AT Assist: CGA? Distance:? approx 60' ? seated ex: LAQ, marching x10 and sit to stand x3 ? ASSESSMENT:?tolerated session well. No LOB or SOB noted. Did note mild weakness upon fatigue in R LE, which may be due to BEBETO. PLAN: continue to work on functional mobility. TREATMENT CODE/TIME: 20 min. DISCHARGE RECOMMENDATION: short term SNF.
[2024-05-21] MEDS: ACETAMINOPHEN 1,000 MG/100 ML BTL 400 MG IVPB (16:12)
[2024-05-21] MEDS: Normal Saline Flush 10 ML SYR IVP ×2 (16:13→20:29)
--- NOTE | 2024-05-21 16:46 | CHAPLAIN ---
Geno said she's been in pain for a couple of days, but was given medicine to help her sleep last night and was able to. She's in touch with family. I explained my role and offered support.
--- NOTE | 2024-05-21 16:48 | CHAPLAIN ---
Geno was very quiet during our visit. She slowly responded to questions, and smiled. I explained my role and offered support.
--- NOTE | 2024-05-21 16:54 | PDOC.CMIN ---
Date of service: 05/21/24 Time of Service: 16:54 Care Management Initial Assmt Initial Assessment Reason for Hospitalization: Acute left frontal CVA, NIDDM, HTN Functional Status/Living Situation Patient Presentation: Geno was lying in bed, then sitting up in her chair; CM provided multiple consults for Geno and her family throughout the day. Geno appeared to slowly process information, and really think over her options prior to making decisions. She accepted bed offer at [facility] after her concerns and questions were attended to. Her two sons and daughter supported her in making this choice, as Geno is requiring support to transfer at this time and her daughter La recently had an RI and cannot lift or move Geno. Geno expressed motivation to progress mobility post CVA and return home after rehab. CM answered all family questions re: Advance Directives-provided POA on file, and fdc care insurance navigation-provided LTM application as well. Town of Residence: [facility] Resides with: Alone Significant Other/Family: Local (Daughter Whitney, son Luis. Son Sadi resides in [place] and serves as POA/HCA) Employment Status: Retired Instrumental Activities of Daily Living (ADLs): Requires support Medications Medication Management: No Issues/Barriers identified Advance Directives Advance Directives: Do you have an Advance Directive: Y 08/23/16 13:02 AD On File at [facility]: N 08/09/23 19:16 Date Asked 05/19/24 05/19/24 13:20 AD Date Reviewed COLST On File at [facility] No 08/09/23 19:16 COLST Date Scanned Comment: POA on file lists her children in order: Sadi, Whitney and Luis. Code Status Resuscitation Status Full Code Portal Pt does not currently have a portal and education provided: Yes Insurance Coverage/Financial Issues Insurance: [employer] ACO Member: No Care Team Visit Care Team Role Provider Type Dejuan Martines NP Primary Care Provider NURSE PRACTITIONER Rossana Bailey Other Providers REG OCCUPATIONAL THERAPIST Parul Silverman, MASTER DEPUTY SHERIFF COURT SECURITY Other Providers SPEECH LANGUAGE PATHOLOGIST Channing Reyes, MASTER DEPUTY [address] COURT SECURITY Other Providers SPEECH LANGUAGE PATHOLOGIST Lupis Thompson Other Providers SPEECH LANGUAGE PATHOLOGIST Lilia Almanzar, MASTER DEPUTY SHERIFF COURT SECURITY Other Providers SPEECH LANGUAGE PATHOLOGIST Kaya Davis, MASTER DEPUTY SHERIFF COURT SECURITY Other Providers SPEECH LANGUAGE PATHOLOGIST Rob Garcia Other Providers OTHER Wade Littlejohn MD Emergency Provider [facility] STAFF PHYSICIAN Garland Bourgeois Admit Provider NON-[facility] STAFF PHYSICIAN Attending Provider Discharge Potential Discharge Needs: Consult, Imaging/labs and PT Evaluation Anticipated Barriers to Discharge: Bed availability Patient/Family Education Needs: Review discharge instructions, discuss Ask Me Three Transportation: Facility Transport Plan: Geno will discharge to [facility] when medically ready-awaiting prior auth at this time. She will transport via facility W/C van; CM supporting discharge considerations. PFSH All Active Problems (Updated 05/22/24 @ 11:23 by Rosmery Blanco APRN) Hypokalemia (Chronic) Acute CVA (cerebrovascular accident) (Acute) HTN (hypertension) (Chronic) CVA (cerebral vascular accident) (Acute) Restrictive lung disease (Chronic) Left displaced femoral neck fracture (Acute 08/09/23) s/p Left hip hemiarthroplasty 08/10/23 Anxiety (Chronic 11/21/11) Diabetic neuropathy, type II diabetes mellitus (Chronic 08/12/14) Gastroesophageal reflux disease (Chronic 11/21/11) Heart murmur (Chronic 08/24/17) 09/12/2017 echo: no significant valvular disease Hyperlipidemia (Chronic 11/21/11) Hypomagnesemia (Chronic 03/14/18) Osteoporosis (Chronic 07/12/16) DEXA 07/11/16 Hip T-3.2, Spine T-1.5, forearm T-3.5 Other diseases of lung, not elsewhere classified (Chronic 11/21/11) rt 4mm ct stable 08/17; restrictive lung disease, neuromuscular weakness etiol? Dr Patel follows PFTs 08/2013 restrictive 47% NM weakness + response BD Other disorders of Eustachian tube (Chronic 09/07/14) Unspecified essential hypertension (Chronic 01/31/13) Hyperkalemia with NATALIIA-I --> AVOID Macrocytic anemia (Chronic) Borderline low B12 level, normal Epo (suggesting due to CKD as well); 06/16/2019 [facility] Hematology consult: multifactorial & recommended iron supplement CKD (chronic kidney disease) (Chronic) Hypothyroidism (Chronic) Cognitive complaints (Chronic) 09/22/2021 MOCA: = NORMAL; monitor Breast mass, left (Acute) Onychomycosis (Acute) Tinea pedis (Acute) Decreased hearing (Acute) Frequent falls (Acute) Medical History Closed fracture of right proximal humerus (09/03/23) Elevated procalcitonin Insulin dependent type 2 diabetes mellitus Microalbuminuria due to type 2 diabetes mellitus Type 2 diabetes mellitus with diabetic neuropathy, without long-term current use of insulin Vomiting and diarrhea Sepsis Shingles Neoplasm of skin (08/26/14) Closed nondisplaced comminuted fracture of shaft of left humerus (05/26/16) Cerebral meningioma (01/31/13) 2005 Craniotomy, resection of frontal mennigioma [facility] Pneumonia Surgical History irrigation and debridement (10/05/15) R wrist Dr Lafleur Splenomegaly Family History Mother , 76 Personal history of malignant neoplasm breast and ovarian CA Breast cancer Ovarian cancer Father , 83 Myocardial infarction Heart disease Sister , 55 Lymphoma Ovarian cancer Brother , 63 Heart disease Son No problems noted. Son Heart disease Daughter No problems noted. Social History Second Hand Exposure: Yes Smoking risk assessment performed?: No Alcohol Intake: never Drug use: Never Substance use type: does not use Caregiver/Support person: Yes Household members: none Housing: apartment Number of Children: 3 number of grandchildren: 5 Do you need help understanding health information?: Never Pets and animals: No Sexually active: No Do you think of yourself as: straight/heterosexual Current gender identity: female What is your relationship status?: How often do you talk on the phone with friends or family?: three or more times per week How often do you get together with friends or relatives?: three or more times per week How often do you attend rastafarian or gnosticist services?: 1-3 times per year Do you belong to any clubs or organized social groups?: no Panel score (0-1 are the most socially isolated patients): 1 What type of physical activity do you participate in: none Frequency: does not exercise Stacey/Yarsani: Restoration Special stacey needs: Yes Seatbelt use: always Drive intox or ride w/intox driver sales: No Do you feel safe at home: Yes Do you feel safe in your relationship?: Yes Additional Social history: pt living at home - was at rehab for a broken hip. SDOH(Care Management) Screening Will the Patient Participate in the Screening?: Yes Do you worry about having a steady place to live?: choose not to answer In the past 12 months, have you had to go without electric, gas, oil or water in your home?: choose not to answer Have you or anyone in your house had to go without enough food to eat?: choose not to answer Has lack of transportation kept you from medical appointments or from doing things needed for daily living?: choose not to answer Has anyone in your support network made you feel unsafe for any reason?: choose not to answer
[2024-05-21 17:48] LABS: BUN 24 mg/dL (7-18); CREATININE 1.8 mg/dL (0.55-1.02); Calcium 8.7 mg/dL (8.5-10.1); Chloride 103 mmol/L (98-107); Glucose 148 mg/dL (74-106); Magnesium 1.6 mg/dL (1.8-2.4); Potassium 4.3 mmol/L (3.5-5.1); Sodium 137 mmol/L (136-145)
[2024-05-21 17:55] LABS: Abs Immature Grans 0.04 10^3/uL (0.0-0.06); Absolute Basophil Count 0.06 10^3/uL (0.0-0.2); Absolute Eosinophil Count 0.36 10^3/uL (0.0-0.7); Absolute Lymphocyte Count 4.44 10^3/uL (1.2-3.4); Absolute Monocyte Count 1.69 10^3/uL (0.1-0.8); Absolute Neutrophil Count 6.24 10^3/uL (1.2-6.7); Basophils % 0.5 %; Eosinophils % 2.8 %; HCT 36.1 % (36.0-46.0); Immature Grans % 0.3 %; Lymphocytes % 34.6 %; MCH 33.1 pg (27.0-33.0); MCHC 33.2 % (32.0-36.0); MCV 99 fL (80-95); MPV 12.1 fL (8.0-11.0); Monocytes % 13.2 %; Neutrophils % 48.6 %; Platelet Count 141 10^3/uL (130-400); RBC 3.63 10^6/uL (3.93-5.22); RDW 11.8 % (11.7-14.6); RDW-SD 43.1 fL; WBC 12.83 10^3/uL (4.4-10.8)
[2024-05-21 18:24] LABS: Diff Comment Diff Reviewed; RBC Morphology Normal
[2024-05-21] MEDS: Atorvastatin 40 MG TAB 80 MG PO (20:17)
[2024-05-21] MEDS: Ferrous Sulfate 325 MG TAB PO (20:17)
[2024-05-21] MEDS: Mirtazapine 15 MG TAB 7.5 MG PO (20:17)
[2024-05-22 03:15] VITALS: BP 145/72; PULSE 73; RESP 19; TEMP 36.9; O2SAT 97
[2024-05-22 07:26] LABS: Anion Gap 9.1 mmol/L (3-11); BUN 19 mg/dL (7-18); CO2 24.9 mmol/L (21.0-32.0); CREATININE 1.5 mg/dL (0.55-1.02); Calcium 8.5 mg/dL (8.5-10.1); Chloride 108 mmol/L (98-107); Estimated GFR 33.73 (mL/min/1.73m2); Glucose 167 mg/dL (74-106); Magnesium 1.5 mg/dL (1.8-2.4); Potassium 4.5 mmol/L (3.5-5.1); Sodium 142 mmol/L (136-145)
[2024-05-22 08:20] VITALS: BP 140/64; PULSE 89; RESP 20; TEMP 36.4; O2SAT 95
[2024-05-22] MEDS: Clopidogrel 75 MG TAB PO (08:26)
[2024-05-22] MEDS: Ferrous Sulfate 325 MG TAB PO (08:26)
[2024-05-22] MEDS: FLUoxetine 20 MG CAP PO (08:26)
[2024-05-22] MEDS: Aspirin E.C. 81 MG TABEC PO (08:26)
[2024-05-22] MEDS: Budesonide/Formoterol 160/4.5 6 GM 60 PUFF INH IH (09:13)
--- NOTE | 2024-05-22 09:20 | PTTR_ITS ---
PT Notes Visit Reasons: Acute left Frontal CVA, HTN, NIDDM Inpatient Physical Therapy Treatment Note [facility] Date: 05/22/24 PRECAUTIONS:Standard OBJECTIVE: Therapeutic Activities (65025u[1]): Direct one-on-one instruction in dynamic activities to improve functional performance. ? BED MOBILITY/TRANSFERS? Sit-stand: CGA? Stand-sit: CGA ? Provided skilled cues and instruction on performance and technique through out. Gait Training (68768c[]): Direct one-on-one instruction and skilled instruction in: ? GAIT? Assistive Device: FWW ? Weight bearing: Full Assist: CGA? Distance:? Approx 45ft ? Therapeutic Exercises ([id number][]): Direct one-on-one instruction in therapeutic exercises to develop strength, endurance, range of motion and flexibility. ? Exercises ? Seated rowing x 10 Seated shoulder flexion x 10 Seated horz abd x 10 Seated shoulder circles x 10 LAQ x 10 Seated marching x 10 Seated hip abd x 10 ASSESSMENT:? Pt did not experience any LOB with ambulation or transfers and no SOB noted. PLAN: Cont as per PT POC. TREATMENT CODE/TIME: 9-9:15 (15) TA DISCHARGE RECOMMENDATION: []
--- NOTE | 2024-05-22 09:26 | W.PM.PROGNOT ---
Date of Service Date of service: 05/22/24 Time of Service: 09:27 Assessment and Plan Assessment and plan (1) CVA (cerebral vascular accident): Start date: 05/19/24 Status: Acute Assessment and plan: Headache yesterday morning - relieved by tylenol - head CT - no changes Continue to monitor and as below Qualifiers: CVA mechanism: occlusion Precerebral and cerebral artery: anterior cerebral artery Laterality of affected vessel: left Qualified Code(s): I63.522 - Cerebral infarction due to unspecified occlusion or stenosis of left anterior cerebral artery (2) HTN (hypertension): Status: Chronic Assessment and plan: S/p 48 hours: Permissive hypertension with patient acute stroke complete. Using beta-delfina with split dosing with metoprolol Qualifiers: Hypertension type: primary hypertension Qualified Code(s): I10 - Essential (primary) hypertension (3) Diabetic neuropathy, type II diabetes mellitus: Status: Chronic Assessment and plan: Hold outpatient therapy and check glucometers before meals and at bedtime with short acting insulin coverage. Qualifiers: Diabetes mellitus senior care insulin use: without intermediate project manager use Qualified Code(s): E11.40 - Type 2 diabetes mellitus with diabetic neuropathy, unspecified (4) Hyperlipidemia: Status: Chronic Assessment and plan: Continue atorvastatin 80 mg daily Qualifiers: Hyperlipidemia type: unspecified Qualified Code(s): E78.5 - Hyperlipidemia, unspecified (5) Restrictive lung disease: Status: Chronic Assessment and plan: Continue outpatient respiratory therapy. (6) CKD (chronic kidney disease): Status: Chronic Assessment and plan: Improving Cr 1.5. This appears overall stable patient to be evaluated with swallow evaluation before pushing oral intake. IV hydration as needed. Qualifiers: Chronic kidney disease stage: stage 3 (moderate) Qualified Code(s): N18.3 - Chronic kidney disease, stage 3 (moderate) (7) Hypomagnesemia: Status: Chronic Assessment and plan: IV supplementation today. Continue outpatient oral magnesium supplement with low normal levels upon admission. She is chronically on hydrochlorothiazide. Mag levl in AM (8) Gastroesophageal reflux disease: Status: Chronic Assessment and plan: Discontinue H2 antagonist and start Protonix which will not conflict with Plavix. Qualifiers: Esophagitis presence: esophagitis presence not specified Qualified Code(s): K21.9 - Gastro-esophageal reflux disease without esophagitis (9) Hypothyroidism: Status: Chronic Assessment and plan: Continue outpatient supplement. TSH is normal. Qualifiers: Hypothyroidism type: unspecified Qualified Code(s): E03.9 - Hypothyroidism, unspecified (10) Hypokalemia: Status: Chronic Assessment and plan: Patient refused lab work today Exam Const General: no acute distress Orientation: alert [facility] Head: normal to inspection Ears: external ears normal General nose exam: external nose normal Mouth: moist mucous membranes Eyes General: appearance normal, both eyes and all related structures Neck Neck: normal visual inspection Resp Effort & Inspection: normal respiratory effort and able to speak in complete sentences Cardio Rate: regular rate Skin General skin exam: no rashes or lesions noted Neuro General: patient alert and oriented Patient Orientation: Person, Place and Confused Cranial Nerves: CN's II-XI intact bilaterally and PERRL Extrem General: normal to inspection Psych Mental Status: mental status grossly normal Objective Last Vital Signs Temp 36.4 C L 05/22/24 08:20 Pulse 89 05/22/24 08:20 Resp 20 05/22/24 08:20 BP 140/64 05/22/24 08:20 Pulse Ox 95 05/22/24 08:20 Laboratory Results - last 24 hr 05/21/24 05/22/24 17:30 06:22 WBC 12.83 H RBC 3.63 L Hgb 12.0 Hct 36.1 MCV 99 H MCH 33.1 H MCHC 33.2 RDW 11.8 Plt Count 141 MPV 12.1 H Immature Gran % 0.3 Neutrophils % 48.6 Lymphocytes % 34.6 Monocytes % 13.2 Eosinophils % 2.8 Basophils % 0.5 Nucleated RBC % 0.0 Absolute Neutrophils 6.24 Absolute Lymphocytes 4.44 H Absolute Monocytes 1.69 H Absolute Eosinophils 0.36 Absolute Basophils 0.06 RBC Morphology Normal Sodium 137 142 Potassium 4.3 4.5 Chloride 103 108 H Carbon Dioxide 28.0 24.9 Anion Gap 6.0 9.1 BUN 24 H 19 H Creatinine 1.8 H 1.5 H Est GFR (CKD-EPI 2020) 27.10 33.73 Glucose 148 H 167 H Calcium 8.7 8.5 Magnesium 1.6 L 1.5 L
[2024-05-22] MEDS: Pantoprazole 40 MG TABCR PO (10:07)
[2024-05-22] MEDS: Metoprolol 12.5 MG TAB PO (10:07)
[2024-05-22] MEDS: Insulin Aspart 300 UNITS/3 ML PEN SC ×2 (10:08→12:43)
[2024-05-22] MEDS: Cyanocobalamin 500 MCG TAB 1000 MCG PO (10:08)
[2024-05-22] MEDS: Magnesium Oxide 400 MG TAB PO ×2 (10:08→12:43)
[2024-05-22] MEDS: Multivitamin TAB 1 TAB PO (10:08)
[2024-05-22] MEDS: Calcium 600mg/Vit D 200U TAB 2 TAB PO (10:08)
--- NOTE | 2024-05-22 10:31 | DSE_ITS ---
Date of service: 05/22/24 Time of Service: 10:31 DS: Diagnosis Discharge Diagnosis (1) CVA (cerebral vascular accident): Status: Acute (2) HTN (hypertension): Status: Chronic (3) Diabetic neuropathy, type II diabetes mellitus: Status: Chronic (4) Hyperlipidemia: Status: Chronic (5) Restrictive lung disease: Status: Chronic (6) CKD (chronic kidney disease): Status: Chronic (7) Hypomagnesemia: Status: Chronic (8) Gastroesophageal reflux disease: Status: Chronic (9) Hypothyroidism: Status: Chronic (10) Hypokalemia: Status: Chronic Discharge Plan Disposition Patient Disposition: Half-Way Facility(SNF) Condition: Improving Discharge Details Reason For Visit: Acute left Frontal CVA, HTN, NIDDM Admit Date/Time: 05/19/24 18:59 Admit Provider: Garland Fierro Attending Provider: Garland Fierro Primary Care Provider: Dejuan Carlisle Hospital Course Hospital Course: This 88-year-old female patient with a past medical history of chronic kidney disease, hypothyroidism, frontal meningioma resection with craniotomy, type 2 diabetes, cognitive impairment, and hypertension presented to the ED at [facility] via private vehicle with her daughter on 05/19/2024 for evaluation of intermittent confusion starting in the range of 2 days to 1 week ago without other focal neurological complaints plan at the time the patient denied other constitutional complaints, fever, or GI symptoms. The patient did not report shortness of breath or chest pain at the time. The workup in the ED with an MRI showed an acute left frontal parietal watershed region infarct without hemorrhage or edema pointing to an acute infarction. Microvascular changes were also reported. WBC was 11, potassium 3.4, creatinine 1.5 around baseline, magnesium 1.7, urinalysis was negative for urinary tract infection. Supplementation was given for electrolyte imbalances. Telemetry?neurology consult was completed in the ED with recommendation for routine stroke workup. The patient was loaded with aspirin 324 as well as Plavix 300. The hospitalist was consulted and the patient was admitted to the medical surgical floor for evaluation and management of stroke. The patient has no history of dementia but had cognitive impairment. On admission the patient was soft spoken, oriented to the fact that she was in the hospital and was able to follow command. The patient was also able to move all 4 extremities but her face was slightly asymmetric but normal with grimacing and smiling. An MRI was completed and was normal without aneurysms, significant stenosis, no defect in the moapa of [place]. The carotid artery ultrasound showed no evidence of hemodynamically significant carotid stenosis, mild to moderate calcific plaque at the common carotid bulb, and at proximal internal and external carotid arteries. An echocardiogram ultrasound was completed with findings of LVEF of 50 to 60%, negative contrast study for shunt flow, no segme ntal wall abnormalities despite a disproportionate upper septal thickening. The patient terminated the exam before it could be completed. The neck magnetic resonance enterography showed no evidence of dissection, occlusion, or significant stenosis. The repeated CTA completed on 05/21/2024 due to complaint of headache showed no change when compared to the initial imaging; there was no evidence of hemorrhage. Physical and occupational therapy consultations recommended discharge to correction facility. Speech therapy evaluation was completed with recommendations as below: DISCHARGE RECOMMENDATIONS: Recommend DESIGN TECH services at correction with consideration of senior living care pending progress. Diet modification is indicated as follows for the purpose of reduced risk of choking, reduced mastication abilities, reduced oral residue, energy conservation, to increase oral intake. Diet Recommendations: ? SOLIDS: 5-Minced & Moist Solids LIQUIDS: 0-Thin Liquids VIA STRAW ONLY ENSURE PATIENT HAS DENTURES IN PRIOR TO ANY PO INTAKE INCLUDING WATER AND MEDS MEDICATIONS: Crushed as able or liquid formulation as needed. Take in tsp pudding or applesauce and follow with sips of water to ensure oral clearance. Today the patient will be discharged to correction facility, on daily aspirin, Plavix, and high-dose statin. The patient will continue her chronic medicine regimen for chronic conditions as prior to discharge. The patient will have metoprolol 12.5 mg oral twice a day to control blood pressure with follow- up with primary care physician.A magnesium level is ordered for sunday with f/u per the facility provider. Discussed with Dr. Mendoza [place] Meds and New Rx's Prescriptions: New atorvastatin 40 mg Tablet 80 mg PO QPM Qty: 60 0RF clopidogrel 75 mg Tablet 75 mg PO DAILY Qty: 30 0RF docusate sodium [Colace] 100 mg Capsule 100 mg PO TID PRN PRNQty: 90 0RF metoprolol tartrate 25 mg Tablet 12.5 mg PO BID Qty: 60 0RF Continued ferrous sulfate 325 mg (65 mg iron) tablet 325 mg PO BID Qty: 180 3RF fluoxetine 20 mg capsule 20 mg PO DAILY Qty: 90 3RF glimepiride 4 mg tablet 4 mg PO DAILY Qty: 30 11RF Januvia 50 mg tablet 50 mg PO DAILY Qty: 30 11RF Rx Instructions: Dose adjusted for kidney function polyethylene glycol 3350 17 gram/dose powder 17 g PO DAILY PRN (Reason: constipation) Qty: 238 0RF Ozempic 2 mg/dose (8 mg/3 mL) pen injector 2 mg subcut QWEEK Qty: 3 12RF levothyroxine 25 mcg tablet 25 mcg PO DAILY Qty: 90 3RF Rx Instructions: Administer in the morning on an empty stomach, at least 30-60 minutes before food (DME) lancets Misc See Dose Instructions .ROUTE .MEDSUPPLY Qty: 200 3RF Dose Instruction: As directed to check daily morning fasting blood glucose Rx Instructions: As directed to check twice daily blood glucose. No insulin. Dispense covered brand. (DME) blood-glucose meter Kit See Rx Instructions .ROUTE .MEDSUPPLY Qty: 1 2RF Rx Instructions: Check blood sugar once a day aspirin 81 mg tablet,delayed release (DR/EC) 81 mg PO BID Qty: 60 11RF multivitamin [Daily Multi-Vitamin] 1 EACH tablet 1 ea PO DAILY ondansetron 4 mg tablet,disintegrating 4 mg PO Q8H PRN (Reason: nausea and vomiting) Qty: 30 0RF (DME) Blood Glucose Test Strip See Dose Instructions .ROUTE .MEDSUPPLY Qty: 100 3RF Dose Instruction: As directed to check daily morning fasting blood glucose. No insulin. Rx Instructions: Once daily. No insulin. Dispense covered brand. simvastatin 20 mg tablet 20 mg PO HS Qty: 90 3RF hydrochlorothiazide 12.5 mg tablet 12.5 mg PO DAILY Qty: 90 3RF cyanocobalamin (vitamin B-12) 1,000 mcg tablet 1,000 mcg PO DAILY Qty: 90 3RF clotrimazole 1 % cream 1 applic topical BID Qty: 45 0RF Rx Instructions: Apply to affected areas twice a dayfor 2-4wks calcium phosphate-vitamin D3 250 mg-12.5 mcg (500 unit) tablet,chewable 2 tab PO DAILY Qty: 180 3RF budesonide-formoterol [Symbicort] 160-4.5 mcg/actuation HFA aerosol inhaler 2 puff Inhalation BID Qty: 3 3RF albuterol sulfate [ProAir HFA] 90 mcg/actuation HFA aerosol inhaler 1 - 2 puff Inhalation .Q4-6H PRN (Reason: shortness of breath or wheezing) Qty: 1 3RF Rx Instructions: DISPENSE ALBUTEROL INHALER BRAND COVERED BY INSURANCE mirtazapine 7.5 mg tablet 7.5 mg PO QHS Qty: 90 4RF Changed famotidine 40 mg tablet 20 mg PO DAILY Qty: 90 4RF magnesium oxide 400 mg magnesium capsule 800 mg PO DAILY Qty: 30 11RF Rx Instructions: Administer at least 2 hours apart from other medications Discharge Instructions Activity:: Activity as Tolerated Equipment/Supplies:: Walker Diet:: diabetic and heart healthy Discharge Orders Discharge Orders: Discharge Order (Routine); Ordered 05/22/24 Ordered By: Rosmery Blanco Other Ambulatory Orders: Magnesium (Routine) Timeframe: 20240526 Facility: [facility] - Location: Laboratory Outpatient - [facility] Ordered By: Rosmery Blanco DS: Summary Time Spent with Patient providing and/or coordinating discharge services: Greater than 30 minutes Status at Discharge Functional status at discharge: uses cane/walker Overall status at discharge: patient is progressing back to baseline Mental Status: mental status grossly normal Speech and Movement: speech and movement normal Mood: congruent mood Affect: normal affect Quality:SDOH Health Related Social Needs: No Data to Display Exam Narrative Exam Narrative: Patient is sitting in the chair cooperative w/o acute distress Const General: no acute distress Orientation: alert, oriented to person, oriented to place, oriented to time and other (seemed to think before remembering BF meal, says ham instead of marshall) HENMT Head: normal to inspection Ears: external ears normal General nose exam: external nose normal Mouth: moist mucous membranes Eyes General: appearance normal, both eyes and all related structures Alignment and Position: alignment normal Sclera: sclerae normal EOM: EOM intact bilaterally Chest Chest: normal inspection of the chest Resp Effort & Inspection: normal respiratory effort and able to speak in complete sentences Cardio Rate: regular rate Heart Sounds: murmur GI Palpation: soft and no masses Auscultation: normal bowel sounds General: No CVA tenderness Skin General skin exam: no rashes or lesions noted Neuro General: patient alert and oriented Patient Orientation: Person, Place and Confused Cranial Nerves: CN's II-XI intact bilaterally and PERRL Extrem General: normal to inspection Psych Appearance: grossly normal Mental Status: mental status grossly normal Speech and Movement: speech and movement normal Mood: congruent mood Affect: normal affect DS: Data Vitals/I&O Vitals and I&O: Vital Signs Temperature 36.4 C L 05/22/24 08:20 Temperature Source Temporal Artery Scan 05/22/24 08:20 Pulse 89 05/22/24 08:20 Pulse Rhythm Regular 05/21/24 20:10 Pulse 80 05/20/24 14:30 Respiratory Rate 20 05/22/24 08:20 Respiratory Effort Normal, Non-Labored 05/21/24 20:10 Respiratory Depth Normal 05/21/24 20:10 Respiratory Pattern Normal 05/21/24 20:10 Blood Pressure 140/64 05/22/24 08:20 Blood Pressure Mean 99 05/20/24 13:01 Blood Pressure Position Supine 05/19/24 15:27 Pulse Oximetry 95 05/22/24 08:20 Oxygen Delivery Method Room Air 05/22/24 08:20 Oxygen Flow Rate 0 05/22/24 08:20 Pain Level 0 05/22/24 08:20 Comment Neck pain. Nurse notified. 05/21/24 07:44 Intake & Output 05/21/24 05/21/24 05/22/24 11:59 23:59 11:59 Intake Total 1030 / 2530 1500 / 2530 1000 / 1000 Balance 1030 / 2530 1500 / 2530 1000 / 1000 Weight 52.1 kg Intake: IV 1000 / 2100 1100 / 2100 1000 / 1000 Oral 30 / 430 400 / 430 Other: Urine Color Yellow Yellow Urine Appearance Clear Urine Odor Normal Comment pt refused to be changed at this time. Voiding Methods Diaper Diaper Incontinent Incontinent Data Completed and Pending Labs on day of discharge: Labs from last 24 hours 05/22/24 05/21/24 06:22 17:30 WBC 12.83 H RBC 3.63 L Hgb 12.0 Hct 36.1 MCV 99 H MCH 33.1 H MCHC 33.2 RDW 11.8 Plt Count 141 MPV 12.1 H Immature Gran % 0.3 Neutrophils % 48.6 Lymphocytes % 34.6 Monocytes % 13.2 Eosinophils % 2.8 Basophils % 0.5 Nucleated RBC % 0.0 Absolute Neutrophils 6.24 Absolute Lymphocytes 4.44 H Absolute Monocytes 1.69 H Absolute Eosinophils 0.36 Absolute Basophils 0.06 RBC Morphology Normal Sodium 142 137 Potassium 4.5 4.3 Chloride 108 H 103 Carbon Dioxide 24.9 28.0 Anion Gap 9.1 6.0 BUN 19 H 24 H Creatinine 1.5 H 1.8 H Est GFR (CKD-EPI 2020) 33.73 27.10 Glucose 167 H 148 H Calcium 8.5 8.7 Magnesium 1.5 L 1.6 L PFSH All Active Problems (Updated 05/22/24 @ 11:23 by Rosmery Blanco APRN) Hypokalemia (Chronic) Acute CVA (cerebrovascular accident) (Acute) HTN (hypertension) (Chronic) CVA (cerebral vascular accident) (Acute) Restrictive lung disease (Chronic) Left displaced femoral neck fracture (Acute 08/09/23) s/p Left hip hemiarthroplasty 08/10/23 Anxiety (Chronic 11/21/11) Diabetic neuropathy, type II diabetes mellitus (Chronic 08/12/14) Gastroesophageal reflux disease (Chronic 11/21/11) Heart murmur (Chronic 08/24/17) 09/12/2017 echo: no significant valvular disease Hyperlipidemia (Chronic 11/21/11) Hypomagnesemia (Chronic 03/14/18) Osteoporosis (Chronic 07/12/16) DEXA 07/11/16 Hip T-3.2, Spine T-1.5, forearm T-3.5 Other diseases of lung, not elsewhere classified (Chronic 11/21/11) rt 4mm ct stable 08/17; restrictive lung disease, neuromuscular weakness etiol? Dr Patel follows PFTs 08/2013 restrictive 47% NM weakness + response BD Other disorders of Eustachian tube (Chronic 09/07/14) Unspecified essential hypertension (Chronic 01/31/13) Hyperkalemia with NATALIIA-I --> AVOID Macrocytic anemia (Chronic) Borderline low B12 level, normal Epo (suggesting due to CKD as well); 06/16/2019 [facility] [place] Hematology consult: multifactorial & recommended iron supplement CKD (chronic kidney disease) (Chronic) Hypothyroidism (Chronic) Cognitive complaints (Chronic) 09/22/2021 MOCA: = NORMAL; monitor Breast mass, left (Acute) Onychomycosis (Acute) Tinea pedis (Acute) Decreased hearing (Acute) Frequent falls (Acute) Medical History Closed fracture of right proximal humerus (09/03/23) Elevated procalcitonin Insulin dependent type 2 diabetes mellitus Microalbuminuria due to type 2 diabetes mellitus Type 2 diabetes mellitus with diabetic neuropathy, without long-term current use of insulin Vomiting and diarrhea Sepsis Shingles Neoplasm of skin (08/26/14) Closed nondisplaced comminuted fracture of shaft of left humerus (05/26/16) Cerebral meningioma (01/31/13) 2004 Craniotomy, resection of frontal mennigioma [facility] [place] Pneumonia Surgical History irrigation and debridement (10/05/15) R wrist Dr Lafleur Splenomegaly Family History Mother , 76 Personal history of malignant neoplasm breast and ovarian CA Breast cancer Ovarian cancer Father , 83 Myocardial infarction Heart disease Sister , 55 Lymphoma Ovarian cancer Brother , 63 Heart disease Son No problems noted. Son Heart disease Daughter No problems noted. Social History Second Hand Exposure: Yes Smoking risk assessment performed?: No Alcohol Intake: never Drug use: Never Substance use type: does not use Caregiver/Support person: Yes Household members: none Housing: apartment Number of Children: 3 number of grandchildren: 5 Do you need help understanding health information?: Never Pets and animals: No Sexually active: No Do you think of yourself as: straight/heterosexual Current gender identity: female What is your relationship status?: How often do you talk on the phone with friends or family?: three or more times per week How often do you get together with friends or relatives?: three or more times per week How often do you attend denominational or yazdanism services?: 1-3 times per year Do you belong to any clubs or organized social groups?: no Panel score (0-1 are the most socially isolated patients): 1 What type of physical activity do you participate in: none Frequency: does not exercise Stacey/Taoism: Adventism Special stacey needs: Yes Seatbelt use: always Drive intox or ride w/intox lifter driver: No Do you feel safe at home: Yes Do you feel safe in your relationship?: Yes Additional Social history: pt living at home - was at rehab for a broken hip. Time Spent with Patient Time Spent with Patient: 45-69 minutes Time was spent: preparing to see the patient(eg.review tests), obtaining and/or reviewing separately otained hiistory, ordering medications,tests, procedures, referring, communicating with other health career technical education teacher, indepentently interpreting results, counseling the patient and care coordination
--- NOTE | 2024-05-22 11:52 | CMDISCH_ITS ---
Date of service: 05/22/24 Time of Service: 11:52 LACE Index Scoring Tool Questions: Length of Stay (in days): 3 Was the patient admitted via the E.D.?: Yes Comorbidities: Cerebrovascular Disease, Diabetes w/o Complication, Chronic Pulmonary Disease and Liver or Renal Disease E.D. Visits: 0 Answers: Total Score: 11 Risk of Readmission: High Risk Care Management Discharge Plan Reason for Hospitalization: Acute left frontal CVA Discharge Plan: Geno will transfer to [facility] for short term rehab. She will transport via facility w/c van. She will follow up with her PCP and discharge plan of care. Patient/Family Education Needs: Review discharge instructions and limitations, discussion of self care needs including ask me three. Services Needed at Discharge: Care Home Facility ([facility]) and Transportation (facility w/c van) [facility] Health Related Social Needs: No Data to Display
[2024-05-22 12:30] VITALS: BP 152/74; PULSE 84; RESP 18; TEMP 36.4; O2SAT 96
--- NOTE | 2024-05-22 18:12 | PDOC.CMDIS ---
Date of service: 05/22/24 Time of Service: 18:12 LACE Index Scoring Tool Questions: Length of Stay (in days): 3 Was the patient admitted via the E.D.?: Yes Comorbidities: Cerebrovascular Disease, Diabetes w/o Complication and Mild Liver/Renal Disease E.D. Visits: 0 Answers: Total Score: 11 Risk of Readmission: High Risk Care Management Discharge Plan Reason for Hospitalization: Acute left frontal CVA Discharge Plan: Geno will discharge to [facility] for a short term rehab stay prior to returning home. She will transport via the facility's W/C van. Patient/Family Education Needs: Reviewed POA, COLST and AD forms, LTM and insurance limitations for SNF, including PA process. Geno verbalized wanting to return home as soon as she progresses with mobility to manage independently. Services Needed at Discharge: Shelter Facility and Transportation SDOH Health Related Social Needs: No Data to Display Health related social needs: problem related to primary support group(Z63.9) (Resides alone, POA lives in [place]. Local children unable to provide care related to their own medical status. ) Referrals and interventions: LTM and POA provided. Referral for Financial Health Care Support: LTM
== END 2024-05-22 13:08 | disposition skilled nursing facility (03) | DRG 66 ==
LOC: ER 19:04 → EDHOLD 20:13 → MS 05-20 14:50
PROVIDERS: Nurse Practitioner Family; Admitting Provider Family Medicine; Emergency Provider Emergency Medicine; PCP Nurse Practitioner Family; Visit Provider Family Medicine
DX: I63.522 Cerebral infarction due to unspecified occlusion or stenosis of left anterior cerebral artery (principal); E11.40 Type 2 diabetes mellitus with diabetic neuropathy, unspecified; I12.9 Hypertensive chronic kidney disease with stage 1 through stage 4 chronic kidney disease, or unspecified chronic kidney disease; E78.5 Hyperlipidemia, unspecified; J98.4 Other disorders of lung; N18.30 Chronic kidney disease, stage 3 unspecified; K21.9 Gastro-esophageal reflux disease without esophagitis; E03.9 Hypothyroidism, unspecified; E87.6 Hypokalemia; E83.42 Hypomagnesemia; F32.A Depression, unspecified; F41.9 Anxiety disorder, unspecified; M81.0 Age-related osteoporosis without current pathological fracture; D53.9 Nutritional anemia, unspecified; R29.6 Repeated falls; R41.89 Other symptoms and signs involving cognitive functions and awareness; Z79.84 Long term (current) use of oral hypoglycemic drugs
CPT/HCPCS: 00123; 36415; 36416; 70544; 70547; 80048; 80053; 82805; 82962; 85027; 92610; 94640; 97162; 97166; 97530; 97535; 99285; 70450; 70551; 81003; 83735; 84443; 85025; 93306; 93880; 94664; 99223; 99231; 99239; J0131; J1815; J3490

== ENCOUNTER 2024-05-28 20:47 | Outpatient (REF) | payer OTHER, SELFPAY ==
[2024-05-28 17:36] LABS: Anion Gap 8.2 mmol/L (3-11); BUN 26 mg/dL (7-18); CO2 29.8 mmol/L (21.0-32.0); CREATININE 1.4 mg/dL (0.55-1.02); Calcium 8.9 mg/dL (8.5-10.1); Chloride 101 mmol/L (98-107); Estimated GFR 36.64 (mL/min/1.73m2); Glucose 198 mg/dL (74-106); Magnesium 2.2 mg/dL (1.8-2.4); Potassium 4.2 mmol/L (3.5-5.1); Sodium 139 mmol/L (136-145)
== END 2024-05-28 20:48 | disposition home or self-care (01) ==
LOC: LBN 20:47
PROVIDERS: PCP Nurse Practitioner Family; Visit Provider Family Medicine
DX: E83.42 Hypomagnesemia (principal); E87.6 Hypokalemia
CPT/HCPCS: 80048; 83735

== ENCOUNTER 2024-06-11 18:27 | Outpatient (REF) | payer OTHER, SELFPAY ==
[2024-06-11 17:37] LABS: Abs Immature Grans 0.03 10^3/uL (0.0-0.06); Absolute Basophil Count 0.08 10^3/uL (0.0-0.2); Absolute Eosinophil Count 0.13 10^3/uL (0.0-0.7); Absolute Monocyte Count 1.14 10^3/uL (0.1-0.8); Basophils % 0.8 %; Eosinophils % 1.2 %; HCT 34.4 % (36.0-46.0); HGB 11.2 g/dL (11.2-15.7); Immature Grans % 0.3 %; Lymphocytes % 32.1 %; MCH 32.7 pg (27.0-33.0); MCHC 32.6 % (32.0-36.0); MCV 101 fL (80-95); MPV 11.8 fL (8.0-11.0); Monocytes % 10.8 %; Neutrophils % 54.8 %; Platelet Count 215 10^3/uL (130-400); RBC 3.42 10^6/uL (3.93-5.22); RDW 11.8 % (11.7-14.6); RDW-SD 42.7 fL; WBC 10.58 10^3/uL (4.4-10.8)
[2024-06-11 18:28] LABS: ALT 28 U/L (14-59); AST 26 U/L (15-37); Albumin 3.3 g/dL (3.4-5.0); Alkaline Phosphatase 88 U/L (46-116); Anion Gap 6.7 mmol/L (3-11); BUN 21 mg/dL (7-18); Bilirubin, Total 0.25 mg/dL (0.2-1.0); CO2 33.3 mmol/L (21.0-32.0); CREATININE 1.7 mg/dL (0.55-1.02); Calcium 9.2 mg/dL (8.5-10.1); Chloride 100 mmol/L (98-107); Estimated GFR 29.02 (mL/min/1.73m2); FREE T4 0.96 ng/dL (0.76-1.46); Glucose 240 mg/dL (74-106); Potassium 3.9 mmol/L (3.5-5.1); Sodium 140 mmol/L (136-145); TSH 2.37 uIU/Ml (0.36-3.74); Total Protein 6.7 g/dL (6.4-8.2); Vitamin B12 1100 pg/mL (193-986); Vitamin D 25 Total 25.6 ng/mL (30-100)
[2024-06-11 19:46] LABS: Bilirubin Negative (Negative); Blood Negative (Negative); Clarity Clear (Clear); Glucose Negative (Negative); Ketones Negative (Negative); Leukocyte Esterase Negative (Negative); Nitrite Negative (Negative); Urobilinogen 0.2 mg/dL (Up to 0.2)
[2024-06-11 19:58] LABS: Bacteria Negative HPF (Negative); C & S Indicated? C&S Done As Ordered; Casts 0-2 Hyaline LPF (Negative); Crystals Negative HPF (Negative); Epithelial Cells Moderate HPF (Negative); Mucus Trace (Negative); RBC Negative HPF (0-2); WBC 0-2 HPF (0-5)
== END 2024-06-11 18:28 | disposition home or self-care (01) ==
LOC: LBN 18:27
PROVIDERS: PCP Nurse Practitioner Family; Visit Provider Family Medicine
DX: D64.9 Anemia, unspecified (principal); R41.81 Age-related cognitive decline; B96.89 Other specified bacterial agents as the cause of diseases classified elsewhere
CPT/HCPCS: 80053; 82306; 81003; 81015; 82607; 84439; 84443; 85025; 87086

== ENCOUNTER 2024-07-17 16:29 | Outpatient (REF) | payer OTHER, SELFPAY ==
[2024-07-17 16:56] LABS: Abs Immature Grans 0.02 10^3/uL (0.0-0.06); Absolute Basophil Count 0.07 10^3/uL (0.0-0.2); Absolute Eosinophil Count 0.22 10^3/uL (0.0-0.7); Absolute Lymphocyte Count 3.84 10^3/uL (1.2-3.4); Absolute Monocyte Count 1.11 10^3/uL (0.1-0.8); Absolute Neutrophil Count 5.42 10^3/uL (1.2-6.7); Basophils % 0.7 %; Eosinophils % 2.1 %; HCT 33.9 % (36.0-46.0); HGB 11.2 g/dL (11.2-15.7); Immature Grans % 0.2 %; MCH 32.9 pg (27.0-33.0); MCV 100 fL (80-95); MPV 11.6 fL (8.0-11.0); Monocytes % 10.4 %; Neutrophils % 50.6 %; Platelet Count 198 10^3/uL (130-400); RDW 12.5 % (11.7-14.6); RDW-SD 45.1 fL; WBC 10.68 10^3/uL (4.4-10.8)
[2024-07-17 17:14] LABS: Anion Gap 10.2 mmol/L (3-11); BUN 17 mg/dL (7-18); CO2 27.8 mmol/L (21.0-32.0); CREATININE 1.3 mg/dL (0.55-1.02); Calcium 8.7 mg/dL (8.5-10.1); Chloride 103 mmol/L (98-107); Estimated GFR 40.05 (mL/min/1.73m2); Ferritin 162 ng/mL (8-252); Glucose 245 mg/dL (74-106); Magnesium 2.2 mg/dL (1.8-2.4); Potassium 4.1 mmol/L (3.5-5.1); Sodium 141 mmol/L (136-145)
[2024-07-17 17:42] LABS: Iron 77 ug/dL (50-170); Total Iron Binding Capacity 238 ug/dL (250-450); Transferrin Sat 32 % (15-50)
== END 2024-07-17 16:30 | disposition home or self-care (01) ==
LOC: LBN 16:29
PROVIDERS: PCP Nurse Practitioner Family; Visit Provider Family Medicine
DX: N18.9 Chronic kidney disease, unspecified (principal)
CPT/HCPCS: 80048; 82728; 83540; 83550; 83735; 85025

== ENCOUNTER 2024-09-04 15:15 | Outpatient (REF) | payer OTHER, SELFPAY ==
[2024-09-04 18:30] LABS: Abs Immature Grans 0.04 10^3/uL (0.0-0.06); Absolute Basophil Count 0.05 10^3/uL (0.0-0.2); Absolute Eosinophil Count 0.27 10^3/uL (0.0-0.7); Absolute Lymphocyte Count 2.69 10^3/uL (1.2-3.4); Absolute Monocyte Count 1.05 10^3/uL (0.1-0.8); Absolute Neutrophil Count 4.58 10^3/uL (1.2-6.7); Basophils % 0.6 %; Eosinophils % 3.1 %; HCT 35.5 % (36.0-46.0); HGB 11.5 g/dL (11.2-15.7); Immature Grans % 0.5 %; MCH 33.5 pg (27.0-33.0); MCHC 32.4 % (32.0-36.0); MCV 104 fL (80-95); MPV 11.3 fL (8.0-11.0); Monocytes % 12.1 %; Neutrophils % 52.7 %; Platelet Count 253 10^3/uL (130-400); RBC 3.43 10^6/uL (3.93-5.22); RDW 12.5 % (11.7-14.6); RDW-SD 47.3 fL; WBC 8.68 10^3/uL (4.4-10.8)
[2024-09-04 19:01] LABS: Hemoglobin A1C 7.8 % (<5.7)
[2024-09-04 19:02] LABS: Anion Gap 7.3 mmol/L (3-11); BUN 22 mg/dL (7-18); CO2 29.7 mmol/L (21.0-32.0); CREATININE 1.5 mg/dL (0.55-1.02); Calcium 9.3 mg/dL (8.5-10.1); Chloride 103 mmol/L (98-107); Estimated GFR 33.73 (mL/min/1.73m2); Glucose 215 mg/dL (74-106); Magnesium 2.1 mg/dL (1.8-2.4); Potassium 4.5 mmol/L (3.5-5.1); Sodium 140 mmol/L (136-145); Vitamin B12 638 pg/mL (193-986); Vitamin D 25 Total 28.6 ng/mL (30-100)
== END 2024-09-04 15:16 | disposition home or self-care (01) ==
LOC: LBN 15:15
PROVIDERS: PCP Nurse Practitioner Family; Visit Provider Family Medicine
DX: E11.40 Type 2 diabetes mellitus with diabetic neuropathy, unspecified (principal); E87.6 Hypokalemia; E83.42 Hypomagnesemia; N18.9 Chronic kidney disease, unspecified; E78.5 Hyperlipidemia, unspecified
CPT/HCPCS: 80048; 82306; 82607; 83036; 83735; 85025

== ENCOUNTER → 2024-09-16 10:18 | Outpatient (BNVA) | payer OTHER, SELFPAY | PROVIDERS: PCP Nurse Practitioner Family; Referring Provider Family Medicine; Visit Provider Nurse Practitioner Adult Health | DX: G30.9 Alzheimer's disease, unspecified (principal); F01.50 Vascular dementia, unspecified severity, without behavioral disturbance, psychotic disturbance, mood disturbance, and anxiety; F02.80 Dementia in other diseases classified elsewhere, unspecified severity, without behavioral disturbance, psychotic disturbance, mood disturbance, and anxiety | CPT/HCPCS: 99215; G2212 ==

== ENCOUNTER 2024-10-17 22:18 | Outpatient (REF) | payer OTHER, SELFPAY ==
[2024-10-17 20:16] LABS: Abs Immature Grans 0.06 10^3/uL (0.0-0.06); HGB 12.6 g/dL (11.2-15.7); MCH 33.1 pg (27.0-33.0); MCHC 33.2 % (32.0-36.0); MCV 100 fL (80-95); MPV 12.3 fL (8.0-11.0); Platelet Count 209 10^3/uL (130-400); RBC 3.81 10^6/uL (3.93-5.22); RDW 11.8 % (11.7-14.6); RDW-SD 43.4 fL; WBC 16.58 10^3/uL (4.4-10.8)
[2024-10-17 20:34] LABS: Absolute Eosinophil Count 0.17 10^3/uL (0.0-0.7); Absolute Lymphocyte Count 3.15 10^3/uL (1.2-3.4); Absolute Monocyte Count 1.82 10^3/uL (0.1-0.8); Absolute Neutrophil Count 11.44 10^3/uL (1.2-6.7); Atypical Lymphocytes % 4 %; Diff Comment Manual Differential
[2024-10-17 20:43] LABS: Anion Gap 8.3 mmol/L (3-11); BUN 20 mg/dL (7-18); CO2 28.7 mmol/L (21.0-32.0); CREATININE 1.6 mg/dL (0.55-1.02); Calcium 9.6 mg/dL (8.5-10.1); Chloride 99 mmol/L (98-107); Estimated GFR 31.02 (mL/min/1.73m2); Glucose 299 mg/dL (74-106); Potassium 4.2 mmol/L (3.5-5.1); Sodium 136 mmol/L (136-145); TSH 3.15 uIU/mL (0.36-3.74); Vitamin B12 1308 pg/mL (193-986)
== END 2024-10-17 22:19 | disposition home or self-care (01) ==
LOC: LBN 22:18
PROVIDERS: PCP Nurse Practitioner Family; Visit Provider Family Medicine
DX: E11.40 Type 2 diabetes mellitus with diabetic neuropathy, unspecified (principal)
CPT/HCPCS: 80048; 82306; 82607; 83735; 84443; 85025

== ENCOUNTER 2024-11-06 22:12 | Outpatient (REF) | payer OTHER, SELFPAY ==
[2024-11-06 17:34] LABS: Bilirubin Negative (Negative); Blood Negative (Negative); Clarity Clear (Clear); Glucose >=1000 mg/dL (Negative); Ketones Negative (Negative); Leukocyte Esterase Negative (Negative); Nitrite Negative (Negative); Specific Gravity 1.025 (1.005-1.025); pH 5.5 (5-8)
[2024-11-06 17:37] LABS: Bacteria Rare HPF (Negative); C & S Indicated? C&S Done As Ordered; Casts Negative LPF (Negative); Crystals Negative HPF (Negative); Epithelial Cells Rare HPF (Negative); Mucus Negative (Negative); RBC 0-2 HPF (0-2)
== END 2024-11-06 22:13 | disposition home or self-care (01) ==
LOC: LBN 22:12
PROVIDERS: PCP Nurse Practitioner Family; Visit Provider Family Medicine Geriatric Medicine
DX: N18.9 Chronic kidney disease, unspecified (principal)
CPT/HCPCS: 87077; 81003; 81015; 87086; 87186

== ENCOUNTER 2024-11-24 18:38 | Outpatient (REF) | payer MEDICARE, MEDICAID, SELFPAY ==
[2024-11-24 16:01] LABS: HCT 33.8 % (36.0-46.0); HGB 11.3 g/dL (11.2-15.7); MCH 32.6 pg (27.0-33.0); MCHC 33.4 % (32.0-36.0); MCV 97 fL (80-95); Platelet Count 207 10^3/uL (130-400); RBC 3.47 10^6/uL (3.93-5.22); RDW 12.8 % (11.7-14.6); RDW-SD 45.1 fL; WBC 10.31 10^3/uL (4.4-10.8)
[2024-11-24 16:19] LABS: Hemoglobin A1C 10.3 % (<5.7)
[2024-11-24 16:57] LABS: Anion Gap 9.4 mmol/L (3-11); BUN 23 mg/dL (7-18); CO2 26.6 mmol/L (21.0-32.0); CREATININE 1.6 mg/dL (0.55-1.02); Chloride 105 mmol/L (98-107); Estimated GFR 31.02 (mL/min/1.73m2); Glucose 167 mg/dL (74-106); Magnesium 1.9 mg/dL (1.8-2.4); Potassium 4.1 mmol/L (3.5-5.1); Sodium 141 mmol/L (136-145); TSH 3.52 uIU/mL (0.36-3.74); Vitamin B12 468 pg/mL (193-986); Vitamin D 25 Total 28.4 ng/mL (30-100)
== END 2024-11-24 18:39 | disposition home or self-care (01) ==
LOC: LBN 18:38
PROVIDERS: PCP Nurse Practitioner Family; Visit Provider Family Medicine Geriatric Medicine
DX: E11.40 Type 2 diabetes mellitus with diabetic neuropathy, unspecified (principal); E78.5 Hyperlipidemia, unspecified
CPT/HCPCS: 80048; 82306; 85027; 82607; 83036; 83735; 84443

== ENCOUNTER 2025-05-29 10:24 | Emergency (ER) | payer MEDICARE, MEDICAID, SELFPAY ==
[2025-05-29] VITALS (28 sets, daily range): BP systolic 142–178; BP diastolic 57–83; PULSE 61–95; RESP 12–29; TEMP 37.1; O2SAT 88–97
--- NOTE | 2025-05-29 10:30 | DI.RAD_ITS ---
Exam(s) XR PELVIS AP EXAM: XR PELVIS AP CLINICAL HISTORY: pain, fall. TECHNIQUE: 2D digital imaging was performed. COMPARISON: CR XR HIP RT COMPLETE AP PELVIS from 09/03/2023 FINDINGS: Single AP view of the pelvis There is no evidence of acute pelvic fracture nor obvious hip fracture. There is a left hip prosthesis again noted. No right hip fracture evident. Bone density is age-appropriate. No osseous lesions IMPRESSION: No acute pelvic fracture evident. DATA REPOSITORY: RADIATION DOSE DELIVERED:
--- NOTE | 2025-05-29 10:30 | DI.RAD_ITS ---
Exam(s) XR FEMUR LT EXAM: XR FEMUR LT CLINICAL HISTORY: fall, pain. TECHNIQUE: 2D digital imaging was performed. COMPARISON: CR XR FEMUR LT from 08/09/2023 FINDINGS: 3 views There is a left hip prosthesis. No fracture or loosening evident. There is also no evidence of fracture lower down in the left femur. There is no left knee joint effusion evident. IMPRESSION: Intact left hip prosthesis. There are no fractures in the left femur. DATA REPOSITORY: RADIATION DOSE DELIVERED:
--- NOTE | 2025-05-29 10:30 | DI.CT_ITS ---
Exam(s) CT HEAD CERVICAL SPINE WO EXAM: CT HEAD CERVICAL SPINE WO CLINICAL HISTORY: fall, head trauma. TECHNIQUE: Imaging Protocol: Axial computed tomography images with coronal and sagittal reformatted images were created and reviewed COMPARISON: CT CT HEAD WO from 05/21/2024 FINDINGS: BRAIN: Right frontal craniotomy is again noted and appears stable. There are no skull fractures nor fluid in the visualized paranasal sinuses. There is a small amount of fluid in the lower right mastoid air cells which was not evident 1 year ago. Left mastoid air cells remain clear. There is no fluid in the middle ear cavities. There has been increased size of the left frontal infarct. There is now also a prominent area of encephalomalacia in the territory of the right middle cerebral artery which was not evident on CT scan of May 2024 and consistent with interval infarction in territory of the right middle cerebral artery. There is an acute left convexity subdural hematoma with thin subdural hematoma maximum thickness of 3-4 mm. On the opposite-right side there is a thicker extra-axial convexity subdural collection which is not acute, not exhibiting hyperdense blood but exhibiting thickness up to 5 mm. This was previously present 1 year ago but has slightly further increased in size. CERVICAL SPINE: No evidence of acute fracture. There is multilevel chronic disc space narrowing at C4-5, C5-6 and C6-7 levels. There is mild degenerative anterolisthesis of C3 upon C4, related to facet arthropathy. There is no facet joint malalignment. No significant osseous lesions. IMPRESSION: There is an acute thin left convexity subdural hematoma with maximum thickness 3-4 mm. No shift of midline structures.On the opposite side there is a slightly thicker subdural hygroma. There is no blood within the nondilated ventricular system. There is a large area of encephalomalacia in the territory of the right middle cerebral artery which was not evident on CT scan 1 year ago and indicates interval infarct in the territory of the right MCA. The left frontal infarct has slightly further increased in size and now exhibits encephalomalacia (no hemorrhage). There is also abundant bilateral periventricular hypodensity consistent with chronic small vessel disease. There is no evidence of infarct in the posterior fossa. Multilevel chronic degenerative changes in the cervical spine but no acute cervical spine fractures evident. Called by myself to ER physician 05/29/2025 at 11:55 a.m. RADIATION DOSE DELIVERED: 1,162.64mGy.cm Total DLP DATA REPOSITORY: All CT scans at this facility are submitted to the National Radiology Data Registry (NRDR) Dose Index Registry (DIR) with the [employer] (ACR). RADIATION OPTIMIZATION: All CT scans at this facility use at least one of these dose optimization techniques: automated exposure control; mA and/or kV adjustment per patient size (includes targeted exams where dose is matched to clinical indication); or iterative reconstruction.
--- NOTE | 2025-05-29 10:43 | ED.GENADUL_ITS ---
Discharge Plan Disposition Patient Disposition: Longterm Facility(SNF) Condition: Serious Discharge Details Clinical Impression: Acute subdural hematoma, Fall, Contusion of hip, left Primary Care Provider: Pina Huff ED Provider: Mehran Collins [place] Meds and New Rx's Prescriptions: New levetiracetam [Keppra] 500 mg tablet 500 mg PO BID Qty: 28 0RF Continued fluoxetine 20 mg capsule 20 mg PO DAILY Qty: 90 3RF Januvia 50 mg tablet 50 mg PO DAILY Qty: 30 11RF Rx Instructions: Dose adjusted for kidney function glucagon 1 mg recon soln 1 mg subcut Q20M PRN Rx Instructions: until target blood sugar attained olanzapine 2.5 mg tablet 2.5 mg PO QHS ondansetron HCl 4 mg tablet 4 mg PO Q8H PRN polyethylene glycol 3350 17 gram/dose powder 17 g PO DAILY PRN (Reason: constipation) Qty: 238 0RF levothyroxine 25 mcg tablet 25 mcg PO DAILY Qty: 90 3RF Rx Instructions: Administer in the morning on an empty stomach, at least 30-60 minutes before food (DME) lancets Misc See Dose Instructions .ROUTE .MEDSUPPLY Qty: 200 3RF Dose Instruction: As directed to check daily morning fasting blood glucose Rx Instructions: As directed to check twice daily blood glucose. No insulin. Dispense covered brand. (DME) blood-glucose meter Kit See Rx Instructions .ROUTE .MEDSUPPLY Qty: 1 2RF Rx Instructions: Check blood sugar once a day multivitamin [Daily Multi-Vitamin] 1 EACH tablet 1 ea PO DAILY (DME) Blood Glucose Test Strip See Dose Instructions .ROUTE .MEDSUPPLY Qty: 100 3RF Dose Instruction: As directed to check daily morning fasting blood glucose. No insulin. Rx Instructions: Once daily. No insulin. Dispense covered brand. hydrochlorothiazide 12.5 mg tablet 12.5 mg PO DAILY Qty: 90 3RF docusate sodium [Colace] 100 mg Capsule 100 mg PO TID PRN PRNQty: 90 0RF metoprolol tartrate 25 mg Tablet 12.5 mg PO BID Qty: 60 0RF Discontinued clopidogrel 75 mg Tablet 75 mg PO DAILY Qty: 30 0RF No Action acetaminophen 650 mg tablet extended release 650 mg PO Q12H Qty: 60 2RF Rx Instructions: pain pt transitioning to hospice morphine concentrate 100 mg/5 mL (20 mg/mL) solution 5 - 20 mg PO Q1-4H MDD 24 mL PRN (Reason: moderate to severe pain or shortness of breath) Qty: 30 0RF Rx Instructions: morphine 5mg for mild pain or dyspnea morphine 10mg for moderate pain or moderate dyspnea morphine 20mg for severe pain plan to transition to hospice lorazepam 0.5 mg tablet 0.5 mg PO BID PRN (Reason: anxiety) Qty: 6 1RF Rx Instructions: transitioning to hospice morphine concentrate 100 mg/5 mL (20 mg/mL) solution See Rx Instructions PO Q1H PRN MDD 15 ml Qty: 15 0RF Rx Instructions: for mild symptoms, 0.25 ml for moderate symptoms, 0.5 ml for severe symptoms, 1.0 ml lorazepam 1 mg tablet 1 mg PO Q4H PRN (Reason: anxiety) Qty: 6 5RF Rx Instructions: hospice fentanyl 12 mcg/hr patch 72 hour 1 patch transdermal Q72H MDD 1 patch Qty: 5 0RF Rx Instructions: hospice patient - please administer anti-emetic medication on placement Discharge Instructions Additional Instructions: CT imaging today revealed a subdural hematoma. You have elected to not pursue aggressive treatment and would like to de-escalate care. Please follow-up with palliative/hospice services. Please follow-up with your primary care physician. Return to the emergency department immediately for any worsening or new concerning symptoms should you wish to pursue further treatment. Referrals: Pina Huff [Primary Care Provider, Medicine] Discharge Data Discharge Date/Time-TO BE ENTERED AT DEPARTURE: 05/29/25 14:48 HPI General Mode of arrival: EMS . Date/Time Provider Initiated Documentation: 05/29/25 10:32 . Limitations to Documentation: altered mental status . Information obtained by: EMS . HPI Narrative: HISTORY OF PRESENT ILLNESS 89-year-old female from rehab facility due to unwitnessed fall today. Sustained head trauma, on Plavix. Complains of left hip and femur pain. History and ROS limited due to dementia. History of left hip fracture and prosthesis. Related Data Home Medications ?Medication ?Instructions ?Recorded ?Confirmed multivitamin (Daily Multi-Vitamin 1 ea PO DAILY 05/29/25 tablet) polyethylene glycol 3350 17 17 g PO DAILY PRN constipa tion 03/13/23 05/29/25 gram/dose oral powder #238 grams blood-glucose meter #1 ea 11/26/23 05/29/25 lancets #200 ea 11/26/23 05/29/25 levothyroxine 25 mcg tablet 25 mcg PO DAILY #90 tab-ca ps 11/26/23 05/29/25 fluoxetine 20 mg capsule 20 mg PO DAILY #90 caps 12/1305/29/25 sitagliptin phosphate 50 mg tablet 50 mg PO DAILY #30 tabs 12/28/23 05/29/25 (Januvia) blood sugar diagnostic (Blood #100 ea 03/17/24 5 Glucose Test strips) hydrochlorothiazide 12.5 mg tablet 12.5 mg PO DAILY #9 0 tabs 04/11/24 05/29/25 docusate sodium 100 mg capsule 100 mg PO TID PRN PRN # 90 caps 05/22/24 05/29/25 (Colace) metoprolol tartrate 25 mg tablet 12.5 mg (1/2 x 25 mg) PO BID #60 05/22/24 05/29/25 tabs glucagon 1 mg solution for 1 mg subcut Q20M PRN 05/29/25 injection olanzapine 2.5 mg tablet 2.5 mg PO QHS 01/22/2505/29 ondansetron HCl 4 mg tablet 4 mg PO Q8H PRN 01/22/25 0 05/29/25 acetaminophen 650 mg 650 mg PO Q12H #60 tabs 05/1205/29/25 tablet,extended release levetiracetam 500 mg tablet 500 mg PO BID #28 tabs 05/29/25 (Keppra) lorazepam 0.5 mg tablet 0.5 mg PO BID PRN anxiety #6 tabs 05/29/25 05/29/25 morphine concentrate 100 mg/5 mL 5 - 20 mg (0.25 - 1 m L) PO Q1-4H 05/29/25 05/29/25 (20 mg/mL) oral solution PRN moderate to severe pain or shortness of breath #30 mL lorazepam 1 mg tablet 1 mg PO Q4H PRN anxiety #6 t abs 06/02/25 morphine concentrate 100 mg/5 mL See Rx Instructions P O Q1H PRN 06/02/25 (20 mg/mL) oral solution pain or dyspnea #15 mL fentanyl 12 mcg/hr transdermal 1 patch transdermal Q72 H #5 ea 06/08/25 patch Previous Rx's ?Medication ?Instructions ?Recorded polyethylene glycol 3350 17 17 g PO DAILY PRN constipa tion 03/13/23 gram/dose oral powder #238 grams blood-glucose meter #1 ea 11/26/23 lancets #200 ea 11/26/23 levothyroxine 25 mcg tablet 25 mcg PO DAILY #90 tab-ca ps 11/26/23 fluoxetine 20 mg capsule 20 mg PO DAILY #90 caps 12/13 05/05 sitagliptin phosphate 50 mg tablet 50 mg PO DAILY #30 tabs 12/28/23 (Januvia) blood sugar diagnostic (Blood #100 ea 03/17/24 Glucose Test strips) hydrochlorothiazide 12.5 mg tablet 12.5 mg PO DAILY #9 0 tabs 04/11/24 docusate sodium 100 mg capsule 100 mg PO TID PRN PRN # 90 caps 05/22/24 (Colace) metoprolol tartrate 25 mg tablet 12.5 mg (1/2 x 25 mg) PO BID #60 05/22/24 tabs acetaminophen 650 mg 650 mg PO Q12H #60 tabs 05/12 07/06 tablet,extended release levetiracetam 500 mg tablet 500 mg PO BID #28 tabs (Keppra) lorazepam 0.5 mg tablet 0.5 mg PO BID PRN anxiety #6 tabs 05/29/25 morphine concentrate 100 mg/5 mL 5 - 20 mg (0.25 - 1 m L) PO Q1-4H 05/29/25 (20 mg/mL) oral solution PRN moderate to severe pain or shortness of breath #30 mL lorazepam 1 mg tablet 1 mg PO Q4H PRN anxiety #6 t abs 06/02/25 morphine concentrate 100 mg/5 mL See Rx Instructions P O Q1H PRN 06/02/25 (20 mg/mL) oral solution pain or dyspnea #15 mL fentanyl 12 mcg/hr transdermal 1 patch transdermal Q72 H #5 ea 06/08/25 patch Allergies Allergy/AdvReac Type Severity Reaction Status Date / Time fentanyl AdvReac Intermediate vomiting Verified 05/29/25 14:47 azithromycin AdvReac Unknown nausea Verified 05/29/25 10:40 erythromycin base AdvReac Unknown Nausea Verified 05/29/25 10:40 shellfish derived AdvReac Unknown N/V/D Verified 05/29/25 10:40 Tetracyclines AdvReac Unknown Nausea Verified 05/29/25 10:40 NATALIIA Inhibitors AdvReac Other (See Verified 05/29/25 10:40 Comment) General Stated Complaint: Fall/Non TraumaCriteria SAM: 3 Review of Systems Musculoskeletal Musculoskeletal: Reports as per HPI Exam Const General: cooperative and no acute distress HENMT Head: normocephalic and atraumatic Mouth: moist mucous membranes Eyes Conjunctivae: normal conjunctivae Neck Neck: trachea midline and supple Resp Auscultation: clear to auscultation bilaterally, no rales, no rhonchi and no wheezes Cardio Rate: regular rate and not tachycardic Rhythm: regular rhythm GI Palpation: soft, not firm, no guarding, no masses, not rigid and nontender Neuro General: patient alert, patient awake and tone normal Cognition: abnormal cognition Speech: speech normal Extrem General: no edema Left lower extremity: hip/thigh Details: tenderness Location: of the hip Location: laterally and of the proximal upper leg Location: laterally Course Vital Signs Vital signs: Vital Signs Temperature 37.1 C 05/29/25 10:15 Pulse 94 H 05/29/25 10:15 Respiratory Rate 20 05/29/25 10:15 Blood Pressure 178/65 H 05/29/25 10:15 Pulse Oximetry 97 05/29/25 10:15 Temperature 37.1 C 05/29/25 10:15 Temperature Source Oral 05/29/25 10:15 Pulse 94 H 05/29/25 10:15 Respiratory Rate 20 05/29/25 10:15 Blood Pressure 178/65 H 05/29/25 10:15 Blood Pressure Position Supine 05/29/25 10:15 Pulse Oximetry 97 05/29/25 10:15 Oxygen Delivery Method Room Air 05/29/25 10:15 Oxygen Flow Rate 0 05/29/25 10:15 Pain Level 10 05/29/25 10:15 Medical Decision Making ASSESSMENT AND PLAN Initial Assessment: 89-year-old female sent from rehab facility with unwitnessed fall today. Patient sustained head trauma and is on Plavix. Complaining of left hip and femur pain. History and review of systems limited secondary to dementia. History of left hip fracture and prosthesis. Hypertensive on arrival, 178/65. ED Course: - CT head to assess for acute intracranial traumatic hemorrhage - CT cervical spine to assess for fracture - X-rays of left hip and femur to assess for fracture - CT head and cervical spine interpreted by radiology: There is an acute thin left convexity subdural hematoma with maximum thickness 3-4 mm. No shift of midline structures.On the opposite side there is a slightly thicker subdural hygroma. There is no blood within the nondilated ventricular system. There is a large area of encephalomalacia in the territory of the right middle cerebral artery which was not evident on CT scan 1 year ago and indicates interval infarct in the territory of the right MCA. The left frontal infarct has slightly further increased in size and now exhibits encephalomalacia (no hemorrhage) There is also abundant bilateral periventricular hypodensity consistent with ch ronic small vessel disease. There is no evidence of infarct in the posterior fossa. Multilevel chronic degenerative changes in the cervical spine but no acute cervical spine fractures evident. - Femur x-ray interpreted by radiology: Intact left hip prosthesis. There are no fractures in the left femur. - Pelvis x-ray interpreted by radiology: No acute pelvic fracture evident. I called [facility] neurosurgery and discussed case with neurosurgeon on-call. He recommends Keppra loading and continued dosing 500 twice daily over the next 2 weeks. He recommends systolic blood pressure less than 160. He recommends repeat head CT in 6 hours and if subdural hematoma stable, follow-up in clinic versus if worsening further discussion and potential transfer. All results were discussed with the patient's DPOA, daughter. She would like to withdraw care and respect patient's wishes as noted on COLST form to include no invasive interventions. She is agreeable to Keppra IV and then would prefer transfer back to nursing facility. She understands that condition may be life- threatening and she would like to pursue palliative/hospice services. Patient was seen by cad application support specialist JESSICA Armijo who will help in transition to outpatient program. Final Assessment: Patient evaluated for head trauma and potential hip fractures following an unwitnessed fall. Diagnostic imaging ordered to assess for intracranial hemorrhage and fractures. Clinical Impression: - Unwitnessed fall with head trauma - Subdural hematoma - Left hip and femur contusion - Chronic CVA MDM Components Evaluation: - Number of Differential Diagnoses or Management Options: Intracranial traumatic hemorrhage, cervical spine fracture, left hip fracture, femur fracture - Amount and Complexity of Data Reviewed: CT head, CT cervical spine, X-rays of left hip and femur - Risk of Complication and Morbidity or Mortality: Elevated due to head trauma, anticoagulant use (Plavix), and history of hip fracture and prosthesis This document was written with the assistance of YAEL Banks. The patient consented to its use. Critical Care Time Critical Care Time Critical Care Time: Yes Total Critical Care Time: 40 Attestation: Due to a high probability of clinically significant, life threatening deterioration, the patient required my highest level of preparedness to intervene emergently and I personally spent this critical care time directly and personally managing the patient. This critical care time included obtaining a history; examining the patient; pulse oximetry; ordering and review of studies; arranging urgent treatment with development of a management plan; evaluation of patient's response to treatment; frequent reassessment; and, discussions with other providers. This critical care time was performed to assess and manage the high probability of imminent, life-threatening deterioration that could result in multi-organ failure. It was exclusive of separately billable procedures and treating other patients and teaching time. This time was spent prior to determination of plan to de-escalate care. Please see MDM section and the rest of the note for further information on patient assessment and treatment. PFSH All Active Problems (Updated 06/02/25 @ 11:41 by Keila Graves MD) Hospice care patient (Acute) Encounter for hospice care discussion (Acute) Comfort measures only status (Acute) ACP (advance care planning) (Acute) Contusion of hip, left (Acute) Fall (Acute) Acute subdural hematoma (Acute) Palliative care status (Acute) DNR (do not resuscitate) (Acute) 01/22/2025 DNR/DNI, +transfer adn treat, +IV and fluids, no feeding tube. History of stroke in adulthood (Acute) Mixed Alzheimer's and vascular dementia (Acute) Alzheimer dementia (Acute) Vascular dementia (Acute) Acute CVA (cerebrovascular accident) (Acute) HTN (hypertension) (Chronic) CVA (cerebral vascular accident) (Acute) Restrictive lung disease (Chronic) Left displaced femoral neck fracture (Acute 08/09/23) s/p Left hip hemiarthroplasty 08/10/23 Anxiety (Chronic 11/21/11) Diabetic neuropathy, type II diabetes mellitus (Chronic 08/12/14) Gastroesophageal reflux disease (Chronic 11/21/11) Heart murmur (Chronic 08/24/17) 09/12/2017 echo: no significant valvular disease Hyperlipidemia (Chronic 11/21/11) Hypomagnesemia (Chronic 03/14/18) Osteoporosis (Chronic 07/12/16) DEXA 07/11/16 Hip T-3.2, Spine T-1.5, forearm T-3.5 Other diseases of lung, not elsewhere classified (Chronic 11/21/11) rt 4mm ct stable 08/17; restrictive lung disease, neuromuscular weakness etiol? Dr Patel follows PFTs 08/2013 restrictive 47% NM weakness + response BD Other disorders of Eustachian tube (Chronic 09/07/14) Unspecified essential hypertension (Chronic 01/31/13) Hyperkalemia with NATALIIA-I --> AVOID Macrocytic anemia (Chronic) Borderline low B12 level, normal Epo (suggesting due to CKD as well); 06/16/2019 [facility] Hematology consult: multifactorial & recommended iron supplement CKD (chronic kidney disease) (Chronic) Hypothyroidism (Chronic) Cognitive complaints (Chronic) 09/22/2021 MOCA: = NORMAL; monitor Breast mass, left (Acute) Onychomycosis (Acute) Tinea pedis (Acute) Decreased hearing (Acute) Frequent falls (Acute) Medical History Abnormal weight loss Hx of falling Vitamin D deficiency Fracture Age related osteoporosis Nutritional anemia Abnormality of gait and mobility Muscle weakness Other symbolic dysfunctions Age-related cognitive decline Generalized anxiety disorder History of depression Mild cognitive impairment, so stated Disorder of lung Type 2 diabetes mellitus Dysphagia, oropharyngeal phase Cerebral infarction Closed fracture of right proximal humerus (09/03/23) Elevated procalcitonin Insulin dependent type 2 diabetes mellitus Microalbuminuria due to type 2 diabetes mellitus Type 2 diabetes mellitus with diabetic neuropathy, without long-term current use of insulin Vomiting and diarrhea Sepsis Shingles Neoplasm of skin (08/26/14) Closed nondisplaced comminuted fracture of shaft of left humerus (05/26/16) Cerebral meningioma (01/31/13) 2004 Craniotomy, resection of frontal mennigioma [facility] Pneumonia Surgical History Presence of left artificial hip joint irrigation and debridement (10/05/15) R june Hand Family History Mother , 76 Personal history of malignant neoplasm breast and ovarian CA Breast cancer Ovarian cancer Father , 83 Myocardial infarction Heart disease Sister , 55 Lymphoma Ovarian cancer Brother , 63 Heart disease Son No problems noted. Son Heart disease Daughter No problems noted. Social History Smoking/Tobacco Use Status: Never Second Hand Exposure: Yes Smoking risk assessment performed?: Yes Alcohol Intake: never Drug use: Never Substance use type: does not use Caregiver/Support person: Yes Household members: none Housing: apartment Number of Children: 3 number of grandchildren: 5 Do you need help understanding health information?: Never Pets and animals: No Sexually active: No Do you think of yourself as: straight/heterosexual Current gender identity: female What is your relationship status?: How often do you talk on the phone with friends or family?: three or more times per week How often do you get together with friends or relatives?: three or more times per week How often do you attend mormonism or jew services?: 1-3 times per year Do you belong to any clubs or organized social groups?: no Panel score (0-1 are the most socially isolated patients): 1 What type of physical activity do you participate in: none Frequency: does not exercise Stacey/Caodaism: Rastafarian Special stacey needs: Yes Seatbelt use: always Drive intox or ride w/intox powder truck driver: No Do you feel safe at home: Yes Do you feel safe in your relationship?: Yes Additional Social history: pt living at home - was at rehab for a broken hip.
[2025-05-29] MEDS: Metoprolol 25 MG TAB PO (13:05)
[2025-05-29] MEDS: levETIRAcetam 1,000 MG in Normal Saline 100 ML 400 MG IVPB (13:21)
[2025-05-29] MEDS: ACETAMINOPHEN 500 MG/50 ML BAG 200 MG IVPB (13:42)
== END 2025-05-29 14:48 | disposition skilled nursing facility (03) ==
PROVIDERS: Emergency Provider Student in an Organized Health Care Education/Training Program; PCP Family Medicine Geriatric Medicine
DX: S06.5X0A Traumatic subdural hemorrhage without loss of consciousness, initial encounter (principal); G96.00 Cerebrospinal fluid leak, unspecified; S70.02XA Contusion of left hip, initial encounter; E11.40 Type 2 diabetes mellitus with diabetic neuropathy, unspecified; E78.5 Hyperlipidemia, unspecified; G30.9 Alzheimer's disease, unspecified; F02.80 Dementia in other diseases classified elsewhere, unspecified severity, without behavioral disturbance, psychotic disturbance, mood disturbance, and anxiety; F01.50 Vascular dementia, unspecified severity, without behavioral disturbance, psychotic disturbance, mood disturbance, and anxiety; I10 Essential (primary) hypertension; Z86.73 Personal history of transient ischemic attack (TIA), and cerebral infarction without residual deficits; Z79.02 Long term (current) use of antithrombotics/antiplatelets; Z96.642 Presence of left artificial hip joint; W06.XXXA Fall from bed, initial encounter; Y93.89 Activity, other specified; Y92.092 Bedroom in other non-institutional residence as the place of occurrence of the external cause
CPT/HCPCS: 73552; 80053; 82962; 96374; 96375; 99284; 70450; 72125; 72170; 85025; 85610; J0131; J1953

== ENCOUNTER 2025-09-21 16:51 | Outpatient (REF) | payer MEDICARE, SELFPAY ==
[2025-09-21 19:46] LABS: COVID-19 PCR Negative (Negative); RSV PCR Negative (Negative)
== END 2025-09-21 16:52 | disposition home or self-care (01) ==
LOC: LBN 16:51
PROVIDERS: PCP Family Medicine Geriatric Medicine; Visit Provider Nurse Practitioner Adult Health
DX: J06.9 Acute upper respiratory infection, unspecified (principal)
CPT/HCPCS: 87637